=== PATIENT | male | born 1955 | race Caucasian/White ===

== ENCOUNTER → 2025-01-15 | Outpatient (CLI) | payer MEDICARE, BC, SELFPAY ==
[2025-01-15 10:39] LABS: Basophils # (Auto) 0.1 Thou/mm3 (0.0-0.2); Basophils % (Auto) 1 % (0-2.5); Eosinophils # (Auto) 0.2 Thou/mm3 (0.0-0.5); Eosinophils % (Auto) 2 % (0-10); Hematocrit 35.2 % (41.0-53.0); Immature Granulocytes % (Auto) 0 % (0-0); Immature Granulocytes Auto 0.02 Thou/mm3 (0.00-0.00); Lymphocytes # (Auto) 3.3 Thou/mm3 (1.0-4.8); Lymphocytes % (Auto) 34 % (10-50); Mean Corpuscular HGB Conc 31.3 g/dl (31.0-37.0); Mean Corpuscular Hemoglobin 25.7 pg (25.0-35.0); Mean Corpuscular Volume 82 fL (80-100); Monocytes # (Auto) 0.6 Thou/mm3 (0.0-0.8); Monocytes % (Auto) 6 % (0-12); Neutrophils # (Auto) 5.6 Thou/mm3 (1.8-7.7); Neutrophils % (Auto) 57 % (37-80); Nucleated Red Blood Cell % 0 /100 WBC (0); Platelet Count 329 Thou/mm3 (140-440); RDW Standard Deviation 55.6 fL (35.1-43.9); Red Blood Count 4.28 Miln/mm3 (4.50-5.90); White Blood Count 9.8 Thou/mm3 (3.8-10.6)
[2025-01-15 10:50] LABS: Iron 23 mcg/dL (65-175); Total Iron Binding Capacity 444 mcg/dL (250-425)
[2025-01-15 10:58] LABS: Alanine Aminotransferase 21 U/L (10-49); Albumin, Serum 4.2 gm/dL (3.4-4.8); Albumin/Globulin Ratio 2.3 (1.2-2.2); Alkaline Phosphatase 103 U/L (46-116); Anion Gap 10 (7-16); Aspartate Amino Transferase 22 U/L (0-34); BUN/Creatinine Ratio 14 Ratio (12-20); Bilirubin,Total 0.5 mg/dL (0.3-1.2); Blood Urea Nitrogen 14 mg/dL (9-23); Carbon Dioxide 23.4 mMol/L (20.0-31.0); Cardiac Risk Estimate 2.3 RATIO (4.0-6.7); Chloride 109 mMol/L (98-107); Cholesterol 100 mg/dL (132-200); Globulin 1.8 gm/dL (2.3-3.5); Glucose 116 mg/dL (74-106); HDL Cholesterol 44 mg/dL (40-60); LDL Cholesterol,Calculated 47 mg/dL (0-130); Osmolality,Calculated 284 (275-295); Potassium 4.4 mMol/L (3.4-5.1); Sodium 142 mMol/L (136-145); Thyroid Stimulating Hormone 2.48 uIU/mL (0.55-4.78); Triglycerides 45 mg/dL (30-150); eGFR > 60 See Note
== END | disposition home or self-care (01) ==
LOC: COPL 09:33
PROVIDERS: PCP Family Medicine; Referring Provider Family Medicine; Visit Provider Family Medicine
DX: M06.89 Other specified rheumatoid arthritis, multiple sites (principal); E11.65 Type 2 diabetes mellitus with hyperglycemia; I10 Essential (primary) hypertension; E66.01 Morbid (severe) obesity due to excess calories
CPT/HCPCS: 36415; 80053; 80061; 83540; 83550; 84443; 85025

== ENCOUNTER → 2025-03-09 | Outpatient (CLI) | payer MEDICARE, BC, SELFPAY ==
[2025-03-09 10:59] LABS: Thyroid Stimulating Hormone 2.27 uIU/mL (0.55-4.78)
[2025-03-15 07:11] LABS: ANA Screen, IFA POSITIVE (NEGATIVE)
== END | disposition home or self-care (01) ==
LOC: COPL 09:59
PROVIDERS: PCP Family Medicine; Referring Provider Specialist; Visit Provider Specialist
DX: R10.13 Epigastric pain (principal); R13.10 Dysphagia, unspecified
CPT/HCPCS: 36415; 84443; 86038

== ENCOUNTER 2025-04-02 06:50 | Day surgery (SDC) | payer MEDICARE, BC, SELFPAY ==
[2025-04-02 07:50] VITALS: BP 127/80; PULSE 94; RESP 20; TEMP 36.2; O2SAT 94
[2025-04-02 07:57] VITALS: BMI 36.8
[2025-04-02 08:46] LABS: Alanine Aminotransferase 11 U/L (10-49); Albumin, Serum 4.1 gm/dL (3.4-4.8); Albumin/Globulin Ratio 2.1 (1.2-2.2); Alkaline Phosphatase 181 U/L (46-116); Anion Gap 13 (7-16); Aspartate Amino Transferase 22 U/L (0-34); BUN/Creatinine Ratio 17 Ratio (12-20); Bilirubin,Total 0.9 mg/dL (0.3-1.2); Blood Urea Nitrogen 25 mg/dL (9-23); Calcium 8.9 mg/dL (8.3-10.6); Calcium (Corrected) 8.9 mg/dL (8.5-10.1); Carbon Dioxide 22.7 mMol/L (20.0-31.0); Chloride 104 mMol/L (98-107); Creatinine (Component) 1.5 mg/dL (0.6-1.3); Estimated Creatinine Clearance 58.6 mL/min (>60); Glucose 124 mg/dL (74-106); Osmolality,Calculated 284 (275-295); Potassium 4.2 mMol/L (3.4-5.1); Sodium 140 mMol/L (136-145); Total Protein 6.1 gm/dL (5.7-8.2); eGFR 50 See Note
[2025-04-02] MEDS: RINGERS LACTATED 1000 ML 1,000 ML 20 ML IV (09:05)
[2025-04-02 09:25] VITALS: BP 96/58; PULSE 85; RESP 24; TEMP 37.6; O2SAT 94
[2025-04-02 09:35] VITALS: BP 91/53; PULSE 86; RESP 29; O2SAT 96
[2025-04-02 09:45] VITALS: BP 98/53; PULSE 88; RESP 22; O2SAT 91
[2025-04-02 09:55] VITALS: BP 100/60; PULSE 87; RESP 23; O2SAT 93
== END 2025-04-02 10:20 | disposition home or self-care (01) ==
PROVIDERS: Anesthesiology; PCP Family Medicine; Referring Provider Specialist; Visit Provider Specialist
PROC: (CPT 43239; principal; 2025-04-02 08:30)
DX: C15.5 Malignant neoplasm of lower third of esophagus (principal); K29.70 Gastritis, unspecified, without bleeding; E11.9 Type 2 diabetes mellitus without complications; G20.A1 Parkinson's disease without dyskinesia, without mention of fluctuations; F02.80 Dementia in other diseases classified elsewhere, unspecified severity, without behavioral disturbance, psychotic disturbance, mood disturbance, and anxiety; Z79.84 Long term (current) use of oral hypoglycemic drugs; Z79.899 Other long term (current) drug therapy; Z01.810 Encounter for preprocedural cardiovascular examination
CPT/HCPCS: 43239; 36415; 80053; 88360; J7120

== ENCOUNTER → 2025-04-08 | Outpatient (CLI) | payer MEDICARE, BC, SELFPAY ==
--- NOTE | 2025-04-08 12:39 | XR_ITS ---
Examination: CT chest with intravenous contrast CT abdomen with intravenous contrast CT pelvis with intravenous contrast 2-D coronal and sagittal reconstructions Time of exam: April 08, 2025 1435 hours Comparison September 08, 2018 INDICATIONS: Diagnosis esophageal carcinoma 20 pound weight loss 1 month, difficulty swallowing CTDI: vol (mGy) : 27.5 DLP: (mGycm): 1367 Technique: Multiple axial images of the chest, abdomen and pelvis with intravenous contrast, 3.0 mm slice thickness. Images obtained post intravenous injection Isovue 30 cc Isovue-300 2-D sagittal and coronal reconstructions. Low dose protocols were performed. One or more of the following dose reduction techniques were used; automated exposure control, adjustment of the mA and/or KV according to patient size, use of iterative reconstruction technique. Findings: No thoracic cardiac aneurysm dilatation Pulmonary artery segments are not enlarged Thickened lower wall of the esophagus No mediastinal lymphadenopathy 4 mm pulmonary nodule right lower lobe image 261 No pneumonia or pulmonary edema 12 mm lymph node adjacent to the descending thoracic aorta image 128 No visualized liver or splenic lesion Absent gallbladder No pancreatic mass Lymph nodes in the anterior mesentery, 10 mm 8 mm 12 mm image 167 Multiple additional lower anterior to the aorta lymph nodes, the largest measuring 14 mm Lower left lateral periaortic lymphadenopathy, the largest lymph nodes 20 mm, 28 mm Bilateral common iliac lymphadenopathy, the largest lymph nodes on the right measuring up to 10 mm No bowel obstruction Contracted urinary bladder No significant prostatomegaly Prominent osteopenia IMPRESSION: 4 mm pulmonary nodule right lower lobe Thickened lower wall of the esophagus Lymphadenopathy adjacent to the descending thoracic aorta Extensive abdominal pelvic and mesenteric lymphadenopathy Consider PET CT scan follow-up
== END | disposition home or self-care (01) ==
PROVIDERS: PCP Specialist; Referring Provider Specialist; Visit Provider Specialist
DX: R91.1 Solitary pulmonary nodule (principal); R59.1 Generalized enlarged lymph nodes; K22.89 Other specified disease of esophagus; C15.9 Malignant neoplasm of esophagus, unspecified
CPT/HCPCS: 71260; 74177; A4649; Q9967

== ENCOUNTER → 2025-04-08 | Outpatient (CLI) | payer MEDICARE, BC, SELFPAY ==
[2025-04-08 12:21] LABS: Basophils # (Auto) 0.1 Thou/mm3 (0.0-0.2); Basophils % (Auto) 1 % (0-2.5); Eosinophils # (Auto) 0.6 Thou/mm3 (0.0-0.5); Eosinophils % (Auto) 6 % (0-10); Hematocrit 34.3 % (41.0-53.0); Hemoglobin 11.5 g/dL (13.5-16.0); Immature Granulocytes % (Auto) 1 % (0-0); Immature Granulocytes Auto 0.14 Thou/mm3 (0.00-0.00); Lymphocytes # (Auto) 2.1 Thou/mm3 (1.0-4.8); Lymphocytes % (Auto) 21 % (10-50); Mean Corpuscular HGB Conc 33.5 g/dl (31.0-37.0); Mean Corpuscular Hemoglobin 26.1 pg (25.0-35.0); Mean Corpuscular Volume 78 fL (80-100); Monocytes # (Auto) 0.9 Thou/mm3 (0.0-0.8); Monocytes % (Auto) 9 % (0-12); Neutrophils # (Auto) 6.5 Thou/mm3 (1.8-7.7); Neutrophils % (Auto) 63 % (37-80); Nucleated Red Blood Cell % 0 /100 WBC (0); Platelet Count 319 Thou/mm3 (140-440); RDW Standard Deviation 55.5 fL (35.1-43.9); White Blood Count 10.3 Thou/mm3 (3.8-10.6)
[2025-04-08 12:40] LABS: Alanine Aminotransferase 19 U/L (10-49); Albumin, Serum 4.3 gm/dL (3.4-4.8); Alkaline Phosphatase 192 U/L (46-116); Anion Gap 14 (7-16); Aspartate Amino Transferase 28 U/L (0-34); BUN/Creatinine Ratio 18 Ratio (12-20); Bilirubin,Total 0.7 mg/dL (0.3-1.2); Blood Urea Nitrogen 33 mg/dL (9-23); Calcium 9.4 mg/dL (8.3-10.6); Calcium (Corrected) 9.4 mg/dL (8.5-10.1); Chloride 104 mMol/L (98-107); Creatinine (Component) 1.8 mg/dL (0.6-1.3); Globulin 2.2 gm/dL (2.3-3.5); Glucose 103 mg/dL (74-106); Osmolality,Calculated 292 (275-295); Sodium 143 mMol/L (136-145); Total Protein 6.5 gm/dL (5.7-8.2); eGFR 40 See Note
== END | disposition home or self-care (01) ==
PROVIDERS: PCP Family Medicine; Referring Provider Specialist; Visit Provider Specialist
DX: C15.9 Malignant neoplasm of esophagus, unspecified (principal)
CPT/HCPCS: 36415; 80053; 85025

== ENCOUNTER 2025-04-09 07:05 | Day surgery (SDC) | payer MEDICARE, BC, SELFPAY ==
[2025-04-09] VITALS (14 sets, daily range): BP systolic 101–134; BP diastolic 64–88; PULSE 80–100; RESP 19–29; TEMP 36.5–36.8; O2SAT 93–97; BMI 35.9
[2025-04-09] MEDS: SODIUM CHLORIDE 0.9% 500 ML 500 ML 20 ML IV (09:25)
[2025-04-09] MEDS: fentaNYL CIT INJ 50 mCg/ML AMP 2ML (ASD USE ONLY) IVP (09:26)
[2025-04-09] MEDS: DiphenhydrAMINE INJ 50 MG/ML VIAL 25 MG IVP (09:32)
[2025-04-09] MEDS: MIDAZOLAM INJ 1 MG/ML VIAL 2 ML (ASD USE ONLY) 2 MG IVP (09:40)
--- NOTE | 2025-04-09 09:55 | SUR.PHASEII ---
0955: pt received from OR via [employer]. received from SALVADOR Mancia. pt sleepy but able to open eyes when called his name. peg tube clean, dry and intact. no s/s of bleeding or discharge from dressing. no s/s of pain or discomfort. no s/s of resp. distress or discomfort.
[2025-04-09] MEDS: ceFAZolin 1 GM in SODIUM CHLORIDE 0.9% (POP) 100 ML IV (10:17)
--- NOTE | 2025-04-09 10:35 | SUR.PHASEII ---
1035: pt able to awake and open eyes. denies any c/o pain or discomfort.
--- NOTE | 2025-04-09 10:51 | SUR.PHASEII ---
Abdomonal binder placed at this time, tolerated well.
--- NOTE | 2025-04-09 10:52 | SUR.PHASEII ---
able to drink zips of water without any difficulty.
--- NOTE | 2025-04-09 11:18 | SUR.PHASEII ---
1118: discharge to home via wheelchair. pt alert and oriented to name, place and time. peg tube clean, dry and intact, no bleeding or discharge noted. abdominal binder in place. instructions given to Chey and pt, verbalizes understanding. all belongings brought given back to patient.
== END 2025-04-09 11:18 | disposition home or self-care (01) ==
PROVIDERS: PCP Family Medicine; Referring Provider Specialist; Visit Provider Specialist
PROC: 0DH63UZ Insertion of Feeding Device into Stomach, Percutaneous Approach (ICD-10-PCS; CPT 43246; principal; 2025-04-09 08:30)
DX: C15.9 Malignant neoplasm of esophagus, unspecified (principal); R13.10 Dysphagia, unspecified; F99 Mental disorder, not otherwise specified; E11.9 Type 2 diabetes mellitus without complications; Z79.84 Long term (current) use of oral hypoglycemic drugs; G20.A1 Parkinson's disease without dyskinesia, without mention of fluctuations; F02.80 Dementia in other diseases classified elsewhere, unspecified severity, without behavioral disturbance, psychotic disturbance, mood disturbance, and anxiety; Z79.899 Other long term (current) drug therapy
CPT/HCPCS: 43246; A4649; J0690; J1200; J2250; J3010; J7040

== ENCOUNTER 2025-04-15 13:41 | Outpatient (RCR) | payer MEDICARE, BC, SELFPAY ==
--- NOTE | 2025-04-15 15:15 | CTCCONSULT_ITS ---
[facility] [address] [place], [place] [address] Consultation Note Date: 04/15/2025 MR#: [id number] Name: JOSIAH ESPOSITO : 1955 Dx: C15.5 Malignant neoplasm of lower third of esophagus Attending physician. Ashutosh Mahajan MD Referring physician. Jacinto Rowland MD Reason for consultation. Recent discovery of distal esophageal CA. History of Present Illness: Patient is a 69-year-old gentleman who was experiencing weight loss dysphagia dyspepsia weight loss and underwent upper endoscopy performed by Dr. Rowland on 04/02/2025. This revealed partially obstructing malignant appearing esophageal tumor in the lower third of the esophagus. The mass started at 30 cm from the point of entry goes all the way to the GE junction. 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 There was no loss of expression in all 4 mismatch repair proteins. Patient had chest abdomen pelvis CT 04/08/2025 revealing a 4 mm pulm onary nodule right lower lobe thickening lower wall of the esophagus lymphadenopathy adjacent to the descending thoracic aorta and extensive abdominal pelvic and mesenteric lymphadenopathy. Most recent labs 04/08/2025 WBC 10.3 hemoglobin 11.5 platelets 319,000. CMP shows mildly elevated BUN/creatinine of 33 and 1.8 EGFR 40 and moderately elevated alk phos of 192. Patient who has difficulty swallowing had PEG tube which is being used today for nutrition purposes. Has lost over 30 pounds in the past few months. Past Medical History: Diabetes mellitus Parkinson's history of cholecystectomy peptic ulcer disease prior knee replacement arthritis Family history. No history of colon cancer Meds. 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 Now using G-tube for nutrition has pain not relieved by hydrocodone. Physical Exam: General: Adequate nourished appearing gentleman no acute distress HEENT: Atraumatic normocephalic extraocular is intact no oral lesions no cervical or supraclavicular adenopathy CV: Chest good auscultation heart regular rate and rhythm ABD: G-tube noted functioning well EXT: No signs of clubbing or edema Assessment: 1.Patient with distal esophageal CA, undifferentiated carcinoma with rare signet cells. #2. Appears extensive extending from [address] to the GE junction with CT showing lymphadenopathy adjacent to the descending thoracic aorta and extensive abdominal pelvic and mesenteric lymphadenopathy. #3. Has G-tube for nutrition support #4. Port for the anticipated chemo as well as PET scan for staging purposes #5. Hydrocodone reportedly is not helping him enough and I will order morphine liquid for pain alleviation. #6. Dr. Oliver medical oncologist to see patient #7. Will see him back in 1 month's time. Thank you for allowing me to evaluate this patient. Cc: MD Ashutosh Leal MD Electronically signed by: Fernando Saeed MD, DABR 04/15/2025 3:12 PM
== END 2025-05-03 23:59 | disposition home or self-care (01) ==
LOC: SCTC 13:41
PROVIDERS: PCP Specialist; Referring Provider Specialist; Visit Provider Radiology Therapeutic Radiology
DX: C15.5 Malignant neoplasm of lower third of esophagus (principal); R59.1 Generalized enlarged lymph nodes; Z93.1 Gastrostomy status
CPT/HCPCS: 99213; G0463

== ENCOUNTER 2025-04-26 10:32 | Inpatient (IN) | payer MEDICARE, BC, SELFPAY ==
[2025-04-26] VITALS (9 sets, daily range): BP systolic 118–145; BP diastolic 73–95; PULSE 88–130; RESP 18–91; TEMP 36.1–36.8; O2SAT 92–98; BMI 34.4
--- NOTE | 2025-04-26 10:42 | EKG_ITS ---
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
--- NOTE | 2025-04-26 11:18 | PD.EDABDPN ---
ED Abdominal Pain RME/HPI General Chief Complaint: Abdominal Pain Stated complaint: not tolerating g-tube feedings, abd pain Time seen by provider: 04/26/25 11:04 Arrival date/time: 04/26/25 10:32 Limitations: no limitations RME / HPI RME / HPI narrative: 69-year-old male with a history of bipolar disorder and esophageal cancer is here today with a 4 to 5-day history of nausea, vomiting, and loose stools. Denies any blood with his emesis or diarrhea. He had a G-tube placed approximately 10 days ago here at this hospital. He states this is patent and functioning. Denies any fevers or chills. Has no changes in urination. Denies any concerns regarding surgical site infection. He is tachycardic upon presentation. Related Data Home Medications ?Medication ?Instructions ?Recorded ?Confirmed folic acid 1 mg tablet 1 mg PO QDAY 09/09/18 04/26/25 carbidopa 10 mg-levodopa 100 mg 1 tab PO TID 07/27/20 04/26/25 tablet lamotrigine 50 mg disintegrating 50 mg PO DAILY 07/27/20 04/26/25 tablet methotrexate sodium 2.5 mg tablet 15 mg PO QWEEK 07/27/20 04/26/25 tamsulosin 0.4 mg capsule 0.4 mg PO QDAY 07/27/20 04/26/25 carvedilol 6.25 mg tablet 6.25 mg PO Q12H 04/02/25 04/26/25 dulaglutide 3 mg/0.5 mL 3 mg subcut QWEEK 04/02/25 04/26/25 subcutaneous pen injector (Trulicity) quetiapine 400 mg tablet,extended 400 mg PO QDAY 04/02/25 04/26/25 release 24 hr carbidopa 25 mg-levodopa 100 mg 1 tab PO TID 04/26/25 04/26/25 tablet gabapentin 100 mg capsule 100 mg PO TID 04/26/25 04/26/25 hydrocodone 5 mg-acetaminophen 325 1 tab PO BID 04/26/25 04/26/25 mg tablet lamotrigine 200 mg tablet 200 mg PO QDAY 04/26/25 04/26/25 losartan 25 mg tablet 25 mg PO QDAY 04/26/25 04/26/25 morphine 100 mg/5 mL oral 10 mg PO [id number] PRN pain 04/26/25 04/26/25 concentrate pantoprazole 40 mg tablet,delayed 40 mg PO QDAY 04/26/25 04/26/25 release Allergies Allergy/AdvReac Type Severity Reaction Status Date / Time No Known Allergies Allergy Verified 04/26/25 10:33 Review of Systems Review of Systems Systems Reviewed: All systems reviewed, normal except as documented ED Exam General Limitations: Present no limitations General appearance: Present alert Head Head exam: Present atraumatic Eye Eye exam: Present normal appearance, PERRL and EOMI ENT ENT exam: Present normal exam, normal oropharynx, mucous membranes moist and other (Voice is clear, there is no drooling) Neck Neck exam: Present normal inspection, full ROM and trachea midline Chest Chest inspection: Present normal inspection and symmetric chest wall rise Respiratory Respiratory exam: Present normal lung sounds bilaterally Cardiovascular Cardiovascular exam: Present tachycardia and normal heart sounds Abdominal Exam Abdominal exam: Present soft, normal bowel sounds and other (No erythema, warmth, or fluctuance at the G-tube site.); Absent distention Extremities Exam Extremities exam: Present normal inspection and full ROM Back Exam Back exam: Present normal inspection and full ROM Neurological Exam Neurological exam: Present alert, oriented X3 and CN II-XII intact Psychiatric Psychiatric exam: Present normal affect and other (Anxious appearing. Answering questions appropriately) Skin Skin exam: Present warm, dry, intact and normal color Course Quality Measures none Orders Category Date Time Status Admit to Inpatient Status Routine Admission 04/26/25 14:06 Active Patient Condition Routine Admission 04/26/25 14:06 Ordered Activity as Tolerated Routine Care 04/26/25 14:08 Ordered Bedside COVID-19 Antigen Test NOW Care 04/26/25 12:51 Active Bedside Influenza A&B Antigen Test NOW Care 04/26/25 12:51 Completed COVID-19 Screening Questionnaire NOW Care 04/26/25 12:[address] Screening NOW Care 04/26/25 11:32 Active Continuous Pulse Oximetry NOW Care 04/26/25 14:05 Completed Decision to Admit X1 Care 04/26/25 12:53 Completed EKG (ED ONLY) *Do not use* NOW Care 04/26/25 10:42 Completed IV [Insert IV] STAT Care 04/26/25 11:08 Active Notify provider NEEDED Care 04/26/25 14:[address] abdomen pelvis w con Stat Exams 04/26/25 11:32 Completed EKG (ED Only) Stat Exams 04/26/25 10:42 Draft XR chest 1V Stat Exams 04/26/25 12:51 Completed Blood Culture (Lab) Stat Lab 04/26/25 12:30 Received CBC Stat Lab 04/26/25 11:23 Completed CMP [Comprehensive Metabolic Panel] Stat Lab 04/26/25 11:23 Completed Lactic Acid [Lactate (Lactic Acid)] Stat Lab 04/26/25 12:33 Completed Lipase Stat Lab 04/26/25 11:23 Completed UA [Urinalysis] Stat Lab 04/26/25 12:51 Completed Acetaminophen Georgette [Tylenol Georgette] Med 04/26/25 14:05 Active 650 mg GT Q6H PRN Albuterol/Ipratr Rt Georgette [Duoneb Rt Georgette] Med 04/26/25 19:00 Discontinued 3 ml INH Q6HRRT Morphine Inj Med 04/26/25 11:08 Discontinued 4 mg IVP X1 ONE Ondansetron Inj [Zofran Inj] Med 04/26/25 14:05 Active 4 mg IVP Q6H PRN Ondansetron Inj [Zofran Inj] Med 04/26/25 11:08 Discontinued 4 mg IVP X1 ONE Piper/Tazo 3.375 gm Premix [Zosyn] Med 04/26/25 22:00 Discontinued 3.375 gm in 50 ml IV Q8HR Piper/Tazo Inj [Zosyn Inj] 4.5 gm Med 04/26/25 12:15 Discontinued Sodium Chloride 0.9% (Pop) [NS 0.9% mini bag] 100 ml IV X1 Sodium Chloride 0.9% 1000 ml [Ns] 1,000 ml Med 04/26/25 11:08 Discontinued IV 999 mls/hr Sodium Chloride 0.9% 1000 ml [Ns] 1,000 ml Med 04/26/25 12:53 Discontinued IV 999 mls/hr Code Status Routine Oth 04/26/25 14:05 Ordered Oxygen Delivery PRN RT 04/26/25 14:05 Active Vital Signs Vital signs: Vital Signs Temperature 97.6 F 04/26/25 10:39 Pulse Rate 130 H 04/26/25 10:39 Respiratory Rate 19 04/26/25 10:39 Blood Pressure 136/85 H 04/26/25 10:39 Pulse Oximetry (%) 97 04/26/25 10:39 Oxygen Delivery Method Room Air 04/26/25 10:39 Abdominal Pain MDM MDM Narrative MDM Narrative:: 12:07 Patient has tachycardia, recent surgery, and now has leukocytosis. Sepsis alert initiated. 12:[address], there is no evidence of postsurgical abscess. Patient was reexamined and is feeling much better. Heart rate is improved to 110 bpm. Lactic acid is unremarkable. Will provide additional fluid bolus. We will admit to medicine. 13:30 PM Spoke with medical file clerk with hospitalist team. Discussed patient's case. They will review the patient's chart and consider admission. Patient data External records reviewed:: None Clinical information provided by:: patient and friend Social determinants that could affect healthcare access:: mental health Patient has the following chronic illnesses:: Metastatic esophageal cancer How is presenting disease/condition affected by chronic disease/condition?: exacerbated by Evaluation data The following diagnostics were reviewed and interpreted by me:: lab results (Patient has a significant leukocytosis of 29.6K, hemoglobin is 12.3, hematocrit 36.6 glucose is 135, he has a mild hypercalcemia at 11.4, assuming this is related to his metastatic disease. AST is elevated 84, ALT at 71. Alk phos is 376. There is no significant metabolic derangement.), radiology exam(s) (Reviewed CT report, there is no evidence of postsurgical abscess.) and EKG tracing(s) (Sinus tachycardia at [address] changes or dynamic T waves.) Lab and/or radiology exams considered but not ordered:: n/a Interpretation Summary: Significant leukocytosis with elevated liver enzymes. Elevated liver enzymes may be related to patient's recent intra-abdominal surgery. Medications / Prescriptions Medications or Prescriptions considered but not ordered:: n/a Medication administrations:: Medication Administration History Acetaminophen (Acetaminophen Georgette 325 Mg/10 Ml Udc) 650 mg GT Q6H PRN PRN Reason: Fever >101.5 Stop: 05/26/25 14:04 Albuterol/Ipratropium (Albuterol/Ipratropium (Duoneb) Rt Georgette 3 Ml Nebu) 3 ml INH Q6HRRT PRN PRN Reason: wheezing sob Stop: 05/26/25 18:59 Carbidopa/Levodopa (Carbidopa/Levodopa 25/100 Mg Tablet) 1 tab GT TID [facility] Stop: 05/26/25 21:59 Last Admin: 04/26/25 21:03 Dose: 1 tab Documented By: Carvedilol (Carvedilol 3.125 Mg Tablet) 6.25 mg GT BIDWM [facility] Stop: 05/27/25 07:59 Gabapentin (Gabapentin 100 Mg Capsule) 100 mg GT TID [facility] Stop: 05/26/25 21:59 Last Admin: 04/26/25 21:04 Dose: 100 mg Documented By: Heparin Sodium (Porcine) (Heparin Sod Inj 5000 Unit/Ml Vial) 5,000 unit SC Q8HR [facility] Stop: 05/10/25 21:59 Last Admin: 04/26/25 21:04 Dose: 5,000 unit Documented By: Co-signed By: WOLFGANG Sodium Chloride (Ns) 1,000 mls @ 80 mls/hr IV .[id number] [facility] Stop: 05/26/25 15:45 Last Admin: 04/26/25 16:08 Dose: 80 mls/hr Documented By: KATIE Losartan Potassium (Losartan Potassium 25 Mg Tablet) 25 mg GT QDAY [facility] Stop: 05/27/25 08:59 Morphine Sulfate (Morphine Sulf Inj 10 Mg/Ml Vial) 2 mg IVP Q4HR PRN PRN Reason: PAIN Stop: 05/01/25 14:15 Last Admin: 04/26/25 21:04 Dose: 2 mg Documented By: Ondansetron HCl (Ondansetron Inj 2 Mg/Ml Inj 2 Ml) 4 mg IVP Q6H PRN; Protocol PRN Reason: NAUSEA OR VOMITING Stop: 05/26/25 14:04 Pantoprazole Sodium (Pantoprazole Inj 40 Mg Vial) 40 mg IVP QDAY [facility] Stop: 05/27/25 08:59 Pharmacy Consult (Vancomycin Pharmacy To Dose 1 Each Each) 1 each IV QDAY [facility] Stop: 05/27/25 08:59 Quetiapine Fumarate (Quetiapine Fumarate 100 Mg Tablet) 200 mg GT BID [facility] Stop: 05/27/25 08:59 Tamsulosin HCl (Tamsulosin Hcl 0.4 Mg Capsule) 0.4 mg PO QDAY [facility] Stop: 05/27/25 08:59 Discontinued Medications Albuterol/Ipratropium (Albuterol/Ipratropium (Duoneb) Rt Georgette 3 Ml Nebu) 3 ml INH Q6HRRT [facility] Stop: 05/26/25 18:59 Carbidopa/Levodopa (Carbidopa/Levodopa 25/100 Mg Tablet) 1 tab PO TID [facility] Stop: 05/26/25 21:59 Sodium Chloride (Ns) 1,000 mls @ 999 mls/hr IV .Q1H1M ONE Stop: 04/26/25 12:08 Last Infusion: 04/26/25 12:07 Dose: Infused Documented By: Admin: 04/26/25 11:27 Dose: 999 mls/hr Documented By: CG Piperacillin Sod/Tazobactam (Sod 4.5 gm/ Sodium Chloride) 100 mls @ 200 mls/hr IV X1 ONE Stop: 04/26/25 12:44 Last Infusion: 04/26/25 12:57 Dose: Infused Documented By: Admin: 04/26/25 12:29 Dose: 200 mls/hr Documented By: CG Piperacillin/Tazobactam/Dextrose (Zosyn) 3.375 gm in 50 mls @ 12.5 mls/hr IV Q8HR [facility] Stop: 05/03/25 21:59 Sodium Chloride (Ns) 1,000 mls @ 999 mls/hr IV .Q1H1M ONE Stop: 04/26/25 13:53 Last Infusion: 04/26/25 14:25 Dose: Infused Documented By: Admin: 04/26/25 13:20 Dose: 999 mls/hr Documented By: CG Azithromycin 500 mg/ Sodium (Chloride) 250 mls @ 250 mls/hr IV X1 ONE Stop: 04/26/25 15:13 Last Admin: 04/26/25 14:24 Dose: Not Given Documented By: SF Non-Admin Reason: Discontinued Ceftriaxone Sodium 1 gm/ (Sodium Chloride) 50 mls @ 100 mls/hr IV QDAY [facility] Stop: 05/03/25 14:13 Last Admin: 04/26/25 14:25 Dose: Not Given Documented By: SF Non-Admin Reason: Discontinued Vancomycin HCl 2,000 mg/ (Sodium Chloride) 500 mls @ 150 mls/hr IV X1 ONE Stop: 04/26/25 18:04 Last Admin: 04/26/25 16:07 Dose: 150 mls/hr Documented By: AA Morphine Sulfate (Morphine Sulf Inj 10 Mg/Ml Vial) 4 mg IVP X1 ONE Stop: 04/26/25 11:09 Last Admin: 04/26/25 11:26 Dose: 4 mg Documented By: CG Ondansetron HCl (Ondansetron Inj 2 Mg/Ml Inj 2 Ml) 4 mg IVP X1 ONE; Protocol Stop: 04/26/25 11:09 Last Admin: 04/26/25 11:26 Dose: 4 mg Documented By: CG See above Consultations Consultation(s) initiated? (list below): No Diagnosis Differential diagnosis abdominal pain: abdominal pain, acute appendicitis, constipation, gastroenteritis, small bowel obstruction and other (Postsurgical infection) Most likely diagnosis given after review of the tests above:: Sepsis Admission Indicated Admission indicated?: indicated Admission Request Was there a request for admission?: Yes Admission Attestation Admission request attestation: Discussed case with [] from Hospitalist service regarding admission. Discussed patients ED course, exam findings, labs, and radiology results. The Hospitalist [agrees,declines] to accept the patient for admission. Disposition Plan Disposition Plan: Admit Discharge Plan Plan Patient Disposition: Admit Acute Care w/in Hospital Patient condition on transfer: Stable Problem List Clinical Impression: Sepsis, Esophageal cancer, Pneumonia
[2025-04-26] MEDS: MORPHINE SULF INJ 10 MG/ML VIAL 4 MG IVP (11:26)
[2025-04-26] MEDS: ONDANSETRON INJ 2 MG/ML INJ 2 ML 4 MG IVP (11:26)
[2025-04-26] MEDS: SODIUM CHLORIDE 0.9% 1000 ML 1,000 ML 999 ML IV ×2 (11:27→13:20)
--- NOTE | 2025-04-26 11:32 | XR_ITS ---
Examination: CT abdomen with intravenous contrast CT pelvis with intravenous contrast 2-D coronal reconstructions 2-D sagittal reconstructions Date and time of exam:April 26, 2025 1215 hours Comparison April 08, 2025 INDICATIONS: Postsurgical abdominal pain, gastrostomy tube placed 10 days ago, diagnosis esophageal carcinoma CTDI: vol (mGy) 12.9 DLP: (mGycm) 957 Technique: Multiple axial sections of the abdomen and pelvis have been obtained. 64 slice high-resolution scanner used. 3 mm axial sections have been obtained, post intravenous injection 60 cc Isovue-370 2-D sagittal, coronal reconstructions obtained. Low dose protocols were performed. One or more of the following dose reduction techniques were used; automated exposure control, adjustment of the mA and/or KV according to patient size, use of iterative reconstruction technique. Findings: Marked thickening of the lower wall of the esophagus Mild left pleural effusion Pneumonia both bases No focal liver or splenic lesions Absent gallbladder Gastrostomy tube appears to be overlying the wall of the stomach No definite pancreatic mass Extensive abnormal lymphadenopathy, adjacent to the ascending thoracic aorta, periaortic pericaval and in the mesentery extending into the pelvis in the common iliac and internal iliac and external iliac regions No hydronephrosis Normal appendix No bowel obstruction Contracted urinary bladder Severe osteopenia with subtle osteolytic lesions throughout the vertebral bodies sacral segments and iliac bones and even hips IMPRESSION: Marked abnormal thickening of the lateral wall esophagus in this patient with the diagnosis of the esophageal carcinoma Recommend injecting the gastrostomy tube with contrast to exclude abnormal position of the gastrostomy tube in the wall or outside the stomach Extensive metastatic lymphadenopathy as above Widespread osteolytic metastatic disease
[2025-04-26 11:38] LABS: Basophils # (Auto) 0.2 Thou/mm3 (0.0-0.2); Basophils % (Auto) 1 % (0-2.5); Eosinophils # (Auto) 0.3 Thou/mm3 (0.0-0.5); Eosinophils % (Auto) 1 % (0-10); Hematocrit 36.6 % (41.0-53.0); Hemoglobin 12.3 g/dL (13.5-16.0); Immature Granulocytes Auto 1.95 Thou/mm3 (0.00-0.00); Lymphocytes # (Auto) 4.4 Thou/mm3 (1.0-4.8); Lymphocytes % (Auto) 15 % (10-50); Mean Corpuscular HGB Conc 33.6 g/dl (31.0-37.0); Mean Corpuscular Hemoglobin 26.9 pg (25.0-35.0); Mean Corpuscular Volume 80 fL (80-100); Monocytes # (Auto) 2.1 Thou/mm3 (0.0-0.8); Monocytes % (Auto) 7 % (0-12); Neutrophils # (Auto) 20.7 Thou/mm3 (1.8-7.7); Neutrophils % (Auto) 70 % (37-80); Nucleated Red Blood Cell # 0.02 Thou/mm3 (0.00-0.00); Nucleated Red Blood Cell % 0 /100 WBC (0); Platelet Count 255 Thou/mm3 (140-440); RDW Standard Deviation 57.1 fL (35.1-43.9); Red Blood Count 4.58 Miln/mm3 (4.50-5.90); White Blood Count 29.6 Thou/mm3 (3.8-10.6)
[2025-04-26 11:52] LABS: Alanine Aminotransferase 71 U/L (10-49); Albumin, Serum 3.8 gm/dL (3.4-4.8); Albumin/Globulin Ratio 1.7 (1.2-2.2); Alkaline Phosphatase 376 U/L (46-116); Anion Gap 12 (7-16); Aspartate Amino Transferase 84 U/L (0-34); BUN/Creatinine Ratio 38 Ratio (12-20); Bilirubin,Total 0.9 mg/dL (0.3-1.2); Blood Urea Nitrogen 45 mg/dL (9-23); Calcium 11.4 mg/dL (8.3-10.6); Calcium (Corrected) 11.6 mg/dL (8.5-10.1); Carbon Dioxide 24.5 mMol/L (20.0-31.0); Chloride 101 mMol/L (98-107); Creatinine (Component) 1.2 mg/dL (0.6-1.3); Estimated Creatinine Clearance 70.8 mL/min (>60); Globulin 2.3 gm/dL (2.3-3.5); Glucose 135 mg/dL (74-106); Lipase 41 U/L (12-53); Osmolality,Calculated 287 (275-295); Potassium 4.3 mMol/L (3.4-5.1); Sodium 137 mMol/L (136-145); Total Protein 6.1 gm/dL (5.7-8.2); eGFR > 60 See Note
[2025-04-26] MEDS: PIPER/TAZO INJ 4.5 GM in SODIUM CHLORIDE 0.9% (POP) 100 ML IV (12:29)
[2025-04-26 12:47] LABS: Lactate (Lactic Acid) 1.9 mMol/L (0.4-2.0)
--- NOTE | 2025-04-26 12:51 | XR_ITS ---
Examination: AP chest single view Technique one AP portable upright chest single view Date and time: April 26, 2029 1259 hours INDICATIONS: Sepsis today FINDINGS: Subtle opacity in both lungs consistent with early pneumonia Abnormally prominent right mediastinum, please see the CT abdomen pelvis report today indicating extensive lymphadenopathy Normal heart size Prominent osteopenia IMPRESSION: Subtle early bilateral pneumonia
--- NOTE | 2025-04-26 14:25 | PD.RESHP ---
Documentation for date of: 04/26/25 HPI History of Present Illness History of present illness: Mr. 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 Patient also endorsed b/l flank pain and difficulty in initiating urination. Patient denied dysuria, fever, chills, chest pain/pressure or other associated symptoms. Patient was initially seen by Dr. Rowland for dysphagia and weight loss thus undergoing endooscopy on 04/02/25 which revealed obstructing malignant tumor in the lower third of esophagus. 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 Patient also following up with radiation oncologist Dr. Saeed, currently pending PET scan prior to finalization of radiation vs. chemotherapy treatment. Today patient states that his diarrhea has resolved but continues to have mild nausea. ED vital was significant for tachycardia, labs showed WBC 29.6, HgB 12.3, BUN 45, [place] 1.2, glucose 135, Ca 11.6, AST 84, ALT 71, ALP 376. Urinalysis was negative for UTI. Abdomen pelvis CT showed: Marked abnormal thickening of the lateral wall esophagus in this patient with the diagnosis of the esophageal carcinoma, Extensive metastatic lymphadenopathy and Widespread osteolytic metastatic disease. Chest x-ray showed Subtle early bilateral pneumonia. Patient will be admitted for further management of infection. 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 Allergies: NKDA Code Status: Full Code Review of Systems Review of Systems Systems Reviewed: All systems reviewed, normal except as documented Exam Vital Signs Temp Pulse Resp BP Pulse Ox O2 Del Method 97.6 F 117 H 31 H 141/95 H 93 L Room Air 04/26/25 10:39 04/26/25 11:30 04/26/25 11:30 04/26/25 11:30 04/26/25 11:30 04/26/25 10:39 Narrative Exam Constitutional: well-developed, well-nourished, in no acute distress, lying in bed HEENT: NCAT, EOMI, reactive round pupils b/l, patent nares b/l, moist mucous membranes Lung: CTAB, no wheezing, no rhonchi Heart: Regular S1S2, no murmurs, gallops, or rubs Abdomen: Soft, obese, non-distended, mild tenderness on palpation, bowel sounds present, G-tube with abdominal binder noted Extremities: No cyanosis, clubbing, or edema, LE pulses present b/l Neurologic: No focal sensory or motor deficits noted, AOx3, appropriate affect Results: Labs 04/28/25 04:56 04/28/25 04:56 Labs: Short CBC 04/26/25 Range/Units 11:23 WBC 29.6 H (3.8-10.6) Thou/mm3 Hgb 12.3 L (13.5-16.0) g/dL Hct 36.6 L (41.0-53.0) % Plt Count 255 D (140-440) Thou/mm3 BMP 04/26/25 11:23 Sodium 137 Potassium 4.3 Chloride 101 Carbon Dioxide 24.5 BUN 45 H Creatinine 1.2 Glucose 135 H Calcium 11.4 H Liver Function 04/26/25 Range/Units 11:23 Total Bilirubin 0.9 (0.3-1.2) mg/dL AST 84 H (0-34) U/L ALT 71 H (10-49) U/L Alkaline Phosphatase 376 H (46-116) U/L Albumin 3.8 (3.4-4.8) gm/dL Quality Measures Quality Measures VTE prophylaxis Advance care planning discussed with:: patient Medications Home Medications and Allergies Home Medications ?Medication ?Instructions ?Recorded ?Confirmed ?Type folic acid 1 mg tablet 1 mg PO QDAY 09/09/18 04/26/25 History carbidopa 10 mg-levodopa 100 mg 1 tab PO TID 07/27/20 04/26/25 History tablet lamotrigine 50 mg disintegrating 50 mg PO DAILY 07/27/20 04/26/25 History tablet methotrexate sodium 2.5 mg tablet 15 mg PO QWEEK 07/27/20 04/26/25 History tamsulosin 0.4 mg capsule 0.4 mg PO QDAY 07/27/20 04/26/25 History carvedilol 6.25 mg tablet 6.25 mg PO Q12H 05/30/25 06/23/25 History dulaglutide 3 mg/0.5 mL 3 mg subcut QWEEK 04/02/25 04/26/25 History subcutaneous pen injector (Trulicity) quetiapine 400 mg tablet,extended 400 mg PO QDAY 04/02/25 04/26/25 History release 24 hr carbidopa 25 mg-levodopa 100 mg 1 tab PO TID 04/26/25 04/26/25 History tablet gabapentin 100 mg capsule 100 mg PO TID 04/26/25 04/26/25 History hydrocodone 5 mg-acetaminophen 325 1 tab PO BID 04/26/25 04/26/25 History mg tablet lamotrigine 200 mg tablet 200 mg PO QDAY 04/26/25 04/26/25 History losartan 25 mg tablet 25 mg PO QDAY 04/26/25 04/26/25 History morphine 100 mg/5 mL oral 10 mg PO [id number] PRN pain 04/26/25 04/26/25 History concentrate pantoprazole 40 mg tablet,delayed 40 mg PO QDAY 04/26/25 04/26/25 History release Allergies Allergy/AdvReac Type Severity Reaction Status Date / Time No Known Allergies Allergy Verified 04/26/25 10:33 Visit Medications Acetaminophen (Acetaminophen Georgette 325 Mg/10 Ml Udc) 650 mg GT Q6H PRN PRN Reason: Fever >101.5 Stop: 05/26/25 14:04 Albuterol/Ipratropium (Albuterol/Ipratropium (Duoneb) Rt Georgette 3 Ml Nebu) 3 ml INH Q6HRRT ELLIOTT Stop: 05/26/25 18:59 Heparin Sodium (Porcine) (Heparin Sod Inj 5000 Unit/Ml Vial) 5,000 unit SC Q8HR ELLIOTT Stop: 05/10/25 21:59 Morphine Sulfate (Morphine Sulf Inj 10 Mg/Ml Vial) 2 mg IVP Q4HR PRN PRN Reason: PAIN Stop: 05/01/25 14:15 Ondansetron HCl (Ondansetron Inj 2 Mg/Ml Inj 2 Ml) 4 mg IVP Q6H PRN; Protocol PRN Reason: NAUSEA OR VOMITING Stop: 05/26/25 14:04 Pharmacy Consult (Vancomycin Pharmacy To Dose 1 Each Each) 1 each IV QDAY [facility] Stop: 05/27/25 08:59 Discontinued Medications Sodium Chloride (Ns) 1,000 mls @ 999 mls/hr IV .Q1H1M ONE Stop: 04/26/25 12:08 Last Infusion: 04/26/25 12:07 Dose: Infused Piperacillin Sod/Tazobactam (Sod 4.5 gm/ Sodium Chloride) 100 mls @ 200 mls/hr IV X1 ONE Stop: 04/26/25 12:44 Last Infusion: 04/26/25 12:57 Dose: Infused Piperacillin/Tazobactam/Dextrose (Zosyn) 3.375 gm in 50 mls @ 12.5 mls/hr IV Q8HR ELLIOTT Stop: 05/03/25 21:59 Sodium Chloride (Ns) 1,000 mls @ 999 mls/hr IV .Q1H1M ONE Stop: 04/26/25 13:53 Last Admin: 04/26/25 13:20 Dose: 999 mls/hr Azithromycin 500 mg/ Sodium (Chloride) 250 mls @ 250 mls/hr IV X1 ONE Stop: 04/26/25 15:13 Ceftriaxone Sodium 1 gm/ (Sodium Chloride) 50 mls @ 100 mls/hr IV QDAY ELLIOTT Stop: 05/03/25 14:13 Morphine Sulfate (Morphine Sulf Inj 10 Mg/Ml Vial) 4 mg IVP X1 ONE Stop: 04/26/25 11:09 Last Admin: 04/26/25 11:26 Dose: 4 mg Ondansetron HCl (Ondansetron Inj 2 Mg/Ml Inj 2 Ml) 4 mg IVP X1 ONE; Protocol Stop: 04/26/25 11:09 Last Admin: 04/26/25 11:26 Dose: 4 mg Assessment & Plan Plan Mr. 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 Admitted for management of infection in setting of immunocompromised patient. #SIRS #Leukocytosis #Early b/l pneumonia #Immunocompromised Patient recently diagnosed with esophageal carcinoma On admission patient complaining of NVD for last x3-4 days Labs significant for WBC 29.6 CXR showed b/l subtle pneumonia Plan: -Admit to telemetry -Start broadspectrum abx Vanc and Zosyn -Bcx and Ucx pending -Acetaminophen for fever -DuoNebs PRN for sob and wheezing -Maintenance IVF NS at 80 cc/hr #Transaminitis Most likely secondary to hypovalemia/dehydration in setting of NVD Plan: -Maintenance IVF NS -Treat underlying infection -Monitor LFT's #Parkinsons disease #Bipolar disorder Plan: -Restart home med carbidopa-levodopa TID -Restart home med Quetiapine 200 mg BID #Esophageal carcinoma #s/p G-tube placement Recently diagnosed of esophageal undifferentiated carcinoma Abd/Pelvis CT showed: Marked abnormal thickening of the lateral wall esophagus in this patient with the diagnosis of the esophageal carcinoma, Extensive metastatic lymphadenopathy and Widespread osteolytic metastatic disease. Pending PET scan Plan: -Oncologist Dr. Saeed consulted, recommendations are greatly appreciated -Morphine 2 mg IV Q6H for pain -Referral to dietitian made #Hypertension Plan: -Restart home med losartan 25 mg Qday -Resart home med Carvedilol 6.25 mg BID Health Maintenance Dispo: Immunocompromised patient admitted for SIRS/infection Diet: Blendized puree DVT/PPx: Heparin GI ppx: Protonix Lines: PIV, G-tube Code Status: Full Code This patient care was discussed with my attending Dr. Anderson Napoles MD PGY-2 Disclaimer: Minor errors in auto radiator mechanic may be present since this note was dictated by speech recognition software. Attending Provider Attestation/Addendum Xena, Mar Barron DO, attest that I was physically present for the donaldson portions of the service and evaluated the patient with the resident and I reviewed and discussed the case with the resident and agree with the resident's findings and plans of care as documented above 69-year-old male with past medical history of recently diagnosed esophageal carcinoma on 04/02/2025, failure to thrive status post G-tube placement, Parkinson's and hypertension who was brought to ED due to generalized weakness. Patient states he has lost about 30 pounds and he has had no p.o. intake. Patient is only able to drink some water. A PEG tube was placed on last admission due to esophageal mass in the lower third of the esophagus. Patient has been receiving PEG tube feedings, but complains of nausea and vomiting continuing as well as abdominal discomfort due to fullness. Patient states that he has been on a specific diet due to this. He was due to see oncology for outpatient PET scan in order to determine treatment. He has not started any chemo or radiation or had a Port-A-Cath placed. Patient complains of back pain and dysuria. He also endorses having subjective fevers and chills. On presentation, patient was noted to have leukocytosis of 29.6, tachycardia, hypoxia and tachypnea. Patient was noted to be saturating 82% on room air on presentation during my time of evaluation. Patient states that he has increased difficulty with his ADLs. An abdominal CT was done in the ED showing marked abnormal thickening of the lateral wall esophagus and extensive metastatic lymphadenopathy as well as wide disease. A chest x-ray was done showing subtle early bilateral pneumonia. Patient does not endorse any recent sick contacts or travel. Will start patient on p.o. vancomycin and will obtain blood and urine cultures. Will give IV fluid hydration as patient appears very dehydrated. Patient has some mild hypercalcemia as well. Will consult oncology for further recommendations. Will admit patient to telemetry for further workup and medical management of possible pneumonia malignancy and acute dehydration.
[2025-04-26 15:16] LABS: Bilirubin,Urine Negative (Negative); Blood,Urine Negative (Negative); Calcium Oxalate Crystals,Urine 2+; Collection Type, Urine Voided; Color,Urine Lt-Yellow (Lt Yel-Yel); Glucose, Urine Negative (Negative); Ketones,Urine Negative (Negative); Leukocyte Esterase,Urine Negative (Negative); Nitrite,Urine Negative (Negative); PH,Urine 6.0 (5.0-7.0); Protein,Urine Negative (Neg - Trace); RBC,Urine 4 /hpf (0-3); Squamous Epithelial Cell,Urine < 1 /hpf (0-5); Urobilinogen,Urine Negative mg/dL (0.0-1.0); WBC,Urine 2 /hpf (0-5)
[2025-04-26 15:18] LABS: Clarity,Urine Cloudy (Clear/Hazy); Specific Gravity,Urine 1.010 (1.001-1.035)
[2025-04-26] MEDS: Vancomycin Inj 2,000 MG in SODIUM CHLORIDE 0.9% 500 ML 500 ML 150 MG IV (16:07)
[2025-04-26] MEDS: SODIUM CHLORIDE 0.9% 1000 ML 1,000 ML 80 ML IV (16:08)
[2025-04-26 17:07] LABS: COVID-19 Antigen (In-House) Negative (Negative)
--- NOTE | 2025-04-26 18:36 | PC.NURSE ---
Pt arrived to unit @1743; step-mom Hope Overholt at this time (183) has brought patients home medication. We are approaching shift change, medication reconciliation to be endorsed to on-coming shift.
[2025-04-26] MEDS: CARBIDOPA/LEVODOPA 25/100 MG TABLET 1 TAB GT (21:03)
[2025-04-26] MEDS: HEPARIN SOD INJ 5000 UNIT/ML VIAL SC (21:04)
[2025-04-26] MEDS: MORPHINE SULF INJ 10 MG/ML VIAL 2 MG IVP (21:04)
[2025-04-26] MEDS: GABAPENTIN 100 MG CAPSULE GT (21:04)
[2025-04-27] VITALS (12 sets, daily range): BP systolic 102–149; BP diastolic 62–93; PULSE 89–113; RESP 16–28; TEMP 36.1–36.2; O2SAT 93–96; BMI 35.3
[2025-04-27] MEDS: MORPHINE SULF INJ 10 MG/ML VIAL 2 MG IVP ×4 (02:12→22:14)
[2025-04-27] MEDS: SODIUM CHLORIDE 0.9% 1000 ML 1,000 ML 80 ML IV ×2 (03:53→17:56)
[2025-04-27] MEDS: HEPARIN SOD INJ 5000 UNIT/ML VIAL SC ×3 (05:26→21:47)
[2025-04-27] MEDS: GABAPENTIN 100 MG CAPSULE GT ×3 (05:27→21:47)
[2025-04-27] MEDS: CARBIDOPA/LEVODOPA 25/100 MG TABLET 1 TAB GT ×3 (05:27→21:48)
[2025-04-27 06:02] LABS: Basophils # (Auto) 0.1 Thou/mm3 (0.0-0.2); Basophils % (Auto) 1 % (0-2.5); Eosinophils # (Auto) 0.6 Thou/mm3 (0.0-0.5); Eosinophils % (Auto) 3 % (0-10); Hematocrit 33.8 % (41.0-53.0); Hemoglobin 10.9 g/dL (13.5-16.0); Immature Granulocytes Auto 1.56 Thou/mm3 (0.00-0.00); Lymphocytes # (Auto) 3.4 Thou/mm3 (1.0-4.8); Lymphocytes % (Auto) 14 % (10-50); Mean Corpuscular HGB Conc 32.2 g/dl (31.0-37.0); Mean Corpuscular Hemoglobin 26.4 pg (25.0-35.0); Mean Corpuscular Volume 82 fL (80-100); Monocytes # (Auto) 1.8 Thou/mm3 (0.0-0.8); Monocytes % (Auto) 8 % (0-12); Neutrophils # (Auto) 16.7 Thou/mm3 (1.8-7.7); Neutrophils % (Auto) 69 % (37-80); Nucleated Red Blood Cell # 0.00 Thou/mm3 (0.00-0.00); Nucleated Red Blood Cell % 0 /100 WBC (0); Platelet Count 226 Thou/mm3 (140-440); RDW Standard Deviation 59.5 fL (35.1-43.9); Red Blood Count 4.13 Miln/mm3 (4.50-5.90); White Blood Count 24.1 Thou/mm3 (3.8-10.6)
[2025-04-27 06:26] LABS: Alanine Aminotransferase 50 U/L (10-49); Albumin, Serum 3.2 gm/dL (3.4-4.8); Albumin/Globulin Ratio 1.6 (1.2-2.2); Alkaline Phosphatase 317 U/L (46-116); Anion Gap 7 (7-16); Aspartate Amino Transferase 73 U/L (0-34); BUN/Creatinine Ratio 31 Ratio (12-20); Bilirubin,Total 0.7 mg/dL (0.3-1.2); Blood Urea Nitrogen 37 mg/dL (9-23); Calcium 10.4 mg/dL (8.3-10.6); Calcium (Corrected) 11.0 mg/dL (8.5-10.1); Carbon Dioxide 27.9 mMol/L (20.0-31.0); Chloride 105 mMol/L (98-107); Creatinine (Component) 1.2 mg/dL (0.6-1.3); Estimated Creatinine Clearance 71.8 mL/min (>60); Globulin 2.0 gm/dL (2.3-3.5); Glucose 110 mg/dL (74-106); Magnesium 2.1 mg/dL (1.6-2.6); Osmolality,Calculated 289 (275-295); Phosphorous 4.6 mg/dL (2.4-5.1); Potassium 4.7 mMol/L (3.4-5.1); Sodium 140 mMol/L (136-145); Total Protein 5.2 gm/dL (5.7-8.2); eGFR > 60 See Note
[2025-04-27] MEDS: TAMSULOSIN HCL 0.4 MG CAPSULE PO (09:43)
[2025-04-27] MEDS: lamoTRIgine 25 MG CHEW 200 MG GT (09:43)
[2025-04-27] MEDS: LOSARTAN POTASSIUM 25 MG TABLET GT (09:44)
[2025-04-27] MEDS: VANCOMYCIN/NS 1 GM IVPB 200 ML IV ×2 (09:44→21:48)
--- NOTE | 2025-04-27 10:08 | PD.ONCCONS ---
HPI Data of Consult Consult date: 04/27/25 Requesting Physician: Mar Barron DO Primary Care Provider: Ashutosh Mahajan MD Consult Narrative Reason for consult: Esophageal carcinoma admitted with leukocytosis History of present illness: 69-year-old gentleman recently diagnosed with distal esophageal CA, undifferentiated carcinoma with rare signet cells extending from [address] to the GE junction. CT scan showing lymphadenopathy adjacent to the descending thoracic aorta and extensive abdominal and pelvic mesenteric lymphadenopathy. While waiting further workup and treatment, came to the ER with complaints of nausea nonbloody vomiting and diarrhea. Patient was noted to have elevated white count of 29.6, dropping to 24.1 this a.m. elevated LFTs alk phos AST ALT corrected calcium were noted. Bilirubin was not elevated. UA showed few WBCs or RBCs blood culture pending. CT abdomen pelvis 04/26/2025 revealed the marked abnormal thickening of the lateral wall of the esophagus as well as extensive metastatic lymphadenopathy and widespread osteolytic met disease. Patient now referred for oncological consultation. cc:: cc: Mar Barron DO Past Medical History Family History OTHER FAMILY HX: Negative for GI cancers Past Medical History Comments PMH COMMENT: Diabetes mellitus Parkinson's history of cholecystectomy peptic ulcer disease prior knee replacement arthritis Meds Home Medications and Allergies Home Medications ?Medication ?Instructions ?Recorded ?Confirmed ?Type folic acid 1 mg tablet 1 mg PO QDAY 09/09/18 04/26/25 History carbidopa 10 mg-levodopa 100 mg 1 tab PO TID 07/27/20 04/26/25 History tablet lamotrigine 50 mg disintegrating 50 mg PO DAILY 07/27/20 04/26/25 History tablet methotrexate sodium 2.5 mg tablet 15 mg PO QWEEK 07/27/20 04/26/25 History tamsulosin 0.4 mg capsule 0.4 mg PO QDAY 07/27/20 04/26/25 History carvedilol 6.25 mg tablet 6.25 mg PO Q12H 04/02/25 04/26/25 History dulaglutide 3 mg/0.5 mL 3 mg subcut QWEEK 04/02/25 04/26/25 History subcutaneous pen injector (Trulicity) quetiapine 400 mg tablet,extended 400 mg PO QDAY 04/02/25 04/26/25 History release 24 hr carbidopa 25 mg-levodopa 100 mg 1 tab PO TID 04/26/25 04/26/25 History tablet gabapentin 100 mg capsule 100 mg PO TID 04/26/25 04/26/25 History hydrocodone 5 mg-acetaminophen 325 1 tab PO BID 04/26/25 04/26/25 History mg tablet lamotrigine 200 mg tablet 200 mg PO QDAY 04/26/25 04/26/25 History losartan 25 mg tablet 25 mg PO QDAY 04/26/25 04/26/25 History morphine 100 mg/5 mL oral 10 mg PO [id number] PRN pain 04/26/25 04/26/25 History concentrate pantoprazole 40 mg tablet,delayed 40 mg PO QDAY 04/26/25 04/26/25 History release Allergies Allergy/AdvReac Type Severity Reaction Status Date / Time No Known Allergies Allergy Verified 04/26/25 10:33 Exam Vital Signs Temp Pulse Resp BP Pulse Ox O2 Del Method O2 Flow Rate 97.2 F 104 H 19 122/80 96 Room Air 2 04/27/25 08:00 04/27/25 09:44 04/27/25 08:00 04/27/25 09:44 04/27/25 08:00 04/27/25 08:00 04/27/25 07:45 Narrative Exam Lying comfortably answering questions appropriately. Results Labs 04/27/25 05:27 04/27/25 05:27 Labs: Short CBC 04/26/25 04/27/25 Range/Units 11:23 05:27 WBC 29.6 H 24.1 H D (3.8-10.6) Thou/mm3 Hgb 12.3 L 10.9 L (13.5-16.0) g/dL Hct 36.6 L 33.8 L (41.0-53.0) % Plt Count 255 D 226 (140-440) Thou/mm3 BMP 04/26/25 04/27/25 11:23 05:27 Sodium 137 140 Potassium 4.3 4.7 Chloride 101 105 Carbon Dioxide 24.5 27.9 BUN 45 H 37 H Creatinine 1.2 1.2 Glucose 135 H 110 H Calcium 11.4 H 10.4 Liver Function 04/26/25 04/27/25 Range/Units 11:23 05:27 Total Bilirubin 0.9 0.7 (0.3-1.2) mg/dL AST 84 H 73 H (0-34) U/L ALT 71 H 50 H (10-49) U/L Alkaline Phosphatase 376 H 317 H D (46-116) U/L Albumin 3.8 3.2 L D (3.4-4.8) gm/dL Urine 04/26/25 04/26/25 Range/Units 12:51 14:33 Urine Color Lt-Yellow Cancelled (Lt Yel-Yel) Urine Clarity Cloudy A Cancelled (Clear/Hazy) Urine pH 6.0 Cancelled (5.0-7.0) Ur Specific Donalds 1.010 Cancelled (1.001-1.035) Urine Protein Negative Cancelled (Neg - Trace) Urine Glucose (UA) Negative Cancelled (Negative) Assessment and Plan Additional Assessment & Plan Additional Plan: 1. Patient with recent diagnosis of distal esophageal CA, undifferentiated type with rare signet ring cells, likely has distant mets including bone abdominal pelvic lymphadenopathy. 2. Admitted with leukocytosis GI symptoms, appears improving with supportive care. Blood culture pending. 3. I will follow this patient for further workup including PET scan port placement chemo consultation. Patient is unlikely a surgical candidate. 4. Has G-tube for nutritional purposes. Morphine liquid will be prescribed for easier swallowing following discharge.
[2025-04-27 10:48] LABS: Band Neutrophils (Manual) 5 % (0-6); Eosinophils (Manual) 2 % (0-4); Lymphocytes (Manual) 6 % (20-44); Metamyelocytes (Manual) 3 % (0-0); Monocytes (Manual) 5 % (2-9); Neutrophils (Manual) 79 % (50-70)
--- NOTE | 2025-04-27 10:54 | CHAP ---
ie was visited by a Spiritual Care Volunteer on 04/27/2025 between 0900 and 0920 and received comfort, encouragement and/or prayer.
--- NOTE | 2025-04-27 12:02 | PC.DIETICIAN ---
Nutrition prescription Bolus feeds by syringe via PEG tube: [employer] Peptide 1.5 from home (325ml four times/day ? 0800, 1200, 1600, 2000). Flush with 60 ml water before and after feeds.If no IV fluids, water flushes of 100 ml every 4 hours (or per MD).
--- NOTE | 2025-04-27 13:39 | ESPR_ITS ---
<Statement entered by Wu Napoles MD - 04/28/25 00:30> I discussed with and supervised the leadership program intern physician involved in the care of this patient. Patient assessment and plan was discussed with entire medicine team, including my attending. I agree with the assessment and plan as documented by leadership program intern doctor. Patient care was discussed with my attending physician Dr. Anderson Napoles, PGY-2 Documentation for date of: 04/27/25 Subjective Subjective Interval history: Patient is seen and examined at bedside No acute overnight events. Endorsed that his abdominal pain is getting controlled with morphine Dr. Saeed is at the bedside and he recommended PET/CT on outpatient basis Labs showed downtrending leukocytosis, 24.1, corrected calcium is 11, AST 73, ALT 50 Blood culture showed no growth after 24 hours Will continue pain management for now. Leukocytosis could be likely reactive in the setting of ongoing malignancy. Will discharge once the blood cultures came back negative after 48 hours. Consulted Dietitian and will appreciate recommendations Exam Vital Signs Temp Pulse Resp BP Pulse Ox O2 Del Method O2 Flow Rate 97.0 F 101 H 17 102/73 96 Room Air 2 04/27/25 12:00 04/27/25 12:00 04/27/25 12:04/27/25 12:04/27/25 12:00 04/27/25 12:04/27/25 07:45 Narrative Exam General: Awake. HEENT: Normocephalic, atraumatic, mucous membranes moist. Heart: Regular rate and rhythm, no murmurs. Lungs: Clear to auscultation with no wheezing or crackles. Abdomen: Soft, nondistended, nontender, positive bowel sounds. ?No guarding or rebound tenderness. noted G tube Neurologic: Alert and oriented x3, no gross neurological deficit, and patient able to move all 4 extremities. Extremities: No edema. Skin: No rash or ecchymoses. Objective Labs 04/28/25 04:56 04/28/25 04:56 Labs: Laboratory Results - last 24 hr 04/26/25 04/26/25 04/26/25 12:51 14:33 16:36 WBC RBC Hgb Hct MCV MCH MCHC RDW Std Deviation Plt Count Neut % (Auto) Lymph % (Auto) [place] % (Auto) Eos % (Auto) Baso % (Auto) Neut # (Auto) Lymph # (Auto) [place] # (Auto) Eos # (Auto) Baso # (Auto) Immature Gran # (Auto) Absolute Nucleated RBC Immature Gran % Neutrophils % (Manual) Monocytes % (Manual) Eosinophils % (Manual) Metamyelocytes % Nucleated RBC % Band Neutrophils Lymphocytes (Manual) Sodium Potassium Chloride Carbon Dioxide Anion Gap BUN Creatinine Estim Creat Clear Calc eGFR BUN/Creatinine Ratio Glucose Calculated Osmolality Calcium Corrected Calcium Phosphorus Magnesium Total Bilirubin AST ALT Alkaline Phosphatase Total Protein Albumin Globulin Albumin/Globulin Ratio Ur Collection Type Voided Cancelled Urine Color Lt-Yellow Cancelled Urine Clarity Cloudy A Cancelled Urine pH 6.0 Cancelled Ur Specific [place] 1.010 Cancelled Urine Protein Negative Cancelled Urine Glucose (UA) Negative Cancelled Urine Ketones Negative Cancelled Urine Blood Negative Cancelled Urine Nitrite Negative Cancelled Urine Bilirubin Negative Cancelled Urine Urobilinogen (Auto) Negative Cancelled Ur Leukocyte Esterase Negative Cancelled Urine RBC 4 H Cancelled Urine WBC 2 Cancelled Ur Squamous Epith Cells < 1 Cancelled Ur Transition Epith Cell Cancelled Ur Renal Epithelial Cell Cancelled Calcium Carbonate Cryst Cancelled Calcium Phosphate Cryst Cancelled Calcium Oxalate Crystal 2+ A Cancelled Leucine Crystals Cancelled Cystine Crystals Cancelled Uric Acid Crystals Cancelled Triple Phos Crystals Cancelled Tyrosine Crystals Cancelled Amorphous Crystals Cancelled Urine Bacteria None Cancelled Cellular Casts Cancelled Epithelial Casts Cancelled Fatty Casts Cancelled Hyaline Casts Cancelled Granular Casts Cancelled Waxy Casts Cancelled Broad Casts Cancelled RBC Casts Cancelled Urine Mucus Cancelled Urine Trichomonas Cancelled Ur Yeast w Hyphae Cancelled Urine Yeast (Budding) Cancelled Urine Sperm Cancelled Ur Oval Fat Bodies Cancelled SARS-CoV-2 Ag (Rapid) Negative 04/27/25 05:27 WBC 24.1 H D RBC 4.13 L Hgb 10.9 L Hct 33.8 L MCV 82 MCH 26.4 MCHC 32.2 RDW Std Deviation 59.5 H Plt Count 226 Neut % (Auto) 69 Lymph % (Auto) 14 [place] % (Auto) 8 Eos % (Auto) 3 Baso % (Auto) 1 Neut # (Auto) 16.7 H Lymph # (Auto) 3.4 [place] # (Auto) 1.8 H Eos # (Auto) 0.6 H Baso # (Auto) 0.1 Immature Gran # (Auto) 1.56 H Absolute Nucleated RBC 0.00 Immature Gran % 7 H Neutrophils % (Manual) 79 H Monocytes % (Manual) 5 Eosinophils % (Manual) 2 Metamyelocytes % 3 H Nucleated RBC % 0 Band Neutrophils 5 Lymphocytes (Manual) 6 L Sodium 140 Potassium 4.7 Chloride 105 Carbon Dioxide 27.9 Anion Gap 7 BUN 37 H Creatinine 1.2 Estim Creat Clear Calc 71.8 eGFR > 60 BUN/Creatinine Ratio 31 H Glucose 110 H Calculated Osmolality 289 Calcium 10.4 Corrected Calcium 11.0 H Phosphorus 4.6 Magnesium 2.1 Total Bilirubin 0.7 AST 73 H ALT 50 H Alkaline Phosphatase 317 H D Total Protein 5.2 L Albumin 3.2 L D Globulin 2.0 L Albumin/Globulin Ratio 1.6 Ur Collection Type Urine Color Urine Clarity Urine pH Ur Specific [place] Urine Protein Urine Glucose (UA) Urine Ketones Urine Blood Urine Nitrite Urine Bilirubin Urine Urobilinogen (Auto) Ur Leukocyte Esterase Urine RBC Urine WBC Ur Squamous Epith Cells Ur Transition Epith Cell Ur Renal Epithelial Cell Calcium Carbonate Cryst Calcium Phosphate Cryst Calcium Oxalate Crystal Leucine Crystals Cystine Crystals Uric Acid Crystals Triple Phos Crystals Tyrosine Crystals Amorphous Crystals Urine Bacteria Cellular Casts Epithelial Casts Fatty Casts Hyaline Casts Granular Casts Waxy Casts Broad Casts RBC Casts Urine Mucus Urine Trichomonas Ur Yeast w Hyphae Urine Yeast (Budding) Urine Sperm Ur Oval Fat Bodies SARS-CoV-2 Ag (Rapid) Quality Measures Quality Measures none Advance care planning discussed with:: patient Assessment & Plan Assessment Current Active Medications: Generic Name Dose Route Start Last Admin Trade Name Freq PRN Reason Stop Dose Admin Acetaminophen 650 mg 04/26/25 14:05 Acetaminophen Georgette 325 Mg/10 Ml Udc GT 05/26/25 14:04 Q6H PRN Fever >101.5 Albuterol/Ipratropium 3 ml 04/26/25 19:20 Albuterol/Ipratropium (Duoneb) Rt Georgette 3 Ml Nebu INH 05/26/25 18:59 Q6HRRT PRN wheezing sob Carbidopa/Levodopa 1 tab 04/26/25 22:00 04/27/25 05:27 Carbidopa/Levodopa 25/100 Mg Tablet GT 05/26/25 21:59 1 tab TID ELLIOTT Administration Carvedilol 6.25 mg 04/27/25 08:00 04/27/25 09:42 Carvedilol 3.125 Mg Tablet GT 05/27/25 07:59 6.25 mg BIDWM ELLIOTT Administration Gabapentin 100 mg 04/26/25 22:00 04/27/25 05:27 Gabapentin 100 Mg Capsule GT 05/26/25 21:59 100 mg TID ELLIOTT Administration Heparin Sodium (Porcine) 5,000 unit 04/26/25 22:00 04/27/25 05:26 Heparin Sod Inj 5000 Unit/Ml Vial SC 05/10/25 21:59 5,000 unit Q8HR ELLIOTT Administration Sodium Chloride 1,000 mls @ 80 mls/hr 04/26/25 15:46 04/27/25 03:53 Ns IV 05/26/25 15:45 80 mls/hr .[id number] ELLIOTT Administration Vancomycin/Sodium Chloride 200 mls @ 120 mls/hr 04/27/25 10:00 04/27/25 09:44 Vancomycin/Ns 1 Gm Ivpb IV 05/04/25 09:59 120 mls/hr BID@1000,2200 ELLIOTT Administration Lamotrigine 200 mg 04/27/25 09:00 04/27/25 09:43 Lamotrigine 25 Mg Chew GT 05/27/25 08:59 200 mg QDAY ELLIOTT Administration Losartan Potassium 25 mg 04/27/25 09:00 04/27/25 09:44 Losartan Potassium 25 Mg Tablet GT 05/27/25 08:59 25 mg QDAY ELLIOTT Administration Morphine Sulfate 2 mg 04/26/25 14:16 04/27/25 07:40 Morphine Sulf Inj 10 Mg/Ml Vial IVP 05/01/25 14:15 2 mg Q4HR PRN Administration PAIN Ondansetron HCl 4 mg 04/26/25 14:05 Ondansetron Inj 2 Mg/Ml Inj 2 Ml IVP 05/26/25 14:04 Q6H PRN NAUSEA OR VOMITING Protocol Pantoprazole Sodium 40 mg 04/27/25 09:00 04/27/25 09:43 Pantoprazole Inj 40 Mg Vial IVP 05/27/25 08:59 40 mg QDAY ELLIOTT Administration Pharmacy Consult 1 each 04/27/25 08:02 Vancomycin Pharmacy To Dose 1 Each Each IV 05/27/25 08:01 QDAY PRN CONSULT Quetiapine Fumarate 200 mg 04/27/25 09:00 04/27/25 09:43 Quetiapine Fumarate 100 Mg Tablet GT 05/27/25 08:59 200 mg BID ELLIOTT Administration Tamsulosin HCl 0.4 mg 04/27/25 09:00 04/27/25 09:43 Tamsulosin Hcl 0.4 Mg Capsule PO 05/27/25 08:59 0.4 mg QDAY ELLIOTT Administration Plan Mr. 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 Admitted for management of infection in setting of immunocompromised patient. #SIRS #Leukocytosis, likely reactive in the setting of pain and malignancy #Immunocompromised Patient recently diagnosed with esophageal carcinoma On admission patient complaining of NVD for last x3-4 days Labs significant for WBC 29.6 CXR showed b/l subtle pneumonia Plan: -Admit to telemetry -Started broadspectrum abx Vanc and Zosyn -Bcx - no growth after 24hrs -Acetaminophen for fever -DuoNebs PRN for sob and wheezing -Maintenance IVF NS at 80 cc/hr #Transaminitis, resolving Most likely secondary to hypovalemia/dehydration in setting of NVD Plan: -Maintenance IVF NS @ 80ml/hr -Will monitor LFT's #Parkinsons disease #Bipolar disorder Plan: -Restarted home med carbidopa-levodopa TID -Restarted home med Quetiapine 200 mg BID #Esophageal carcinoma #s/p G-tube placement Recently diagnosed of esophageal undifferentiated carcinoma Abd/Pelvis CT showed: Marked abnormal thickening of the lateral wall esophagus in this patient with the diagnosis of the esophageal carcinoma, Extensive metastatic lymphadenopathy and Widespread osteolytic metastatic disease. Pending PET scan, on outpatient basis Plan: -Oncologist Dr. Saeed consulted, recommendations are greatly appreciated -Morphine 2 mg IV Q6H for pain -Referral to dietitian made #Hypertension Blood pressures are within normal limits during the hospital stay Plan: - Will restart home med losartan 25 mg Qday and Carvedilol 6.25 mg BID Health Maintenance Dispo: Immunocompromised patient admitted for SIRS/infection Diet: Blendized puree DVT/PPx: Heparin GI ppx: Protonix Lines: PIV, G-tube Code Status: Full Code Patient plan of care was discussed with the attending physician, Dr. Barron and senior resident Dr. Yesika Jiménez, PGY1 Attending Provider Attestation/Addendum IMar DO, attest that I was physically present for the donaldson portions of the service and evaluated the patient with the resident and I reviewed and discussed the case with the resident and agree with the resident's findings and plans of care as documented above Patient seen and eval this a.m. Patient appears much more alert today. He states he is feeling improved. Patient has otherwise been afebrile. Will start PEG tube feedings from home as patient has been unable to tolerate what was prescribed on previous admission. Will consult oncology to follow up. F/u with blood cultures at this time. Continue with broad spectrum antibiotics.
--- NOTE | 2025-04-27 15:08 | PC.CC ---
received call from that pt will be going to SNF not Home with HH.
--- NOTE | 2025-04-27 15:31 | PC.SS ---
TIPPING MACHINE OPERATOR AUTOMATIC conducted bedside contact with the patient conduct initial assessment and to discuss discharge planning.? Patient confirmed demographic information.? Patient resides alone at home.? Patient utilizes a walker to assist with ambulation.? Patient does not utilize home oxygen.? Patient describes need to complete ADL?s with assistance.? Patient identified step-mother, Idalia Hale ; as surrogate medical decision maker.? Patient?s PCP is Lyn Rossi.? Patient?s radio equipment installer is Carla Montague.? Patient?s oncologist is Dr. Saeed.? Patient is not participating in cancer treatment at this current time.? Per patient pending follow up appointment with Dr. Saeed and appointment for port insertion.? Patient in possession of G-tube for nutritional purposes.? Patient is not aligned with [facility] services.? Patient reports mental health diagnosis of Bi-Polar.? Patient is prescribed Lexapro and Seroquel.? Discharge plan is for the patient to transition to SNF for short term placement.? Preferred facility is [facility].? Family can provide transport on behalf of the patient to SNF.? No further discharge needs identified by the patient.? No further intervention required at this time, mental health social worker will be available to address any further concerns.? Next of Kin: Idalia Wattelin D/C Plan: SNF
--- NOTE | 2025-04-27 15:40 | PC.SS ---
SNF referral submitted on [facility]. Results are pending. [facility] preferred SNF.
--- NOTE | 2025-04-27 15:44 | PC.SS ---
PASSR completed. Level II criteria. PASSR follow up pending.
[2025-04-28] VITALS (13 sets, daily range): BP systolic 90–113; BP diastolic 53–69; PULSE 90–112; RESP 17–37; TEMP 35.9–36.5; O2SAT 90–99; BMI 35.3
--- NOTE | 2025-04-28 05:06 | PC.NURSE ---
at [address] Wright that patient was not tolerating praful Bigvest peptide feeding. Patient states it is giving him the runs and doesn't want to get the bolus at [address]. Per Dr Wright can hold until pt sees the cleaning staff supervisor again.
[2025-04-28 05:32] LABS: Basophils # (Auto) 0.1 Thou/mm3 (0.0-0.2); Basophils % (Auto) 0 % (0-2.5); Eosinophils # (Auto) 0.6 Thou/mm3 (0.0-0.5); Eosinophils % (Auto) 3 % (0-10); Hematocrit 30.4 % (41.0-53.0); Hemoglobin 9.8 g/dL (13.5-16.0); Immature Granulocytes Auto 0.94 Thou/mm3 (0.00-0.00); Lymphocytes # (Auto) 2.3 Thou/mm3 (1.0-4.8); Lymphocytes % (Auto) 12 % (10-50); Mean Corpuscular HGB Conc 32.2 g/dl (31.0-37.0); Mean Corpuscular Hemoglobin 26.8 pg (25.0-35.0); Mean Corpuscular Volume 83 fL (80-100); Monocytes # (Auto) 1.5 Thou/mm3 (0.0-0.8); Monocytes % (Auto) 8 % (0-12); Neutrophils # (Auto) 14.1 Thou/mm3 (1.8-7.7); Neutrophils % (Auto) 72 % (37-80); Nucleated Red Blood Cell # 0.02 Thou/mm3 (0.00-0.00); Nucleated Red Blood Cell % 0 /100 WBC (0); Platelet Count 183 Thou/mm3 (140-440); RDW Standard Deviation 60.4 fL (35.1-43.9); Red Blood Count 3.65 Miln/mm3 (4.50-5.90); White Blood Count 19.5 Thou/mm3 (3.8-10.6)
[2025-04-28 06:20] LABS: Alanine Aminotransferase 9 U/L (10-49); Albumin, Serum 2.8 gm/dL (3.4-4.8); Albumin/Globulin Ratio 1.5 (1.2-2.2); Alkaline Phosphatase 253 U/L (46-116); Anion Gap 8 (7-16); Aspartate Amino Transferase 41 U/L (0-34); BUN/Creatinine Ratio 25 Ratio (12-20); Bilirubin,Total 0.5 mg/dL (0.3-1.2); Blood Urea Nitrogen 27 mg/dL (9-23); Calcium 10.5 mg/dL (8.3-10.6); Calcium (Corrected) 11.5 mg/dL (8.5-10.1); Carbon Dioxide 24.0 mMol/L (20.0-31.0); Chloride 110 mMol/L (98-107); Creatinine (Component) 1.1 mg/dL (0.6-1.3); Estimated Creatinine Clearance 78.3 mL/min (>60); Globulin 1.9 gm/dL (2.3-3.5); Glucose 96 mg/dL (74-106); Magnesium 2.1 mg/dL (1.6-2.6); Osmolality,Calculated 288 (275-295); Phosphorous 4.5 mg/dL (2.4-5.1); Potassium 4.4 mMol/L (3.4-5.1); Sodium 142 mMol/L (136-145); Total Protein 4.7 gm/dL (5.7-8.2); eGFR > 60 See Note
[2025-04-28] MEDS: HEPARIN SOD INJ 5000 UNIT/ML VIAL SC (06:22)
[2025-04-28] MEDS: GABAPENTIN 100 MG CAPSULE GT ×3 (06:22→21:53)
[2025-04-28] MEDS: CARBIDOPA/LEVODOPA 25/100 MG TABLET 1 TAB GT ×3 (06:22→21:53)
--- NOTE | 2025-04-28 07:33 | XR_ITS ---
Examination: AP chest single view Technique one AP portable semiupright chest single view Date and time: April 28, 2025 0811 hours Comparison April 26, 2025 INDICATIONS: Shortness of breath nausea vomiting diarrhea flank pain this week FINDINGS: Normal heart size Mild vascular congestion. No lobar pneumonia or pulmonary edema Prominent osteopenia IMPRESSION: Mild vascular congestion
[2025-04-28 08:27] LABS: Base Excess, Venous 1 (-3-3); O2 Saturation, Venous 43 % (96-97); PCO2, Venous 49 mmHg (36-56); PO2, Venous 27 mmHg (15-58); pH, Venous 7.36 (7.33-7.66)
[2025-04-28] MEDS: MORPHINE SULF INJ 10 MG/ML VIAL IVP ×3 (08:34→22:08)
[2025-04-28] MEDS: TAMSULOSIN HCL 0.4 MG CAPSULE PO (08:36)
[2025-04-28] MEDS: lamoTRIgine 25 MG CHEW 200 MG GT (08:36)
[2025-04-28] MEDS: LOSARTAN POTASSIUM 25 MG TABLET GT (08:37)
--- NOTE | 2025-04-28 08:43 | XR_ITS ---
Examination: Duplex scan of the upper extremity, unilateral left Date and time of exam: April 28, 2025 1316 hours INDICATIONS: Left arm swelling and pain beginning today Technique: Duplex scan of the extremity veins using B-mode/grayscale imaging and Doppler spectral analysis and color flow Attention is directed to internal echogenicity, compression and augmentation involving these veins, color flow assessment, spectral analysis Findings: Positive for acute thrombus nonocclusive in the left jugular, subclavian, axillary, cephalic, brachial veins IMPRESSION: Positive for extensive deep vein thrombus
[2025-04-28 10:04] LABS: Vancomycin,Trough 16.4 mcg/mL (5.0-10.0)
[2025-04-28] MEDS: VANCOMYCIN/NS 1 GM IVPB 200 ML IV (10:38)
--- NOTE | 2025-04-28 11:53 | XR_ITS ---
Examination: CTA chest with intravenous contrast 2-D reconstructions 3-D reconstructions, vascular Date and time of exam: April 28, 2025 1702 hours Comparison April 08, 2025 INDICATIONS: Diagnosis esophageal carcinoma, onset chest pain shortness of breath today CTDI: vol (mGy) 20.7 DLP: (mGycm) 630 Technique: Multiple axial sections of the thorax have been obtained. 3 mm slice thickness, from below the hemidiaphragms to above the apices of the lungs. Mediastinal and lung density settings have been obtained. 2-D sagittal and coronal reconstructions. 3-D angiographic renderings, 3-D volume renderings, 3D post processing, vascular maximum intensity projections obtained. Contrast administered is 100 cc Isovue-370. Low dose protocols were performed. One or more of the following dose reduction techniques were used; automated exposure control, adjustment of the mA and/or KV according to patient size, use of iterative reconstruction technique. Findings: Multiple left supraclavicular left axillary lymph nodes AP dimension ascending thoracic aorta 4 cm Numerous bilateral pulmonary artery filling defects, large filling defects in the distal right main pulmonary artery extending into the upper and lower lobe branches, axial image 99 Extensive upper lobe and lower lobe bilateral emboli Masslike area in the esophagus again depicted Small to moderate left pleural fluid Lymph nodes adjacent to the descending thoracic aorta again depicted as well as periaortic pericaval and extensive mesenteric lymphadenopathy No hydronephrosis Gastrostomy tube IMPRESSION: Positive for numerous bilateral pulmonary artery emboli including large filling defects in the distal right main pulmonary artery extending into the origins of the upper and lower lobe right pulmonary artery branches Left supraclavicular and left axillary, mediastinal, para-aortic and mesenteric extensive lymphadenopathy Esophageal mass again noted
--- NOTE | 2025-04-28 12:22 | PC.SS ---
RESTAURANT ATTENDANT completed follow up with PASSR staff, Andrews Hernandez. Level II assessment to be closed. No follow up required. On line closure is pending.
--- NOTE | 2025-04-28 13:58 | ESPR_ITS ---
<Statement entered by Wu Napoles MD - 04/29/25 07:11> I discussed with and supervised the senior internal auditor physician involved in the care of this patient. Patient assessment and plan was discussed with entire medicine team, including my attending. I agree with the assessment and plan as documented by senior internal auditor doctor. Patient care was discussed with my attending physician Dr. Anderson Napoles, PGY-2 Documentation for date of: 04/28/25 Subjective Subjective Interval history: Patient is seen and examined at bedside No acute overnight events. Complaining of abdominal discomfort and endorsed that he did not take any medications since last night as he is feeling drowsy after taking the medication. Vitals are stable. On physical examination, noted tachycardia and tachypnea. Also noted left upper extremity swelling with erythema and tenderness Labs showed downtrending WBC 19.5, corrected calcium 11.5, AST 41, ALT 9 Chest x-ray was done that showed mild vascular congestion and stopped IV fluids Decrease morphine from 2 mg to 1 mg Ordered venous Doppler of the left upper extremity and ordered CTA chest to rule out pulmonary embolism, will follow-up for the results Exam Vital Signs Temp Pulse Resp BP Pulse Ox O2 Del Method O2 Flow Rate 97.0 F 99 20 98/68 95 Nasal Cannula 5 04/28/25 11:56 04/28/25 11:56 04/28/25 11:56 04/28/25 11:56 04/28/25 11:56 04/28/25 11:56 04/28/25 11:56 Narrative Exam General: Awake. HEENT: Normocephalic, atraumatic, mucous membranes moist. Heart: Regular rate and rhythm, no murmurs. Lungs: Clear to auscultation with no wheezing or crackles. Abdomen: Soft, nondistended, nontender, positive bowel sounds. ?No guarding or rebound tenderness. noted G tube Neurologic: Alert and oriented x3, no gross neurological deficit, and patient able to move all 4 extremities. Extremities: Noted swelling in the left upper extremity with erythema Skin: No rash or ecchymoses. Objective Labs 04/29/25 07:30 04/29/25 07:30 Labs: Laboratory Results - last 24 hr 04/28/25 04/28/25 04/28/25 04:56 08:00 09:26 WBC 19.5 H RBC 3.65 L Hgb 9.8 L Hct 30.4 L MCV 83 MCH 26.8 MCHC 32.2 RDW Std Deviation 60.4 H Plt Count 183 D Neut % (Auto) 72 Lymph % (Auto) 12 [place] % (Auto) 8 Eos % (Auto) 3 Baso % (Auto) 0 Neut # (Auto) 14.1 H Lymph # (Auto) 2.3 [place] # (Auto) 1.5 H Eos # (Auto) 0.6 H Baso # (Auto) 0.1 Immature Gran # (Auto) 0.94 H Absolute Nucleated RBC 0.02 H Immature Gran % 5 H Nucleated RBC % 0 VBG pH 7.36 VBG pCO2 49 VBG pO2 27 VBG O2 Sat (Jovany) 43 L VBG Base Excess 1 Sodium 142 Potassium 4.4 Chloride 110 H Carbon Dioxide 24.0 Anion Gap 8 BUN 27 H Creatinine 1.1 Estim Creat Clear Calc 78.3 eGFR > 60 BUN/Creatinine Ratio 25 H Glucose 96 Calculated Osmolality 288 Calcium 10.5 Corrected Calcium 11.5 H Phosphorus 4.5 Magnesium 2.1 Total Bilirubin 0.5 AST 41 H ALT 9 L Alkaline Phosphatase 253 H D Total Protein 4.7 L Albumin 2.8 L Globulin 1.9 L Albumin/Globulin Ratio 1.5 Vancomycin Trough 16.4 H ABG Interpretation ABG results: 04/28/25 08:00 VBG pH 7.36 VBG pCO2 49 VBG pO2 27 VBG Base Excess 1 Quality Measures Quality Measures none Advance care planning discussed with:: patient Assessment & Plan Assessment Current Active Medications: Generic Name Dose Route Start Last Admin Trade Name Freq PRN Reason Stop Dose Admin Acetaminophen 650 mg 04/26/25 14:05 Acetaminophen Georgette 325 Mg/10 Ml Udc GT 05/26/25 14:04 Q6H PRN Fever >101.5 Albuterol/Ipratropium 3 ml 04/26/25 19:20 Albuterol/Ipratropium (Duoneb) Rt Georgette 3 Ml Nebu INH 05/26/25 18:59 Q6HRRT PRN wheezing sob Carbidopa/Levodopa 1 tab 04/26/25 22:00 04/28/25 06:22 Carbidopa/Levodopa 25/100 Mg Tablet GT 05/26/25 21:59 1 tab TID ELLIOTT Administration Carvedilol 6.25 mg 04/27/25 08:00 04/28/25 08:36 Carvedilol 3.125 Mg Tablet GT 05/27/25 07:59 6.25 mg BIDWM ELLIOTT Administration Gabapentin 100 mg 04/26/25 22:00 04/28/25 06:22 Gabapentin 100 Mg Capsule GT 05/26/25 21:59 100 mg TID ELLIOTT Administration Heparin Sodium (Porcine) 5,000 unit 04/26/25 22:00 04/28/25 06:22 Heparin Sod Inj 5000 Unit/Ml Vial SC 05/10/25 21:59 5,000 unit Q8HR ELLIOTT Administration Vancomycin/Sodium Chloride 200 mls @ 120 mls/hr 04/27/25 10:00 04/28/25 10:38 Vancomycin/Ns 1 Gm Ivpb IV 05/04/25 09:59 120 mls/hr BID@1000,2200 ELLIOTT Administration Lamotrigine 200 mg 04/27/25 09:00 04/28/25 08:36 Lamotrigine 25 Mg Chew GT 05/27/25 08:59 200 mg QDAY ELLIOTT Administration Losartan Potassium 25 mg 04/27/25 09:00 04/28/25 08:37 Losartan Potassium 25 Mg Tablet GT 05/27/25 08:59 25 mg QDAY ELLIOTT Administration Morphine Sulfate 1 mg 04/28/25 07:40 Morphine Sulf Inj 10 Mg/Ml Vial IVP 05/01/25 14:15 Q4HR PRN PAIN Ondansetron HCl 4 mg 04/26/25 14:05 Ondansetron Inj 2 Mg/Ml Inj 2 Ml IVP 05/26/25 14:04 Q6H PRN NAUSEA OR VOMITING Protocol Pantoprazole Sodium 40 mg 04/29/25 09:00 Pantoprazole 40 Mg Tablet PO 05/29/25 08:59 QDAY ELLIOTT Protocol Pharmacy Consult 1 each 04/27/25 08:02 Vancomycin Pharmacy To Dose 1 Each Each IV 05/27/25 08:01 QDAY PRN CONSULT Quetiapine Fumarate 200 mg 04/27/25 09:00 04/28/25 08:37 Quetiapine Fumarate 100 Mg Tablet GT 05/27/25 08:59 200 mg BID ELLIOTT Administration Tamsulosin HCl 0.4 mg 04/27/25 09:00 04/28/25 08:36 Tamsulosin Hcl 0.4 Mg Capsule PO 05/27/25 08:59 0.4 mg QDAY ELLIOTT Administration Plan Mr. 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 Admitted for management of infection in setting of immunocompromised patient. #DVT left upper extremity - Patient developed swelling of left upper extremity since last night -On physical examination, noted swelling and erythema in the left upper extremity - Ordered venous Doppler-showed acute nonocclusive thrombus extending up to left jugular vein Plan - Started on heparin drip - Also ordered CTA chest to rule out pulmonary embolism as patient is having shortness of breath #SIRS #Leukocytosis, likely reactive in the setting of pain and malignancy #Immunocompromised Patient recently diagnosed with esophageal carcinoma On admission patient complaining of NVD for last x3-4 days Labs significant for WBC 29.6 CXR showed b/l subtle pneumonia Bcx - no growth after 48hrs Plan: -Admitted to telemetry -Started on broadspectrum abx Vanc and Zosyn - stopped on 04/28 as the cultures came back negative -Acetaminophen for fever -DuoNebs PRN for sob and wheezing #Transaminitis, resolving Most likely secondary to hypovalemia/dehydration in setting of NVD Plan: -Will monitor LFT's #Parkinsons disease #Bipolar disorder Plan: -Restarted home med carbidopa-levodopa TID -Restarted home med Quetiapine 200 mg BID #Esophageal carcinoma #s/p G-tube placement Recently diagnosed of esophageal undifferentiated carcinoma Abd/Pelvis CT showed: Marked abnormal thickening of the lateral wall esophagus in this patient with the diagnosis of the esophageal carcinoma, Extensive metastatic lymphadenopathy and Widespread osteolytic metastatic disease. Pending PET scan, on outpatient basis Plan: -Oncologist Dr. Saeed consulted, recommendations are greatly appreciated -Morphine 2 mg IV Q6H for pain - changed to 1mg as patient is feeling drowsy -Referral to dietitian made - will appreciate his recommendations #Hypertension Blood pressures are within normal limits during the hospital stay Plan: - Will restart home med losartan 25 mg Qday and Carvedilol 6.25 mg BID Health Maintenance Dispo: Immunocompromised patient admitted for SIRS/infection Diet: Blendized puree DVT/PPx: Heparin GI ppx: Protonix Lines: PIV, G-tube Code Status: Full Code Patient plan of care was discussed with the attending physician, Dr. Barron and senior resident Dr. Yesika Jiménez, PGY1 Attending Provider Attestation/Addendum I, Mar Barron, , attest that I was physically present for the donaldson portions of the service and evaluated the patient with the resident and I reviewed and discussed the case with the resident and agree with the resident's findings and plans of care as documented above Patient seen and eval this a.m. Patient continues to have some shortness of breath particularly on exertion. His left lower extremity appears much more edematous today. Venous ultrasound was done showing evidence of an extensive DVT. Heparin drip was started. Will also obtain a CTA of chest to rule out for pulmonary embolism. Patient is saturating well on room air, but desaturates with movement. If CTA is positive, will consult cardiology for possible thrombectomy.
--- NOTE | 2025-04-28 14:02 | PC.PT ---
Patient is safe to continue using the bedside commode with 1 staff assist and a FWW. RN made aware.
--- NOTE | 2025-04-28 15:21 | PC.SS ---
Rounding Note: Patient is hypoxic. On 2L oxygen. Oncology is consulting.
--- NOTE | 2025-04-28 15:26 | CHAP ---
Patient was visited by a Spiritual Care Volunteer on 04/28/2025 between 0900 and 1015 and received comfort, encouragement and/or prayer.
--- NOTE | 2025-04-28 15:45 | PC.CC ---
pt is open with Mimi HERNÁNDEZ.
[2025-04-28 17:18] LABS: Partial Thromboplastin Time 33.4 Seconds (22.0-36.0)
[2025-04-28] MEDS: HEPARIN SOD INJ 5000 UNIT/ML VIAL 8000 UNIT IV (18:50)
[2025-04-28] MEDS: Heparin/D5w 25K 250 ML Ivpb 25,000 UNIT/250 ML BAG 18.038 UNIT IV (18:51)
[2025-04-28 23:10] LABS: Allen Test Performed/OK; Base Excess -1 (-3-3); HCO3 23 mEq/L (20-26); Inspired Oxygen, FIO2 36 %; O2 Saturation 97 % (91-98); PCO2 37 mmHg (32.0-48.0); PO2 80 mmHg (83-108); Puncture Site Right Radial; pH, Arterial 7.41 (7.35-7.45)
[2025-04-29] VITALS (58 sets, daily range): BP systolic 69–118; BP diastolic 35–74; PULSE 88–109; RESP 19–46; TEMP 36.1–36.8; O2SAT 94–100; BMI 36.7
[2025-04-29 02:01] LABS: Partial Thromboplastin Time 64.5 Seconds (22.0-36.0)
[2025-04-29] MEDS: MORPHINE SULF INJ 10 MG/ML VIAL IVP ×5 (02:38→21:09)
[2025-04-29] MEDS: GABAPENTIN 100 MG CAPSULE GT ×3 (05:20→22:00)
[2025-04-29] MEDS: CARBIDOPA/LEVODOPA 25/100 MG TABLET 1 TAB GT ×3 (05:20→21:09)
[2025-04-29 07:44] LABS: Basophils # (Auto) 0.1 Thou/mm3 (0.0-0.2); Basophils % (Auto) 0 % (0-2.5); Eosinophils # (Auto) 0.8 Thou/mm3 (0.0-0.5); Eosinophils % (Auto) 4 % (0-10); Hematocrit 29.6 % (41.0-53.0); Hemoglobin 9.8 g/dL (13.5-16.0); Immature Granulocytes Auto 0.91 Thou/mm3 (0.00-0.00); Lymphocytes # (Auto) 2.0 Thou/mm3 (1.0-4.8); Lymphocytes % (Auto) 10 % (10-50); Mean Corpuscular HGB Conc 33.1 g/dl (31.0-37.0); Mean Corpuscular Hemoglobin 27.1 pg (25.0-35.0); Mean Corpuscular Volume 82 fL (80-100); Monocytes # (Auto) 1.1 Thou/mm3 (0.0-0.8); Monocytes % (Auto) 5 % (0-12); Neutrophils # (Auto) 15.4 Thou/mm3 (1.8-7.7); Neutrophils % (Auto) 76 % (37-80); Nucleated Red Blood Cell # 0.00 Thou/mm3 (0.00-0.00); Nucleated Red Blood Cell % 0 /100 WBC (0); Platelet Count 207 Thou/mm3 (140-440); RDW Standard Deviation 59.1 fL (35.1-43.9); Red Blood Count 3.62 Miln/mm3 (4.50-5.90); White Blood Count 20.3 Thou/mm3 (3.8-10.6)
[2025-04-29] MEDS: lamoTRIgine 25 MG CHEW 200 MG GT (08:16)
[2025-04-29] MEDS: PANTOPRAZOLE 40 MG TABLET PO (08:16)
[2025-04-29] MEDS: TAMSULOSIN HCL 0.4 MG CAPSULE PO (08:16)
[2025-04-29 08:25] LABS: Alanine Aminotransferase < 7 U/L (10-49); Albumin, Serum 2.7 gm/dL (3.4-4.8); Albumin/Globulin Ratio 1.5 (1.2-2.2); Alkaline Phosphatase 249 U/L (46-116); Anion Gap 7 (7-16); Aspartate Amino Transferase 53 U/L (0-34); BUN/Creatinine Ratio 35 Ratio (12-20); Bilirubin,Total 0.6 mg/dL (0.3-1.2); Blood Urea Nitrogen 49 mg/dL (9-23); Calcium 10.4 mg/dL (8.3-10.6); Calcium (Corrected) 11.4 mg/dL (8.5-10.1); Carbon Dioxide 24.9 mMol/L (20.0-31.0); Chloride 108 mMol/L (98-107); Creatinine (Component) 1.4 mg/dL (0.6-1.3); Estimated Creatinine Clearance 62.7 mL/min (>60); Globulin 1.8 gm/dL (2.3-3.5); Glucose 105 mg/dL (74-106); Magnesium 2.3 mg/dL (1.6-2.6); Osmolality,Calculated 292 (275-295); Phosphorous 5.2 mg/dL (2.4-5.1); Potassium 5.3 mMol/L (3.4-5.1); Sodium 140 mMol/L (136-145); Total Protein 4.5 gm/dL (5.7-8.2); eGFR 54 See Note
[2025-04-29 08:27] LABS: Partial Thromboplastin Time 44.2 Seconds (22.0-36.0)
[2025-04-29] MEDS: SOD POLYSTYRENE SULFON SUSP 15 GM/60 ML BTL 30 GM GT (08:57)
[2025-04-29] MEDS: SODIUM CHLORIDE 0.9% 1000 ML 1,000 ML 80 ML IV (08:57)
[2025-04-29] MEDS: Heparin/D5w 25K 250 ML Ivpb 25,000 UNIT/250 ML BAG 20.279 UNIT IV (08:58)
[2025-04-29] MEDS: HEPARIN SOD INJ 5000 UNIT/ML VIAL 4000 UNIT IV (09:07)
[2025-04-29 09:14] LABS: Troponin I 1.070 ng/mL (0.0-0.045)
--- NOTE | 2025-04-29 09:29 | ESPR_ITS ---
<Statement entered by Wu Napoles MD - 04/30/25 07:16> I discussed with and supervised the environmental intern physician involved in the care of this patient. Patient assessment and plan was discussed with entire medicine team, including my attending. I agree with the assessment and plan as documented by environmental intern doctor. Patient care was discussed with my attending physician Dr. Anderson Napoles, PGY-2 Documentation for date of: 04/29/25 Subjective Subjective Interval history: Patient is seen and examined at bedside Overnight, patient underwent CTA-found to have bilateral pulmonary thromboembolism Patient is on heparin drip in view of pulmonary embolism and left upper extremity DVT Patient is complaining of shortness of breath and abdominal pain Consulted industrial education teacher, Dr. Hairston and he recommended pulmonary thrombectomy Initially, during rounds with the hospitalist team and industrial education teacher, Dr. Hairston in the noon patient denied pulmonary thrombectomy. Later patient was supposed to get transferred to ICU for further management, patient decided to go on comfort care, per restaurant host/hostess team. But when I went to the bedside along with industrial education teacher, Dr. Hairston he wants full code and wants to proceed with pulmonary thrombectomy and later informed ICU team ,moved to ICU around 3:45 PM Exam Vital Signs Temp Pulse Resp BP Pulse Ox O2 Del Method O2 Flow Rate 98.2 F 88 23 H 100/61 99 High Flow Nasal Cannula 40 04/29/25 08:00 04/29/25 08:17 04/29/25 08:00 04/29/25 08:17 04/29/25 08:00 04/29/25 08:00 04/29/25 08:00 FiO2 60 04/29/25 08:00 Narrative Exam General: Awake. HEENT: Normocephalic, atraumatic, mucous membranes moist. Heart: Regular rate and rhythm, no murmurs. Lungs: Clear to auscultation with no wheezing or crackles. Noted increased work of breathing and tachypnea Abdomen: Soft, nondistended, nontender, positive bowel sounds. ?No guarding or rebound tenderness. noted G tube Neurologic: Alert and oriented x3, no gross neurological deficit, and patient able to move all 4 extremities. Extremities: Noted swelling in the left upper extremity with erythema Skin: No rash or ecchymoses. Objective Labs 04/30/25 06:10 04/30/25 06:10 Labs: Laboratory Results - last 24 hr 04/28/25 04/28/25 04/28/25 09:26 15:48 23:00 WBC RBC Hgb Hct MCV MCH MCHC RDW Std Deviation Plt Count Neut % (Auto) Lymph % (Auto) [place] % (Auto) Eos % (Auto) Baso % (Auto) Neut # (Auto) Lymph # (Auto) [place] # (Auto) Eos # (Auto) Baso # (Auto) Immature Gran # (Auto) Absolute Nucleated RBC Immature Gran % Nucleated RBC % APTT 33.4 Puncture Site Right Radial ABG pH 7.41 ABG pCO2 37 ABG pO2 80 L ABG HCO3 23 ABG O2 Saturation 97 ABG Base Excess -1 FiO2 36 Sodium Potassium Chloride Carbon Dioxide Anion Gap BUN Creatinine Estim Creat Clear Calc eGFR BUN/Creatinine Ratio Glucose Calculated Osmolality Calcium Corrected Calcium Phosphorus Magnesium Total Bilirubin AST ALT Alkaline Phosphatase Troponin I Total Protein Albumin Globulin Albumin/Globulin Ratio Vancomycin Trough 16.4 H 04/29/25 04/29/25 01:07 07:30 WBC 20.3 H RBC 3.62 L Hgb 9.8 L Hct 29.6 L MCV 82 MCH 27.1 MCHC 33.1 RDW Std Deviation 59.1 H Plt Count 207 Neut % (Auto) 76 Lymph % (Auto) 10 [place] % (Auto) 5 Eos % (Auto) 4 Baso % (Auto) 0 Neut # (Auto) 15.4 H Lymph # (Auto) 2.0 [place] # (Auto) 1.1 H Eos # (Auto) 0.8 H Baso # (Auto) 0.1 Immature Gran # (Auto) 0.91 H Absolute Nucleated RBC 0.00 Immature Gran % 5 H Nucleated RBC % 0 APTT 64.5 H D 44.2 H D Puncture Site ABG pH ABG pCO2 ABG pO2 ABG HCO3 ABG O2 Saturation ABG Base Excess FiO2 Sodium 140 Potassium 5.3 H D Chloride 108 H Carbon Dioxide 24.9 Anion Gap 7 BUN 49 H Creatinine 1.4 H Estim Creat Clear Calc 62.7 eGFR 54 L BUN/Creatinine Ratio 35 H Glucose 105 Calculated Osmolality 292 Calcium 10.4 Corrected Calcium 11.4 H Phosphorus 5.2 H Magnesium 2.3 Total Bilirubin 0.6 AST 53 H ALT < 7 L Alkaline Phosphatase 249 H Troponin I 1.070 H* Total Protein 4.5 L Albumin 2.7 L Globulin 1.8 L Albumin/Globulin Ratio 1.5 Vancomycin Trough ABG Interpretation ABG results: 04/28/25 04/28/25 08:00 23:00 ABG pH 7.41 ABG pCO2 37 ABG pO2 80 L ABG HCO3 23 ABG O2 Saturation 97 ABG Base Excess -1 VBG pH 7.36 VBG pCO2 49 VBG pO2 27 VBG Base Excess 1 Quality Measures Quality Measures none Advance care planning discussed with:: patient and legal surragate Assessment & Plan Assessment Current Active Medications: Generic Name Dose Route Start Last Admin Trade Name Freq PRN Reason Stop Dose Admin Acetaminophen 650 mg 04/26/25 14:05 Acetaminophen Georgette 325 Mg/10 Ml Udc GT 05/26/25 14:04 Q6H PRN Fever >101.5 Albuterol/Ipratropium 3 ml 04/26/25 19:20 Albuterol/Ipratropium (Duoneb) Rt Georgette 3 Ml Nebu INH 05/26/25 18:59 Q6HRRT PRN wheezing sob Carbidopa/Levodopa 1 tab 04/26/25 22:00 04/29/25 05:20 Carbidopa/Levodopa 25/100 Mg Tablet GT 05/26/25 21:59 1 tab TID ELLIOTT Administration Carvedilol 6.25 mg 04/27/25 08:00 04/29/25 08:17 Carvedilol 3.125 Mg Tablet GT 05/27/25 07:59 6.25 mg BIDWM ELLIOTT Administration Gabapentin 100 mg 04/26/25 22:00 04/29/25 05:20 Gabapentin 100 Mg Capsule GT 05/26/25 21:59 100 mg TID ELLIOTT Administration Heparin Sodium/Dextrose 25,000 unit in 250 mls @ 18.038 mls/hr 04/28/25 14:30 04/29/25 08:58 Heparin In D5w Ivpb IV 05/12/25 14:29 18.1 units/kg/hr .[id number] ELLIOTT 20.279 mls/hr Administration Protocol 16.1 UNITS/KG/HR Sodium Chloride 1,000 mls @ 80 mls/hr 04/29/25 08:35 04/29/25 08:57 Ns IV 04/29/25 21:04 80 mls/hr .[id number] Administration Lamotrigine 200 mg 04/29/25 09:00 04/29/25 08:58 Lamotrigine 100 Mg Tablet (Non-Form) GT 05/29/25 08:59 Not Given QDAY ELLIOTT Losartan Potassium 25 mg 04/27/25 09:00 04/28/25 08:37 Losartan Potassium 25 Mg Tablet GT 05/27/25 08:59 25 mg QDAY ELLIOTT Administration Morphine Sulfate 1 mg 04/28/25 07:40 04/29/25 08:40 Morphine Sulf Inj 10 Mg/Ml Vial IVP 05/01/25 14:15 1 mg Q4HR PRN Administration PAIN Ondansetron HCl 4 mg 04/26/25 14:05 Ondansetron Inj 2 Mg/Ml Inj 2 Ml IVP 05/26/25 14:04 Q6H PRN NAUSEA OR VOMITING Protocol Pantoprazole Sodium 40 mg 04/29/25 09:00 04/29/25 08:16 Pantoprazole 40 Mg Tablet PO 05/29/25 08:59 40 mg QDAY ELLIOTT Administration Protocol Quetiapine Fumarate 200 mg 04/27/25 09:00 04/29/25 08:16 Quetiapine Fumarate 100 Mg Tablet GT 05/27/25 08:59 200 mg BID ELLIOTT Administration Tamsulosin HCl 0.4 mg 04/27/25 09:00 04/29/25 08:16 Tamsulosin Hcl 0.4 Mg Capsule PO 05/27/25 08:59 0.4 mg QDAY ELLIOTT Administration Plan Mr. 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 Admitted for management of infection in setting of immunocompromised patient. # Acute pulmonary embolism - Patient complained of shortness of breath since yesterday - On physical examination noted increased work of breathing with increased respiratory rate - CT angio chest - Positive for numerous bilateral pulmonary artery emboli including large filling defects in distal right main pulmonary artery extending into origins of upper and lower lobe pulmonary artery branches Plan - Started on Heparin drip - Consulted industrial education teacher Dr. Hairston and he recommended pulmonary thrombectomy tomorrow - Transferred to ICU tomorrow #DVT left upper extremity - Patient developed swelling of left upper extremity since last night -On physical examination, noted swelling and erythema in the left upper extremity - Ordered venous Doppler - showed acute nonocclusive thrombus extending up to left jugular vein Plan - Started on heparin drip #SIRS #Leukocytosis, likely reactive in the setting of pain, malignancy and pulmonary embolism #Immunocompromised Patient recently diagnosed with esophageal carcinoma On admission patient complaining of NVD for last x3-4 days Labs significant for WBC 29.6 CXR showed b/l subtle pneumonia Bcx - no growth after 48hrs Plan: -Admitted to telemetry -Started on broadspectrum abx Vanc and Zosyn - stopped on 04/28 as the cultures came back negative -Acetaminophen for fever -DuoNebs PRN for sob and wheezing #Transaminitis, resolving Most likely secondary to hypovalemia/dehydration in setting of NVD Plan: -Will monitor LFT's #Parkinsons disease #Bipolar disorder Plan: -Restarted home med carbidopa-levodopa TID -Restarted home med Quetiapine 200 mg BID #Esophageal carcinoma #s/p G-tube placement Recently diagnosed of esophageal undifferentiated carcinoma Abd/Pelvis CT showed: Marked abnormal thickening of the lateral wall esophagus in this patient with the diagnosis of the esophageal carcinoma, Extensive metastatic lymphadenopathy and Widespread osteolytic metastatic disease. Pending PET scan, on outpatient basis Plan: -Oncologist Dr. Saeed consulted, recommendations are greatly appreciated -Morphine 2 mg IV Q6H for pain - changed to 1mg as patient is feeling drowsy -Referral to dietitian made - will appreciate his recommendations #Hypertension Blood pressures are within normal limits during the hospital stay Plan: - Will restart home med losartan 25 mg Qday and Carvedilol 6.25 mg BID Health Maintenance Dispo: Immunocompromised patient admitted for SIRS/infection Diet: npo for now and held feeds DVT/PPx: Heparin GI ppx: Protonix Lines: PIV, G-tube Code Status: Full Code Patient plan of care was discussed with the attending physician, Dr. Barron and senior resident Dr. Yesika Jiménez, PGY1 Attending Provider Attestation/Addendum I, Mar Barron, , attest that I was physically present for the donaldson portions of the service and evaluated the patient with the resident and I reviewed and discussed the case with the resident and agree with the resident's findings and plans of care as documented above Patient seen and evaluated this AM. Patient was started on heparin drip yesterday due to findings of DVT and pulmonary emboli. Patient with increased O2 demand and currently on HFNC with flow of 35L/min and FIO2 of 50%. Cardiology was consulted due to possible thrombectomy. G tube feedings held due to possible procedure. However, patient and family were unable to decide regarding code status and undergoing procedure due to high risk of procedure with the concern of mass in right lower lobe seen on CT. Patient ultimately expressed that he would like to maintain full code status and pursue thrombectomy. Case discussed with restaurant host/hostess. Patient transferred to ICU for closer monitoring.
[2025-04-29 09:33] LABS: B-Type Natriuretic Peptide 40 pg/mL (0-100)
--- NOTE | 2025-04-29 10:46 | PC.SS ---
Update: Patient to obtain procedure at scientific laboratory supervisor, then will be transitioned to ICU for monitoring purposes.
--- NOTE | 2025-04-29 13:50 | PD.RESCONSUL ---
HPI Data of Consult Requesting Physician: Mar Barron DO Admitting Provider: Mar Barron DO Attending Provider: Mar Barron DO Primary Care Provider: Ashutsoh Mahajan MD Consult Narrative History of present illness: Patient decided to switch to COMFORT CARE at 3:00 PM on 04/29/2025 He showed full comprehension, AOx4 and GCS 15 at the time of decision, family present at bedside, requested his wishes be respected. Primary team was informed. ICU transfer orders will be cancelled. Pending POLST form for change of CODE STATUS by primary hospitalist team. Plan of care discussed with attending Hanny Webster M.D. PGY2 Disclaimer: Minor errors in headstart teacher may be present as this note was dictated using voice recognition software. cc:: cc: Mar Barron DO Exam Vital Signs Temp Pulse Resp BP Pulse Ox O2 Del Method O2 Flow Rate 97.1 F 92 25 H 96/57 L 99 High Flow Nasal Cannula 40 04/29/25 12:00 04/29/25 12:00 04/29/25 12:00 04/29/25 12:00 04/29/25 12:00 04/29/25 12:00 04/29/25 08:00 FiO2 60 04/29/25 08:00 Results Labs 04/29/25 07:30 04/29/25 07:30 Labs: Short CBC 04/29/25 Range/Units 07:30 WBC 20.3 H (3.8-10.6) Thou/mm3 Hgb 9.8 L (13.5-16.0) g/dL Hct 29.6 L (41.0-53.0) % Plt Count 207 (140-440) Thou/mm3 BMP 04/29/25 07:30 Sodium 140 Potassium 5.3 H D Chloride 108 H Carbon Dioxide 24.9 BUN 49 H Creatinine 1.4 H Glucose 105 Calcium 10.4 Cardiac Enzymes 04/29/25 Range/Units 07:30 Troponin I 1.070 H* (0.0-0.045) ng/mL Liver Function 04/29/25 Range/Units 07:30 Total Bilirubin 0.6 (0.3-1.2) mg/dL AST 53 H (0-34) U/L ALT < 7 L (10-49) U/L Alkaline Phosphatase 249 H (46-116) U/L Albumin 2.7 L (3.4-4.8) gm/dL ABG Interpretation ABG results: 04/28/25 04/28/25 08:00 23:00 ABG pH 7.41 ABG pCO2 37 ABG pO2 80 L ABG HCO3 23 ABG O2 Saturation 97 ABG Base Excess -1 VBG pH 7.36 VBG pCO2 49 VBG pO2 27 VBG Base Excess 1 Quality Measures Quality Measures none Advance care planning discussed with:: patient and other Medications Home Medications and Allergies Home Medications ?Medication ?Instructions ?Recorded ?Confirmed ?Type folic acid 1 mg tablet 1 mg PO QDAY 09/09/18 04/26/25 History carbidopa 10 mg-levodopa 100 mg 1 tab PO TID 07/27/20 04/26/25 History tablet lamotrigine 50 mg disintegrating 50 mg PO DAILY 07/27/20 04/26/25 History tablet methotrexate sodium 2.5 mg tablet 15 mg PO QWEEK 07/27/20 04/26/25 History tamsulosin 0.4 mg capsule 0.4 mg PO QDAY 07/27/20 04/26/25 History carvedilol 6.25 mg tablet 6.25 mg PO Q12H 04/02/25 04/26/25 History dulaglutide 3 mg/0.5 mL 3 mg subcut QWEEK 04/02/25 04/26/25 History subcutaneous pen injector (Trulicity) quetiapine 400 mg tablet,extended 400 mg PO QDAY 04/02/25 04/26/25 History release 24 hr carbidopa 25 mg-levodopa 100 mg 1 tab PO TID 04/26/25 04/26/25 History tablet gabapentin 100 mg capsule 100 mg PO TID 04/26/25 04/26/25 History hydrocodone 5 mg-acetaminophen 325 1 tab PO BID 04/26/25 04/26/25 History mg tablet lamotrigine 200 mg tablet 200 mg PO QDAY 04/26/25 04/26/25 History losartan 25 mg tablet 25 mg PO QDAY 04/26/25 04/26/25 History morphine 100 mg/5 mL oral 10 mg PO [id number] PRN pain 04/26/25 04/26/25 History concentrate pantoprazole 40 mg tablet,delayed 40 mg PO QDAY 04/26/25 04/26/25 History release Allergies Allergy/AdvReac Type Severity Reaction Status Date / Time No Known Allergies Allergy Verified 04/26/25 10:33 Visit Medications Acetaminophen (Acetaminophen Georgette 325 Mg/10 Ml Udc) 650 mg GT Q6H PRN PRN Reason: Fever >101.5 Stop: 05/26/25 14:04 Albuterol/Ipratropium (Albuterol/Ipratropium (Duoneb) Rt Georgette 3 Ml Nebu) 3 ml INH Q6HRRT PRN PRN Reason: wheezing sob Stop: 05/26/25 18:59 Carbidopa/Levodopa (Carbidopa/Levodopa 25/100 Mg Tablet) 1 tab GT TID [facility] Stop: 05/26/25 21:59 Last Admin: 04/29/25 13:40 Dose: 1 tab Carvedilol (Carvedilol 3.125 Mg Tablet) 6.25 mg GT BIDWM [facility] Stop: 05/27/25 07:59 Last Admin: 04/29/25 08:17 Dose: 6.25 mg Gabapentin (Gabapentin 100 Mg Capsule) 100 mg GT TID [facility] Stop: 05/26/25 21:59 Last Admin: 04/29/25 13:40 Dose: 100 mg Heparin Sodium/Dextrose (Heparin In D5w Ivpb) 25,000 unit in 250 mls @ 18.038 mls/hr IV .[id number] [facility]; Protocol Stop: 05/12/25 14:29 Last Admin: 04/29/25 08:58 Dose: 18.1 units/kg/hr, 20.279 mls/hr Sodium Chloride (Ns) 1,000 mls @ 80 mls/hr IV .[id number] ONE Stop: 04/29/25 21:04 Last Admin: 04/29/25 08:57 Dose: 80 mls/hr Lamotrigine (Lamotrigine 100 Mg Tablet (Non-Form)) 200 mg GT QDAY [facility] Stop: 05/29/25 08:59 Last Admin: 04/29/25 08:58 Dose: Not Given Losartan Potassium (Losartan Potassium 25 Mg Tablet) 25 mg GT QDAY [facility] Stop: 05/27/25 08:59 Last Admin: 04/28/25 08:37 Dose: 25 mg Morphine Sulfate (Morphine Sulf Inj 10 Mg/Ml Vial) 1 mg IVP Q2HR PRN PRN Reason: pain Stop: 05/04/25 09:59 Ondansetron HCl (Ondansetron Inj 2 Mg/Ml Inj 2 Ml) 4 mg IVP Q6H PRN; Protocol PRN Reason: NAUSEA OR VOMITING Stop: 05/26/25 14:04 Pantoprazole Sodium (Pantoprazole 40 Mg Tablet) 40 mg PO QDAY [facility]; Protocol Stop: 05/29/25 08:59 Last Admin: 04/29/25 08:16 Dose: 40 mg Quetiapine Fumarate (Quetiapine Fumarate 100 Mg Tablet) 200 mg GT BID [facility] Stop: 05/27/25 08:59 Last Admin: 04/29/25 08:16 Dose: 200 mg Tamsulosin HCl (Tamsulosin Hcl 0.4 Mg Capsule) 0.4 mg PO QDAY [facility] Stop: 05/27/25 08:59 Last Admin: 04/29/25 08:16 Dose: 0.4 mg Discontinued Medications Albuterol/Ipratropium (Albuterol/Ipratropium (Duoneb) Rt Georgette 3 Ml Nebu) 3 ml INH Q6HRRT [facility] Stop: 05/26/25 18:59 Carbidopa/Levodopa (Carbidopa/Levodopa 25/100 Mg Tablet) 1 tab PO TID [facility] Stop: 05/26/25 21:59 Heparin Sodium (Porcine) (Heparin Sod Inj 5000 Unit/Ml Vial) 5,000 unit SC Q8HR [facility] Stop: 05/10/25 21:59 Last Admin: 04/28/25 19:35 Dose: Not Given Heparin Sodium (Porcine) (Heparin Sod Inj 5000 Unit/Ml Vial) 8,000 unit IV X1 ONE; Protocol Stop: 04/28/25 14:17 Last Admin: 04/28/25 18:50 Dose: 8,000 unit Heparin Sodium (Porcine) (Heparin Sod Inj 5000 Unit/Ml Vial) 4,000 unit IV X1 ONE; Protocol Stop: 04/28/25 14:17 Last Admin: 04/29/25 07:18 Dose: Not Given Heparin Sodium (Porcine) (Heparin Sod Inj 5000 Unit/Ml Vial) 4,000 unit IV X1 ONE Stop: 04/29/25 08:55 Last Admin: 04/29/25 09:07 Dose: 4,000 unit Sodium Chloride (Ns) 1,000 mls @ 999 mls/hr IV .Q1H1M ONE Stop: 04/26/25 12:08 Last Infusion: 04/26/25 12:07 Dose: Infused Piperacillin Sod/Tazobactam (Sod 4.5 gm/ Sodium Chloride) 100 mls @ 200 mls/hr IV X1 ONE Stop: 04/26/25 12:44 Last Infusion: 04/26/25 12:57 Dose: Infused Piperacillin/Tazobactam/Dextrose (Zosyn) 3.375 gm in 50 mls @ 12.5 mls/hr IV Q8HR [facility] Stop: 05/03/25 21:59 Sodium Chloride (Ns) 1,000 mls @ 999 mls/hr IV .Q1H1M ONE Stop: 04/26/25 13:53 Last Infusion: 04/26/25 14:25 Dose: Infused Azithromycin 500 mg/ Sodium (Chloride) 250 mls @ 250 mls/hr IV X1 ONE Stop: 04/26/25 15:13 Last Admin: 04/26/25 14:24 Dose: Not Given Ceftriaxone Sodium 1 gm/ (Sodium Chloride) 50 mls @ 100 mls/hr IV QDAY [facility] Stop: 05/03/25 14:13 Last Admin: 04/26/25 14:25 Dose: Not Given Vancomycin HCl 2,000 mg/ (Sodium Chloride) 500 mls @ 150 mls/hr IV X1 ONE Stop: 04/26/25 18:04 Last Infusion: 04/27/25 01:07 Dose: Infused Sodium Chloride (Ns) 1,000 mls @ 80 mls/hr IV .[id number] [facility] Stop: 05/26/25 15:45 Last Admin: 04/28/25 19:35 Dose: Not Given Vancomycin/Sodium Chloride (Vancomycin/Ns 1 Gm Ivpb) 200 mls @ 120 mls/hr IV BID@1000,2200 [facility] Stop: 05/04/25 09:59 Last Admin: 04/28/25 10:38 Dose: 120 mls/hr Lamotrigine (Lamotrigine 25 Mg Chew) 200 mg PO QDAY [facility] Stop: 05/27/25 08:59 Lamotrigine (Lamotrigine 25 Mg Chew) 200 mg GT QDAY [facility] Stop: 05/27/25 08:59 Last Admin: 04/29/25 08:16 Dose: 200 mg Morphine Sulfate (Morphine Sulf Inj 10 Mg/Ml Vial) 4 mg IVP X1 ONE Stop: 04/26/25 11:09 Last Admin: 04/26/25 11:26 Dose: 4 mg Morphine Sulfate (Morphine Sulf Inj 10 Mg/Ml Vial) 2 mg IVP Q4HR PRN PRN Reason: PAIN Stop: 05/01/25 14:15 Last Admin: 04/27/25 22:14 Dose: 2 mg Morphine Sulfate (Morphine Sulf Inj 10 Mg/Ml Vial) 1 mg IVP X1 ONE Stop: 04/28/25 07:40 Last Admin: 04/28/25 08:34 Dose: 1 mg Morphine Sulfate (Morphine Sulf Inj 10 Mg/Ml Vial) 1 mg IVP Q4HR PRN PRN Reason: PAIN Stop: 05/01/25 14:15 Last Admin: 04/29/25 08:40 Dose: 1 mg Morphine Sulfate (Morphine Sulf Inj 10 Mg/Ml Vial) 1 mg IVP Q2HR [facility] Stop: 05/04/25 09:59 Last Admin: 04/29/25 12:15 Dose: 1 mg Ondansetron HCl (Ondansetron Inj 2 Mg/Ml Inj 2 Ml) 4 mg IVP X1 ONE; Protocol Stop: 04/26/25 11:09 Last Admin: 04/26/25 11:26 Dose: 4 mg Pantoprazole Sodium (Pantoprazole Inj 40 Mg Vial) 40 mg IVP QDAY [facility] Stop: 05/27/25 08:59 Last Admin: 04/28/25 08:35 Dose: 40 mg Pharmacy Consult (Vancomycin Pharmacy To Dose 1 Each Each) 1 each IV QDAY [facility] Stop: 05/27/25 08:59 Pharmacy Consult (Vancomycin Pharmacy To Dose 1 Each Each) 1 each IV QDAY PRN PRN Reason: CONSULT Stop: 05/27/25 08:01 Sodium Polystyrene Sulfonate (Sod Polystyrene Sulfon Susp 15 Gm/60 Ml Btl) 30 gm GT X1 ONE Stop: 04/29/25 08:36 Last Admin: 04/29/25 08:57 Dose: 30 gm Assessment & Plan Attending Provider Attestation/Addendum Patient seen and examined with the above resident, Santino Floyd MD. I agree with the findings, assessment, and plan of care. Currently patient tachypnic and in respiratory extremis. We did explain role of thrombectomy. Bedside USG shows preserved RV/LV function. Estimated normal TAPSE and preserved LV function with collapsible IVC. Bolus 500ml of IVF and continue on current rate of 80 ml/hr. Patient is on heparin gtt as well. Patient discussed risk/ benefit of thrombectomy with cardiology. He and his family decided to decline procedure at this time. Known esophageal CA with probable metastasis, right hilar lymphadenoapthy and noted pleural effusion. Patient will remain on telemetry silva for ongoing management given request to pursue comfort measures only. ICU remains available in case of any needs should they arise. I personally spent 30 minutes for review of physiologic parameters, directing plan of care, and coordination of care with other specialists, and counseling patient and family at the bedside. This is exclusive of time spent teaching housestaff or perform any separate billable procedure. Patient requires critical care services for acute hypoxic respiratory failure, submassive PE, esophageal CA, left upper extremity DVT. He remains at significant risk for further morbidity and mortality warranting close monitoring and care only available in the ICU.
--- NOTE | 2025-04-29 15:47 | ESCONSULT_ITS ---
HPI Data of Consult Consult date: 04/29/25 Requesting Physician: Mar Barron DO Admitting Provider: Santino Floyd MD Attending Provider: Edouard Cortez MD Primary Care Provider: Ashutosh Mahajan MD Consult Narrative Reason for consult: Hypoxia in the setting of PE, Stage IV esophageal CA History of present illness: HISTORY OF PRESENT ILLNESS: Mr. 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 Abdo/Pelvic CT confirmed lymphadenopathy in the descending thoracic aorta, abdominal lymphadenopathy and pelvic mesenteric lymphadenopathy. Patient presented to the ED on 04/23/2025 with severe nausea, nonbloody vomitus and multiple episodes of diarrhea. Radiation oncology Dr. Saeed was consulted for further evaluation. Patient underwent CTA chest on 04/28 which confirmed numerous bilateral PE, large filling defect in the distal right main pulmonary artery extending to the upper and lower lobe right pulmonary artery branches. Left supraclavicular and left axillary, mediastinal, para-aortic and mesenteric extensive lymphadenopathy also noted. Esophageal mass present in the distal esophagus. Cardiology was consulted for need for thrombectomy. Patient initially hesitant, decided to go with comfort care on 04/29/2025 around 3 PM. Primary team and cardiology revisited the need for possible intervention, patient and family decided to remain full code and pursue thrombectomy as advised. Patient was transferred to ICU for further management and monitoring. ICU team consulted for hypoxia in the setting of acute PE, and possible thrombectomy scheduled for 04/30/2025 cc:: cc: Mar Barron DO Review of Systems Review of Systems Narrative Review of Systems: GENERAL: Denies fevers/chills, diaphoresis. HEENT: Denies headache or visual/hearing changes. Denies nasal discharge. NEURO: Denies unusual weakness, difficulty speaking. CARDIO: Denies chest pain, palpitations. PULM: SOB, no cough, wheezing. GI: Denies abdominal pain, no N/V, no C/D. Reports having BMs URO: Denies burning/itching/pain/urinary changes. MSK/EXT/SKIN: Denies skeletal/muscle pain, changes in upper or lower extremities, itchiness, superficial skin chnages. PSYCH: Cooperative, pleasant mood & affect. The rest of the review of systems is otherwise negative. Exam Vital Signs Temp Pulse Resp BP Pulse Ox O2 Del Method O2 Flow Rate 97.1 F 95 30 H 96/57 L 96 High Flow Nasal Cannula 35 04/29/25 12:00 04/29/25 15:09 04/29/25 15:09 04/29/25 12:00 04/29/25 15:09 04/29/25 12:00 04/29/25 15:09 FiO2 50 04/29/25 15:09 Narrative Exam Constitutional Alert, oriented x3. Obese HEENT Vision grossly intact. Patent nares. Trachea midline. On HFNC : 40L, FiO2 100 Respiratory Chest normal on inspection and clear to auscultation bilaterally. Cardiovascular S1 and S2 audible, RRR. No murmurs or carotid bruit. No gross JVD. Abdominal Soft and non tender to palpation in all quadrants. BS + Genitourinary No bladder tenderness, no flank pain. Non tender to palpation. Musculoskeletal Extremities tone within normal limits. 2+ LE edema. Neurological CN II - XII grossly intact. Extremity motor and sensation grossly intact. Skin Warm, dry and intact. No apparent lesions. Psychiatric Patient has a good affect, is cooperative. Results Labs 04/30/25 06:10 04/30/25 06:10 Labs: Short CBC 04/29/25 Range/Units 07:30 WBC 20.3 H (3.8-10.6) Thou/mm3 Hgb 9.8 L (13.5-16.0) g/dL Hct 29.6 L (41.0-53.0) % Plt Count 207 (140-440) Thou/mm3 BMP 04/29/25 07:30 Sodium 140 Potassium 5.3 H D Chloride 108 H Carbon Dioxide 24.9 BUN 49 H Creatinine 1.4 H Glucose 105 Calcium 10.4 Cardiac Enzymes 04/29/25 Range/Units 07:30 Troponin I 1.070 H* (0.0-0.045) ng/mL Liver Function 04/29/25 Range/Units 07:30 Total Bilirubin 0.6 (0.3-1.2) mg/dL AST 53 H (0-34) U/L ALT < 7 L (10-49) U/L Alkaline Phosphatase 249 H (46-116) U/L Albumin 2.7 L (3.4-4.8) gm/dL ABG Interpretation ABG results: 04/28/25 04/28/25 08:00 23:00 ABG pH 7.41 ABG pCO2 37 ABG pO2 80 L ABG HCO3 23 ABG O2 Saturation 97 ABG Base Excess -1 VBG pH 7.36 VBG pCO2 49 VBG pO2 27 VBG Base Excess 1 Quality Measures Quality Measures none Advance care planning discussed with:: patient and other Medications Home Medications and Allergies Home Medications ?Medication ?Instructions ?Recorded ?Confirmed ?Type folic acid 1 mg tablet 1 mg PO QDAY 09/09/18 History carbidopa 10 mg-levodopa 100 mg 1 tab PO TID 07/27/20 04/26/25 History tablet lamotrigine 50 mg disintegrating 50 mg PO DAILY 04/26/25 History tablet methotrexate sodium 2.5 mg tablet 15 mg PO QWEEK 07/2704/26/25 History tamsulosin 0.4 mg capsule 0.4 mg PO QDAY 07/27/2004/05 History carvedilol 6.25 mg tablet 6.25 mg PO Q12H 04/02/25 History dulaglutide 3 mg/0.5 mL 3 mg subcut QWEEK 04/02/25 0 04/26/25 History subcutaneous pen injector (Trulicity) quetiapine 400 mg tablet,extended 400 mg PO QDAY 04/0204/26/25 History release 24 hr carbidopa 25 mg-levodopa 100 mg 1 tab PO TID 04/26/25 04/26/25 History tablet gabapentin 100 mg capsule 100 mg PO TID 04/26/2504/26 History hydrocodone 5 mg-acetaminophen 325 1 tab PO BID 04/26/25 History mg tablet lamotrigine 200 mg tablet 200 mg PO QDAY 04/26/2504/05 History losartan 25 mg tablet 25 mg PO QDAY 04/26/2504/26 History morphine 100 mg/5 mL oral 10 mg PO [id number] PRN pain 04/26/25 History concentrate pantoprazole 40 mg tablet,delayed 40 mg PO QDAY 04/26/25 History release Allergies Allergy/AdvReac Type Severity Reaction Status Date / Time No Known Allergies Allergy Verified 04/26/25 10:33 Visit Medications Acetaminophen (Acetaminophen Georgette 325 Mg/10 Ml Udc) 650 mg GT Q6H PRN PRN Reason: Fever >101.5 Stop: 05/26/25 14:04 Albuterol/Ipratropium (Albuterol/Ipratropium (Duoneb) Rt Georgette 3 Ml Nebu) 3 ml INH Q6HRRT PRN PRN Reason: wheezing sob Stop: 05/26/25 18:59 Carbidopa/Levodopa (Carbidopa/Levodopa 25/100 Mg Tablet) 1 tab GT TID [facility] Stop: 05/26/25 21:59 Last Admin: 04/29/25 13:40 Dose: 1 tab Carvedilol (Carvedilol 3.125 Mg Tablet) 6.25 mg GT BIDWM [facility] Stop: 05/27/25 07:59 Last Admin: 04/29/25 08:17 Dose: 6.25 mg Gabapentin (Gabapentin 100 Mg Capsule) 100 mg GT TID [facility] Stop: 05/26/25 21:59 Last Admin: 04/29/25 13:40 Dose: 100 mg Heparin Sodium/Dextrose (Heparin In D5w Ivpb) 25,000 unit in 250 mls @ 18.038 mls/hr IV .[id number] [facility]; Protocol Stop: 05/12/25 14:29 Last Admin: 04/29/25 08:58 Dose: 18.1 units/kg/hr, 20.279 mls/hr Sodium Chloride (Ns) 1,000 mls @ 80 mls/hr IV .[id number] ONE Stop: 04/29/25 21:04 Last Admin: 04/29/25 08:57 Dose: 80 mls/hr Lamotrigine (Lamotrigine 100 Mg Tablet (Non-Form)) 200 mg GT QDAY [facility] Stop: 05/29/25 08:59 Last Admin: 04/29/25 08:58 Dose: Not Given Losartan Potassium (Losartan Potassium 25 Mg Tablet) 25 mg GT QDAY [facility] Stop: 05/27/25 08:59 Last Admin: 04/28/25 08:37 Dose: 25 mg Morphine Sulfate (Morphine Sulf Inj 10 Mg/Ml Vial) 1 mg IVP Q2HR PRN PRN Reason: pain Stop: 05/04/25 09:59 Last Admin: 04/29/25 15:17 Dose: 1 mg Ondansetron HCl (Ondansetron Inj 2 Mg/Ml Inj 2 Ml) 4 mg IVP Q6H PRN; Protocol PRN Reason: NAUSEA OR VOMITING Stop: 05/26/25 14:04 Pantoprazole Sodium (Pantoprazole 40 Mg Tablet) 40 mg PO QDAY [facility]; Protocol Stop: 05/29/25 08:59 Last Admin: 04/29/25 08:16 Dose: 40 mg Quetiapine Fumarate (Quetiapine Fumarate 100 Mg Tablet) 200 mg GT BID [facility] Stop: 05/27/25 08:59 Last Admin: 04/29/25 08:16 Dose: 200 mg Tamsulosin HCl (Tamsulosin Hcl 0.4 Mg Capsule) 0.4 mg PO QDAY [facility] Stop: 05/27/25 08:59 Last Admin: 04/29/25 08:16 Dose: 0.4 mg Discontinued Medications Albuterol/Ipratropium (Albuterol/Ipratropium (Duoneb) Rt Georgette 3 Ml Nebu) 3 ml INH Q6HRRT [facility] Stop: 05/26/25 18:59 Last Admin: 04/29/25 15:04 Dose: Not Given Carbidopa/Levodopa (Carbidopa/Levodopa 25/100 Mg Tablet) 1 tab PO TID [facility] Stop: 05/26/25 21:59 Heparin Sodium (Porcine) (Heparin Sod Inj 5000 Unit/Ml Vial) 5,000 unit SC Q8HR [facility] Stop: 05/10/25 21:59 Last Admin: 04/28/25 19:35 Dose: Not Given Heparin Sodium (Porcine) (Heparin Sod Inj 5000 Unit/Ml Vial) 8,000 unit IV X1 ONE; Protocol Stop: 04/28/25 14:17 Last Admin: 04/28/25 18:50 Dose: 8,000 unit Heparin Sodium (Porcine) (Heparin Sod Inj 5000 Unit/Ml Vial) 4,000 unit IV X1 ONE; Protocol Stop: 04/28/25 14:17 Last Admin: 04/29/25 07:18 Dose: Not Given Heparin Sodium (Porcine) (Heparin Sod Inj 5000 Unit/Ml Vial) 4,000 unit IV X1 ONE Stop: 04/29/25 08:55 Last Admin: 04/29/25 09:07 Dose: 4,000 unit Sodium Chloride (Ns) 1,000 mls @ 999 mls/hr IV .Q1H1M ONE Stop: 04/26/25 12:08 Last Infusion: 04/26/25 12:07 Dose: Infused Piperacillin Sod/Tazobactam (Sod 4.5 gm/ Sodium Chloride) 100 mls @ 200 mls/hr IV X1 ONE Stop: 04/26/25 12:44 Last Infusion: 04/26/25 12:57 Dose: Infused Piperacillin/Tazobactam/Dextrose (Zosyn) 3.375 gm in 50 mls @ 12.5 mls/hr IV Q8HR [facility] Stop: 05/03/25 21:59 Sodium Chloride (Ns) 1,000 mls @ 999 mls/hr IV .Q1H1M ONE Stop: 04/26/25 13:53 Last Infusion: 04/26/25 14:25 Dose: Infused Azithromycin 500 mg/ Sodium (Chloride) 250 mls @ 250 mls/hr IV X1 ONE Stop: 04/26/25 15:13 Last Admin: 04/26/25 14:24 Dose: Not Given Ceftriaxone Sodium 1 gm/ (Sodium Chloride) 50 mls @ 100 mls/hr IV QDAY [facility] Stop: 05/03/25 14:13 Last Admin: 04/26/25 14:25 Dose: Not Given Vancomycin HCl 2,000 mg/ (Sodium Chloride) 500 mls @ 150 mls/hr IV X1 ONE Stop: 04/26/25 18:04 Last Infusion: 04/27/25 01:07 Dose: Infused Sodium Chloride (Ns) 1,000 mls @ 80 mls/hr IV .[id number] [facility] Stop: 05/26/25 15:45 Last Admin: 04/28/25 19:35 Dose: Not Given Vancomycin/Sodium Chloride (Vancomycin/Ns 1 Gm Ivpb) 200 mls @ 120 mls/hr IV BID@1000,2200 [facility] Stop: 05/04/25 09:59 Last Admin: 04/28/25 10:38 Dose: 120 mls/hr Lamotrigine (Lamotrigine 25 Mg Chew) 200 mg PO QDAY [facility] Stop: 05/27/25 08:59 Lamotrigine (Lamotrigine 25 Mg Chew) 200 mg GT QDAY [facility] Stop: 05/27/25 08:59 Last Admin: 04/29/25 08:16 Dose: 200 mg Morphine Sulfate (Morphine Sulf Inj 10 Mg/Ml Vial) 4 mg IVP X1 ONE Stop: 04/26/25 11:09 Last Admin: 04/26/25 11:26 Dose: 4 mg Morphine Sulfate (Morphine Sulf Inj 10 Mg/Ml Vial) 2 mg IVP Q4HR PRN PRN Reason: PAIN Stop: 05/01/25 14:15 Last Admin: 04/27/25 22:14 Dose: 2 mg Morphine Sulfate (Morphine Sulf Inj 10 Mg/Ml Vial) 1 mg IVP X1 ONE Stop: 04/28/25 07:40 Last Admin: 04/28/25 08:34 Dose: 1 mg Morphine Sulfate (Morphine Sulf Inj 10 Mg/Ml Vial) 1 mg IVP Q4HR PRN PRN Reason: PAIN Stop: 05/01/25 14:15 Last Admin: 04/29/25 08:40 Dose: 1 mg Morphine Sulfate (Morphine Sulf Inj 10 Mg/Ml Vial) 1 mg IVP Q2HR [facility] Stop: 05/04/25 09:59 Last Admin: 04/29/25 12:15 Dose: 1 mg Ondansetron HCl (Ondansetron Inj 2 Mg/Ml Inj 2 Ml) 4 mg IVP X1 ONE; Protocol Stop: 04/26/25 11:09 Last Admin: 04/26/25 11:26 Dose: 4 mg Pantoprazole Sodium (Pantoprazole Inj 40 Mg Vial) 40 mg IVP QDAY [facility] Stop: 05/27/25 08:59 Last Admin: 04/28/25 08:35 Dose: 40 mg Pharmacy Consult (Vancomycin Pharmacy To Dose 1 Each Each) 1 each IV QDAY [facility] Stop: 05/27/25 08:59 Pharmacy Consult (Vancomycin Pharmacy To Dose 1 Each Each) 1 each IV QDAY PRN PRN Reason: CONSULT Stop: 05/27/25 08:01 Sodium Polystyrene Sulfonate (Sod Polystyrene Sulfon Susp 15 Gm/60 Ml Btl) 30 gm GT X1 ONE Stop: 04/29/25 08:36 Last Admin: 04/29/25 08:57 Dose: 30 gm Assessment & Plan Plan Mr. 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 Abdo/Pelvic CT confirmed lymphadenopathy in the descending thoracic aorta, abdominal lymphadenopathy and pelvic mesenteric lymphadenopathy. Patient presented to the ED on 04/23/2025 with severe nausea, nonbloody vomitus and multiple episodes of diarrhea. Radiation oncology Dr. Saeed was consulted for further evaluation. Patient underwent CTA chest on 04/28 which confirmed numerous bilateral PE, large filling defect in the distal right main pulmonary artery extending to the upper and lower lobe right pulmonary artery branches. Left supraclavicular and left axillary, mediastinal, para-aortic and mesenteric extensive lymphadenopathy also noted. Esophageal mass present in the distal esophagus. Cardiology was consulted for need for thrombectomy. Patient initially hesitant, decided to go with comfort care on 04/29/2025 around 3 PM. Primary team and cardiology revisited the need for possible intervention, patient and family decided to remain full code and pursue thrombectomy as advised. Patient was transferred to ICU for further management and monitoring. ICU team consulted for hypoxia in the setting of acute PE, and possible thrombectomy scheduled for 04/30/2025 NEURO Parkinson's disease Bipolar disorder Rx: - Restarted home med carbidopa-levodopa TID - Restarted home med Quetiapine 200 mg BID [facility] Shock, likely cardiogenic History of hypertension - Blood pressures are within normal limits during the hospital stay - Upon transfer to the ICU, blood pressure trending 80s/60s, MAP low 60s Rx: - Will hold home med losartan 25 mg Qday and Carvedilol 6.25 mg BID at this time given low MAP - Central line placement, will start Levophed if MAP <60 - Cardiology is consulted, appreciate input. - Patient is high risk for intubation, will inform ER provider and hospitalist team. Patient and family confirmed full CODE STATUS Troponinemia Dx: Troponin 1.070 at 7:30 AM. No follow-up troponin levels ordered by primary team Rx: - Will trend troponins every 8 hours - Likely in the setting of bilateral PE - Cardiology is consulted, appreciate input PULM Acute Hypoxic Resp Failure BILATERAL PE Left UE DVT - Patient developed swelling of left upper extremity since last night - On physical examination, noted swelling and erythema in the left upper extremity - Venous Doppler US: acute nonocclusive thrombus extending up to left jugular vein - CTA Chest on 04/28 : numerous bilateral PE, large filling defect in the distal right main pulmonary artery extending to the upper and lower lobe right pulmonary artery branches. Left supraclavicular and left axillary, mediastinal, para-aortic and mesenteric extensive lymphadenopathy also noted. Esophageal mass present in the distal esophagus. Rx: - Heparin gtt on telemetry - On HFNC : 40L, FiO2 100. Resp therapist following closely, appreciate input - Head CT to rule out hemorrhage. Will give TNK x1 in ICU - Cardiology is consulted for possible thrombectomy, appreciate recommendations. Will hold heparin drip at this time in the ICU - Cardiology to reevaluate patient for tenecteplase tomorrow ? for thrombectomy GI/Hep Esophageal carcinoma s/p G-tube placement Dx: - Patient presented to the ED on 04/23/2025 with severe nausea, nonbloody vomitus and multiple episodes of diarrhea. - Recently diagnosed of esophageal undifferentiated carcinoma in March 2025 - Abd/Pelvis CT : Marked abnormal thickening of the lateral wall esophagus in this patient with the diagnosis of the esophageal carcinoma, extensive metastatic lymphadenopathy and osteolytic metastatic disease. Rx: - Oncologist Dr. Saeed consulted, recommendations are greatly appreciated - Morphine 2 mg IV Q6H for pain -> changed to 1mg as patient is feeling drowsy Protein calorie malnutrition Tube Feeds: Dx: - Patient takes bolus tube feeds at home, will resume at this time - Protein 4.5, albumin 2.7 - significant muscle wasting AND loss of subcutaneous fat - nutritional intake of <50% of recommended intake for > 2 weeks - bedridden or otherwise significantly reduced functional capacity Rx: - Will feed 150 mL every 2 hours via PEG in the ICU - Referral to dietitian made - will appreciate recommendations RENAL SARBJIT Hyperkalemia Hyperphosphatemia Hypercalcemia Dx: - SARBJIT: Creatinine 1.4, GFR 54 (baseline creatinine 1.2) - Phos 5.2, calcium 11.4, K 5.3 Rx: - Likely in the setting of advanced malignancy - Will check IVC and bedside echo - Patient to be started on Levophed drip for blood pressure, anticipate improvement with adequate perfusion HEME Leukocytosis Dx: WBC 29.6 - likely reactive in the setting of pain and malignancy. Patient recently diagnosed with esophageal carcinoma ENDO Obesity Dx: BMI 36.7 Rx: Oupatient work up ID No active problems. - CXR showed b/l subtle pneumonia - Bcx - no growth after 48hrs - Broadspectrum Vanc + Zosyn - stopped on 04/28 as the cultures came back negative ICU Health maintenance: Dispo: Admit to ICU for TNK for B/L PE Diet: Tube feeds via PEG, 150mL every 2 hours DVT ppx: Heparin gtt - HOLD GI ppx: Protonix 40mg qD IV lines: 2 pIV Central line: Yes Arterial line: Yes Boland: Yes (started 01/02/24 - Code status: FULL CODE Plan of care discussed with boat wrapper Dr Cortez, Santino Floyd MD PGY 2 This document was compiled using speech recognition software. Grammatical errors can be an occasional consequence of this system due to software limitations. Attending Provider Attestation/Addendum Patient seen and examined with above resident, Santino Floyd MD. I agree with the findings, assessment, and plan of care as document except for any differences below. Patient has decided to change his mind and remain full code and would like aggressive measures including potential for thrombectomy. Patient transferred to ICU for ongoing IV fluid resuscitation. Bedside ultrasound confirmed presence of collapsible IVC suggesting continued need for additional preload. Patient will be maintained on low-dose Levophed to augment cardiac output in the setting of hypovolemic and possible component of obstructive shock. Troponin was elevated consistent with submassive PE. Patient remains on anticoagulation at this time. Discussed with cardiology with plans for thrombectomy tomorrow morning patient had no imaging of the brain during his history of esophageal CA. Will plan for CT head now as MRIs will be unavailable total this is inferior quality pictures to exclude presence of metastasis but at least cannot exclude presence of significant bleeding. Patient's hemoglobin is notably down but in case of worsening hemodynamics overnight despite fluid resuscitation and low-dose vasopressor support, may require TNK/TPA for thrombolysis including plans for dosing in case of sudden decline. Discussed with overnight medicine attending with me being available overnight in case there is any needs. Resident staff have placed a right IJ central line under supervision of ED, much appreciated. Total critical care time: I personally spent additional 35 minutes for review of physiologic parameters, directing plan of care, coordination of care with other specialists. This is exclusive of time spent teaching housestaff performing separate billable procedures. Patient remains at significant risk for further morbidity and mortality warranting close monitoring and care only available in the ICU. Patient required critical care services for submassive PE, acute renal failure, and hypovolemic/obstructive shock.
[2025-04-29 17:01] LABS: Partial Thromboplastin Time 62.1 Seconds (22.0-36.0)
--- NOTE | 2025-04-29 17:35 | XR_ITS ---
Examination: CT brain head without contrast. 2-D sagittal coronal reconstructions Date and time of exam:April 29, 2025 1943 hours INDICATIONS: Pre tenecteplase implementation and blood pressure CTDI: vol (mGy):51 DLP: (mGycm):1066 Technique: Multiple CT axial sections of the brain have been obtained, 5 mm slice thickness. Contrast has not been administered. 2-D sagittal, coronal reconstructions have been obtained Low dose protocols were performed. One or more of the following dose reduction techniques were used; automated exposure control, adjustment of the mA and/or KV according to patient size, use of iterative reconstruction technique. Findings: No significant ventricular enlargement. Intra-axial or extra-axial hemorrhage density is not seen. No mass effect or midline shift Basal cisterns are not remarkable. Fourth ventricle is midline. Cranial vault intact. Impression: Negative for acute hemorrhage, mass effect or midline shift
[2025-04-29 18:21] LABS: Troponin I 0.880 ng/mL (0.0-0.045)
[2025-04-29] MEDS: RINGERS LACTATED 1000 ML 500 ML 999 ML IV (18:26)
[2025-04-29] MEDS: Norepinephrine/D5W 8mg/250ml 8 MG/250 ML BAG 10.912 MG IV (18:27)
[2025-04-29 18:29] LABS: Base Excess 0 (-3-3); HCO3 25 mEq/L (20-26); Inspired Oxygen, FIO2 50 %; O2 Saturation 97 % (91-98); PCO2 42 mmHg (32.0-48.0); PO2 85 mmHg (83-108); pH, Arterial 7.39 (7.35-7.45)
[2025-04-29 18:31] LABS: Allen Test Performed/OK; Puncture Site Right Radial
--- NOTE | 2025-04-29 19:00 | XR_ITS ---
Examination: AP chest single view Technique one AP portable semiupright chest single view Date and time: April 29, 2025 1910 hours Comparison April 28, 2025 INDICATIONS: Post central line placement. FINDINGS: Right internal jugular central line tip SVC satisfactory position, no pneumothorax Mild prominence left ventricle with prominent vascular congestion, consider perihilar edema IMPRESSION: Right internal jugular central line in satisfactory position
--- NOTE | 2025-04-29 19:11 | ESOP_ITS ---
<Statement entered by Fariha Del Castillo MD - 05/25/25 04:10> I, Fariha Del Castillo MD, have reviewed the history, exam, and assessment of the patient. I have evaluated the patient independently and agree with the plan of care documented by [ ]. All diagnostic studies were reviewed and discussed. I confirm the diagnosis as documented by the Resident. I was present during the Medical Decision Making for this patient. The patient's plan of care was created between myself and the Resident and consistent with our discussion of the patient's case. PROCEDURES: Procedure Date / Time 04/29/251910 Procedure Narrative Procedure Narrative: PROCEDURE: Right IJ vascular catheter INDICATION: Vasopressor support PROCEDURE GRIDCAP MACHINE OPERATOR : Santino Floyd MD ATTENDING PHYSICIAN : Fariha Del Castillo MD CONSENT: Informed consent was obtained from family, with discussion regarding the procedure, or treatment. I explained the following to the designee: a. Nature of the procedure or treatment and who will perform the procedure or treatment. b. Necessity for procedure and the possible benefits. c. Risks and complications (most common and serious). d. Alternative treatments and the risks, benefits and side effects of each (including no treatment). e. Likelihood of the patient achieving his/her goals without this procedure and surgery treatment. f. Problems that might occur during the recuperation. g. Conflicts of interest, if any PROCEDURE SUMMARY: The Central Line Venous Catheter Insertion Practices form was completed. Starting with the first hand wash prior to starting sterile technique. A time out was performed. My hands were washed immediately prior to the procedure. I wore a surgical cap, mask with protective eye wear, full gown and sterile gloves throughout the procedure. The patient was placed in Trendelenburg position. RIGHT chest region was prepped using chlorhexidine scrub and draped in sterile fashion using a full drape and sterile probe cover and sterile gel employed. The medial and lateral heads of the sternocleidomastoid muscle were identified as was the carotid pulse. The Right Internal Jugular vein was identified using the ultrasound. Anesthesia was achieved over the vein using 1% lidocaine. Using real-time out of plane guidance, the introducer needle was inserted into the Right Internal Jugular vein under direct ultrasound visualization. Venous blood was withdrawn. The syringe was removed and a guidewire was advanced into the introducer needle. The guidewire was visualized in the Internal Jugular Vein by ultrasound. A small incision was made at the skin surface with a scalpel and the introducer needle was exchanged for a dilator over the guidewire. After appropriate dilation was obtained, the dilator was exchanged over the wire for a central venous catheter. The wire was removed and the catheter was sutured in place at 0.2 - 0.3 cm. A sterile sorbaview shield was placed over the catheter at the insertion site. The patient tolerated the procedure without any hemodynamic compromise. At time of procedure completion, all ports aspirated and flushed properly. Estimated blood loss is <10ml. Post-procedure chest x-ray confirmed appropriate placement. Performed under the supervision of ED attending Hanny Mccabe MD (PGY2 Internal Med) Disclaimer: Minor errors in medical assisting program director may be present as this note was dictated using voice recognition software.
--- NOTE | 2025-04-29 20:37 | PD.RESCONSUL ---
HPI Data of Consult Requesting Physician: Mar Barron DO Admitting Provider: Mar Barron DO Attending Provider: Mar Barron DO Primary Care Provider: Ashutosh Mahajan MD Consult Narrative History of present illness: CC: unable to tolerate g-tube feedings. 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 Patient initially presented to the emergency room via private care with a chief complain of unable to tolerate feedings with regurgitations noted by family members at bedside and abdominal pain. Patient having increased shortness of breath and difficult to breath. Patient initially admitted for early pneumonia meeting SIRS criteria. Paitnet subsequently found to have an left upper extremity and CTA chest (04/28/2025): positive for numerous bilateral pulmonary artery emboli including large filling defects int he distral right main pumonary artery extending into upper and lower lobe right pulmonary artery branches. Left spraclavicular and left axillary, mediastinal, paraaortic and mesenteric extensive lymphadenopathy. Patient was upgraded to ICU for observation given extensive PE and hemoinstability. Prior to being upgrade to ICU, patient changed his mind multiple time and initially refused thrombectomy. Patient went back and forth between full code to dnr to even comfort. After much deliberation, patient decided on full code with plans for medical management and thrombectomy. . ER Course: Vitals: BP 136/85, HR tachy 130, RR 19, spO 97 on high flow WBC 29.6, HgB 12.3, BUN 45, Extension Service Specialist In Charge 1.2 Ca 11.6, AST 84, ALT 71, ALP 376. UA: Negative Abdomen pelvis CT showed: Marked abnormal thickening of the lateral wall esophagus in this patient with the diagnosis of the esophageal carcinoma, Extensive metastatic lymphadenopathy and Widespread osteolytic metastatic disease. Chest x-ray showed Subtle early bilateral pneumonia. 04/30/2025: Cardiology for possible thrombectomy. 04/30/2025: Large clots noted on CT chest with no RV dilation noted with bedside US. Concern for hemodynamic instability given soft blood pressure and increased need for high flow with fio2 Medical Hx: Parkinson disease, hypertension, esophageal carcinoma, PUD Medications Carbidopa levodopa, gabapentin, omepraole, methotrexate, lovastatin, Trulicity, carvedilol, metformin, benztropine Surgical Hx: Cholecystectomy, bilateral knee replacement, EGD-peptic ulcer previously (2018) Family Hx: Negative for cancer Social Hx: Denied smoking or drinking, retired [employer] Allergies: NKDA cc:: cc: Mar Barron, DO Review of Systems Review of Systems Narrative Review of Systems: General appearance: NO weight change, NO fatigue, NO weakness, NO fever, NO chills, NO night sweats, No cough Skin: NO rash, NO itching, NO sores, NO moles HEENT: NO Trauma, NO nausea, NO vomiting, NO visual changes, NO blurry vision, NO double vision, NO tinnitus, NO vertigo, NO ear discharge, NO rhinorrhea, NO stuffiness, NO sneezing, NO allergy, NO epistaxis. NO Hoarseness, NO sore throat, NO swollen neck. Cardiac: NO Palpitations, NO dyspnea on exertion, NO orthopnea, NO paroxysmal nocturnal dyspnea, NO edema Respiratory: Yes Shortness of Breath, NO Wheezing, NO Cough, NO Sputum, NO hemoptysis GI:YES appetite, NO nausea, NO vomiting, YES dysphagia, NO changes in bowel frequency, NO stool color, NO diarrhea, NO constipation, NO hemetemesis, NO hemorrhoids, NO melena, NO hematechezia, NO abdominal pain, NO jaundice, likely history of colon cancer Renal: NO frequency, NO hesitancy, NO urgency, NO hematuria, NO nocturia, NO incontinence MSK: NO muscle weakness, NO gout, NO arthritis, NO muscle stiffness Neuro: NO headaches, NO tremors, NO weakness, NO paralysis, NO seizures, NO loss of consciousness, NO numbness. Hem: NO anemia, NO easy bruising/bleeding, NO petechiae, NO purpura Endo: NO heat/cold intolerance, NO excessive sweating, NO polyuria, NO polydipsia, NO polyphagia, NO thyroid problems, NO diabetes Pysch: NO mood, NO anxiety, NO depression Exam Vital Signs Temp Pulse Resp BP Pulse Ox O2 Del Method O2 Flow Rate 98.3 F 96 27 H 89/46 L 100 High Flow Nasal Cannula 35 04/29/25 16:05 04/29/25 18:30 04/29/25 18:30 04/29/25 18:30 04/29/25 18:30 04/29/25 16:05 04/29/25 16:05 FiO2 50 04/29/25 16:00 Narrative Exam General Appearance: Alert & Oriented X3, well-nourished male who is lying in bed in mild distress secondary to shortness of breath HEENT: Skull symmetrical and atraumatic. Conjunctivae pin and moist. Pupils equal, round, reactive to light and accommodation (PERRL). External ear without lesion or discharge. Cardio: Normal Rate and Rhythm with S1 and S2 heart sounds. No murmurs or extra heart sounds auscultated. No bruits on carotid auscultation. No peripheral edema or cyanosis. Lungs: Symmetric with good expansion. Decreased vesicular breath sounds with some rhonchi. Abdomen: Non-tender, Non-distended, Normal Reactive Bowel Sounds Neuro: Alert, cooperative, oriented to person, place, and time. Speech clear. CN grossly intact. Upper motor strength 5/5 and Lower motor strength 5/5. Sensation intact. Results Labs 05/01/25 04:56 05/01/25 04:56 Labs: Short CBC 04/29/25 Range/Units 07:30 WBC 20.3 H (3.8-10.6) Thou/mm3 Hgb 9.8 L (13.5-16.0) g/dL Hct 29.6 L (41.0-53.0) % Plt Count 207 (140-440) Thou/mm3 BMP 04/29/25 07:30 Sodium 140 Potassium 5.3 H D Chloride 108 H Carbon Dioxide 24.9 BUN 49 H Creatinine 1.4 H Glucose 105 Calcium 10.4 Cardiac Enzymes 04/29/25 04/29/25 Range/Units 07:30 16:17 Troponin I 1.070 H* 0.880 H* (0.0-0.045) ng/mL Liver Function 04/29/25 Range/Units 07:30 Total Bilirubin 0.6 (0.3-1.2) mg/dL AST 53 H (0-34) U/L ALT < 7 L (10-49) U/L Alkaline Phosphatase 249 H (46-116) U/L Albumin 2.7 L (3.4-4.8) gm/dL ABG Interpretation ABG results: 06/04/28/25 04/29/25 08:00 23:00 18:22 ABG pH 7.41 7.39 ABG pCO2 37 42 ABG pO2 80 L 85 ABG HCO3 23 25 ABG O2 Saturation 97 97 ABG Base Excess -1 0 VBG pH 7.36 VBG pCO2 49 VBG pO2 27 VBG Base Excess 1 Quality Measures Quality Measures none Advance care planning discussed with:: patient Medications Home Medications and Allergies Home Medications ?Medication ?Instructions ?Recorded ?Confirmed ?Type folic acid 1 mg tablet 1 mg PO QDAY 09/09/18 04/26/25 History carbidopa 10 mg-levodopa 100 mg 1 tab PO TID 07/27/20 04/26/25 History tablet lamotrigine 50 mg disintegrating 50 mg PO DAILY 07/27/20 04/26/25 History tablet methotrexate sodium 2.5 mg tablet 15 mg PO QWEEK 07/27/20 04/26/25 History tamsulosin 0.4 mg capsule 0.4 mg PO QDAY 07/27/20 04/26/25 History carvedilol 6.25 mg tablet 6.25 mg PO Q12H 04/02/25 04/26/25 History dulaglutide 3 mg/0.5 mL 3 mg subcut QWEEK 04/02/25 04/26/25 History subcutaneous pen injector (Trulicity) quetiapine 400 mg tablet,extended 400 mg PO QDAY 04/02/25 04/26/25 History release 24 hr carbidopa 25 mg-levodopa 100 mg 1 tab PO TID 04/26/25 04/26/25 History tablet gabapentin 100 mg capsule 100 mg PO TID 04/26/25 04/26/25 History hydrocodone 5 mg-acetaminophen 325 1 tab PO BID 04/26/25 04/26/25 History mg tablet lamotrigine 200 mg tablet 200 mg PO QDAY 04/26/25 04/26/25 History losartan 25 mg tablet 25 mg PO QDAY 04/26/25 04/26/25 History morphine 100 mg/5 mL oral 10 mg PO [id number] PRN pain 04/26/25 04/26/25 History concentrate pantoprazole 40 mg tablet,delayed 40 mg PO QDAY 04/26/25 04/26/25 History release Allergies Allergy/AdvReac Type Severity Reaction Status Date / Time No Known Allergies Allergy Verified 04/26/25 10:33 Visit Medications Acetaminophen (Acetaminophen Georgette 325 Mg/10 Ml Udc) 650 mg GT Q6H PRN PRN Reason: Fever >101.5 Stop: 05/26/25 14:04 Albuterol/Ipratropium (Albuterol/Ipratropium (Duoneb) Rt Georgette 3 Ml Nebu) 3 ml INH Q6HRRT PRN PRN Reason: wheezing sob Stop: 05/26/25 18:59 Carbidopa/Levodopa (Carbidopa/Levodopa 25/100 Mg Tablet) 1 tab GT TID ELLIOTT Stop: 05/26/25 21:59 Last Admin: 04/29/25 13:40 Dose: 1 tab Carvedilol (Carvedilol 3.125 Mg Tablet) 6.25 mg GT BIDWM ELLIOTT Stop: 05/27/25 07:59 Last Admin: 04/29/25 16:59 Dose: Not Given Gabapentin (Gabapentin 100 Mg Capsule) 100 mg GT TID ELLIOTT Stop: 05/26/25 21:59 Last Admin: 04/29/25 13:40 Dose: 100 mg Heparin Sodium/Dextrose (Heparin In D5w Ivpb) 25,000 unit in 250 mls @ 18.038 mls/hr IV .[id number] ELLIOTT; Protocol Stop: 05/12/25 14:29 Last Titration: 04/29/25 17:38 Dose: 0 units/kg/hr, 0 mls/hr Sodium Chloride (Ns) 1,000 mls @ 80 mls/hr IV .[id number] ONE Stop: 04/29/25 21:04 Last Admin: 04/29/25 08:57 Dose: 80 mls/hr Norepinephrine/Dextrose (Levophed In D5w 8mg/250ml) 8 mg in 250 mls @ 10.912 mls/hr IV .[id number] PRN; Protocol PRN Reason: PER PROTOCOL Stop: 05/29/25 18:11 Last Admin: 04/29/25 18:27 Dose: 0.05 mcg/kg/min, 10.912 mls/hr Acetaminophen (Ofirmev Inj) 1,000 mg in 100 mls @ 250 mls/hr IV Q6HR PRN PRN Reason: fever >99.9 Stop: 04/30/25 12:23 Lamotrigine (Lamotrigine 100 Mg Tablet (Non-Form)) 200 mg GT QDAY [facility] Stop: 05/29/25 08:59 Last Admin: 04/29/25 08:58 Dose: Not Given Losartan Potassium (Losartan Potassium 25 Mg Tablet) 25 mg GT QDAY [facility] Stop: 05/27/25 08:59 Last Admin: 04/28/25 08:37 Dose: 25 mg Morphine Sulfate (Morphine Sulf Inj 10 Mg/Ml Vial) 1 mg IVP Q2HR PRN PRN Reason: pain Stop: 05/04/25 09:59 Last Admin: 04/29/25 15:17 Dose: 1 mg Ondansetron HCl (Ondansetron Inj 2 Mg/Ml Inj 2 Ml) 4 mg IVP Q6H PRN; Protocol PRN Reason: NAUSEA OR VOMITING Stop: 05/26/25 14:04 Pantoprazole Sodium (Pantoprazole 40 Mg Tablet) 40 mg PO QDAY [facility]; Protocol Stop: 05/29/25 08:59 Last Admin: 04/29/25 08:16 Dose: 40 mg Quetiapine Fumarate (Quetiapine Fumarate 100 Mg Tablet) 200 mg GT BID [facility] Stop: 05/27/25 08:59 Last Admin: 04/29/25 08:16 Dose: 200 mg Tamsulosin HCl (Tamsulosin Hcl 0.4 Mg Capsule) 0.4 mg PO QDAY [facility] Stop: 05/27/25 08:59 Last Admin: 04/29/25 08:16 Dose: 0.4 mg Discontinued Medications Albuterol/Ipratropium (Albuterol/Ipratropium (Duoneb) Rt Georgette 3 Ml Nebu) 3 ml INH Q6HRRT [facility] Stop: 05/26/25 18:59 Last Admin: 04/29/25 15:04 Dose: Not Given Carbidopa/Levodopa (Carbidopa/Levodopa 25/100 Mg Tablet) 1 tab PO TID [facility] Stop: 05/26/25 21:59 Heparin Sodium (Porcine) (Heparin Sod Inj 5000 Unit/Ml Vial) 5,000 unit SC Q8HR ELLIOTT Stop: 05/10/25 21:59 Last Admin: 04/28/25 19:35 Dose: Not Given Heparin Sodium (Porcine) (Heparin Sod Inj 5000 Unit/Ml Vial) 8,000 unit IV X1 ONE; Protocol Stop: 04/28/25 14:17 Last Admin: 04/28/25 18:50 Dose: 8,000 unit Heparin Sodium (Porcine) (Heparin Sod Inj 5000 Unit/Ml Vial) 4,000 unit IV X1 ONE; Protocol Stop: 04/28/25 14:17 Last Admin: 04/29/25 07:18 Dose: Not Given Heparin Sodium (Porcine) (Heparin Sod Inj 5000 Unit/Ml Vial) 4,000 unit IV X1 ONE Stop: 04/29/25 08:55 Last Admin: 04/29/25 09:07 Dose: 4,000 unit Sodium Chloride (Ns) 1,000 mls @ 999 mls/hr IV .Q1H1M ONE Stop: 04/26/25 12:08 Last Infusion: 04/26/25 12:07 Dose: Infused Piperacillin Sod/Tazobactam (Sod 4.5 gm/ Sodium Chloride) 100 mls @ 200 mls/hr IV X1 ONE Stop: 04/26/25 12:44 Last Infusion: 04/26/25 12:57 Dose: Infused Piperacillin/Tazobactam/Dextrose (Zosyn) 3.375 gm in 50 mls @ 12.5 mls/hr IV Q8HR ELLIOTT Stop: 05/03/25 21:59 Sodium Chloride (Ns) 1,000 mls @ 999 mls/hr IV .Q1H1M ONE Stop: 04/26/25 13:53 Last Infusion: 04/26/25 14:25 Dose: Infused Azithromycin 500 mg/ Sodium (Chloride) 250 mls @ 250 mls/hr IV X1 ONE Stop: 04/26/25 15:13 Last Admin: 04/26/25 14:24 Dose: Not Given Ceftriaxone Sodium 1 gm/ (Sodium Chloride) 50 mls @ 100 mls/hr IV QDAY E[facility] Stop: 05/03/25 14:13 Last Admin: 04/26/25 14:25 Dose: Not Given Vancomycin HCl 2,000 mg/ (Sodium Chloride) 500 mls @ 150 mls/hr IV X1 ONE Stop: 04/26/25 18:04 Last Infusion: 04/27/25 01:07 Dose: Infused Sodium Chloride (Ns) 1,000 mls @ 80 mls/hr IV .[id number] E[facility] Stop: 05/26/25 15:45 Last Admin: 04/28/25 19:35 Dose: Not Given Vancomycin/Sodium Chloride (Vancomycin/Ns 1 Gm Ivpb) 200 mls @ 120 mls/hr IV BID@1000,2200 [facility] Stop: 05/04/25 09:59 Last Admin: 04/28/25 10:38 Dose: 120 mls/hr Lactated Ringer's (Lactated Ringers) 500 mls @ 999 mls/hr IV .Q31M ONE Stop: 04/29/25 19:00 Last Admin: 04/29/25 18:26 Dose: 999 mls/hr Lamotrigine (Lamotrigine 25 Mg Chew) 200 mg PO QDAY [facility] Stop: 05/27/25 08:59 Lamotrigine (Lamotrigine 25 Mg Chew) 200 mg GT QDAY [facility] Stop: 05/27/25 08:59 Last Admin: 04/29/25 08:16 Dose: 200 mg Morphine Sulfate (Morphine Sulf Inj 10 Mg/Ml Vial) 4 mg IVP X1 ONE Stop: 04/26/25 11:09 Last Admin: 04/26/25 11:26 Dose: 4 mg Morphine Sulfate (Morphine Sulf Inj 10 Mg/Ml Vial) 2 mg IVP Q4HR PRN PRN Reason: PAIN Stop: 05/01/25 14:15 Last Admin: 04/27/25 22:14 Dose: 2 mg Morphine Sulfate (Morphine Sulf Inj 10 Mg/Ml Vial) 1 mg IVP X1 ONE Stop: 04/28/25 07:40 Last Admin: 04/28/25 08:34 Dose: 1 mg Morphine Sulfate (Morphine Sulf Inj 10 Mg/Ml Vial) 1 mg IVP Q4HR PRN PRN Reason: PAIN Stop: 05/01/25 14:15 Last Admin: 04/29/25 08:40 Dose: 1 mg Morphine Sulfate (Morphine Sulf Inj 10 Mg/Ml Vial) 1 mg IVP Q2HR ELLIOTT Stop: 05/04/25 09:59 Last Admin: 04/29/25 12:15 Dose: 1 mg Ondansetron HCl (Ondansetron Inj 2 Mg/Ml Inj 2 Ml) 4 mg IVP X1 ONE; Protocol Stop: 04/26/25 11:09 Last Admin: 04/26/25 11:26 Dose: 4 mg Pantoprazole Sodium (Pantoprazole Inj 40 Mg Vial) 40 mg IVP QDAY [facility] Stop: 05/27/25 08:59 Last Admin: 04/28/25 08:35 Dose: 40 mg Pharmacy Consult (Vancomycin Pharmacy To Dose 1 Each Each) 1 each IV QDAY [facility] Stop: 05/27/25 08:59 Pharmacy Consult (Vancomycin Pharmacy To Dose 1 Each Each) 1 each IV QDAY PRN PRN Reason: CONSULT Stop: 05/27/25 08:01 Sodium Polystyrene Sulfonate (Sod Polystyrene Sulfon Susp 15 Gm/60 Ml Btl) 30 gm GT X1 ONE Stop: 04/29/25 08:36 Last Admin: 04/29/25 08:57 Dose: 30 gm Assessment & Plan Plan #Acute hypoxic respiratory failure #Pulmonary embolism likely massive #Provoked PE in the setting of malignancy #Left upper extremity DVT #Shock Patient presented with concern for possible early pneumonia, given worsening dyspnea CTA chest obtained noted to show large distal main pulmonary artery extending into the upper and lower right pulmonary lobe who multiple right pulmonary PE. Given bilateral PE including a large filling defect in the distal right main pulmonary artery concern for obstructive shock, pending official echo. Versus cardio cardiogenic given elevated troponins of 1.070 and patient denied chest pain versus septic given elevated leukocytosis, less likely.Currently on high flow. Plan for thrombectomy AM 04/30/2025. CT Chest (04/28/2025): Positive for numerous bilateral pulmonary artery emboli including large filling efects in the distal right main pulmonary artery extending into the origins ofthe upper and lower lobe right pulmonary artery branches Left supraclavicular and left axillary, mediastinal, para-aortic and mesenteric extensive lymphadenopathy Esophageal mass again noted Troponin 1.07 0.880 PESI 190, Class V Plan -Given Pul-Crit recommendations, TNKase recc -Plan from thrombectomy -Continue heparin drip -consider epi if concern for shock -->Norepi started 0.13 mcg/kg/min -Pending official Echo, consider repeat EKG -D/C troponin as levels have peaked. -Avoid increasing intrathoraic pressure #Leukocytosis Concern fo early pneumonia on intial chest x-ray on admsision late noted to be a PE. Given history of malignancy likely leading to leukocytosis. Continue to montior Blood cutlure negative. Cxr (04/29/2025): Mild prominence left ventricle w/ prominent vascular congestion Cx(): Subtle early bilateral pneumonia w/ abnormally prominent right mediastinum UA negative Plan -Consider repeat cultures in setting of shock #Hypertension Past medical history of CArvedilol, given concern for PE consider holding holding. continue to hold Losartan, given conern for shock #Normocytic Anemia Likely in the setting of malignnacy vs chronic loss Plan -consider iron panel. -continue to monitor Hgb and Hct #Esophageal malignancy, undifferentiated #Status post G-tube placement Plan -Dr. Saeed following -consider GI consult #BHP Consider holding Tamsulosin #Obesity Dispo: Admit to ICU for TNK for B/L PE Diet: Tube feeds via PEG, 150mL every 2 hours DVT ppx: Heparin gtt - HOLD GI ppx: Protonix 40mg qD IV lines: 2 pIV Central line: Yes Arterial line: Yes Boland: Yes (started 01/02/24 - Code status: FULL CODE - The patient's plan was discussed with attending Dr. Yovanny Cano MD PGY1 Internal Medicine Attending Provider Attestation/Addendum 69-year-old male patient with a past medical history of recently diagnosed malignant esophageal carcinoma status post biopsy on 04/02/2025 with undifferentiated carcinoma with rare signet cells, status post G-tube placement being followed with oncology hypertension, diabetes mellitus type 2, Parkinson's disease, PUD, hyperlipidemia, osteoarthritis, morbid obesity presented to the emergency department on 04/26/2025 for nausea and nonbloody vomiting as well as diarrhea and unable to tolerate feeds along with generalized weakness. Patient was admitted to the hospital and oncology was consulted. As per Dr. 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 Patient was recommended supportive care recommended to follow-up as outpatient for PET scan and port placement for possible chemotherapy as he is an unlikely surgical candidate. As per the documentation patient appears to be having stage IV cancer. Patient left and was noted to be swollen and duplex of the left upper extremity was ordered which showed was positive for DVT showing nonocclusive thrombus extending up to the left jugular vein. Patient was started on heparin drip and CTA chest was ordered to rule out pulmonary embolism. CTA chest showed bilateral pulmonary embolus with large filling defects in the distal right main pulmonary artery as well as minimal plaque in the left upper lobe right pulmonary artery. Also had filling defect noted in the distal left lobar pulmonary artery. Patient had multiple left supraclavicular, left axillary, mediastinal, para-aortic, mesenteric extensive lymphadenopathy along with a esophageal mass. There was a concern of possible right lower lobe mass on the CT chest also. Cardiology consulted for further evaluation of the pulmonary embolism and possible thrombectomy as patient was hypoxic and was on high flow 50% FiO2 with significant workload of breathing. We did discuss with the patient about the possible thrombectomy but patient did not want to undergo any procedures initially and wanted to be DNR/DNI and comfort care. Patient and then was back and forth during the entire morning between DNR/DNI, comfort care and going home on home hospice and eventually did speak to his family members and decided to be full code and requested for possible thrombectomy in the evening. Given his increased work of breathing and high oxygen requirements patient was transferred to the ICU for closer monitoring later in the evening. 1. Acute bilateral pulmonary embolism-submassive PE 2. Acute hypoxic respiratory failure secondary to the acute PE 3. Shock mostly hypovolemic with possible obstructive component 4. Acute DVT of the left upper extremity extending up to the left internal jugular vein 5. 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 Recent G-tube placement secondary to esophageal cancer 7. Hypertension 8. Diabetes mellitus type 2 9. Parkinson disease 10. Morbid obesity 11. Hyperlipidemia 12. Osteoarthritis Present presented for nausea and nonbloody vomiting as well as diarrhea and later left arm swelling was noted for which venous duplex was ordered which showed acute nonocclusive thrombus extending up to left jugular vein. Patient also was hypoxic and had increasing oxygen requirements and hence CTA Chest performed on 04/28/2025 showed bilateral PE with large filling defect in theright main pulmonary artery involving the entire right lower lobe. Minimal thrombus also noted in the right upper lobe branches and also in the right lower lobe branches of the pulmonary artery. IVC has appeared to be normal and no evidence of RV strain on the CT scan Troponins were elevated initially on admission at 1.07 and later on down trended to 0.8. BNP was only 46. Echo was ordered but was not completed but the bedside echo did not show any any right heart strain and RV function was normal. Patient on oxygen high flow nasal cannula at 50% and saturating well but does have significant work of breathing including use of accessory muscles. Patient initially refused thrombectomy and wanted to be DNR comfort care but later on agreed to do the procedure. Will keep the patient n.p.o. past midnight and plan to do so pulmonary angiogram, right heart cath as well as mechanical thrombectomy with penumbra device in AM. Patient has a questionable right lower lobe mass also the snot well-demarcated in the CT along with significant lymphadenopathy. Discussed all the risk benefits and alternatives of performing a mechanical thrombectomy with the patient including the risk of bleeding, pulmonary hemorrhage, risk of acute hypoxic respiratory failure, heart attack and in detail with the patient and patient agreeable for the procedure and provided consent for the same. Explained to the patient that the procedure will not be improving his overall mortality but will help with morbidity including his present symptoms and the work of breathing. If patient deteriorates further and continues to be hypotensive then patient will need TNK. There was no CT head done for the patient and will need to rule out metastasis prior to that and CT head will be performed today. Patient is hypotensive and started on Levophed in the ICU but IVC is not dilated and appears to be collapsing with inspiration. Continue to give IV fluids and bolus 500 mL for now. Continue heparin drip for anticoagulation Patient PE mostly secondary to the malignant esophageal carcinoma with metastasis. Patient appears to have stage IV metastatic cancer with significant lymphadenopathy along with bone mets. Oncology team following. Elevated troponins mostly secondary to the acute pulmonary embolism at the bedside echo did not show any regional wall motion abnormalities and showed good LV as well as RV function. Patient denies any kind of chest pain or chest pressure and his only complaint shortness of breath secondary to the PE. Check TSH A1c and lipid profile for further cardiac risk stratification. There is a high probability of sudden, clinically significant or life threatening deterioration in the patient condition which required the highest level of physician preparedness to intervene urgently. I have personally spent 65 minutes of critical care time, exclusive of time spent on any procedures, in evaluation and management of this critically ill patient. Management of rest of the medical conditions as per primary team and other consultants. Thank you for the consult and allowing me to participate in the care of the patient. Cardiology will continue to follow. Paulo Hairston M.D. Interventional Cardiology
[2025-04-29 20:40] LABS: Basophils # (Auto) 0.0 Thou/mm3 (0.0-0.2); Basophils % (Auto) 0 % (0-2.5); Eosinophils # (Auto) 1.1 Thou/mm3 (0.0-0.5); Eosinophils % (Auto) 5 % (0-10); Hematocrit 27.9 % (41.0-53.0); Hemoglobin 9.1 g/dL (13.5-16.0); Immature Granulocytes Auto 1.04 Thou/mm3 (0.00-0.00); Lymphocytes # (Auto) 2.1 Thou/mm3 (1.0-4.8); Lymphocytes % (Auto) 11 % (10-50); Mean Corpuscular HGB Conc 32.6 g/dl (31.0-37.0); Mean Corpuscular Hemoglobin 27.4 pg (25.0-35.0); Mean Corpuscular Volume 84 fL (80-100); Monocytes # (Auto) 1.1 Thou/mm3 (0.0-0.8); Monocytes % (Auto) 5 % (0-12); Neutrophils # (Auto) 14.9 Thou/mm3 (1.8-7.7); Neutrophils % (Auto) 73 % (37-80); Nucleated Red Blood Cell # 0.00 Thou/mm3 (0.00-0.00); Nucleated Red Blood Cell % 0 /100 WBC (0); Platelet Count 230 Thou/mm3 (140-440); RDW Standard Deviation 61.5 fL (35.1-43.9); Red Blood Count 3.32 Miln/mm3 (4.50-5.90); White Blood Count 20.3 Thou/mm3 (3.8-10.6)
[2025-04-29] MEDS: ACETAMINOPHEN SOL 325 MG/10 ML UDC 650 MG GT (21:08)
--- NOTE | 2025-04-29 22:04 | PC.NURSE ---
PER DR. RODRIGUEZ TO RESTART HEPARIN GTT, NO TNK TONIGHT, CONSULTED DR. FLORES. VITAL SIGNS WITHIN NORMAL LIMITS, PT ON 0.01 OF LEVOPHED, RESPIRATIONS 24-25 MINIMAL ABDOMINAL BREATHING SATURATING 96% ON NASAL CANNULA 4.
[2025-04-29 23:11] LABS: Partial Thromboplastin Time 28.7 Seconds (22.0-36.0)
[2025-04-30] VITALS (92 sets, daily range): BP systolic 77–148; BP diastolic 43–93; PULSE 84–117; RESP 5–35; TEMP 36.1–36.9; O2SAT 84–99; BMI 36.7
[2025-04-30] MEDS: Heparin/D5w 25K 250 ML Ivpb 25,000 UNIT/250 ML BAG 18 UNIT IV (00:12)
[2025-04-30 02:24] LABS: Troponin I 0.851 ng/mL (0.0-0.045)
[2025-04-30] MEDS: MORPHINE SULF INJ 10 MG/ML VIAL IVP ×4 (05:09→19:43)
[2025-04-30] MEDS: CARBIDOPA/LEVODOPA 25/100 MG TABLET 1 TAB GT ×3 (05:09→21:01)
[2025-04-30] MEDS: GABAPENTIN 100 MG CAPSULE GT ×3 (05:54→21:01)
[2025-04-30 06:50] LABS: INR 1.2 (0.9-1.3); Partial Thromboplastin Time 44.3 Seconds (22.0-36.0); Prothrombin Time 13.0 Seconds (9.0-12.2)
--- NOTE | 2025-04-30 07:14 | ESPR_ITS ---
Documentation for date of: 04/30/25 Subjective Subjective Interval history: Mr. 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 Abdo/Pelvic CT confirmed lymphadenopathy in the descending thoracic aorta, abdominal lymphadenopathy and pelvic mesenteric lymphadenopathy. Patient presented to the ED on 04/23/2025 with severe nausea, nonbloody vomitus and multiple episodes of diarrhea. Radiation oncology Dr. Saeed was consulted for further evaluation. Patient underwent CTA chest on 04/28 which confirmed numerous bilateral PE, large filling defect in the distal right main pulmonary artery extending to the upper and lower lobe right pulmonary artery branches. Left supraclavicular and left axillary, mediastinal, para-aortic and mesenteric extensive lymphadenopathy also noted. Esophageal mass present in the distal esophagus. Cardiology was consulted for need for thrombectomy. Patient initially hesitant, decided to go with comfort care on 04/29/2025 around 3 PM. Primary team and cardiology revisited the need for possible intervention, patient and family decided to remain full code and pursue thrombectomy as advised. Patient was transferred to ICU for further management and monitoring. ICU team consulted for hypoxia in the setting of acute PE, and possible thrombectomy scheduled for 04/30/2025 04/30/2025: Overnight Levophed was titrated down to 0.09 from 0.11, CT brain was negative and subsequently heparin infusion was started [PE protocol]. Input 1474 cc/output 500 cc. This morning patient complains of productive cough with yellow mucus. WBC increased to 22.5 from 20.3, Hb increased to 9.5 from 9.1, PLT increased to 271 from 230, K decreased to 4.1 from 5.3, CR increased to 1.6 from 1.4, corrected Ca 11.3, Trop I down trended to 0.851 from 1.07. Patient scheduled for right heart cath today +/- catheter based Impella thrombectomy. Given lactated Ringer's 500 cc IVF bolus. Exam Vital Signs Temp Pulse Resp BP Pulse Ox O2 Del Method O2 Flow Rate 97.0 F 97 26 H 111/57 L 95 Nasal Cannula 4 04/30/25 04:00 04/30/25 06:30 04/30/25 06:30 04/30/25 06:30 04/30/25 06:30 04/30/25 04:00 04/30/25 04:00 FiO2 50 04/29/25 16:00 Narrative Exam Constitutional Alert, oriented x3. Obese HEENT Vision grossly intact. Patent nares. Trachea midline. On 2L O2 via NC Respiratory Chest normal on inspection and clear to auscultation bilaterally. Cardiovascular S1 and S2 audible, RRR. No murmurs or carotid bruit. No gross JVD. Abdominal Soft and non tender to palpation in all quadrants. BS + Genitourinary No bladder tenderness, no flank pain. Non tender to palpation. Musculoskeletal Extremities tone within normal limits. trace LE edema, left upper extremity nonpitting edema up to shoulder Neurological CN II - XII grossly intact. Extremity motor and sensation grossly intact. Skin Warm, dry and intact. No apparent lesions. Psychiatric Patient has a good affect, is cooperative. Objective Labs 04/30/25 06:10 04/30/25 06:10 Labs: Laboratory Results - last 24 hr 04/29/25 04/29/25 04/29/25 07:30 16:17 18:22 WBC 20.3 H RBC 3.62 L Hgb 9.8 L Hct 29.6 L MCV 82 MCH 27.1 MCHC 33.1 RDW Std Deviation 59.1 H Plt Count 207 Neut % (Auto) 76 Lymph % (Auto) 10 [place] % (Auto) 5 Eos % (Auto) 4 Baso % (Auto) 0 Neut # (Auto) 15.4 H Lymph # (Auto) 2.0 [place] # (Auto) 1.1 H Eos # (Auto) 0.8 H Baso # (Auto) 0.1 Immature Gran # (Auto) 0.91 H Absolute Nucleated RBC 0.00 Immature Gran % 5 H Nucleated RBC % 0 PT INR APTT 44.2 H D 62.1 H D Puncture Site Right Radial ABG pH 7.39 ABG pCO2 42 ABG pO2 85 ABG HCO3 25 ABG O2 Saturation 97 ABG Base Excess 0 FiO2 50 Sodium 140 Potassium 5.3 H D Chloride 108 H Carbon Dioxide 24.9 Anion Gap 7 BUN 49 H Creatinine 1.4 H Estim Creat Clear Calc 62.7 eGFR 54 L BUN/Creatinine Ratio 35 H Glucose 105 Calculated Osmolality 292 Calcium 10.4 Corrected Calcium 11.4 H Phosphorus 5.2 H Magnesium 2.3 Total Bilirubin 0.6 AST 53 H ALT < 7 L Alkaline Phosphatase 249 H Troponin I 1.070 H* 0.880 H* B-Natriuretic Peptide 40 Total Protein 4.5 L Albumin 2.7 L Globulin 1.8 L Albumin/Globulin Ratio 1.5 04/29/25 04/29/25 04/30/25 20:27 22:33 01:42 WBC 20.3 H RBC 3.32 L Hgb 9.1 L Hct 27.9 L MCV 84 MCH 27.4 MCHC 32.6 RDW Std Deviation 61.5 H Plt Count 230 Neut % (Auto) 73 Lymph % (Auto) 11 [place] % (Auto) 5 Eos % (Auto) 5 Baso % (Auto) 0 Neut # (Auto) 14.9 H Lymph # (Auto) 2.1 [place] # (Auto) 1.1 H Eos # (Auto) 1.1 H Baso # (Auto) 0.0 Immature Gran # (Auto) 1.04 H Absolute Nucleated RBC 0.00 Immature Gran % 5 H Nucleated RBC % 0 PT INR APTT 28.7 D Puncture Site ABG pH ABG pCO2 ABG pO2 ABG HCO3 ABG O2 Saturation ABG Base Excess FiO2 Sodium Potassium Chloride Carbon Dioxide Anion Gap BUN Creatinine Estim Creat Clear Calc eGFR BUN/Creatinine Ratio Glucose Calculated Osmolality Calcium Corrected Calcium Phosphorus Magnesium Total Bilirubin AST ALT Alkaline Phosphatase Troponin I 0.851 H* B-Natriuretic Peptide Total Protein Albumin Globulin Albumin/Globulin Ratio 04/30/25 06:07 WBC RBC Hgb Hct MCV MCH MCHC RDW Std Deviation Plt Count Neut % (Auto) Lymph % (Auto) [place] % (Auto) Eos % (Auto) Baso % (Auto) Neut # (Auto) Lymph # (Auto) [place] # (Auto) Eos # (Auto) Baso # (Auto) Immature Gran # (Auto) Absolute Nucleated RBC Immature Gran % Nucleated RBC % PT 13.0 H INR 1.2 APTT 44.3 H D Puncture Site ABG pH ABG pCO2 ABG pO2 ABG HCO3 ABG O2 Saturation ABG Base Excess FiO2 Sodium Potassium Chloride Carbon Dioxide Anion Gap BUN Creatinine Estim Creat Clear Calc eGFR BUN/Creatinine Ratio Glucose Calculated Osmolality Calcium Corrected Calcium Phosphorus Magnesium Total Bilirubin AST ALT Alkaline Phosphatase Troponin I B-Natriuretic Peptide Total Protein Albumin Globulin Albumin/Globulin Ratio ABG Interpretation ABG results: 04/28/25 04/28/25 04/29/25 08:00 23:00 18:22 ABG pH 7.41 7.39 ABG pCO2 37 42 ABG pO2 80 L 85 ABG HCO3 23 25 ABG O2 Saturation 97 97 ABG Base Excess -1 0 VBG pH 7.36 VBG pCO2 49 VBG pO2 27 VBG Base Excess 1 Quality Measures Quality Measures none Advance care planning discussed with:: patient Assessment & Plan Assessment Current Active Medications: Generic Name Dose Route Start Last Admin Trade Name Freq PRN Reason Stop Dose Admin Acetaminophen 650 mg 04/26/25 14:05 04/29/25 21:08 Acetaminophen Georgette 325 Mg/10 Ml Udc GT 05/26/25 14:04 650 mg Q6H PRN Administration Fever >101.5 Albuterol/Ipratropium 3 ml 04/26/25 19:20 Albuterol/Ipratropium (Duoneb) Rt Georgette 3 Ml Nebu INH 05/26/25 18:59 Q6HRRT PRN wheezing sob Carbidopa/Levodopa 1 tab 04/26/25 22:00 04/30/25 05:09 Carbidopa/Levodopa 25/100 Mg Tablet GT 05/26/25 21:59 1 tab TID ELLIOTT Administration Carvedilol 6.25 mg 04/27/25 08:00 04/29/25 16:59 Carvedilol 3.125 Mg Tablet GT 05/27/25 07:59 Not Given BIDWM ELLIOTT Gabapentin 100 mg 04/26/25 22:00 04/30/25 05:54 Gabapentin 100 Mg Capsule GT 05/26/25 21:59 100 mg TID ELLIOTT Administration Norepinephrine/Dextrose 8 mg in 250 mls @ 10.912 mls/hr 04/29/25 18:12 04/30/25 06:30 Levophed In D5w 8mg/250ml IV 05/29/25 18:11 0.11 mcg/kg/min .[id number] PRN 24.006 mls/hr PER PROTOCOL Titration Protocol 0.05 MCG/KG/MIN Acetaminophen 1,000 mg in 100 mls @ 250 mls/hr 04/29/25 19:13 Ofirmev Inj IV 04/30/25 12:23 Q6HR PRN fever >99.9 Heparin Sodium/Dextrose 25,000 unit in 250 mls @ 20.951 mls/hr 04/30/25 00:15 04/30/25 07:10 Heparin In D5w Ivpb IV 05/14/25 00:14 17.46 units/kg/hr .[id number] ELLIOTT 20.322 mls/hr Titration Protocol 18 UNITS/KG/HR Lamotrigine 200 mg 04/29/25 09:00 04/29/25 08:58 Lamotrigine 100 Mg Tablet (Non-Form) GT 05/29/25 08:59 Not Given QDAY ELLIOTT Losartan Potassium 25 mg 04/27/25 09:00 04/28/25 08:37 Losartan Potassium 25 Mg Tablet GT 05/27/25 08:59 25 mg QDAY ELLIOTT Administration Morphine Sulfate 1 mg 04/29/25 12:48 04/30/25 05:09 Morphine Sulf Inj 10 Mg/Ml Vial IVP 05/04/25 09:59 1 mg Q2HR PRN Administration pain Ondansetron HCl 4 mg 04/26/25 14:05 Ondansetron Inj 2 Mg/Ml Inj 2 Ml IVP 05/26/25 14:04 Q6H PRN NAUSEA OR VOMITING Protocol Pantoprazole Sodium 40 mg 04/29/25 09:00 04/29/25 08:16 Pantoprazole 40 Mg Tablet PO 05/29/25 08:59 40 mg QDAY ELLIOTT Administration Protocol Quetiapine Fumarate 200 mg 04/27/25 09:00 04/29/25 21:09 Quetiapine Fumarate 100 Mg Tablet GT 05/27/25 08:59 200 mg BID ELLIOTT Administration Tamsulosin HCl 0.4 mg 04/27/25 09:00 04/29/25 08:16 Tamsulosin Hcl 0.4 Mg Capsule PO 05/27/25 08:59 0.4 mg QDAY ELLIOTT Administration Plan Mr. 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 Abdo/Pelvic CT confirmed lymphadenopathy in the descending thoracic aorta, abdominal lymphadenopathy and pelvic mesenteric lymphadenopathy. Patient presented to the ED on 04/23/2025 with severe nausea, nonbloody vomitus and multiple episodes of diarrhea. Radiation oncology Dr. Saeed was consulted for further evaluation. Patient underwent CTA chest on 04/28 which confirmed numerous bilateral PE, large filling defect in the distal right main pulmonary artery extending to the upper and lower lobe right pulmonary artery branches. Left supraclavicular and left axillary, mediastinal, para-aortic and mesenteric extensive lymphadenopathy also noted. Esophageal mass present in the distal esophagus. Cardiology was consulted for need for thrombectomy. Patient initially hesitant, decided to go with comfort care on 04/29/2025 around 3 PM. Primary team and cardiology revisited the need for possible intervention, patient and family decided to remain full code and pursue thrombectomy as advised. Patient was transferred to ICU for further management and monitoring. ICU team consulted for hypoxia in the setting of acute PE, and possible thrombectomy scheduled for 04/30/2025 NEURO Parkinson's disease Bipolar disorder Rx: - Continue home med carbidopa-levodopa TID - Continue home med Quetiapine 200 mg BID CVS Shock?multifactorial, likely hypovolemia History of hypertension DDx: Cardiogenic, obstructive - Blood pressures are within normal limits during the hospital stay - Upon transfer to the ICU, blood pressure trending 80s/60s, MAP low 60s - today BP 128/80 on Levophed 0.07 ?PCWP 18, patient adequately fluid resuscitated Rx: - Will continue to hold home med losartan 25 mg Qday and Carvedilol 6.25 mg BID at this time given low MAP - Titrate Levophed as necessary to maintain MAP >65 - Cardiology is consulted, appreciate input. Troponinemia?resolving DDx: Secondary to PE, NSTEMI type II Dx: Troponin 1.070?>0.85 Rx: - Will discontinue trending troponin PULM Acute Hypoxic Resp Failure secondary to bilateral subsegmental PE and pulmonary metastases Left UE DVT - Patient developed swelling of left upper extremity since last night - On physical examination, noted swelling and erythema in the left upper extremity - Venous Doppler US: acute nonocclusive thrombus extending up to left jugular vein - CTA Chest on 04/28 : numerous bilateral PE, large filling defect in the distal right main pulmonary artery extending to the upper and lower lobe right pulmonary artery branches. Left supraclavicular and left axillary, mediastinal, para-aortic and mesenteric extensive lymphadenopathy also noted. Esophageal mass present in the distal esophagus. ? Diagnostic angiogram, right heart cath performed which showed adequate blood flow to right and left lower segments pulmonary arteries, no need for mechanical thrombectomy at this time. - PESI score 110. Class IV; high risk of 30-day mortality. Rx: - Continue heparin gtt DVT/PE protocol GI/Hep Esophageal carcinoma s/p G-tube placement Dx: - Patient presented to the ED on 04/23/2025 with severe nausea, nonbloody vomitus and multiple episodes of diarrhea. - Recently diagnosed of esophageal undifferentiated carcinoma in March 2025 - Abd/Pelvis CT : Marked abnormal thickening of the lateral wall esophagus in this patient with the diagnosis of the esophageal carcinoma, extensive metastatic lymphadenopathy and osteolytic metastatic disease. Rx: - Oncologist Dr. Saeed consulted, recommendations are greatly appreciated - Morphine 1 mg IV Q6H for pain Protein calorie malnutrition Tube Feeds: Dx: - Patient takes bolus tube feeds at home, will resume at this time - Protein 4.5, albumin 2.7 - significant muscle wasting AND loss of subcutaneous fat - nutritional intake of <50% of recommended intake for > 2 weeks - bedridden or otherwise significantly reduced functional capacity Rx: - Will feed 150 mL every 2 hours via PEG in the ICU -Clear liquid diet as tolerated - Referral to dietitian made - will appreciate recommendations RENAL SARBJIT?worsening Hypercalcemia Dx: - SARBJIT: Creatinine 1.4, GFR 54 (baseline creatinine 1.2). Creatinine today 1.6 - calcium 11.4 Rx: - Likely in the setting of advanced malignancy and dehydration - Lactated Ringer 500 cc IVF bolus, after angiography for 1L lactated Ringer's at 125 cc/hour HEME Leukocytosis Dx: WBC 29.6?>22.5 - likely reactive in the setting of pain and malignancy. Patient recently diagnosed with esophageal carcinoma ENDO Obesity Dx: BMI 36.7 Rx: Oupatient work up ID No active problems. - CXR showed b/l subtle pneumonia - Bcx - no growth after 48hrs - Broadspectrum Vanc + Zosyn - stopped on 04/28 as the cultures came back negative ICU Health maintenance: Dispo: Admit to ICU for heparin infusion and close monitoring Diet: Tube feeds via PEG, 150mL every 2 hours DVT ppx: Heparin gtt GI ppx: Protonix 40mg qD IV lines: 2 pIV Central line: Yes Arterial line: Yes [place]: NO Code status: FULL CODE Plan of care discussed with Attending Dr. Dana Jimenez MD PGY 1 Disclaimer: This note was dictated by speech recognition. Minor errors in project systems engineer may be present due to voice recognition software. Attending Provider Attestation/Addendum Patient seen and examined with the above resident, Nicolas Jimenez MD. I agree with the findings, assessment, and plan of care as documented except for any differences below. Patient with slow improvement overnight. Aim to wean off vasopressors as tolerated. Attempt at thrombectomy today. PA gram showed no large clot amenable to evacuation. Start on diet post procedure. Monitor BP and continue to wean support as tolerated. PCWP was 9, bedside USG shows IVC collapsible. Will provide fluids for SARBJIT and prevention of second hist form SCOTT. Heparin gtt resume don arrival back to the ICU. Patient and family updated at bedside. Anticipate he will be able to return to telemetry in coming days. He does still have significant clot burden in the LUE and also likely now distal disease. RR reflection of large physiologic deadspace still which will improve with time. RV function is preserved and this is the most reassuring aspect so far. residential his goals will need to be discussed with oncology given advanced esophageal CA. Total critical care time: I personally spent 60 minutes for review of physiologic parameters, directing plan of care, coordination of care with other specialists, and counseling patient and family at bedside. This is exclusive of time spent teaching housestaff or performing any separate billable procedures. Patient remains at significant risk of further morbidity and mortality warranting close monitoring and care only available in the ICU. Critical care services required for hypovolemic/ obstructive shock, submassive PE, acute hypoxic respiratory failure, esophageal CA with possible metastasis.
[2025-04-30] MEDS: HEPARIN SOD INJ 5000 UNIT/ML VIAL 4000 UNIT IVP ×2 (07:28→17:18)
[2025-04-30 07:31] LABS: Basophils # (Auto) 0.1 Thou/mm3 (0.0-0.2); Basophils % (Auto) 0 % (0-2.5); Eosinophils # (Auto) 1.3 Thou/mm3 (0.0-0.5); Eosinophils % (Auto) 6 % (0-10); Hematocrit 29.5 % (41.0-53.0); Hemoglobin 9.5 g/dL (13.5-16.0); Immature Granulocytes Auto 1.38 Thou/mm3 (0.00-0.00); Lymphocytes # (Auto) 2.8 Thou/mm3 (1.0-4.8); Lymphocytes % (Auto) 12 % (10-50); Mean Corpuscular HGB Conc 32.2 g/dl (31.0-37.0); Mean Corpuscular Hemoglobin 27.2 pg (25.0-35.0); Mean Corpuscular Volume 85 fL (80-100); Monocytes # (Auto) 1.4 Thou/mm3 (0.0-0.8); Monocytes % (Auto) 6 % (0-12); Neutrophils # (Auto) 15.7 Thou/mm3 (1.8-7.7); Neutrophils % (Auto) 70 % (37-80); Nucleated Red Blood Cell # 0.00 Thou/mm3 (0.00-0.00); Nucleated Red Blood Cell % 0 /100 WBC (0); Platelet Count 271 Thou/mm3 (140-440); RDW Standard Deviation 62.3 fL (35.1-43.9); Red Blood Count 3.49 Miln/mm3 (4.50-5.90); White Blood Count 22.5 Thou/mm3 (3.8-10.6)
[2025-04-30 07:47] LABS: Albumin, Serum 2.8 gm/dL (3.4-4.8); Anion Gap 7 (7-16); BUN/Creatinine Ratio 33 Ratio (12-20); Blood Urea Nitrogen 52 mg/dL (9-23); Calcium 10.3 mg/dL (8.3-10.6); Calcium (Corrected) 11.3 mg/dL (8.5-10.1); Carbon Dioxide 26.3 mMol/L (20.0-31.0); Chloride 109 mMol/L (98-107); Creatinine (Component) 1.6 mg/dL (0.6-1.3); Estimated Creatinine Clearance 54.9 mL/min (>60); Glucose 139 mg/dL (74-106); Magnesium 2.2 mg/dL (1.6-2.6); Osmolality,Calculated 299 (275-295); Phosphorous 4.2 mg/dL (2.4-5.1); Potassium 4.1 mMol/L (3.4-5.1); Sodium 142 mMol/L (136-145); eGFR 46 See Note
--- NOTE | 2025-04-30 08:47 | PC.SS ---
Addendum entered by NELY Livingston 04/30/25 14:53: SS follow up: Amalia at [facility] is agreeable to accept the patient when ready for d/c. Addendum entered by NELY Livingston 04/30/25 08:49: SS update: cardiology was consulted for need for possible thrombectomy. Original Note: SS follow up: SNF inquiry sent via [employer]. Per SS notes, preferred SNF is [facility].
--- NOTE | 2025-04-30 08:49 | ECHO_ITS ---
Transthoracic Echo Report Ht (in): 70 Wt (lb): 256 Exam Location: Echo Lab Status: Inpatient Dinkey Locomotive Engineer: Shirlene Johnson Indications: Procedure Performed: BP: 111 / 57 HR: 97 Technical Quality: Technically Diffiult Study Due to Body Habitus MEASUREMENTS (Male / Female) Normal Values 2D ECHO LV Diastolic Diameter PLAX 5.9 cm 4.2 - 5.9 / 3.9 - 5.3 cm LV Systolic Diameter PLAX 3.3 cm IVS Diastolic Thickness 0.8 cm 0.6 - 1.0 / 0.6 - 0.9 cm LVPW Diastolic Thickness 0.9 cm 0.6 - 1.0 / 0.6 - 0.9 cm LV Relative Wall Thickness 0.3 LVOT Diameter 2.1 cm DOPPLER AV Peak Velocity 172.0 cm/s AV Peak Gradient 11.8 mmHg LVOT Peak Velocity 99.2 cm/s LVOT Peak Gradient 3.9 mmHg AV Area Cont Eq pk 2.0 cm? MV Area PHT 2.8 cm? Mitral E Point Velocity 58.7 cm/s Mitral A Point Velocity 66.0 cm/s Mitral E to A Ratio 0.9 LV E' Lateral Velocity 6.3 cm/s Mitral E to LV E' Lateral Ratio 9.3 LV E' Septal Velocity 4.8 cm/s Mitral E to LV E' Septal Ratio 12.3 TR Peak Velocity 237.0 cm/s TR Peak Gradient 22.5 mmHg PV Peak Velocity 130.0 cm/s PV Peak Gradient 6.8 mmHg FINDINGS Left Ventricle Normal left ventricular size, wall thickness, systolic function with no obvious regional wall motion abnormalities. Normal left ventricular diastolic filling pattern for age. The ejection fraction is visually estimated at 65 %. Right Ventricle . The estimated right ventricular systolic pressure due to innadequate Doppler signal. The right ventricular size is moderately increased. Left Atrium The left atrium is normal by two-dimensional, color flow and Doppler imaging with no structural abnormalities, no thrombus formation present. Right Atrium The right atrial cavity size is moderately increased. Atrial Septum The interatrial septum appears normal with no evidence of a shunt. Aorta The aorta is normal by two-dimensional, color flow and Doppler interrogation. Mitral Valve The mitral valve is normal by two-dimensional, color flow and Doppler interrogation. There is no significant mitral valve regurgitation, stenosis or prolapse. Aortic Valve Mild aortic valve leaflet calcification without stenosis. There is no significant aortic valve regurgitation. Tricuspid Valve The tricuspid valve is normal by two-dimensional, color flow and Doppler interrogation. There is trace tricuspid regurgitation. Pulmonic Valve The pulmonic valve is not well visualized. There is no significant pulmonic valve regurgitation. Vessels The pulmonary artery appears normal. The inferior vena cava is dilated. Pericardium The pericardium is normal by two-dimensional imaging. There is no significant pericardial effusion. CONCLUSIONS Indications: Pulmonary Embolism. Rule Out Right Heart Strain Normal LVsize and function. Estimated EF 60- 65%.Stage 1 diastolic dysfunction. Normal RV size and function. No septal bounce and no Mcconnel sign. Normal RVSP 25 mm hg. No evidence of any RV strain. Mild AV Calcification. Trace to mild TR and MR. Mild RA dilatation. Paulo Hairston (Electronically Signed) Final Date: 30 April 2025 21:29
[2025-04-30] MEDS: TAMSULOSIN HCL 0.4 MG CAPSULE PO (09:00)
[2025-04-30] MEDS: PANTOPRAZOLE 40 MG TABLET PO (09:00)
[2025-04-30] MEDS: RINGERS LACTATED 1000 ML 1,000 ML 999 ML IV (09:01)
[2025-04-30] MEDS: lamoTRIgine 100 MG TABLET (NON-FORM) 200 MG GT (09:32)
--- NOTE | 2025-04-30 10:34 | CHAP ---
Patient was visited by the Spiritual Care Volunteer who prayed for them. (Volunteer was in the hospital from 09:30-10:34).
[2025-04-30] MEDS: Norepinephrine/D5W 8mg/250ml 8 MG/250 ML BAG 15.276 MG IV (10:35)
--- NOTE | 2025-04-30 11:15 | PC.NURSE ---
Transported pt to the Laser Beam Color Scanner Operator at this time. Report given to Pam FRANCO in the Laser Be[facility] Color Scanner Operator. Laser Beam Color Scanner Operator team taking over care for the pt at this time. Plan of care ongoing.
[2025-04-30 13:52] LABS: Band Neutrophils (Manual) 4 % (0-6); Eosinophils (Manual) 6 % (0-4); Lymphocytes (Manual) 2 % (20-44); Metamyelocytes (Manual) 1 % (0-0); Monocytes (Manual) 2 % (2-9); Myelocytes (Manual) 2 % (0-0); Neutrophils (Manual) 83 % (50-70)
[2025-04-30 13:53] LABS: Toxic Vacuolation 1+
[2025-04-30] MEDS: RINGERS LACTATED 1000 ML 1,000 ML 125 ML IV (15:20)
[2025-04-30] MEDS: Heparin/D5w 25K 250 ML Ivpb 25,000 UNIT/250 ML BAG 20.322 UNIT IV (15:22)
[2025-04-30] MEDS: SODIUM CHLORIDE 0.45 % 500 ML 100 ML IV (15:30)
[2025-04-30 17:08] LABS: Partial Thromboplastin Time 39.4 Seconds (22.0-36.0)
--- NOTE | 2025-04-30 22:52 | ESPR_ITS ---
Documentation for date of: 04/30/25 Subjective Subjective Interval history: Patient seen and examined at the bedside. No new cardiac complaints and continues to have some shortness of breath but his oxygen requirements have decreased overnight. Blood pressure stable with systolic of 100 mmHg but is still on the Levophed drip. Patient was taken to the cardiac catheterization lab for right heart cardiac catheterization, pulmonary angiogram as well as possible mechanical thrombectomy of the bilateral pulmonary embolism. Right heart cardiac catheterization showed normal right heart pressures with mean PA pressure of only 22-25 mmHg, mean PCW pressure of 9 mmHg and a mean RA pressure of 7 mmHg. Pulmonary angiogram showed significant resolution of the pulmonary thrombus involving the distal right pulmonary artery. There is thrombus that has been noted in the branches of the right lower lobe artery as well as the right upper lobe artery but no thrombus was noted in the main pulmonary artery or the right and left pulmonary arteries all the lobar branches. Given the presence of the thrombus only in the segmental and subsegmental branches no mechanical thrombectomy is indicated at the present point of time and recommend to continue with heparin drip as patient has improved significantly. His oxygen requirements also have decreased from high flow nasal cannula 50% to nasal cannula at 3 to 4 L/min. Patient also symptomatically feels better. Echocardiogram also performed today on 04/30/2025 showed no evidence of any RV strain or any Senior sign and good RV function noted. RVSP on the echo is also 25 mmHg. Normal LV function at 60 to 65%. Given the low pulmonary capillary wedge pressure on the right heart cardiac catheterization, recommend fluid resuscitation for the patient and wean off the Levophed drip later on today. Continue platelet for now and can be transition to oral Eliquis when able to and if no further procedures planned by the oncology. Exam Vital Signs Temp Pulse Resp BP Pulse Ox O2 Del Method O2 Flow Rate 98.5 F 112 H 26 H 107/59 L 93 L Nasal Cannula 5 04/30/25 20:01 04/30/25 22:00 04/30/25 22:00 04/30/25 22:00 04/30/25 22:00 04/30/25 04:00 04/30/25 18:09 FiO2 50 04/29/25 16:00 Narrative Exam General: Alert and oriented x3. This morning patient does not appear to be in any respiratory distress and is on nasal cannula. Eyes: Pupils are equal and reactive to light bilaterally. HEENT: Atraumatic, normocephalic. No JVD noted. Mucosa moist. Cardiovascular: Normal S1 and S2. Tachycardic and regular rhythm. No murmurs appreciated. Trace peripheral pitting edema noted. Respiratory: No respiratory distress. Lungs are clear to auscultation bilaterally but decreased at the bases. No wheezing or crackles heard. Abdomen: Soft, nontender, nondistended. Skin: No rash. Warm to touch. Musculoskeletal: No gross injuries. Able to move all 4 extremities. Neuro: Alert and oriented x3. No focal neuro deficits. Psych: Normal affect and mood Objective Labs 05/01/25 04:56 05/01/25 04:56 Labs: Laboratory Results - last 24 hr 04/29/25 04/30/25 04/30/25 22:33 01:42 06:07 WBC RBC Hgb Hct MCV MCH MCHC RDW Std Deviation Plt Count Neut % (Auto) Lymph % (Auto) [place] % (Auto) Eos % (Auto) Baso % (Auto) Neut # (Auto) Lymph # (Auto) [place] # (Auto) Eos # (Auto) Baso # (Auto) Immature Gran # (Auto) Absolute Nucleated RBC Immature Gran % Neutrophils % (Manual) Monocytes % (Manual) Eosinophils % (Manual) Metamyelocytes % Myelocytes % Nucleated RBC % Band Neutrophils Lymphocytes (Manual) Toxic Vacuolation PT 13.0 H INR 1.2 APTT 28.7 D 44.3 H D Sodium Potassium Chloride Carbon Dioxide Anion Gap BUN Creatinine Estim Creat Clear Calc eGFR BUN/Creatinine Ratio Glucose Calculated Osmolality Calcium Corrected Calcium Phosphorus Magnesium Troponin I 0.851 H* Albumin 04/30/25 04/30/25 06:10 16:44 WBC 22.5 H RBC 3.49 L Hgb 9.5 L Hct 29.5 L MCV 85 MCH 27.2 MCHC 32.2 RDW Std Deviation 62.3 H Plt Count 271 D Neut % (Auto) 70 Lymph % (Auto) 12 [place] % (Auto) 6 Eos % (Auto) 6 Baso % (Auto) 0 Neut # (Auto) 15.7 H Lymph # (Auto) 2.8 [place] # (Auto) 1.4 H Eos # (Auto) 1.3 H Baso # (Auto) 0.1 Immature Gran # (Auto) 1.38 H Absolute Nucleated RBC 0.00 Immature Gran % 6 H Neutrophils % (Manual) 83 H Monocytes % (Manual) 2 Eosinophils % (Manual) 6 H Metamyelocytes % 1 H Myelocytes % 2 H Nucleated RBC % 0 Band Neutrophils 4 Lymphocytes (Manual) 2 L Toxic Vacuolation 1+ PT INR APTT 39.4 H Sodium 142 Potassium 4.1 D Chloride 109 H Carbon Dioxide 26.3 Anion Gap 7 BUN 52 H Creatinine 1.6 H Estim Creat Clear Calc 54.9 L eGFR 46 L BUN/Creatinine Ratio 33 H Glucose 139 H Calculated Osmolality 299 H Calcium 10.3 Corrected Calcium 11.3 H Phosphorus 4.2 Magnesium 2.2 Troponin I Albumin 2.8 L ABG Interpretation ABG results: 04/28/25 04/28/25 04/29/25 08:00 23:00 18:22 ABG pH 7.41 7.39 ABG pCO2 37 42 ABG pO2 80 L 85 ABG HCO3 23 25 ABG O2 Saturation 97 97 ABG Base Excess -1 0 VBG pH 7.36 VBG pCO2 49 VBG pO2 27 VBG Base Excess 1 Assessment & Plan A&P Narrative 69-year-old male patient with a past medical history of recently diagnosed malignant esophageal carcinoma status post biopsy on 04/02/2025 with undifferentiated carcinoma with rare signet cells, status post G-tube placement being followed with oncology hypertension, diabetes mellitus type 2, Parkinson's disease, PUD, hyperlipidemia, osteoarthritis, morbid obesity presented to the emergency department on 04/26/2025 for nausea and nonbloody vomiting as well as diarrhea and unable to tolerate feeds along with generalized weakness. Patient was admitted to the hospital and oncology was consulted. As per Dr. 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 Patient was recommended supportive care recommended to follow-up as outpatient for PET scan and port placement for possible chemotherapy as he is an unlikely surgical candidate. As per the documentation patient appears to be having stage IV cancer. Patient left and was noted to be swollen and duplex of the left upper extremity was ordered which showed was positive for DVT showing nonocclusive thrombus extending up to the left jugular vein. Patient was started on heparin drip and CTA chest was ordered to rule out pulmonary embolism. CTA chest showed bilateral pulmonary embolus with large filling defects in the distal right main pulmonary artery as well as minimal plaque in the left upper lobe right pulmonary artery. Also had filling defect noted in the distal left lobar pulmonary artery. Patient had multiple left supraclavicular, left axillary, mediastinal, para-aortic, mesenteric extensive lymphadenopathy along with a esophageal mass. There was a concern of possible right lower lobe mass on the CT chest also. Cardiology consulted for further evaluation of the pulmonary embolism and possible thrombectomy as patient was hypoxic and was on high flow 50% FiO2 with significant workload of breathing. We did discuss with the patient about the possible thrombectomy but patient did not want to undergo any procedures initially and wanted to be DNR/DNI and comfort care. Patient and then was back and forth during the entire morning between DNR/DNI, comfort care and going home on home hospice and eventually did speak to his family members and decided to be full code and requested for possible thrombectomy in the evening. Given his increased work of breathing and high oxygen requirements patient was transferred to the ICU for closer monitoring later in the evening. 1. Acute bilateral pulmonary embolism-submassive PE 2. Acute hypoxic respiratory failure secondary to the acute PE 3. Shock mostly hypovolemic with possible obstructive component 4. Acute DVT of the left upper extremity extending up to the left internal jugular vein 5. 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 Recent G-tube placement secondary to esophageal cancer 7. Hypertension 8. Diabetes mellitus type 2 9. Parkinson disease 10. Morbid obesity 11. Hyperlipidemia 12. Osteoarthritis Present presented for nausea and nonbloody vomiting as well as diarrhea and later left arm swelling was noted for which venous duplex was ordered which showed acute nonocclusive thrombus extending up to left jugular vein. Patient also was hypoxic and had increasing oxygen requirements and hence CTA Chest performed on 04/28/2025 showed bilateral PE with large filling defect in theright main pulmonary artery involving the entire right lower lobe. Minimal thrombus also noted in the right upper lobe branches and also in the right lower lobe branches of the pulmonary artery. IVC has appeared to be normal and no evidence of RV strain on the CT scan Troponins were elevated initially on admission at 1.07 and later on down trended to 0.8. BNP was only 46. Echo was ordered but was not completed but the bedside echo did not show any any right heart strain and RV function was normal. Patient on oxygen high flow nasal cannula at 50% and saturating well but does have significant work of breathing including use of accessory muscles. Patient initially refused thrombectomy and wanted to be DNR comfort care but later on agreed to do the procedure. Will keep the patient n.p.o. past midnight and plan to do so pulmonary angiogram, right heart cath as well as mechanical thrombectomy with penumbra device in AM. Patient has a questionable right lower lobe mass also the snot well-demarcated in the CT along with significant lymphadenopathy. Discussed all the risk benefits and alternatives of performing a mechanical thrombectomy with the patient including the risk of bleeding, pulmonary hemorrhage, risk of acute hypoxic respiratory failure, heart attack and in detail with the patient and patient agreeable for the procedure and provided consent for the same. Explained to the patient that the procedure will not be improving his overall mortality but will help with morbidity including his present symptoms and the work of breathing. If patient deteriorates further and continues to be hypotensive then patient will need TNK. There was no CT head done for the patient and will need to rule out metastasis prior to that and CT head will be performed today. Patient is hypotensive and started on Levophed in the ICU but IVC is not dilated and appears to be collapsing with inspiration. Continue to give IV fluids and bolus 500 mL for now. Continue heparin drip for anticoagulation Patient PE mostly secondary to the malignant esophageal carcinoma with metastasis. Patient appears to have stage IV metastatic cancer with significant lymphadenopathy along with bone mets. Oncology team following. Elevated troponins mostly secondary to the acute pulmonary embolism at the bedside echo did not show any regional wall motion abnormalities and showed good LV as well as RV function. Patient denies any kind of chest pain or chest pressure and his only complaint shortness of breath secondary to the PE. Check TSH A1c and lipid profile for further cardiac risk stratification. 04/30/2025: No new cardiac complaints and continues to have some shortness of breath but his oxygen requirements have decreased overnight. Blood pressure stable with systolic of 100 mmHg but is still on the Levophed drip. Patient was taken to the cardiac catheterization lab for right heart cardiac catheterization, pulmonary angiogram as well as possible mechanical thrombectomy of the bilateral pulmonary embolism. Right heart cardiac catheterization showed normal right heart pressures with mean PA pressure of only 22-25 mmHg, mean PCW pressure of 9 mmHg and a mean RA pressure of 7 mmHg. Pulmonary angiogram showed significant resolution of the pulmonary thrombus involving the distal right pulmonary artery. There is thrombus that has been noted in the branches of the right lower lobe artery as well as the right upper lobe artery but no thrombus was noted in the main pulmonary artery or the right and left pulmonary arteries all the lobar branches. Given the presence of the thrombus only in the segmental and subsegmental branches no mechanical thrombectomy is indicated at the present point of time and recommend to continue with heparin drip as patient has improved significantly. His oxygen requirements also have decreased from high flow nasal cannula 50% to nasal cannula at 3 to 4 L/min. Patient also symptomatically feels better. Echocardiogram also performed today on 04/30/2025 showed no evidence of any RV strain or any Senior sign and good RV function noted. RVSP on the echo is also 25 mmHg. Normal LV function at 60 to 65%. Given the low pulmonary capillary wedge pressure on the right heart cardiac catheterization, recommend fluid resuscitation for the patient and wean off the Levophed drip later on today. Continue platelet for now and can be transition to oral Eliquis when able to and if no further procedures planned by the oncology. There is a high probability of sudden, clinically significant or life threatening deterioration in the patient condition which required the highest level of physician preparedness to intervene urgently. I have personally spent 65 minutes of critical care time, exclusive of time spent on any procedures, in evaluation and management of this critically ill patient. Management of rest of the medical conditions as per primary team and other consultants. Thank you for the consult and allowing me to participate in the care of the patient. Cardiology will continue to follow. Paulo Hairston M.D. Interventional Cardiology Time Spent With Patient Time: Total time spent is greater than 50% in coordination of care (as documented) at patient's floor/unit and/or counseling patient:
--- NOTE | 2025-04-30 22:52 | PD.CARDCATH ---
Cardiac Cath Procedure Procedure Name DATE OF OPERATION: 04/30/2025 PROCEDURE PERFORMED: ?? 1.? Right heart cardiac catheterization with measurements of right heart pressures 2. IVC venogram 3. Conscious sedation for 30 minutes. [employer] S[employer]IOR MANAGER:? Paulo Andersen. MD Yovanny
[2025-04-30 23:58] LABS: Partial Thromboplastin Time 69.8 Seconds (22.0-36.0)
[2025-05-01] VITALS (54 sets, daily range): BP systolic 81–132; BP diastolic 48–103; PULSE 101–121; RESP 14–44; TEMP 36.3–36.8; O2SAT 87–96
[2025-05-01] MEDS: ALBUTEROL/IPRATROPIUM (Duoneb) RT SOL 3 ML NEBU INH ×4 (00:38→18:50)
[2025-05-01] MEDS: MORPHINE SULF INJ 10 MG/ML VIAL IVP ×2 (01:50→06:40)
[2025-05-01] MEDS: Heparin/D5w 25K 250 ML Ivpb 25,000 UNIT/250 ML BAG 22.65 UNIT IV ×2 (04:00→15:03)
[2025-05-01] MEDS: CARBIDOPA/LEVODOPA 25/100 MG TABLET 1 TAB GT ×3 (05:18→22:01)
[2025-05-01] MEDS: GABAPENTIN 100 MG CAPSULE GT ×3 (05:18→22:01)
[2025-05-01 06:21] LABS: Basophils # (Auto) 0.0 Thou/mm3 (0.0-0.2); Basophils % (Auto) 0 % (0-2.5); Eosinophils # (Auto) 0.7 Thou/mm3 (0.0-0.5); Eosinophils % (Auto) 5 % (0-10); Hematocrit 25.7 % (41.0-53.0); Immature Granulocytes Auto 0.84 Thou/mm3 (0.00-0.00); Lymphocytes # (Auto) 1.9 Thou/mm3 (1.0-4.8); Lymphocytes % (Auto) 12 % (10-50); Mean Corpuscular HGB Conc 31.9 g/dl (31.0-37.0); Mean Corpuscular Hemoglobin 26.7 pg (25.0-35.0); Mean Corpuscular Volume 84 fL (80-100); Monocytes # (Auto) 1.0 Thou/mm3 (0.0-0.8); Monocytes % (Auto) 7 % (0-12); Neutrophils # (Auto) 10.9 Thou/mm3 (1.8-7.7); Neutrophils % (Auto) 71 % (37-80); Nucleated Red Blood Cell # 0.00 Thou/mm3 (0.00-0.00); Nucleated Red Blood Cell % 0 /100 WBC (0); Platelet Count 259 Thou/mm3 (140-440); RDW Standard Deviation 62.2 fL (35.1-43.9); Red Blood Count 3.07 Miln/mm3 (4.50-5.90); White Blood Count 15.3 Thou/mm3 (3.8-10.6)
[2025-05-01 06:22] LABS: Hemoglobin 8.2 g/dL (13.5-16.0)
[2025-05-01 06:47] LABS: Albumin, Serum 2.4 gm/dL (3.4-4.8); Anion Gap 7 (7-16); BUN/Creatinine Ratio 33 Ratio (12-20); Blood Urea Nitrogen 43 mg/dL (9-23); Calcium 10.0 mg/dL (8.3-10.6); Calcium (Corrected) 11.3 mg/dL (8.5-10.1); Carbon Dioxide 27.6 mMol/L (20.0-31.0); Chloride 108 mMol/L (98-107); Creatinine (Component) 1.3 mg/dL (0.6-1.3); Estimated Creatinine Clearance 68.7 mL/min (>60); Glucose 103 mg/dL (74-106); Magnesium 2.1 mg/dL (1.6-2.6); Osmolality,Calculated 295 (275-295); Phosphorous 3.2 mg/dL (2.4-5.1); Potassium 3.9 mMol/L (3.4-5.1); Sodium 143 mMol/L (136-145); eGFR 59 See Note
[2025-05-01 07:12] LABS: Partial Thromboplastin Time 65.8 Seconds (22.0-36.0)
--- NOTE | 2025-05-01 07:14 | ESPR_ITS ---
Documentation for date of: 05/01/25 Subjective Subjective Interval history: Mr. 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 Abdo/Pelvic CT confirmed lymphadenopathy in the descending thoracic aorta, abdominal lymphadenopathy and pelvic mesenteric lymphadenopathy. Patient presented to the ED on 04/23/2025 with severe nausea, nonbloody vomitus and multiple episodes of diarrhea. Radiation oncology Dr. Saeed was consulted for further evaluation. Patient underwent CTA chest on 04/28 which confirmed numerous bilateral PE, large filling defect in the distal right main pulmonary artery extending to the upper and lower lobe right pulmonary artery branches. Left supraclavicular and left axillary, mediastinal, para-aortic and mesenteric extensive lymphadenopathy also noted. Esophageal mass present in the distal esophagus. Cardiology was consulted for need for thrombectomy. Patient initially hesitant, decided to go with comfort care on 04/29/2025 around 3 PM. Primary team and cardiology revisited the need for possible intervention, patient and family decided to remain full code and pursue thrombectomy as advised. Patient was transferred to ICU for further management and monitoring. ICU team consulted for hypoxia in the setting of acute PE, and possible thrombectomy scheduled for 04/30/2025 04/30/2025: Overnight Levophed was titrated down to 0.09 from 0.11, CT brain was negative and subsequently heparin infusion was started [PE protocol]. Input 1474 cc/output 500 cc. This morning patient complains of productive cough with yellow mucus. WBC increased to 22.5 from 20.3, Hb increased to 9.5 from 9.1, PLT increased to 271 from 230, K decreased to 4.1 from 5.3, CR increased to 1.6 from 1.4, corrected Ca 11.3, Trop I down trended to 0.851 from 1.07. Patient scheduled for right heart cath today +/- catheter based Impella thrombectomy. Given lactated Ringer's 500 cc IVF bolus. 05/01/2025: Overnight Norepinephrine infusion was discontinued. Input/output 1252/700 cc. This morning patient complained of pleuritic chest pain and a cough productive of clear/yellow mucus. Hb decreased to 8.2 from 9.5, WBC downtrending to 15.3 from 22.5, creatinine down trended to 1.3 from 1.6, K3.9, Mg 2.1.TTE 04/30 showed normal LV size and function. Estimated EF 60 to 65%. Stage I dorsal dysfunction. No Senior sign. No evidence of RV strain, mild RA dilatation. Schedule patient on DuoNebs Q6 hourly, increase morphine to 2 Mg IV Q2 hourly as needed, Dilaudid 1 Mg every 4 hourly as needed for breakthrough pain, guaifenesin 200 Mg GT . 4 times daily for congestion. Will start apixaban 10 Mg GT twice daily at 2100, heparin drip to be discontinued 30 minutes after dose is administered. Patient is clinically stable for downgrade to telemetry. Exam Vital Signs Temp Pulse Resp BP Pulse Ox O2 Del Method O2 Flow Rate 98.3 F 102 H 31 H 105/61 94 L Nasal Cannula 10 05/01/25 04:00 05/01/25 06:00 05/01/25 06:00 05/01/25 06:00 05/01/25 06:00 04/30/25 04:00 05/01/25 00:40 FiO2 50 04/29/25 16:00 Narrative Exam Constitutional Alert, oriented x3. Elderly male. Obese. MM pale and moist HEENT Vision grossly intact. Patent nares. Trachea midline. On 2L O2 via NC Respiratory Chest normal on inspection and scattered wheezes throughout lung gold, transmitted sounds. Cardiovascular S1 and S2 audible, RRR. No murmurs or carotid bruit. No gross JVD. Abdominal Soft, obese And non tender to palpation in all quadrants. BS +. PEG tube noted, exit site clean Genitourinary No bladder tenderness, no flank pain. Non tender to palpation. Musculoskeletal Extremities tone within normal limits. trace LE edema, left upper extremity nonpitting edema up to shoulder Neurological CN II - XII grossly intact. Extremity motor and sensation grossly intact. Skin Warm, dry and intact. No apparent lesions. Psychiatric Patient has a good affect, is cooperative. Objective Labs 05/03/25 16:34 05/03/25 16:34 Labs: Laboratory Results - last 24 hr 04/30/25 04/30/25 04/30/25 06:10 16:44 23:08 WBC 22.5 H RBC 3.49 L Hgb 9.5 L Hct 29.5 L MCV 85 MCH 27.2 MCHC 32.2 RDW Std Deviation 62.3 H Plt Count 271 D Neut % (Auto) 70 Lymph % (Auto) 12 [place] % (Auto) 6 Eos % (Auto) 6 Baso % (Auto) 0 Neut # (Auto) 15.7 H Lymph # (Auto) 2.8 [place] # (Auto) 1.4 H Eos # (Auto) 1.3 H Baso # (Auto) 0.1 Immature Gran # (Auto) 1.38 H Absolute Nucleated RBC 0.00 Immature Gran % 6 H Neutrophils % (Manual) 83 H Monocytes % (Manual) 2 Eosinophils % (Manual) 6 H Metamyelocytes % 1 H Myelocytes % 2 H Nucleated RBC % 0 Band Neutrophils 4 Lymphocytes (Manual) 2 L Toxic Vacuolation 1+ APTT 39.4 H 69.8 H D Sodium 142 Potassium 4.1 D Chloride 109 H Carbon Dioxide 26.3 Anion Gap 7 BUN 52 H Creatinine 1.6 H Estim Creat Clear Calc 54.9 L eGFR 46 L BUN/Creatinine Ratio 33 H Glucose 139 H Calculated Osmolality 299 H Calcium 10.3 Corrected Calcium 11.3 H Phosphorus 4.2 Magnesium 2.2 Albumin 2.8 L 05/01/25 04:56 WBC 15.3 H D RBC 3.07 L Hgb 8.2 L Hct 25.7 L MCV 84 MCH 26.7 MCHC 31.9 RDW Std Deviation 62.2 H Plt Count 259 Neut % (Auto) 71 Lymph % (Auto) 12 [place] % (Auto) 7 Eos % (Auto) 5 Baso % (Auto) 0 Neut # (Auto) 10.9 H Lymph # (Auto) 1.9 [place] # (Auto) 1.0 H Eos # (Auto) 0.7 H Baso # (Auto) 0.0 Immature Gran # (Auto) 0.84 H Absolute Nucleated RBC 0.00 Immature Gran % 6 H Neutrophils % (Manual) Monocytes % (Manual) Eosinophils % (Manual) Metamyelocytes % Myelocytes % Nucleated RBC % 0 Band Neutrophils Lymphocytes (Manual) Toxic Vacuolation APTT 65.8 H Sodium 143 Potassium 3.9 Chloride 108 H Carbon Dioxide 27.6 Anion Gap 7 BUN 43 H Creatinine 1.3 Estim Creat Clear Calc 68.7 eGFR 59 L BUN/Creatinine Ratio 33 H Glucose 103 Calculated Osmolality 295 Calcium 10.0 Corrected Calcium 11.3 H Phosphorus 3.2 Magnesium 2.1 Albumin 2.4 L ABG Interpretation ABG results: 04/28/25 04/28/25 04/29/25 08:00 23:00 18:22 ABG pH 7.41 7.39 ABG pCO2 37 42 ABG pO2 80 L 85 ABG HCO3 23 25 ABG O2 Saturation 97 97 ABG Base Excess -1 0 VBG pH 7.36 VBG pCO2 49 VBG pO2 27 VBG Base Excess 1 Quality Measures Quality Measures none Advance care planning discussed with:: patient Assessment & Plan Assessment Current Active Medications: Generic Name Dose Route Start Last Admin Trade Name Freq PRN Reason Stop Dose Admin Acetaminophen 650 mg 04/30/25 08:20 Acetaminophen Georgette 325 Mg/10 Ml Udc GT 05/26/25 14:04 Q6H PRN Fever >101.5 OR PAIN 1-3 Albuterol/Ipratropium 3 ml 04/26/25 19:20 05/01/25 00:38 Albuterol/Ipratropium (Duoneb) Rt Georgette 3 Ml Nebu INH 05/26/25 18:59 3 ml Q6HRRT PRN Administration wheezing sob Carbidopa/Levodopa 1 tab 04/26/25 22:00 05/01/25 05:18 Carbidopa/Levodopa 25/100 Mg Tablet GT 05/26/25 21:59 1 tab TID ELLIOTT Administration Carvedilol 6.25 mg 04/27/25 08:00 04/29/25 16:59 Carvedilol 3.125 Mg Tablet GT 05/27/25 07:59 Not Given BIDWM ELLIOTT Gabapentin 100 mg 04/26/25 22:00 05/01/25 05:18 Gabapentin 100 Mg Capsule GT 05/26/25 21:59 100 mg TID ELLIOTT Administration Norepinephrine/Dextrose 8 mg in 250 mls @ 10.912 mls/hr 04/29/25 18:12 04/30/25 16:00 Levophed In D5w 8mg/250ml IV 05/29/25 18:11 0 mcg/kg/min .[id number] PRN 0 mls/hr PER PROTOCOL Titration Protocol 0.05 MCG/KG/MIN Heparin Sodium/Dextrose 25,000 unit in 250 mls @ 20.951 mls/hr 04/30/25 00:15 05/01/25 04:00 Heparin In D5w Ivpb IV 05/14/25 00:14 19.46 units/kg/hr .[id number] ELLIOTT 22.65 mls/hr Administration Protocol 18 UNITS/KG/HR Lamotrigine 200 mg 04/29/25 09:00 04/30/25 09:32 Lamotrigine 100 Mg Tablet (Non-Form) GT 05/29/25 08:59 200 mg QDAY ELLIOTT Administration Losartan Potassium 25 mg 04/27/25 09:00 04/28/25 08:37 Losartan Potassium 25 Mg Tablet GT 05/27/25 08:59 25 mg QDAY ELLIOTT Administration Morphine Sulfate 1 mg 04/30/25 08:19 05/01/25 06:40 Morphine Sulf Inj 10 Mg/Ml Vial IVP 05/04/25 09:59 1 mg Q2HR PRN Administration PAIN SCALE 4-10(Mod-Sev Ondansetron HCl 4 mg 04/26/25 14:05 Ondansetron Inj 2 Mg/Ml Inj 2 Ml IVP 05/26/25 14:04 Q6H PRN NAUSEA OR VOMITING Protocol Pantoprazole Sodium 40 mg 04/29/25 09:00 04/30/25 09:00 Pantoprazole 40 Mg Tablet PO 05/29/25 08:59 40 mg QDAY ELLIOTT Administration Protocol Quetiapine Fumarate 200 mg 04/27/25 09:00 04/30/25 21:01 Quetiapine Fumarate 100 Mg Tablet GT 05/27/25 08:59 200 mg BID ELLIOTT Administration Tamsulosin HCl 0.4 mg 04/27/25 09:00 04/30/25 09:00 Tamsulosin Hcl 0.4 Mg Capsule PO 05/27/25 08:59 0.4 mg QDAY ELLIOTT Administration Plan Mr. 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 Abdo/Pelvic CT confirmed lymphadenopathy in the descending thoracic aorta, abdominal lymphadenopathy and pelvic mesenteric lymphadenopathy. Patient presented to the ED on 04/23/2025 with severe nausea, nonbloody vomitus and multiple episodes of diarrhea. Radiation oncology Dr. Saeed was consulted for further evaluation. Patient underwent CTA chest on 04/28 which confirmed numerous bilateral PE, large filling defect in the distal right main pulmonary artery extending to the upper and lower lobe right pulmonary artery branches. Left supraclavicular and left axillary, mediastinal, para-aortic and mesenteric extensive lymphadenopathy also noted. Esophageal mass present in the distal esophagus. Cardiology was consulted for need for thrombectomy. Patient initially hesitant, decided to go with comfort care on 04/29/2025 around 3 PM. Primary team and cardiology revisited the need for possible intervention, patient and family decided to remain full code and pursue thrombectomy as advised. Patient was transferred to ICU for further management and monitoring. ICU team consulted for hypoxia in the setting of acute PE, and possible thrombectomy scheduled for 04/30/2025 NEURO Parkinson's disease Bipolar disorder Rx: - Continue home med carbidopa-levodopa TID - Continue home med Quetiapine 200 mg BID CVS Shock?multifactorial, likely hypovolemia - resolved History of hypertension DDx: Cardiogenic, obstructive - Blood pressures are within normal limits during the hospital stay - Upon transfer to the ICU, blood pressure trending 80s/60s, MAP low 60s ?PCWP 18, patient adequately fluid resuscitated - today BP 102/58, IVC dilated on bedside USS Rx: - Will continue to hold home med losartan 25 mg Qday and Carvedilol 6.25 mg BID at this time given normotension - Cardiology is consulted, appreciate input. PULM Acute Hypoxic Resp Failure secondary to bilateral subsegmental PE and pulmonary metastases - resolving Left UE DVT - Patient developed swelling of left upper extremity since last night - On physical examination, noted swelling and erythema in the left upper extremity - Venous Doppler US: acute nonocclusive thrombus extending up to left jugular vein - CTA Chest on 04/28 : numerous bilateral PE, large filling defect in the distal right main pulmonary artery extending to the upper and lower lobe right pulmonary artery branches. Left supraclavicular and left axillary, mediastinal, para-aortic and mesenteric extensive lymphadenopathy also noted. Esophageal mass present in the distal esophagus. ? Diagnostic angiogram, right heart cath performed which showed adequate blood flow to right and left lower segments pulmonary arteries, no need for mechanical thrombectomy at this time. - PESI score 110. Class IV; high risk of 30-day mortality. Rx: - Continue heparin gtt DVT/PE protocol - To start therapeutic dose apixaban 10 Mg p.o. twice daily for 7 days at 2100, will discontinue heparin infusion 50 minutes after dose is administered. ? On 05/08 to discontinue apixaban 10 Mg p.o. twice daily and transition to apixaban 5 Mg p.o. twice daily, to continue for a minimum of 6 months. Patient will likely have to continue treatment as long as his malignancy is active. GI/Hep Esophageal carcinoma s/p G-tube placement Dx: - Patient presented to the ED on 04/23/2025 with severe nausea, nonbloody vomitus and multiple episodes of diarrhea. - Recently diagnosed of esophageal undifferentiated carcinoma in March 2025 - Abd/Pelvis CT : Marked abnormal thickening of the lateral wall esophagus in this patient with the diagnosis of the esophageal carcinoma, extensive metastatic lymphadenopathy and osteolytic metastatic disease. Rx: - Oncologist Dr. Saeed consulted, recommendations are greatly appreciated - Increased morphine to 2 Mg IV Q2 hourly as needed ? Started on Dilaudid 1 Mg IV Q4 hourly as needed for breakthrough pain Protein calorie malnutrition Tube Feeds: Dx: - Patient takes bolus tube feeds at home, will resume at this time - Protein 4.5, albumin 2.7 - significant muscle wasting AND loss of subcutaneous fat - nutritional intake of <50% of recommended intake for > 2 weeks - bedridden or otherwise significantly reduced functional capacity Rx: - Will feed 150 mL every 2 hours via PEG in the ICU - Clear liquid diet as tolerated - Referral to dietitian made - will appreciate recommendations RENAL SARBJIT Hypercalcemia Dx: - SARBJIT: Creatinine 1.4, GFR 54 (baseline creatinine 1.2). Creatinine today 1.3 - calcium 11.4 Rx: ? Renally dose medication - Avoid nephrotoxic agents HEME Leukocytosis Dx: WBC 29.6?>22.5 -> 15.3 - likely reactive in the setting of pain and malignancy. Patient recently diagnosed with esophageal carcinoma ENDO Obesity Dx: BMI 36.7 Rx: Oupatient work up ID No active problems. - CXR showed b/l subtle pneumonia - Bcx - no growth after 48hrs - Broadspectrum Vanc + Zosyn - stopped on 04/28 as the cultures came back negative ICU Health maintenance: Dispo: Patient clinically stable for downgrade to telemetry Diet: Tube feeds via PEG, 150mL every 2 hours DVT ppx: Heparin gtt GI ppx: Protonix 40mg qD IV lines: 2 pIV Central line: Yes Arterial line: Yes [place]: NO Code status: FULL CODE Plan of care discussed with Attending Dr. Dana Jimenez MD PGY 1 Disclaimer: This note was dictated by speech recognition. Minor errors in epoxy coatings installer may be present due to voice recognition software. Attending Provider Attestation/Addendum Patient seen and examined with above resident, Nicolas Jimenez MD. I agree with the findings, assessment, and plan of care as documented except for any differences below. Patient with submassive pulmonary embolism. Troponin cleared with continued hemodynamic stability with ability to wean off Levophed. Component of both obstructive and hypovolemic shock. IVC not plethoric and improved suggesting adequate resuscitation. Heart rate remains elevated as would be expected with increased physiologic. Patient continues to have significant left upper extremity swelling. Patient has been on heparin drip and will likely be able to transition over to apixaban this evening. Patient and family updated at bedside on plan of care including return to telemetry for ongoing monitoring and management. Patient was able to be weaned to nasal cannula throughout the day. High humidity/high flow nasal cannula remains available should any required. Patient resumed on tube feedings and free water flushes. Patient continues to have central line which we will remove prior to transfer to telemetry. Given negative cultures patient remains off antibiotics at this time I suspect that chest x-ray findings may be related to pulmonary edema or infarction. Total critical care time: I personally spent 35 minutes for review of physiologic parameters, directing plan of care throughout the day, coordination of care with subspecialist, and counseling patient's family at bedside. This is exclusive of time spent [facility] performing a separate billable procedures. Patient remains at significant risk for further morbidity and mortality warranting close monitoring and care when available in the ICU. Critical care services required for submassive PE, acute hypoxic respiratory failure, and esophageal cancer.
[2025-05-01] MEDS: lamoTRIgine 100 MG TABLET (NON-FORM) 200 MG GT (09:06)
[2025-05-01] MEDS: MORPHINE SULF INJ 10 MG/ML VIAL 2 MG IVP ×5 (09:11→22:38)
[2025-05-01] MEDS: TAMSULOSIN HCL 0.4 MG CAPSULE GT (09:20)
[2025-05-01] MEDS: guaiFENesin SYRUP 200 MG/10 ML UDC PO (09:20)
[2025-05-01] MEDS: guaiFENesin SYRUP 200 MG/10 ML UDC GT ×3 (11:46→20:38)
[2025-05-01 13:41] LABS: Partial Thromboplastin Time 61.1 Seconds (22.0-36.0)
--- NOTE | 2025-05-01 13:58 | XR_ITS ---
Examination: AP chest single view Technique: Portable AP sitting chest single view Date and time: May 01, 2025, 1430 hrs. Comparison April 29 25 Indications: Post angiogram Findings: Mild heart failure. Mild to moderate enlargement cardiac contour. Prominent vascular congestion. Basilar edema. Right internal jugular central line tip satisfactory position with no pneumothorax Impression: Mild heart failure
[2025-05-01] MEDS: POTASSIUM CHLORIDE 10% 20 MEQ/15 ML UDC GT (15:02)
--- NOTE | 2025-05-01 18:06 | ESPR_ITS ---
<Statement entered by Mariza Spangler MD - 05/03/25 17:03> Patient transferred out of the ICU in the evening today, patient not seen as ICU has already been following this patient. Will see the patient tomorrow Documentation for date of: 05/01/25 Subjective Subjective Interval history: Mr. Hale, a 69-year-old male with stage IV esophageal carcinoma, Parkinson?s disease, hypertension, and multiple comorbidities, was admitted on 04/26/2025 with severe nausea, vomiting, diarrhea, and weakness. His cancer, diagnosed in March 2025, has led to widespread metastatic disease, including lymphadenopathy and bone metastases. On 04/28/2025, a CTA chest revealed bilateral pulmonary embolism (PE), and a venous Doppler showed left upper extremity DVT. He was started on heparin drip and initially expressed a preference for comfort care but later opted for full code and thrombectomy after discussions with his family. Thrombectomy was done in ICU, his condition improved. Right heart cachetheterization and pulmonary angiogram, showing partial resolution of the PE. His oxygen requirements decreased, and he transitioned to a nasal cannula. His cancer remains advanced, and he is receiving supportive care. Blood pressure has stabilized with Levophed for a short period while in ICU, and his pain is managed with morphine. Currently off pressors, on nasal cannula, sats are acceptable. For pulmonary embolism, will discontinue HEPARIN DRIP tonight 30 minutes after starting ELIQUIS. Exam Vital Signs Temp Pulse Resp BP Pulse Ox O2 Del Method O2 Flow Rate 98.1 F 105 H 25 H 114/67 92 L Nasal Cannula 4 05/01/25 16:05/01/25 16:05/01/25 16:05/01/25 16:05/01/25 16:05/01/25 16:05/01/25 16:00 FiO2 50 04/29/25 16:00 Narrative Exam General: Awake. HEENT: Normocephalic, atraumatic, mucous membranes moist. Heart: Regular rate and rhythm, no murmurs. Lungs: Clear to auscultation with wheezing but no crackles. Noted increased work of breathing and tachypnea Abdomen: Soft, nondistended, nontender, positive bowel sounds. ?No guarding or rebound tenderness. noted G tube Neurologic: Alert and oriented x3, no gross neurological deficit, and patient able to move all 4 extremities. Extremities: Noted swelling in the left upper extremity with erythema Skin: No rash or ecchymoses. Objective Labs 05/02/25 04:10 05/02/25 04:10 Labs: Laboratory Results - last 24 hr 04/30/25 05/01/25 05/01/25 23:08 04:56 12:46 WBC 15.3 H D RBC 3.07 L Hgb 8.2 L Hct 25.7 L MCV 84 MCH 26.7 MCHC 31.9 RDW Std Deviation 62.2 H Plt Count 259 Neut % (Auto) 71 Lymph % (Auto) 12 [place] % (Auto) 7 Eos % (Auto) 5 Baso % (Auto) 0 Neut # (Auto) 10.9 H Lymph # (Auto) 1.9 [place] # (Auto) 1.0 H Eos # (Auto) 0.7 H Baso # (Auto) 0.0 Immature Gran # (Auto) 0.84 H Absolute Nucleated RBC 0.00 Immature Gran % 6 H Nucleated RBC % 0 APTT 69.8 H D 65.8 H 61.1 H Sodium 143 Potassium 3.9 Chloride 108 H Carbon Dioxide 27.6 Anion Gap 7 BUN 43 H Creatinine 1.3 Estim Creat Clear Calc 68.7 eGFR 59 L BUN/Creatinine Ratio 33 H Glucose 103 Calculated Osmolality 295 Calcium 10.0 Corrected Calcium 11.3 H Phosphorus 3.2 Magnesium 2.1 Albumin 2.4 L ABG Interpretation ABG results: 04/28/25 04/28/25 04/29/25 08:00 23:00 18:22 ABG pH 7.41 7.39 ABG pCO2 37 42 ABG pO2 80 L 85 ABG HCO3 23 25 ABG O2 Saturation 97 97 ABG Base Excess -1 0 VBG pH 7.36 VBG pCO2 49 VBG pO2 27 VBG Base Excess 1 Quality Measures Quality Measures none Advance care planning discussed with:: patient Assessment & Plan Assessment Current Active Medications: Generic Name Dose Route Start Last Admin Trade Name Freq PRN Reason Stop Dose Admin Acetaminophen 650 mg 04/30/25 08:20 Acetaminophen Georgette 325 Mg/10 Ml Udc GT 05/26/25 14:04 Q6H PRN Fever >101.5 OR PAIN 1-3 Albuterol/Ipratropium 3 ml 05/01/25 07:45 05/01/25 12:30 Albuterol/Ipratropium (Duoneb) Rt Georgette 3 Ml Nebu INH 05/31/25 07:44 3 ml Q6HRRT ELLIOTT Administration Apixaban 10 mg 05/01/25 21:00 Apixaban 2.5 Mg Tablet GT 05/08/25 09:01 BID ELLIOTT Carbidopa/Levodopa 1 tab 04/26/25 22:00 05/01/25 15:03 Carbidopa/Levodopa 25/100 Mg Tablet GT 05/26/25 21:59 1 tab TID ELLIOTT Administration Gabapentin 100 mg 04/26/25 22:00 05/01/25 15:02 Gabapentin 100 Mg Capsule GT 05/26/25 21:59 100 mg TID ELLIOTT Administration Guaifenesin 200 mg 05/01/25 12:00 05/01/25 11:46 Guaifenesin Syrup 200 Mg/10 Ml Udc GT 05/31/25 11:59 200 mg QID ELLIOTT Administration Protocol Hydromorphone HCl 1 mg 05/01/25 10:22 Hydromorphone Inj 2 Mg/Ml Vial IVP 05/06/25 10:21 Q4HR PRN Breakthrough Pain Protocol Heparin Sodium/Dextrose 25,000 unit in 250 mls @ 20.951 mls/hr 04/30/25 00:15 05/01/25 15:03 Heparin In D5w Ivpb IV 05/01/25 21:30 19.46 units/kg/hr .[id number] ELLIOTT 22.65 mls/hr Administration Protocol 18 UNITS/KG/HR Lamotrigine 200 mg 04/29/25 09:00 05/01/25 09:06 Lamotrigine 100 Mg Tablet (Non-Form) GT 05/29/25 08:59 200 mg QDAY ELLIOTT Administration Morphine Sulfate 2 mg 05/01/25 07:42 05/01/25 09:11 Morphine Sulf Inj 10 Mg/Ml Vial IVP 05/04/25 09:59 2 mg Q2HR PRN Administration PAIN SCALE 4-10(Mod-Sev Ondansetron HCl 4 mg 04/26/25 14:05 Ondansetron Inj 2 Mg/Ml Inj 2 Ml IVP 05/26/25 14:04 Q6H PRN NAUSEA OR VOMITING Protocol Pantoprazole Sodium 40 mg 05/01/25 09:15 05/01/25 09:28 Pantoprazole Inj 40 Mg Vial IVP 05/31/25 09:14 40 mg QDAY ELLIOTT Administration Protocol Quetiapine Fumarate 200 mg 04/27/25 09:00 05/01/25 09:07 Quetiapine Fumarate 100 Mg Tablet GT 05/27/25 08:59 200 mg BID ELLIOTT Administration Tamsulosin HCl 0.4 mg 05/01/25 09:15 05/01/25 09:20 Tamsulosin Hcl 0.4 Mg Capsule GT 05/31/25 09:14 0.4 mg QDAY ELLIOTT Administration Plan Mr. Hale, a 69-year-old male with stage IV esophageal carcinoma, Parkinson?s disease, and several comorbidities, was admitted on 04/26/2025 with nausea, vomiting, diarrhea, and weakness. His cancer has spread to lymph nodes and bones. On 04/28, a CTA chest confirmed bilateral PEand left upper extremity DVT. He was started on heparin drip, initially opted for comfort care, but later chose full code and thrombectomy. By 04/30, after right heart catheterization and pulmonary angiogram, his PE showed partial resolution, and oxygen needs decreased. He is receiving supportive care for his cancer. His blood pressure stabilized with Levophed for short-period while in ICU, and pain is managed with morphine. His condition remains critical, and care is focused on symptom relief and preventing further complications. 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 Acute hypoxemic respiratory failure Acute pulmonary embolism Left upper extremity DVT Possible Pulmonary metastatic cancer Had increasing oxygen demand since admission. CTA chest was positive for numerous bilateral pulmonary arterial emboli including large filling defect in distal right main artery extending into the origin of upper and lower lobe pulmonary branches. He was started on HEPARIN drip, and underwent thrombectomy with cardiology team while in ICU. Symptoms have improved. Currently on nasal cannula, satting well. This possible lung metastatic disease of his esophageal carcinoma given extensive multisystem involvement. Will need PET scan eventually. ? Will discontinue HEPARIN drip tonight, 30 minutes after starting ELIQUIS ? Continue with ELIQUIS 10 mg BID to start at 21:00 today 04/23 ? Oxygen PRN ? DuoNebs PRN DVT left upper extremity Venous Doppler was done for left upper extremity swelling and showed nonocclusive thrombus extending up to left jugular vein. Swelling overall improving. ? Continue above management SARBJIT, prerenal azotemia (improving) Hypercalcemia Prerenal azotemia likely volume depletion, overall improving with fluids. Urine output is adequate. Hypercalcemia in setting of malignancy, calcium around 11.3 ? Renally dose meds, avoid overdiuresis and NEPHROTOXINS ? Daily CMP SIRS Paraneoplastic leukocytosis Immunocompromised Esophageal carcinoma Esophageal dysphagia requiring G-tube Protein calorie malnutrition Recently diagnosed esophageal carcinoma (undifferentiated). Admission CT abdominal pelvis showed thickening lateral wall esophagus, extensive metastatic lymphadenopathy with widespread osteolytic metastatic disease. Has worsening esophageal dysphagia secondary to above-mentioned findings, requiring PEG tube use. ? Oncology on board ? TYLENOL for fever ? Continue MORPHINE 2 mg Q2H (pain 1-4) ? Continue DILAUDID 1 mg Q4H (breakthrough pain) ? Continue GABAPENTIN 100 mg TID Hypertension Shock, multifactorial (resolved) He had multifactorial shock while in ICU, likely hypovolemic which resolved with short course of pressors and fluids. Currently normotensive ? Holding home LOSARTAN 25 daily ? Holding home CARVEDILOL 6.25 BID Transaminitis (resolving) Most likely secondary to hypovalemia/dehydration in setting of NVD Overall stable. ? Daily labs Parkinsons disease Bipolar disorder ? Restarted home med CARBIDOPA LEVODOPA TID ? Restarted home med QUETIAPINE 200 mg BID ? Continue LAMOTRIGINE 200 mg daily Health maintenance Diet: Managed by dietary GI prophylaxis: PROTONIX DVT prophylaxis: ELIQUIS Antibiotics: Not indicated CODE STATUS: Full code Disposition: Treating pulmonary embolism Case was discussed with attending physician and senior resident. DO CHARANJIT Young This document was transcribed using voice recognition technology. Minor inaccuracies may be present.
--- NOTE | 2025-05-01 19:07 | ESPR_ITS ---
Documentation for date of: 05/01/25 Subjective Subjective Interval history: Patient seen and examined at the bedside. No new cardiac complaints the patient did complain of some pleuritic chest pain as well as cough productive of clear mucus. Right heart cardiac catheterization showed normal right heart pressures with mean PA pressure of only 22-25 mmHg, mean PCW pressure of 9 mmHg and a mean RA pressure of 7 mmHg. Patient is only on 3 to 4 L oxygen via nasal cannula. Patient is also off Levophed drip after the fluid resuscitation. Overall patient improving and also WBC count also improving. Pulmonary angiogram showed significant resolution of the pulmonary thrombus involving the distal right pulmonary artery. There is thrombus that has been noted in the branches of the right lower lobe artery as well as the right upper lobe artery but no thrombus was noted in the main pulmonary artery or the right and left pulmonary arteries all the lobar branches. Given the presence of the thrombus only in the segmental and subsegmental branches no mechanical thrombectomy is indicated at the present point of time and recommend to continue with heparin drip as patient has improved significantly. His oxygen requirements also have decreased from high flow nasal cannula 50% to nasal cannula at 3 to 4 L/min. Patient also symptomatically feels better. Echocardiogram also performed today on 04/30/2025 showed no evidence of any RV strain or any Senior sign and good RV function noted. RVSP on the echo is also 25 mmHg. Normal LV function at 60 to 65%. Given the low pulmonary capillary wedge pressure on the right heart cardiac catheterization, recommended fluid resuscitation for the patient and was weaned off of the Levophed drip. Blood pressure stable. Continue heparin drip for now and can be transition to oral Eliquis when able to and if no further procedures planned by the oncology. Exam Vital Signs Temp Pulse Resp BP Pulse Ox O2 Del Method O2 Flow Rate 98.1 F 105 H 25 H 114/67 92 L Nasal Cannula 4 05/01/25 16:00 05/01/25 16:05/01/25 16:05/01/25 16:05/01/25 16:05/01/25 16:05/01/25 16:00 FiO2 50 04/29/25 16:00 Narrative Exam General: Alert and oriented x3. This morning patient does not appear to be in any respiratory distress and is on nasal cannula. Eyes: Pupils are equal and reactive to light bilaterally. HEENT: Atraumatic, normocephalic. No JVD noted. Mucosa moist. Cardiovascular: Normal S1 and S2. Tachycardic and regular rhythm. No murmurs appreciated. Trace peripheral pitting edema noted. Respiratory: No respiratory distress. Lungs are clear to auscultation bilaterally but decreased at the bases. No wheezing or crackles heard. Abdomen: Soft, nontender, nondistended. Skin: No rash. Warm to touch. Musculoskeletal: No gross injuries. Able to move all 4 extremities. Neuro: Alert and oriented x3. No focal neuro deficits. Psych: Normal affect and mood Objective Labs 05/01/25 04:56 05/01/25 04:56 Labs: Laboratory Results - last 24 hr 04/30/25 05/01/25 05/01/25 23:08 04:56 12:46 WBC 15.3 H D RBC 3.07 L Hgb 8.2 L Hct 25.7 L MCV 84 MCH 26.7 MCHC 31.9 RDW Std Deviation 62.2 H Plt Count 259 Neut % (Auto) 71 Lymph % (Auto) 12 [place] % (Auto) 7 Eos % (Auto) 5 Baso % (Auto) 0 Neut # (Auto) 10.9 H Lymph # (Auto) 1.9 [place] # (Auto) 1.0 H Eos # (Auto) 0.7 H Baso # (Auto) 0.0 Immature Gran # (Auto) 0.84 H Absolute Nucleated RBC 0.00 Immature Gran % 6 H Nucleated RBC % 0 APTT 69.8 H D 65.8 H 61.1 H Sodium 143 Potassium 3.9 Chloride 108 H Carbon Dioxide 27.6 Anion Gap 7 BUN 43 H Creatinine 1.3 Estim Creat Clear Calc 68.7 eGFR 59 L BUN/Creatinine Ratio 33 H Glucose 103 Calculated Osmolality 295 Calcium 10.0 Corrected Calcium 11.3 H Phosphorus 3.2 Magnesium 2.1 Albumin 2.4 L ABG Interpretation ABG results: 04/28/25 04/28/25 04/29/25 08:00 23:00 18:22 ABG pH 7.41 7.39 ABG pCO2 37 42 ABG pO2 80 L 85 ABG HCO3 23 25 ABG O2 Saturation 97 97 ABG Base Excess -1 0 VBG pH 7.36 VBG pCO2 49 VBG pO2 27 VBG Base Excess 1 Assessment & Plan A&P Narrative 69-year-old male patient with a past medical history of recently diagnosed malignant esophageal carcinoma status post biopsy on 04/02/2025 with undifferentiated carcinoma with rare signet cells, status post G-tube placement being followed with oncology hypertension, diabetes mellitus type 2, Parkinson's disease, PUD, hyperlipidemia, osteoarthritis, morbid obesity presented to the emergency department on 04/26/2025 for nausea and nonbloody vomiting as well as diarrhea and unable to tolerate feeds along with generalized weakness. Patient was admitted to the hospital and oncology was consulted. As per Dr. 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 Patient was recommended supportive care recommended to follow-up as outpatient for PET scan and port placement for possible chemotherapy as he is an unlikely surgical candidate. As per the documentation patient appears to be having stage IV cancer. Patient left and was noted to be swollen and duplex of the left upper extremity was ordered which showed was positive for DVT showing nonocclusive thrombus extending up to the left jugular vein. Patient was started on heparin drip and CTA chest was ordered to rule out pulmonary embolism. CTA chest showed bilateral pulmonary embolus with large filling defects in the distal right main pulmonary artery as well as minimal plaque in the left upper lobe right pulmonary artery. Also had filling defect noted in the distal left lobar pulmonary artery. Patient had multiple left supraclavicular, left axillary, mediastinal, para-aortic, mesenteric extensive lymphadenopathy along with a esophageal mass. There was a concern of possible right lower lobe mass on the CT chest also. Cardiology consulted for further evaluation of the pulmonary embolism and possible thrombectomy as patient was hypoxic and was on high flow 50% FiO2 with significant workload of breathing. We did discuss with the patient about the possible thrombectomy but patient did not want to undergo any procedures initially and wanted to be DNR/DNI and comfort care. Patient and then was back and forth during the entire morning between DNR/DNI, comfort care and going home on home hospice and eventually did speak to his family members and decided to be full code and requested for possible thrombectomy in the evening. Given his increased work of breathing and high oxygen requirements patient was transferred to the ICU for closer monitoring later in the evening. 1. Acute bilateral pulmonary embolism-submassive PE 2. Acute hypoxic respiratory failure secondary to the acute PE 3. Shock mostly hypovolemic with possible obstructive component 4. Acute DVT of the left upper extremity extending up to the left internal jugular vein 5. 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 Recent G-tube placement secondary to esophageal cancer 7. Hypertension 8. Diabetes mellitus type 2 9. Parkinson disease 10. Morbid obesity 11. Hyperlipidemia 12. Osteoarthritis Present presented for nausea and nonbloody vomiting as well as diarrhea and later left arm swelling was noted for which venous duplex was ordered which showed acute nonocclusive thrombus extending up to left jugular vein. Patient also was hypoxic and had increasing oxygen requirements and hence CTA Chest performed on 04/28/2025 showed bilateral PE with large filling defect in theright main pulmonary artery involving the entire right lower lobe. Minimal thrombus also noted in the right upper lobe branches and also in the right lower lobe branches of the pulmonary artery. IVC has appeared to be normal and no evidence of RV strain on the CT scan Troponins were elevated initially on admission at 1.07 and later on down trended to 0.8. BNP was only 46. Echo was ordered but was not completed but the bedside echo did not show any any right heart strain and RV function was normal. Patient on oxygen high flow nasal cannula at 50% and saturating well but does have significant work of breathing including use of accessory muscles. Patient initially refused thrombectomy and wanted to be DNR comfort care but later on agreed to do the procedure. Will keep the patient n.p.o. past midnight and plan to do so pulmonary angiogram, right heart cath as well as mechanical thrombectomy with penumbra device in AM. Patient has a questionable right lower lobe mass also the snot well-demarcated in the CT along with significant lymphadenopathy. Discussed all the risk benefits and alternatives of performing a mechanical thrombectomy with the patient including the risk of bleeding, pulmonary hemorrhage, risk of acute hypoxic respiratory failure, heart attack and in detail with the patient and patient agreeable for the procedure and provided consent for the same. Explained to the patient that the procedure will not be improving his overall mortality but will help with morbidity including his present symptoms and the work of breathing. If patient deteriorates further and continues to be hypotensive then patient will need TNK. There was no CT head done for the patient and will need to rule out metastasis prior to that and CT head will be performed today. Patient is hypotensive and started on Levophed in the ICU but IVC is not dilated and appears to be collapsing with inspiration. Continue to give IV fluids and bolus 500 mL for now. Continue heparin drip for anticoagulation Patient PE mostly secondary to the malignant esophageal carcinoma with metastasis. Patient appears to have stage IV metastatic cancer with significant lymphadenopathy along with bone mets. Oncology team following. Elevated troponins mostly secondary to the acute pulmonary embolism at the bedside echo did not show any regional wall motion abnormalities and showed good LV as well as RV function. Patient denies any kind of chest pain or chest pressure and his only complaint shortness of breath secondary to the PE. Check TSH A1c and lipid profile for further cardiac risk stratification. 05/01/2025: No new cardiac complaints the patient did complain of some pleuritic chest pain as well as cough productive of clear mucus. Right heart cardiac catheterization showed normal right heart pressures with mean PA pressure of only 22-25 mmHg, mean PCW pressure of 9 mmHg and a mean RA pressure of 7 mmHg. Patient is only on 3 to 4 L oxygen via nasal cannula. Patient is also off Levophed drip after the fluid resuscitation. Overall patient improving and also WBC count also improving. Pulmonary angiogram showed significant resolution of the pulmonary thrombus involving the distal right pulmonary artery. There is thrombus that has been noted in the branches of the right lower lobe artery as well as the right upper lobe artery but no thrombus was noted in the main pulmonary artery or the right and left pulmonary arteries all the lobar branches. Given the presence of the thrombus only in the segmental and subsegmental branches no mechanical thrombectomy is indicated at the present point of time and recommend to continue with heparin drip as patient has improved significantly. His oxygen requirements also have decreased from high flow nasal cannula 50% to nasal cannula at 3 to 4 L/min. Patient also symptomatically feels better. Echocardiogram also performed today on 04/30/2025 showed no evidence of any RV strain or any Senior sign and good RV function noted. RVSP on the echo is also 25 mmHg. Normal LV function at 60 to 65%. Given the low pulmonary capillary wedge pressure on the right heart cardiac catheterization, recommended fluid resuscitation for the patient and was weaned off of the Levophed drip. Blood pressure stable. Continue heparin drip for now and can be transition to oral Eliquis when able to and if no further procedures planned by the oncology. There is a high probability of sudden, clinically significant or life threatening deterioration in the patient condition which required the highest level of physician preparedness to intervene urgently. I have personally spent 65 minutes of critical care time, exclusive of time spent on any procedures, in evaluation and management of this critically ill patient. Management of rest of the medical conditions as per primary team and other consultants. Thank you for the consult and allowing me to participate in the care of the patient. Cardiology will continue to follow. Paulo Hairston M.D. Interventional Cardiology Time Spent With Patient Time: Total time spent is greater than 50% in coordination of care (as documented) at patient's floor/unit and/or counseling patient:
[2025-05-01] MEDS: APIXABAN 2.5 MG TABLET 10 MG GT (20:39)
[2025-05-02] VITALS (37 sets, daily range): BP systolic 95–117; BP diastolic 57–71; PULSE 104–141; RESP 11–56; TEMP 36.1–36.7; O2SAT 79–97; BMI 38.7
[2025-05-02] MEDS: HYDROmorphone INJ 2 MG/ML VIAL 1 MG IVP (00:03)
[2025-05-02] MEDS: ALBUTEROL/IPRATROPIUM (Duoneb) RT SOL 3 ML NEBU INH ×4 (00:40→18:30)
[2025-05-02] MEDS: MORPHINE SULF INJ 10 MG/ML VIAL 2 MG IVP ×6 (01:35→19:13)
[2025-05-02] MEDS: GABAPENTIN 100 MG CAPSULE GT ×3 (05:12→20:57)
[2025-05-02] MEDS: guaiFENesin SYRUP 200 MG/10 ML UDC GT ×4 (05:12→20:55)
[2025-05-02] MEDS: CARBIDOPA/LEVODOPA 25/100 MG TABLET 1 TAB GT ×3 (05:12→20:57)
[2025-05-02 05:54] LABS: Basophils # (Auto) 0.1 Thou/mm3 (0.0-0.2); Basophils % (Auto) 0 % (0-2.5); Eosinophils # (Auto) 0.7 Thou/mm3 (0.0-0.5); Eosinophils % (Auto) 4 % (0-10); Hematocrit 29.5 % (41.0-53.0); Hemoglobin 9.2 g/dL (13.5-16.0); Immature Granulocytes Auto 0.80 Thou/mm3 (0.00-0.00); Lymphocytes # (Auto) 2.0 Thou/mm3 (1.0-4.8); Lymphocytes % (Auto) 13 % (10-50); Mean Corpuscular HGB Conc 31.2 g/dl (31.0-37.0); Mean Corpuscular Hemoglobin 26.7 pg (25.0-35.0); Mean Corpuscular Volume 86 fL (80-100); Monocytes # (Auto) 1.0 Thou/mm3 (0.0-0.8); Monocytes % (Auto) 7 % (0-12); Neutrophils # (Auto) 10.6 Thou/mm3 (1.8-7.7); Neutrophils % (Auto) 70 % (37-80); Nucleated Red Blood Cell # 0.00 Thou/mm3 (0.00-0.00); Nucleated Red Blood Cell % 0 /100 WBC (0); Platelet Count 262 Thou/mm3 (140-440); RDW Standard Deviation 62.4 fL (35.1-43.9); Red Blood Count 3.44 Miln/mm3 (4.50-5.90); White Blood Count 15.1 Thou/mm3 (3.8-10.6)
[2025-05-02 06:20] LABS: Partial Thromboplastin Time 31.1 Seconds (22.0-36.0)
[2025-05-02 06:28] LABS: Albumin, Serum 2.7 gm/dL (3.4-4.8); Anion Gap 8 (7-16); BUN/Creatinine Ratio 31 Ratio (12-20); Blood Urea Nitrogen 34 mg/dL (9-23); Calcium 10.0 mg/dL (8.3-10.6); Calcium (Corrected) 11.0 mg/dL (8.5-10.1); Carbon Dioxide 26.3 mMol/L (20.0-31.0); Chloride 109 mMol/L (98-107); Creatinine (Component) 1.1 mg/dL (0.6-1.3); Estimated Creatinine Clearance 82.1 mL/min (>60); Glucose 103 mg/dL (74-106); Magnesium 1.9 mg/dL (1.6-2.6); Osmolality,Calculated 292 (275-295); Phosphorous 3.1 mg/dL (2.4-5.1); Potassium 4.5 mMol/L (3.4-5.1); Sodium 143 mMol/L (136-145); eGFR > 60 See Note
[2025-05-02] MEDS: TAMSULOSIN HCL 0.4 MG CAPSULE GT (08:18)
[2025-05-02] MEDS: lamoTRIgine 100 MG TABLET (NON-FORM) 200 MG GT (08:26)
[2025-05-02] MEDS: APIXABAN 2.5 MG TABLET 10 MG GT ×2 (08:30→20:56)
[2025-05-02] MEDS: NALOXEGOL OXALATE 25 MG TABLET (NON-FORMULARY) PO (10:51)
--- NOTE | 2025-05-02 15:11 | ESPR_ITS ---
<Statement entered by Mariza Spangler MD - 05/03/25 17:05> I Mariza Spangler MD reviewed the note and agree with the resident's assessment & plan with exceptions as below. I have personally reviewed labs, imaging, home meds/prior records, examined the patient, formulated and discussed management plan with the IM team. A 69-year-old male with multiple comorbidities including parkinsonism and metastatic esophageal carcinoma s/p G-tube in place presented to ED with acute hypoxemic respiratory failure noted to have left upper extremity DVT and extensive pulmonary embolism. Pulmonary thrombectomy attempted however patient had segmental and subsegmental dislodgment of the thrombus on pulmonary angiogram. Currently patient is in mild respiratory distress and tachycardic with requiring high flow nasal cannula, continue heparin drip, will switch to Eliquis, continue tube feeding, close respiratory and hemodynamic monitoring. Documentation for date of: 05/02/25 Subjective Subjective Interval history: Patient is seen and examined at bedside Downgraded from ICU to floors for further management of pulmonary embolism. Still complaining of shortness of breath and drowsiness secondary to opioid usage Vitals are stable and patient is currently on high flow, 20 L/min, 60% FiO2 Labs showed downtrending WBC and renal functions came back to baseline Echocardiogram on 04/30/2025 showed no evidence of any RV strain or any Senior sign and good RV function noted. RVSP on the echo is also 25 mmHg. Normal LV function at 60 to 65%. Will continue anticoagulation, try to wean him off the high flow Exam Vital Signs Temp Pulse Resp BP Pulse Ox O2 Del Method O2 Flow Rate 97.7 F 140 H 28 H 97/57 L 95 High Flow Nasal Cannula 20 05/02/25 12:00 05/02/25 13:46 05/02/25 13:46 05/02/25 12:00 05/02/25 13:46 05/02/25 12:00 05/02/25 13:46 FiO2 60 05/02/25 13:46 Narrative Exam General: Awake. HEENT: Normocephalic, atraumatic, mucous membranes moist. Heart: Regular rate and rhythm, no murmurs. Lungs: Clear to auscultation with wheezing but no crackles. Noted increased work of breathing and tachypnea Abdomen: Soft, nondistended, nontender, positive bowel sounds. ?No guarding or rebound tenderness. noted G tube Neurologic: Alert and oriented x3, no gross neurological deficit, and patient able to move all 4 extremities. Extremities: Noted swelling in the left upper extremity with erythema Skin: No rash or ecchymoses. Objective Labs 05/02/25 04:10 05/02/25 04:10 Labs: Laboratory Results - last 24 hr 05/02/25 04:10 WBC 15.1 H RBC 3.44 L Hgb 9.2 L Hct 29.5 L MCV 86 MCH 26.7 MCHC 31.2 RDW Std Deviation 62.4 H Plt Count 262 Neut % (Auto) 70 Lymph % (Auto) 13 [place] % (Auto) 7 Eos % (Auto) 4 Baso % (Auto) 0 Neut # (Auto) 10.6 H Lymph # (Auto) 2.0 [place] # (Auto) 1.0 H Eos # (Auto) 0.7 H Baso # (Auto) 0.1 Immature Gran # (Auto) 0.80 H Absolute Nucleated RBC 0.00 Immature Gran % 5 H Nucleated RBC % 0 APTT 31.1 D Sodium 143 Potassium 4.5 D Chloride 109 H Carbon Dioxide 26.3 Anion Gap 8 BUN 34 H Creatinine 1.1 Estim Creat Clear Calc 82.1 eGFR > 60 BUN/Creatinine Ratio 31 H Glucose 103 Calculated Osmolality 292 Calcium 10.0 Corrected Calcium 11.0 H Phosphorus 3.1 Magnesium 1.9 Albumin 2.7 L ABG Interpretation ABG results: 04/28/25 04/28/25 04/29/25 08:00 23:00 18:22 ABG pH 7.41 7.39 ABG pCO2 37 42 ABG pO2 80 L 85 ABG HCO3 23 25 ABG O2 Saturation 97 97 ABG Base Excess -1 0 VBG pH 7.36 VBG pCO2 49 VBG pO2 27 VBG Base Excess 1 Quality Measures Quality Measures none Advance care planning discussed with:: patient Assessment & Plan Assessment Current Active Medications: Generic Name Dose Route Start Last Admin Trade Name Freq PRN Reason Stop Dose Admin Acetaminophen 650 mg 04/30/25 08:20 Acetaminophen Georgette 325 Mg/10 Ml Udc GT 05/26/25 14:04 Q6H PRN Fever >101.5 OR PAIN 1-3 Albuterol/Ipratropium 3 ml 05/01/25 07:45 05/02/25 13:45 Albuterol/Ipratropium (Duoneb) Rt Georgette 3 Ml Nebu INH 05/31/25 07:44 3 ml Q6HRRT ELLIOTT Administration Apixaban 10 mg 05/01/25 21:00 05/02/25 08:30 Apixaban 2.5 Mg Tablet GT 05/08/25 09:01 10 mg BID ELLIOTT Administration Carbidopa/Levodopa 1 tab 04/26/25 22:00 05/02/25 13:36 Carbidopa/Levodopa 25/100 Mg Tablet GT 05/26/25 21:59 1 tab TID ELLIOTT Administration Gabapentin 100 mg 04/26/25 22:00 05/02/25 13:36 Gabapentin 100 Mg Capsule GT 05/26/25 21:59 100 mg TID ELLIOTT Administration Guaifenesin 200 mg 05/01/25 12:00 05/02/25 12:42 Guaifenesin Syrup 200 Mg/10 Ml Udc GT 05/31/25 11:59 200 mg QID ELLIOTT Administration Protocol Hydromorphone HCl 1 mg 05/01/25 10:22 05/02/25 00:03 Hydromorphone Inj 2 Mg/Ml Vial IVP 05/06/25 10:21 1 mg Q4HR PRN Administration Breakthrough Pain Protocol Lamotrigine 200 mg 04/29/25 09:00 05/02/25 08:26 Lamotrigine 100 Mg Tablet (Non-Form) GT 05/29/25 08:59 200 mg QDAY ELLIOTT Administration Morphine Sulfate 2 mg 05/01/25 07:42 05/02/25 13:51 Morphine Sulf Inj 10 Mg/Ml Vial IVP 05/04/25 09:59 2 mg Q2HR PRN Administration PAIN SCALE 4-10(Mod-Sev Ondansetron HCl 4 mg 04/26/25 14:05 Ondansetron Inj 2 Mg/Ml Inj 2 Ml IVP 05/26/25 14:04 Q6H PRN NAUSEA OR VOMITING Protocol Pantoprazole Sodium 40 mg 05/01/25 09:15 05/02/25 08:18 Pantoprazole Inj 40 Mg Vial IVP 05/31/25 09:14 40 mg QDAY ELLIOTT Administration Protocol Polyethylene Glycol 17 gm 05/02/25 09:00 05/02/25 12:13 Polyethylene Glycol 17 Gm Packet GT 06/01/25 08:59 Not Given QDAY ELLIOTT Quetiapine Fumarate 200 mg 04/27/25 09:00 05/02/25 08:19 Quetiapine Fumarate 100 Mg Tablet 05/27/25 08:59 200 mg BID ELLIOTT Administration Sennosides 8.8 mg 05/02/25 09:00 05/02/25 12:13 Sennosides Syrup 8.8 Mg/5 Ml Udc 06/01/25 08:59 Not Given QDAY [facility] Protocol Tamsulosin HCl 0.4 mg 05/01/25 09:15 05/02/25 08:18 Tamsulosin Hcl 0.4 Mg Capsule GT 05/31/25 09:14 0.4 mg QDAY [facility] Administration Plan Mr. Hale, a 69-year-old male with stage IV esophageal carcinoma, Parkinson?s disease, and several comorbidities, was admitted on 04/26/2025 with nausea, vomiting, diarrhea, and weakness. His cancer has spread to lymph nodes and bones. On 04/28, a CTA chest confirmed bilateral PEand left upper extremity DVT. He was started on heparin drip, initially opted for comfort care, but later chose full code and thrombectomy. By 04/30, after right heart catheterization and pulmonary angiogram, his PE showed partial resolution, and oxygen needs decreased. He is receiving supportive care for his cancer. His blood pressure stabilized with Levophed for short-period while in ICU, and pain is managed with morphine. His condition remains critical, and care is focused on symptom relief and preventing further complications. After shared recommendations from oncology, cardiology, web programmer teams. Acute hypoxemic respiratory failure Acute pulmonary embolism Left upper extremity DVT Possible Pulmonary metastatic cancer Had increasing oxygen demand since admission. CTA chest was positive for numerous bilateral pulmonary arterial emboli including large filling defect in distal right main artery extending into the origin of upper and lower lobe pulmonary branches. He was started on HEPARIN drip, and underwent thrombectomy with cardiology team while in ICU. Symptoms have improved. Currently on nasal cannula, satting well. This possible lung metastatic disease of his esophageal carcinoma given extensive multisystem involvement. Will need PET scan eventually. ? HEPARIN drip discontinued on 05/01 ? Continue with ELIQUIS 10 mg BID to started on 21:00 05/01, willc ontinue for 7 days and decrease dose to 5mg BID after that ? Oxygen PRN ? DuoNebs PRN DVT left upper extremity Venous Doppler was done for left upper extremity swelling and showed nonocclusive thrombus extending up to left jugular vein. Swelling overall improving. ? Continue above management SARBJIT, prerenal azotemia (resolved) Hypercalcemia Prerenal azotemia likely volume depletion, overall improved with fluids. Urine output is adequate. Hypercalcemia in setting of malignancy, calcium around 11.3 ? Renally dose meds, avoid overdiuresis and NEPHROTOXINS ? Daily CMP SIRS Paraneoplastic leukocytosis Immunocompromised Esophageal carcinoma Esophageal dysphagia requiring G-tube Protein calorie malnutrition Recently diagnosed esophageal carcinoma (undifferentiated). Admission CT abdominal pelvis showed thickening lateral wall esophagus, extensive metastatic lymphadenopathy with widespread osteolytic metastatic disease. Has worsening esophageal dysphagia secondary to above-mentioned findings, requiring PEG tube use. ? Oncology on board ? TYLENOL for fever ? Continue MORPHINE 2 mg Q2H (pain 1-4) ? Continue DILAUDID 1 mg Q4H (breakthrough pain) ? Continue GABAPENTIN 100 mg TID Hypertension Shock, multifactorial (resolved) He had multifactorial shock while in ICU, likely hypovolemic which resolved with short course of pressors and fluids. Currently normotensive ? Holding home LOSARTAN 25 daily ? Holding home CARVEDILOL 6.25 BID Transaminitis (resolving) Most likely secondary to hypovalemia/dehydration in setting of NVD Overall stable. ? Daily labs Parkinsons disease Bipolar disorder ? Restarted home med CARBIDOPA LEVODOPA TID ? Restarted home med QUETIAPINE 200 mg BID ? Continue LAMOTRIGINE 200 mg daily Health maintenance Diet: Managed by dietary GI prophylaxis: PROTONIX DVT prophylaxis: ELIQUIS Antibiotics: Not indicated CODE STATUS: Full code Disposition: Treating pulmonary embolism Patient plan of care was discussed with the attending physician, Dr. Spangler and senior resident Dr. Yesika Jiménez, PGY1
--- NOTE | 2025-05-02 15:47 | ESPR_ITS ---
Documentation for date of: 05/02/25 Subjective Subjective Interval history: Patient seen and examined at the bedside. Patient was only on 3 to 4 L oxygen via nasal cannula and now back on high flow oxygen. Unclear why. As noted below patient pulmonary angiogram showed only subsegmental thrombi bilaterally. Hemodynamically stable since he is off Levophed drip after the fluid resuscitation. Overall patient improving and also WBC count also improving. No new cardiac complaints the patient did complain of some pleuritic chest pain as well as cough productive of clear mucus. Right heart cardiac catheterization showed normal right heart pressures with mean PA pressure of only 22-25 mmHg, mean PCW pressure of 9 mmHg and a mean RA pressure of 7 mmHg. Pulmonary angiogram showed significant resolution of the pulmonary thrombus involving the distal right pulmonary artery. There is thrombus that has been noted in the branches of the right lower lobe artery as well as the right upper lobe artery but no thrombus was noted in the main pulmonary artery or the right and left pulmonary arteries all the lobar branches. Given the presence of the thrombus only in the segmental and subsegmental branches no mechanical thrombectomy is indicated at the present point of time and recommend to continue with heparin drip as patient has improved significantly. His oxygen requirements also have decreased from high flow nasal cannula 50% to nasal cannula at 3 to 4 L/min. Patient also symptomatically feels better. Echocardiogram also performed today on 04/30/2025 showed no evidence of any RV strain or any Senior sign and good RV function noted. RVSP on the echo is also 25 mmHg. Normal LV function at 60 to 65%. Given the low pulmonary capillary wedge pressure on the right heart cardiac catheterization, recommended fluid resuscitation for the patient and was weaned off of the Levophed drip. Blood pressure stable. Continue heparin drip for now and can be transition to oral Eliquis when able to and if no further procedures planned by the oncology. Exam Vital Signs Temp Pulse Resp BP Pulse Ox O2 Del Method O2 Flow Rate 97.0 F 124 H 32 H 98/71 92 L High Flow Nasal Cannula 20 05/02/25 15:34 05/02/25 15:34 05/02/25 15:34 05/02/25 15:34 05/02/25 15:34 05/02/25 15:34 05/02/25 13:46 FiO2 60 05/02/25 13:46 Narrative Exam General: Alert and oriented x3. This morning patient does not appear to be in any respiratory distress and is on nasal cannula. Eyes: Pupils are equal and reactive to light bilaterally. HEENT: Atraumatic, normocephalic. No JVD noted. Mucosa moist. Cardiovascular: Normal S1 and S2. Tachycardic and regular rhythm. No murmurs appreciated. Trace peripheral pitting edema noted. Respiratory: No respiratory distress. Lungs are clear to auscultation bilaterally but decreased at the bases. No wheezing or crackles heard. Abdomen: Soft, nontender, nondistended. Skin: No rash. Warm to touch. Musculoskeletal: No gross injuries. Able to move all 4 extremities. Neuro: Alert and oriented x3. No focal neuro deficits. Psych: Normal affect and mood Objective Labs 05/02/25 04:10 05/02/25 04:10 Labs: Laboratory Results - last 24 hr 05/02/25 04:10 WBC 15.1 H RBC 3.44 L Hgb 9.2 L Hct 29.5 L MCV 86 MCH 26.7 MCHC 31.2 RDW Std Deviation 62.4 H Plt Count 262 Neut % (Auto) 70 Lymph % (Auto) 13 [place] % (Auto) 7 Eos % (Auto) 4 Baso % (Auto) 0 Neut # (Auto) 10.6 H Lymph # (Auto) 2.0 Jenkins # (Auto) 1.0 H Eos # (Auto) 0.7 H Baso # (Auto) 0.1 Immature Gran # (Auto) 0.80 H Absolute Nucleated RBC 0.00 Immature Gran % 5 H Nucleated RBC % 0 APTT 31.1 D Sodium 143 Potassium 4.5 D Chloride 109 H Carbon Dioxide 26.3 Anion Gap 8 BUN 34 H Creatinine 1.1 Estim Creat Clear Calc 82.1 eGFR > 60 BUN/Creatinine Ratio 31 H Glucose 103 Calculated Osmolality 292 Calcium 10.0 Corrected Calcium 11.0 H Phosphorus 3.1 Magnesium 1.9 Albumin 2.7 L ABG Interpretation ABG results: 04/28/25 04/28/25 04/29/25 08:00 23:00 18:22 ABG pH 7.41 7.39 ABG pCO2 37 42 ABG pO2 80 L 85 ABG HCO3 23 25 ABG O2 Saturation 97 97 ABG Base Excess -1 0 VBG pH 7.36 VBG pCO2 49 VBG pO2 27 VBG Base Excess 1 Assessment & Plan A&P Narrative 69-year-old male patient with a past medical history of recently diagnosed malignant esophageal carcinoma status post biopsy on 04/02/2025 with undifferentiated carcinoma with rare signet cells, status post G-tube placement being followed with oncology hypertension, diabetes mellitus type 2, Parkinson's disease, PUD, hyperlipidemia, osteoarthritis, morbid obesity presented to the emergency department on 04/26/2025 for nausea and nonbloody vomiting as well as diarrhea and unable to tolerate feeds along with generalized weakness. Patient was admitted to the hospital and oncology was consulted. As per Dr. 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 Patient was recommended supportive care recommended to follow-up as outpatient for PET scan and port placement for possible chemotherapy as he is an unlikely surgical candidate. As per the documentation patient appears to be having stage IV cancer. Patient left and was noted to be swollen and duplex of the left upper extremity was ordered which showed was positive for DVT showing nonocclusive thrombus extending up to the left jugular vein. Patient was started on heparin drip and CTA chest was ordered to rule out pulmonary embolism. CTA chest showed bilateral pulmonary embolus with large filling defects in the distal right main pulmonary artery as well as minimal plaque in the left upper lobe right pulmonary artery. Also had filling defect noted in the distal left lobar pulmonary artery. Patient had multiple left supraclavicular, left axillary, mediastinal, para-aortic, mesenteric extensive lymphadenopathy along with a esophageal mass. There was a concern of possible right lower lobe mass on the CT chest also. Cardiology consulted for further evaluation of the pulmonary embolism and possible thrombectomy as patient was hypoxic and was on high flow 50% FiO2 with significant workload of breathing. We did discuss with the patient about the possible thrombectomy but patient did not want to undergo any procedures initially and wanted to be DNR/DNI and comfort care. Patient and then was back and forth during the entire morning between DNR/DNI, comfort care and going home on home hospice and eventually did speak to his family members and decided to be full code and requested for possible thrombectomy in the evening. Given his increased work of breathing and high oxygen requirements patient was transferred to the ICU for closer monitoring later in the evening. 1. Acute bilateral pulmonary embolism-submassive PE 2. Acute hypoxic respiratory failure secondary to the acute PE 3. Shock mostly hypovolemic with possible obstructive component 4. Acute DVT of the left upper extremity extending up to the left internal jugular vein 5. 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 Recent G-tube placement secondary to esophageal cancer 7. Hypertension 8. Diabetes mellitus type 2 9. Parkinson disease 10. Morbid obesity 11. Hyperlipidemia 12. Osteoarthritis Present presented for nausea and nonbloody vomiting as well as diarrhea and later left arm swelling was noted for which venous duplex was ordered which showed acute nonocclusive thrombus extending up to left jugular vein. Patient also was hypoxic and had increasing oxygen requirements and hence CTA Chest performed on 04/28/2025 showed bilateral PE with large filling defect in theright main pulmonary artery involving the entire right lower lobe. Minimal thrombus also noted in the right upper lobe branches and also in the right lower lobe branches of the pulmonary artery. IVC has appeared to be normal and no evidence of RV strain on the CT scan Troponins were elevated initially on admission at 1.07 and later on down trended to 0.8. BNP was only 46. Echo was ordered but was not completed but the bedside echo did not show any any right heart strain and RV function was normal. Patient on oxygen high flow nasal cannula at 50% and saturating well but does have significant work of breathing including use of accessory muscles. Patient initially refused thrombectomy and wanted to be DNR comfort care but later on agreed to do the procedure. Will keep the patient n.p.o. past midnight and plan to do so pulmonary angiogram, right heart cath as well as mechanical thrombectomy with penumbra device in AM. Patient has a questionable right lower lobe mass also the snot well-demarcated in the CT along with significant lymphadenopathy. Discussed all the risk benefits and alternatives of performing a mechanical thrombectomy with the patient including the risk of bleeding, pulmonary hemorrhage, risk of acute hypoxic respiratory failure, heart attack and in detail with the patient and patient agreeable for the procedure and provided consent for the same. Explained to the patient that the procedure will not be improving his overall mortality but will help with morbidity including his present symptoms and the work of breathing. If patient deteriorates further and continues to be hypotensive then patient will need TNK. There was no CT head done for the patient and will need to rule out metastasis prior to that and CT head will be performed today. Patient is hypotensive and started on Levophed in the ICU but IVC is not dilated and appears to be collapsing with inspiration. Continue to give IV fluids and bolus 500 mL for now. Continue heparin drip for anticoagulation Patient PE mostly secondary to the malignant esophageal carcinoma with metastasis. Patient appears to have stage IV metastatic cancer with significant lymphadenopathy along with bone mets. Oncology team following. Elevated troponins mostly secondary to the acute pulmonary embolism at the bedside echo did not show any regional wall motion abnormalities and showed good LV as well as RV function. Patient denies any kind of chest pain or chest pressure and his only complaint shortness of breath secondary to the PE. Check TSH A1c and lipid profile for further cardiac risk stratification. 05/01/2025: Patient was only on 3 to 4 L oxygen via nasal cannula and now back on high flow oxygen. Unclear why. As noted below patient pulmonary angiogram showed only subsegmental thrombi bilaterally. Hemodynamically stable since he is off Levophed drip after the fluid resuscitation. Overall patient improving and also WBC count also improving. Pulmonary angiogram showed significant resolution of the pulmonary thrombus involving the distal right pulmonary artery. There is thrombus that has been noted in the branches of the right lower lobe artery as well as the right upper lobe artery but no thrombus was noted in the main pulmonary artery or the right and left pulmonary arteries all the lobar branches. Given the presence of the thrombus only in the segmental and subsegmental branches no mechanical thrombectomy is indicated at the present point of time and recommend to continue with heparin drip as patient has improved significantly. His oxygen requirements also have decreased from high flow nasal cannula 50% to nasal cannula at 3 to 4 L/min. Patient also symptomatically feels better. Echocardiogram also performed today on 04/30/2025 showed no evidence of any RV strain or any Senior sign and good RV function noted. RVSP on the echo is also 25 mmHg. Normal LV function at 60 to 65%. Given the low pulmonary capillary wedge pressure on the right heart cardiac catheterization, recommended fluid resuscitation for the patient and was weaned off of the Levophed drip. Blood pressure stable. Continue heparin drip for now and can be transition to oral Eliquis when able to and if no further procedures planned by the oncology. Management of rest of the medical conditions as per primary team and other consultants. Thank you for the consult and allowing me to participate in the care of the patient. Cardiology will continue to follow. Paulo Hairston M.D. Interventional Cardiology Time Spent With Patient Time: Total time spent is greater than 50% in coordination of care (as documented) at patient's floor/unit and/or counseling patient:
[2025-05-03] VITALS (60 sets, daily range): BP systolic 91–144; BP diastolic 58–103; PULSE 95–162; RESP 6–50; TEMP 35.9–37.1; O2SAT 9–99; BMI 38.7
[2025-05-03] MEDS: MORPHINE SULF INJ 10 MG/ML VIAL 2 MG IVP ×7 (01:22→22:02)
[2025-05-03] MEDS: ALBUTEROL/IPRATROPIUM (Duoneb) RT SOL 3 ML NEBU INH ×4 (01:50→18:10)
[2025-05-03] MEDS: guaiFENesin SYRUP 200 MG/10 ML UDC GT ×3 (05:44→21:53)
[2025-05-03] MEDS: GABAPENTIN 100 MG CAPSULE GT ×3 (05:44→21:54)
[2025-05-03] MEDS: CARBIDOPA/LEVODOPA 25/100 MG TABLET 1 TAB GT ×3 (05:45→21:54)
[2025-05-03 05:58] LABS: Basophils # (Auto) 0.1 Thou/mm3 (0.0-0.2); Basophils % (Auto) 0 % (0-2.5); Eosinophils # (Auto) 0.4 Thou/mm3 (0.0-0.5); Eosinophils % (Auto) 3 % (0-10); Hematocrit 29.6 % (41.0-53.0); Hemoglobin 9.2 g/dL (13.5-16.0); Immature Granulocytes Auto 1.08 Thou/mm3 (0.00-0.00); Lymphocytes # (Auto) 2.1 Thou/mm3 (1.0-4.8); Lymphocytes % (Auto) 13 % (10-50); Mean Corpuscular HGB Conc 31.1 g/dl (31.0-37.0); Mean Corpuscular Hemoglobin 26.8 pg (25.0-35.0); Mean Corpuscular Volume 86 fL (80-100); Monocytes # (Auto) 1.1 Thou/mm3 (0.0-0.8); Monocytes % (Auto) 7 % (0-12); Neutrophils # (Auto) 11.7 Thou/mm3 (1.8-7.7); Neutrophils % (Auto) 71 % (37-80); Nucleated Red Blood Cell # 0.00 Thou/mm3 (0.00-0.00); Nucleated Red Blood Cell % 0 /100 WBC (0); Platelet Count 287 Thou/mm3 (140-440); RDW Standard Deviation 62.8 fL (35.1-43.9); Red Blood Count 3.43 Miln/mm3 (4.50-5.90); White Blood Count 16.5 Thou/mm3 (3.8-10.6)
[2025-05-03 06:33] LABS: Albumin, Serum 2.7 gm/dL (3.4-4.8); Anion Gap 5 (7-16); BUN/Creatinine Ratio 30 Ratio (12-20); Blood Urea Nitrogen 30 mg/dL (9-23); Calcium 9.8 mg/dL (8.3-10.6); Calcium (Corrected) 10.8 mg/dL (8.5-10.1); Carbon Dioxide 27.9 mMol/L (20.0-31.0); Chloride 109 mMol/L (98-107); Creatinine (Component) 1.0 mg/dL (0.6-1.3); Estimated Creatinine Clearance 90.3 mL/min (>60); Glucose 106 mg/dL (74-106); Magnesium 1.9 mg/dL (1.6-2.6); Osmolality,Calculated 289 (275-295); Phosphorous 3.3 mg/dL (2.4-5.1); Potassium 4.5 mMol/L (3.4-5.1); Sodium 142 mMol/L (136-145); eGFR > 60 See Note
[2025-05-03] MEDS: TAMSULOSIN HCL 0.4 MG CAPSULE GT (09:28)
[2025-05-03] MEDS: APIXABAN 2.5 MG TABLET 10 MG GT (09:28)
[2025-05-03] MEDS: lamoTRIgine 100 MG TABLET (NON-FORM) 200 MG GT (09:28)
[2025-05-03] MEDS: SENNOSIDES SYRUP 8.8 MG/5 ML UDC GT (09:28)
[2025-05-03] MEDS: POLYETHYLENE GLYCOL 17 GM PACKET GT (09:29)
[2025-05-03] MEDS: CEFEPIME INJ 2 GM in SODIUM CHLORIDE 0.9% (Popper) 50 ML IV (12:13)
[2025-05-03] MEDS: AZITHROMYCIN INJ 500 MG in SODIUM CHLORIDE 0.9% 250 ML 250 ML 250 MG IV (12:13)
[2025-05-03] MEDS: HYDROmorphone INJ 2 MG/ML VIAL 1 MG IVP ×2 (13:40→16:34)
--- NOTE | 2025-05-03 14:04 | ESPR_ITS ---
<Statement entered by Mariza Spangler MD - 05/03/25 17:07> I Mariza Spangler MD reviewed the note and agree with the resident's assessment & plan with exceptions as below. I have personally reviewed labs, imaging, home meds/prior records, examined the patient, formulated and discussed management plan with the IM team. A 69-year-old male with multiple comorbidities including parkinsonism and metastatic esophageal carcinoma s/p G-tube in place presented to ED with acute hypoxemic respiratory failure noted to have left upper extremity DVT and extensive pulmonary embolism. Pulmonary thrombectomy attempted however patient had segmental and subsegmental dislodgment of the thrombus on pulmonary angiogram. Leukocytosis is gradually uptrending, will start empirically on cefepime and azithromycin for potential hospital-acquired pneumonia. Currently patient is in mild respiratory distress and has sinus tachycardia with requiring high flow nasal cannula, continue heparin drip, continue Eliquis, continue tube feeding, close respiratory and hemodynamic monitoring. Follow-up with oncology for further recommendations. Documentation for date of: 05/03/25 Subjective Subjective Interval history: Patient continues to be on high flow nasal cannula 60 FiO2 over 20L per and since yesterday. Patient had 750 cc urine output overnight. WBC elevated at 16.5 was started on cefepime and azithromycin IV. We will continue Eliquis 10 mg twice daily for 4 days after which he will be started on 5 mg twice daily DVT. Plan to wean off oxygen and discharge. Exam Vital Signs Temp Pulse Resp BP Pulse Ox O2 Del Method O2 Flow Rate 96.7 F L 114 H 25 H 99/72 99 High Flow Nasal Cannula 20 05/03/25 12:00 05/03/25 12:34 05/03/25 12:34 05/03/25 12:00 05/03/25 12:34 05/03/25 12:00 05/03/25 12:34 FiO2 60 05/03/25 12:34 Narrative Exam General: Awake. HEENT: Normocephalic, atraumatic, mucous membranes moist. Heart: Regular rate and rhythm, no murmurs. Lungs: Clear to auscultation with wheezing but no crackles. Noted increased work of breathing and tachypnea Abdomen: Soft, nondistended, nontender, positive bowel sounds. ?No guarding or rebound tenderness. noted G tube Neurologic: Alert and oriented x3, no gross neurological deficit, and patient able to move all 4 extremities. Extremities: Noted swelling in the left upper extremity with erythema Skin: No rash or ecchymoses. Objective Labs 05/03/25 04:42 05/03/25 04:42 Labs: Laboratory Results - last 24 hr 05/03/25 04:42 WBC 16.5 H RBC 3.43 L Hgb 9.2 L Hct 29.6 L MCV 86 MCH 26.8 MCHC 31.1 RDW Std Deviation 62.8 H Plt Count 287 Neut % (Auto) 71 Lymph % (Auto) 13 [place] % (Auto) 7 Eos % (Auto) 3 Baso % (Auto) 0 Neut # (Auto) 11.7 H Lymph # (Auto) 2.1 [place] # (Auto) 1.1 H Eos # (Auto) 0.4 Baso # (Auto) 0.1 Immature Gran # (Auto) 1.08 H Absolute Nucleated RBC 0.00 Immature Gran % 7 H Nucleated RBC % 0 Sodium 142 Potassium 4.5 Chloride 109 H Carbon Dioxide 27.9 Anion Gap 5 L BUN 30 H Creatinine 1.0 Estim Creat Clear Calc 90.3 eGFR > 60 BUN/Creatinine Ratio 30 H Glucose 106 Calculated Osmolality 289 Calcium 9.8 Corrected Calcium 10.8 H Phosphorus 3.3 Magnesium 1.9 Albumin 2.7 L ABG Interpretation ABG results: 04/28/25 04/28/25 04/29/25 08:00 23:00 18:22 ABG pH 7.41 7.39 ABG pCO2 37 42 ABG pO2 80 L 85 ABG HCO3 23 25 ABG O2 Saturation 97 97 ABG Base Excess -1 0 VBG pH 7.36 VBG pCO2 49 VBG pO2 27 VBG Base Excess 1 Quality Measures Quality Measures none Advance care planning discussed with:: other Assessment & Plan Assessment Current Active Medications: Generic Name Dose Route Start Last Admin Trade Name Freq PRN Reason Stop Dose Admin Acetaminophen 650 mg 04/30/25 08:20 Acetaminophen Georgette 325 Mg/10 Ml Udc GT 05/26/25 14:04 Q6H PRN Fever >101.5 OR PAIN 1-3 Albuterol/Ipratropium 3 ml 05/01/25 07:45 05/03/25 12:38 Albuterol/Ipratropium (Duoneb) Rt Georgette 3 Ml Nebu INH 05/31/25 07:44 3 ml Q6HRRT ELLIOTT Administration Apixaban 10 mg 05/01/25 21:00 05/03/25 09:28 Apixaban 2.5 Mg Tablet GT 05/08/25 09:01 10 mg BID ELLIOTT Administration Carbidopa/Levodopa 1 tab 04/26/25 22:00 05/03/25 13:40 Carbidopa/Levodopa 25/100 Mg Tablet GT 05/26/25 21:59 1 tab TID ELLIOTT Administration Gabapentin 100 mg 04/26/25 22:00 05/03/25 13:40 Gabapentin 100 Mg Capsule GT 05/26/25 21:59 100 mg TID ELLIOTT Administration Guaifenesin 200 mg 05/01/25 12:00 05/03/25 12:12 Guaifenesin Syrup 200 Mg/10 Ml Udc GT 05/31/25 11:59 200 mg QID ELLIOTT Administration Protocol Hydromorphone HCl 1 mg 05/01/25 10:22 05/03/25 13:40 Hydromorphone Inj 2 Mg/Ml Vial IVP 05/06/25 10:21 1 mg Q4HR PRN Administration Breakthrough Pain Protocol Cefepime HCl 2 gm/ Sodium 50 mls @ 100 mls/hr 05/03/25 10:56 05/03/25 12:43 Chloride IV 05/10/25 10:55 Infused Q8HR ELLIOTT Infusion Azithromycin 500 mg/ Sodium 250 mls @ 250 mls/hr 05/03/25 10:57 05/03/25 13:13 Chloride IV 05/10/25 10:56 Infused QDAY ELLIOTT Infusion Lamotrigine 200 mg 04/29/25 09:00 05/03/25 09:28 Lamotrigine 100 Mg Tablet (Non-Form) GT 05/29/25 08:59 200 mg QDAY ELLIOTT Administration Morphine Sulfate 2 mg 05/01/25 07:42 05/03/25 12:16 Morphine Sulf Inj 10 Mg/Ml Vial IVP 05/04/25 09:59 2 mg Q2HR PRN Administration PAIN SCALE 4-10(Mod-Sev Ondansetron HCl 4 mg 04/26/25 14:05 Ondansetron Inj 2 Mg/Ml Inj 2 Ml IVP 05/26/25 14:04 Q6H PRN NAUSEA OR VOMITING Protocol Pantoprazole Sodium 40 mg 05/01/25 09:15 05/03/25 09:00 Pantoprazole Inj 40 Mg Vial IVP 05/31/25 09:14 40 mg QDAY ELLIOTT Administration Protocol Polyethylene Glycol 17 gm 05/02/25 09:00 05/03/25 09:29 Polyethylene Glycol 17 Gm Packet GT 06/01/25 08:59 17 gm QDAY ELLIOTT Administration Quetiapine Fumarate 200 mg 04/27/25 09:00 05/03/25 09:28 Quetiapine Fumarate 100 Mg Tablet GT 05/27/25 08:59 200 mg BID ELLIOTT Administration Sennosides 8.8 mg 05/02/25 09:00 05/03/25 09:28 Sennosides Syrup 8.8 Mg/5 Ml Udc GT 06/01/25 08:59 8.8 mg QDAY ELLIOTT Administration Protocol Tamsulosin HCl 0.4 mg 05/01/25 09:15 05/03/25 09:28 Tamsulosin Hcl 0.4 Mg Capsule GT 05/31/25 09:14 0.4 mg QDAY ELLIOTT Administration Plan Mr. Hale, a 69-year-old male with stage IV esophageal carcinoma, Parkinson?s disease, and several comorbidities, was admitted on 04/26/2025 with nausea, vomiting, diarrhea, and weakness. His cancer has spread to lymph nodes and bones. On 04/28, a CTA chest confirmed bilateral PEand left upper extremity DVT. He was started on heparin drip, initially opted for comfort care, but later chose full code and thrombectomy. By 04/30, after right heart catheterization and pulmonary angiogram, his PE showed partial resolution, and oxygen needs decreased. He is receiving supportive care for his cancer. His blood pressure stabilized with Levophed for short-period while in ICU, and pain is managed with morphine. His condition remains critical, and care is focused on symptom relief and preventing further complications. After shared recommendations from oncology, cardiology, siebel administrator teams. Acute hypoxemic respiratory failure Acute pulmonary embolism Left upper extremity DVT Possible Pulmonary metastatic cancer Had increasing oxygen demand since admission. CTA chest was positive for numerous bilateral pulmonary arterial emboli including large filling defect in distal right main artery extending into the origin of upper and lower lobe pulmonary branches. He was started on HEPARIN drip, and underwent thrombectomy with cardiology team while in ICU. Symptoms have improved. Currently on nasal cannula, satting well. This possible lung metastatic disease of his esophageal carcinoma given extensive multisystem involvement. Will need PET scan eventually. HEPARIN drip discontinued on 05/01 ? Continue with ELIQUIS 10 mg BID to started on 21:00 05/01, willc ontinue for 7 days and decrease dose to 5mg BID after that ? Oxygen PRN ? DuoNebs PRN DVT left upper extremity Venous Doppler was done for left upper extremity swelling and showed nonocclusive thrombus extending up to left jugular vein. Swelling overall improving. ? Continue above management SIRS Paraneoplastic leukocytosis Immunocompromised Esophageal carcinoma Esophageal dysphagia requiring G-tube Protein calorie malnutrition Recently diagnosed esophageal carcinoma (undifferentiated). Admission CT abdominal pelvis showed thickening lateral wall esophagus, extensive metastatic lymphadenopathy with widespread osteolytic metastatic disease. Has worsening esophageal dysphagia secondary to above-mentioned findings, requiring PEG tube use. ? Oncology on board ? TYLENOL for fever ? Continue MORPHINE 2 mg Q2H (pain 1-4) ? Continue DILAUDID 1 mg Q4H (breakthrough pain) ? Continue GABAPENTIN 100 mg TID Hypertension Shock, multifactorial (resolved) He had multifactorial shock while in ICU, likely hypovolemic which resolved with short course of pressors and fluids. Currently normotensive ? Holding home LOSARTAN 25 daily ? Holding home CARVEDILOL 6.25 BID Transaminitis, resolving Most likely secondary to hypovalemia/dehydration in setting of NVD Overall stable. ? Daily labs Parkinsons disease Bipolar disorder ? Restarted home med CARBIDOPA LEVODOPA TID ? Restarted home med QUETIAPINE 200 mg BID ? Continue LAMOTRIGINE 200 mg daily SARBJIT, prerenal azotemia (resolved) Hypercalcemia Prerenal azotemia likely volume depletion, overall improved with fluids. Urine output is adequate. Hypercalcemia in setting of malignancy, calcium around 11.3 ? Renally dose meds, avoid overdiuresis and NEPHROTOXINS ? Daily CMP Health maintenance Diet: Managed by dietary GI prophylaxis: PROTONIX DVT prophylaxis: ELIQUIS Antibiotics: Not indicated CODE STATUS: Full code Disposition: Treating pulmonary embolism, wean off oxygen, currently on HFNC This patient care was discussed with my attending Dr. Aníbal Napoles MD PGY-2 Disclaimer: Minor errors in assembler latches and springs may be present since this note was dictated by speech recognition software.
--- NOTE | 2025-05-03 14:30 | PC.SS ---
Rounding Note: Patient receiving IV antibiotics on high flow oxygen.
--- NOTE | 2025-05-03 15:00 | ESPR_ITS ---
Documentation for date of: 05/03/25 Subjective Subjective Interval history: Patient is a 69-year-old male with a past medical history of partially 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 Patient initially presented to the emergency room via private care with a chief complain of unable to tolerate feedings with regurgitations noted by family members at bedside and abdominal pain. Patient having increased shortness of breath and difficult to breath. Patient initially admitted for early pneumonia meeting SIRS criteria. Paitnet subsequently found to have an left upper extremity and CTA chest (04/28/2025): positive for numerous bilateral pulmonary artery emboli including large filling defects int he distral right main pumonary artery extending into upper and lower lobe right pulmonary artery branches. Left spraclavicular and left axillary, mediastinal, paraaortic and mesenteric extensive lymphadenopathy. Patient was upgraded to ICU for observation given extensive PE and hemoinstability. 05/03/2025: Patinet examined at bedside. Decreased breath sounds were noted bilaterally and now on FiO 60% on 20 Liters. Continue heparin. Pateint's work of breathin continues to show little to no changes, concern for worsening PE as patient also have a upper extremity DVT. Worsening WBC 2036. Patient now on Zosyn and Azithromyiinc (05/03--). Repeat CTA chest to evaluate any fibrin thrombus burden based on the CT results. Exam Vital Signs Temp Pulse Resp BP Pulse Ox O2 Del Method O2 Flow Rate 98.7 F 155 H 28 H 144/79 H 79 L BiPAP 20 05/03/25 18:05 05/03/25 18:05 05/03/25 18:05 05/03/25 18:05 05/03/25 18:05 05/03/25 16:00 05/03/25 18:05 FiO2 60 05/03/25 18:05 Narrative Exam General: Alert and oriented x3. This morning patient does not appear to be in any respiratory distress and is on nasal cannula. Eyes: Pupils are equal and reactive to light bilaterally. HEENT: Atraumatic, normocephalic. No JVD noted. Mucosa moist. Cardiovascular: Normal S1 and S2. Tachycardic and regular rhythm. No murmurs appreciated. Trace peripheral pitting edema noted. Respiratory: No respiratory distress. Lungs are clear to auscultation bilaterally but decreased at the bases. No wheezing or crackles heard. Abdomen: Soft, nontender, nondistended. Skin: No rash. Warm to touch. Musculoskeletal: No gross injuries. Able to move all 4 extremities. Neuro: Alert and oriented x3. No focal neuro deficits. Psych: Normal affect and mood Objective Labs 05/04/25 11:58 05/04/25 06:58 Labs: Laboratory Results - last 24 hr 05/03/25 05/03/25 05/03/25 04:42 04:47 16:30 WBC 16.5 H RBC 3.43 L Hgb 9.2 L Hct 29.6 L MCV 86 MCH 26.8 MCHC 31.1 RDW Std Deviation 62.8 H Plt Count 287 Neut % (Auto) 71 Lymph % (Auto) 13 [place] % (Auto) 7 Eos % (Auto) 3 Baso % (Auto) 0 Neut # (Auto) 11.7 H Lymph # (Auto) 2.1 [place] # (Auto) 1.1 H Eos # (Auto) 0.4 Baso # (Auto) 0.1 Immature Gran # (Auto) 1.08 H Absolute Nucleated RBC 0.00 Immature Gran % 7 H Nucleated RBC % 0 APTT Puncture Site ABG pH ABG pCO2 ABG pO2 ABG HCO3 ABG O2 Saturation ABG Base Excess FiO2 Sodium 142 Potassium 4.5 Chloride 109 H Carbon Dioxide 27.9 Anion Gap 5 L BUN 30 H Creatinine 1.0 Estim Creat Clear Calc 90.3 eGFR > 60 BUN/Creatinine Ratio 30 H Glucose 106 Calculated Osmolality 289 Lactic Acid 3.4 H Calcium 9.8 Corrected Calcium 10.8 H Phosphorus 3.3 Magnesium 1.9 Total Bilirubin AST ALT Alkaline Phosphatase Troponin I B-Natriuretic Peptide 59 Total Protein Albumin 2.7 L Globulin Albumin/Globulin Ratio 05/03/25 05/03/25 16:34 17:46 WBC 20.7 H RBC 3.78 L Hgb 10.0 L Hct 31.4 L MCV 83 MCH 26.5 MCHC 31.8 RDW Std Deviation 60.4 H Plt Count 303 Neut % (Auto) 65 Lymph % (Auto) 17 [place] % (Auto) 7 Eos % (Auto) 3 Baso % (Auto) 1 Neut # (Auto) 13.5 H Lymph # (Auto) 3.6 [place] # (Auto) 1.4 H Eos # (Auto) 0.5 Baso # (Auto) 0.1 Immature Gran # (Auto) 1.58 H Absolute Nucleated RBC 0.04 H Immature Gran % 8 H Nucleated RBC % 0 APTT 31.4 Puncture Site Right Radial ABG pH 7.40 ABG pCO2 41 ABG pO2 64 L ABG HCO3 26 ABG O2 Saturation 92 ABG Base Excess 1 FiO2 100 Sodium 142 Potassium 5.0 D Chloride 111 H Carbon Dioxide 21.6 Anion Gap 9 BUN 27 H Creatinine 1.1 Estim Creat Clear Calc 82.1 eGFR > 60 BUN/Creatinine Ratio 25 H Glucose 124 H Calculated Osmolality 289 Lactic Acid Calcium 9.4 Corrected Calcium 10.3 H Phosphorus Magnesium Total Bilirubin 0.5 AST 46 H ALT 11 Alkaline Phosphatase 373 H Troponin I 0.334 H* B-Natriuretic Peptide Total Protein 5.3 L Albumin 2.9 L Globulin 2.4 Albumin/Globulin Ratio 1.2 ABG Interpretation ABG results: 04/28/25 04/28/25 04/29/25 08:00 23:00 18:22 ABG pH 7.41 7.39 ABG pCO2 37 42 ABG pO2 80 L 85 ABG HCO3 23 25 ABG O2 Saturation 97 97 ABG Base Excess -1 0 VBG pH 7.36 VBG pCO2 49 VBG pO2 27 VBG Base Excess 1 05/03/25 16:34 ABG pH 7.40 ABG pCO2 41 ABG pO2 64 L ABG HCO3 26 ABG O2 Saturation 92 ABG Base Excess 1 VBG pH VBG pCO2 VBG pO2 VBG Base Excess Quality Measures Quality Measures none Advance care planning discussed with:: patient Assessment & Plan Assessment Current Active Medications: Generic Name Dose Route Start Last Admin Trade Name Freq PRN Reason Stop Dose Admin Acetaminophen 650 mg 04/30/25 08:20 Acetaminophen Georgette 325 Mg/10 Ml Udc GT 05/26/25 14:04 Q6H PRN Fever >101.5 OR PAIN 1-3 Albuterol/Ipratropium 3 ml 05/01/25 07:45 05/03/25 12:38 Albuterol/Ipratropium (Duoneb) Rt Georgette 3 Ml Nebu INH 05/31/25 07:44 3 ml Q6HRRT ELLIOTT Administration Apixaban 10 mg 05/01/25 21:00 05/03/25 09:28 Apixaban 2.5 Mg Tablet GT 10 mg BID ELLIOTT Administration Carbidopa/Levodopa 1 tab 04/26/25 22:00 05/03/25 13:40 Carbidopa/Levodopa 25/100 Mg Tablet GT 05/26/25 21:59 1 tab TID ELLIOTT Administration Gabapentin 100 mg 04/26/25 22:00 05/03/25 13:40 Gabapentin 100 Mg Capsule GT 05/26/25 21:59 100 mg TID ELLIOTT Administration Guaifenesin 200 mg 05/01/25 12:00 05/03/25 17:56 Guaifenesin Syrup 200 Mg/10 Ml Udc GT 05/31/25 11:59 Not Given QID ELLIOTT Protocol Hydromorphone HCl 1 mg 05/01/25 10:22 05/03/25 16:34 Hydromorphone Inj 2 Mg/Ml Vial IVP 05/06/25 10:21 1 mg Q4HR PRN Administration Breakthrough Pain Protocol Azithromycin 500 mg/ Sodium 250 mls @ 250 mls/hr 05/03/25 10:57 05/03/25 13:13 Chloride IV 05/10/25 10:56 Infused QDAY ELLIOTT Infusion Piperacillin/Tazobactam/Dextrose 3.375 gm in 50 mls @ 12.5 mls/hr 05/03/25 22:00 Zosyn IV 05/10/25 21:59 Q8HR ELLIOTT Norepinephrine/Dextrose 8 mg in 250 mls @ 11.503 mls/hr 05/03/25 16:55 Levophed In D5w 8mg/250ml IV 06/02/25 16:54 .[id number] PRN PER PROTOCOL Protocol 0.05 MCG/KG/MIN Heparin Sodium/Dextrose 25,000 unit in 250 mls @ 18 mls/hr 05/03/25 18:45 05/03/25 18:47 Heparin In D5w Ivpb IV 05/17/25 18:44 14.67 units/kg/hr .[id number] ELLIOTT 18 mls/hr Administration Protocol 14.67 UNITS/KG/HR Lamotrigine 200 mg 04/29/25 09:00 05/03/25 09:28 Lamotrigine 100 Mg Tablet (Non-Form) GT 05/29/25 08:59 200 mg QDAY ELLIOTT Administration Morphine Sulfate 2 mg 05/01/25 07:42 05/03/25 15:15 Morphine Sulf Inj 10 Mg/Ml Vial IVP 05/04/25 09:59 2 mg Q2HR PRN Administration PAIN SCALE 4-10(Mod-Sev Ondansetron HCl 4 mg 04/26/25 14:05 Ondansetron Inj 2 Mg/Ml Inj 2 Ml IVP 05/26/25 14:04 Q6H PRN NAUSEA OR VOMITING Protocol Pantoprazole Sodium 40 mg 05/01/25 09:15 05/03/25 09:00 Pantoprazole Inj 40 Mg Vial IVP 05/31/25 09:14 40 mg QDAY ELLIOTT Administration Protocol Polyethylene Glycol 17 gm 05/02/25 09:00 05/03/25 09:29 Polyethylene Glycol 17 Gm Packet GT 06/01/25 08:59 17 gm QDAY ELLIOTT Administration Quetiapine Fumarate 200 mg 04/27/25 09:00 05/03/25 09:28 Quetiapine Fumarate 100 Mg Tablet GT 05/27/25 08:59 200 mg BID ELLIOTT Administration Sennosides 8.8 mg 05/02/25 09:00 05/03/25 09:28 Sennosides Syrup 8.8 Mg/5 Ml Udc GT 06/01/25 08:59 8.8 mg QDAY ELLIOTT Administration Protocol Tamsulosin HCl 0.4 mg 05/01/25 09:15 05/03/25 09:28 Tamsulosin Hcl 0.4 Mg Capsule GT 05/31/25 09:14 0.4 mg QDAY ELLIOTT Administration Plan #Acute hypoxic respiratory failure #Pulmonary embolism likely massive #Provoked PE in the setting of malignancy #Left upper extremity DVT #Shock Patient presented with concern for possible early pneumonia, given worsening dyspnea CTA chest obtained noted to show large distal main pulmonary artery extending into the upper and lower right pulmonary lobe who multiple right pulmonary PE. Given bilateral PE including a large filling defect in the distal right main pulmonary artery concern for obstructive shock, pending official echo. Versus cardio cardiogenic given elevated troponins of 1.070 and patient denied chest pain versus septic given elevated leukocytosis, less likely.Currently on high flow. 05/03/2025: follow up with CTA chest and continue heparin CT Chest (04/28/2025): Positive for numerous bilateral pulmonary artery emboli including large filling efects in the distal right main pulmonary artery extending into the origins ofthe upper and lower lobe right pulmonary artery branches Left supraclavicular and left axillary, mediastinal, para-aortic and mesenteric extensive lymphadenopathy Esophageal mass again noted Troponin 1.07 0.880 PESI 190, Class V Plan -ICU upgrade -Continue heparin drip -D/C Eliquis -Avoid increasing intrathoraic pressure #Leukocytosis Concern fo early pneumonia on intial chest x-ray on admsision late noted to be a PE. Given history of malignancy likely leading to leukocytosis. Continue to montior Blood cutlure negative. Cxr (04/29/2025): Mild prominence left ventricle w/ prominent vascular congestion Cx(): Subtle early bilateral pneumonia w/ abnormally prominent right mediastinum UA negative Plan -Consider repeat cultures in setting of shock #Hypertension Past medical history of CArvedilol, given concern for PE consider holding holding. continue to hold Losartan, given concern for shock #Normocytic Anemia Likely in the setting of malignnacy vs chronic loss Plan -consider iron panel. -continue to monitor Hgb and Hct #Esophageal malignancy, undifferentiated #Status post G-tube placement Plan -Dr. Saeed following -consider GI consult #BHP Consider holding Tamsulosin #Obesity ICU Health maintenance: Dispo: Tele --> ICU on 05/03 @ 5PM Diet: Tube feeds via PEG, 150mL every 2 hours DVT ppx: Elqius 10mg BID via GT GI ppx: Protonix 40mg qD IV lines: 2 pIV Central line: Yes Arterial line: Yes [place]: NO Code status: FULL CODE - The patient's plan was discussed with attending Dr. Yovanny Cano MD PGY1 Internal Medicine Attending Provider Attestation/Addendum I have personally seen and examined the patient separately on the above date of service and discussed the plan of care with the resident. I reviewed the resident Dr. Jeannine Cano consultation progress note and agree with the resident findings and plan in the note above and have also edited the documentation to reflect my findings and plan. Patient has been having increased tachypnea with hypoxia requiring BiPAP and hence was transferred to the ICU again today. Repeat chest x-ray showed pleural effusions along with questionable pneumonia. Bedside ultrasound did show dilated IVC but patient was on BiPAP. Patient has been started on IV antibiotics and also started on IV diuresis. Plan is for is to perform a repeat echocardiogram in the morning to evaluate again for RV function and make an of RV strain. Recent right heart cardiac catheterization with pulmonary angiogram showed normal right heart pressures and normal PA pressure along with no clot in the main right or left PA and most of the clot burden is in the distal segmental and subsegmental branches as noted previously. Patient does have significant DVT of the left upper extremity extending into the left IJ. Possible dislodgment and superimposed new clot the chronic distal PEs can be considered but patient was on anticoagulation with full dose Eliquis and less likely he failed any kind of anticoagulation. Unfortunately Xa levels cannot be checked here and we will recommend a repeat CTA chest to evaluate the clot burden for the patient. 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 There is a high probability of sudden, clinically significant or life threatening deterioration in the patient condition which required the highest level of physician preparedness to intervene urgently. I have personally spent 65 minutes of critical care time, exclusive of time spent on any procedures, in evaluation and management of this critically ill patient. Paulo Hairston M.D. Interventional Cardiology
--- NOTE | 2025-05-03 16:25 | EKG_ITS ---
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
--- NOTE | 2025-05-03 16:25 | XR_ITS ---
Examination: AP chest single view Technique one AP portable semiupright chest single view Date and time: May 03, 2025 1634 hours Comparison May 01, 2025 INDICATIONS: Shortness of breath today. FINDINGS: Mild heart failure. Mild enlargement cardiac contour with prominent vascular congestion and perihilar edema. Consider superimposed pneumonia in the right upper lobe and left base Osseous structures intact IMPRESSION: Mild heart failure. Consider superimposed pneumonia in the right upper lobe and left base
--- NOTE | 2025-05-03 16:27 | PC.SS ---
Rapid response initiated on the patient basis oxygen de-saturation. Medical team attending to the patient.
[2025-05-03] MEDS: FUROSEMIDE INJ 10 MG/ML 4ML VIAL 40 MG IVP (16:35)
[2025-05-03 16:43] LABS: Base Excess 1 (-3-3); HCO3 26 mEq/L (20-26); Inspired Oxygen, FIO2 100 %; O2 Saturation 92 % (91-98); PCO2 41 mmHg (32.0-48.0); PO2 64 mmHg (83-108); pH, Arterial 7.40 (7.35-7.45)
[2025-05-03 16:46] LABS: Allen Test Not Performed; Puncture Site Right Radial
[2025-05-03 16:51] LABS: Lactate (Lactic Acid) 3.4 mMol/L (0.4-2.0)
--- NOTE | 2025-05-03 16:55 | ESPR_ITS ---
Documentation for date of: 05/03/25 Subjective Subjective Interval history: RR called at 4:30 PM for worsening SOb and hypoxia on high flow nasal cannula 100 FiO2 , 40L flow Patient had >700mL urine output overnight. WBC elevated at 16.5 was started on cefepime and azithromycin IV by primary team Patient has been on Eliquis 10 mg twice daily for 4 days so far Upgraded to ICU again for possible sub-segmental PE and worsening CHF Unable to appreciate RV on bedside Echo, multiple B lines noted Exam Vital Signs Temp Pulse Resp BP Pulse Ox O2 Del Method O2 Flow Rate 96.7 F L 115 H 29 H 144/103 H 91 L BiPAP 20 05/03/25 12:00 05/03/25 16:35 05/03/25 16:00 05/03/25 16:35 05/03/25 16:00 05/03/25 16:00 05/03/25 15:50 FiO2 100 05/03/25 16:00 Narrative Exam Constitutional Alert, oriented x3. Obese HEENT Vision grossly intact. Patent nares. Trachea midline. On HFNC : 40L, FiO2 100 --> BIPAP Respiratory Chest normal on inspection and clear to auscultation bilaterally. Cardiovascular S1 and S2 audible, RRR. No murmurs or carotid bruit. No gross JVD. Abdominal Soft and non tender to palpation in all quadrants. BS + Genitourinary No bladder tenderness, no flank pain. Non tender to palpation. Musculoskeletal Extremities tone within normal limits. 2+ LE edema. Neurological CN II - XII grossly intact. Extremity motor and sensation grossly intact. Skin Warm, dry and intact. No apparent lesions. Psychiatric Patient has a good affect, is cooperative. Objective Labs 05/03/25 16:34 05/03/25 16:34 Labs: Laboratory Results - last 24 hr 05/03/25 05/03/25 05/03/25 04:42 16:30 16:34 WBC 16.5 H RBC 3.43 L Hgb 9.2 L Hct 29.6 L MCV 86 MCH 26.8 MCHC 31.1 RDW Std Deviation 62.8 H Plt Count 287 Neut % (Auto) 71 Lymph % (Auto) 13 [place] % (Auto) 7 Eos % (Auto) 3 Baso % (Auto) 0 Neut # (Auto) 11.7 H Lymph # (Auto) 2.1 [place] # (Auto) 1.1 H Eos # (Auto) 0.4 Baso # (Auto) 0.1 Immature Gran # (Auto) 1.08 H Absolute Nucleated RBC 0.00 Immature Gran % 7 H Nucleated RBC % 0 Puncture Site Right Radial ABG pH 7.40 ABG pCO2 41 ABG pO2 64 L ABG HCO3 26 ABG O2 Saturation 92 ABG Base Excess 1 FiO2 100 Sodium 142 Potassium 4.5 Chloride 109 H Carbon Dioxide 27.9 Anion Gap 5 L BUN 30 H Creatinine 1.0 Estim Creat Clear Calc 90.3 eGFR > 60 BUN/Creatinine Ratio 30 H Glucose 106 Calculated Osmolality 289 Lactic Acid 3.4 H Calcium 9.8 Corrected Calcium 10.8 H Phosphorus 3.3 Magnesium 1.9 Albumin 2.7 L ABG Interpretation ABG results: 04/28/25 04/28/25 04/29/25 08:00 23:00 18:22 ABG pH 7.41 7.39 ABG pCO2 37 42 ABG pO2 80 L 85 ABG HCO3 23 25 ABG O2 Saturation 97 97 ABG Base Excess -1 0 VBG pH 7.36 VBG pCO2 49 VBG pO2 27 VBG Base Excess 1 05/03/25 16:34 ABG pH 7.40 ABG pCO2 41 ABG pO2 64 L ABG HCO3 26 ABG O2 Saturation 92 ABG Base Excess 1 VBG pH VBG pCO2 VBG pO2 VBG Base Excess Quality Measures Quality Measures none Advance care planning discussed with:: patient Assessment & Plan Assessment Current Active Medications: Generic Name Dose Route Start Last Admin Trade Name Freq PRN Reason Stop Dose Admin Acetaminophen 650 mg 04/30/25 08:20 Acetaminophen Georgette 325 Mg/10 Ml Udc GT 05/26/25 14:04 Q6H PRN Fever >101.5 OR PAIN 1-3 Albuterol/Ipratropium 3 ml 05/01/25 07:45 05/03/25 12:38 Albuterol/Ipratropium (Duoneb) Rt Georgette 3 Ml Nebu INH 05/31/25 07:44 3 ml Q6HRRT ELLIOTT Administration Apixaban 10 mg 05/01/25 21:00 05/03/25 09:28 Apixaban 2.5 Mg Tablet GT 05/08/25 09:01 10 mg BID ELLIOTT Administration Carbidopa/Levodopa 1 tab 04/26/25 22:00 05/03/25 13:40 Carbidopa/Levodopa 25/100 Mg Tablet GT 05/26/25 21:59 1 tab TID ELLIOTT Administration Gabapentin 100 mg 04/26/25 22:00 05/03/25 13:40 Gabapentin 100 Mg Capsule GT 05/26/25 21:59 100 mg TID ELLIOTT Administration Guaifenesin 200 mg 05/01/25 12:00 05/03/25 12:12 Guaifenesin Syrup 200 Mg/10 Ml Udc GT 05/31/25 11:59 200 mg QID ELLIOTT Administration Protocol Hydromorphone HCl 1 mg 05/01/25 10:22 05/03/25 16:34 Hydromorphone Inj 2 Mg/Ml Vial IVP 05/06/25 10:21 1 mg Q4HR PRN Administration Breakthrough Pain Protocol Azithromycin 500 mg/ Sodium 250 mls @ 250 mls/hr 05/03/25 10:57 05/03/25 13:13 Chloride IV 05/10/25 10:56 Infused QDAY ELLIOTT Infusion Magnesium Sulfate 4 gm in 50 mls @ 12.5 mls/hr 05/03/25 16:33 Magnesium Sulfate Ivpb IV 05/03/25 20:32 X1 ONE Piperacillin Sod/Tazobactam 100 mls @ 200 mls/hr 05/03/25 16:53 Sod 4.5 gm/ Sodium Chloride IV 05/10/25 16:52 Q6HR ELLIOTT Lamotrigine 200 mg 04/29/25 09:00 05/03/25 09:28 Lamotrigine 100 Mg Tablet (Non-Form) GT 05/29/25 08:59 200 mg QDAY ELLIOTT Administration Morphine Sulfate 2 mg 05/01/25 07:42 05/03/25 15:15 Morphine Sulf Inj 10 Mg/Ml Vial IVP 05/04/25 09:59 2 mg Q2HR PRN Administration PAIN SCALE 4-10(Mod-Sev Ondansetron HCl 4 mg 04/26/25 14:05 Ondansetron Inj 2 Mg/Ml Inj 2 Ml IVP 05/26/25 14:04 Q6H PRN NAUSEA OR VOMITING Protocol Pantoprazole Sodium 40 mg 05/01/25 09:15 05/03/25 09:00 Pantoprazole Inj 40 Mg Vial IVP 05/31/25 09:14 40 mg QDAY ELLIOTT Administration Protocol Polyethylene Glycol 17 gm 05/02/25 09:00 05/03/25 09:29 Polyethylene Glycol 17 Gm Packet GT 06/01/25 08:59 17 gm QDAY ELLIOTT Administration Quetiapine Fumarate 200 mg 04/27/25 09:00 05/03/25 09:28 Quetiapine Fumarate 100 Mg Tablet GT 05/27/25 08:59 200 mg BID ELLIOTT Administration Sennosides 8.8 mg 05/02/25 09:00 05/03/25 09:28 Sennosides Syrup 8.8 Mg/5 Ml Udc GT 06/01/25 08:59 8.8 mg QDAY ELLIOTT Administration Protocol Tamsulosin HCl 0.4 mg 05/01/25 09:15 05/03/25 09:28 Tamsulosin Hcl 0.4 Mg Capsule GT 05/31/25 09:14 0.4 mg QDAY ELLIOTT Administration Plan Mr. 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 Abdo/Pelvic CT confirmed lymphadenopathy in the descending thoracic aorta, abdominal lymphadenopathy and pelvic mesenteric lymphadenopathy. Patient presented to the ED on 04/23/2025 with severe nausea, nonbloody vomitus and multiple episodes of diarrhea. Radiation oncology Dr. Saeed was consulted for further evaluation. Patient underwent CTA chest on 04/28 which confirmed numerous bilateral PE, large filling defect in the distal right main pulmonary artery extending to the upper and lower lobe right pulmonary artery branches. Left supraclavicular and left axillary, mediastinal, para-aortic and mesenteric extensive lymphadenopathy also noted. Esophageal mass present in the distal esophagus. Cardiology was consulted for need for thrombectomy. ICU team consulted for hypoxia in the setting of acute PE, and for thrombectomy on 04/30/2025. Patient's PE dissolved with Heparin gtt and did not require intervention at that time. Was downgarded to medical floors but upgraded back on 05/03 due to worsening hypoxia. NEURO Parkinson's disease Bipolar disorder Rx: - Continue home med carbidopa-levodopa TID - Continue home med Quetiapine 200 mg BID CVS Sinus Tachycardia History of hypertension Dx: Shock few days ago due to b/l PE, obstructive - 05/03 : BP 130-140/90-100s , HR 105-115bpm Rx: - HOLD losartan 25 mg Qday - HOLD Carvedilol 6.25 mg BID - Cardiology is following, appreciate input. - BP improved post Lasix 40mg x1 for lung congestion noted on bedside POCUS PULM Acute Hypoxic Resp Failure Recurrent Subsegmental PE s/p thrombectomy eval Left UE DVT + Pulmonary metastases - Patient developed swelling of left upper extremity since last night - On physical examination, noted swelling and erythema in the left upper extremity - Venous Doppler US: acute nonocclusive thrombus extending up to left jugular vein - CTA Chest on 04/28 : numerous bilateral PE, large filling defect in the distal right main pulmonary artery extending to the upper and lower lobe right pulmonary artery branches. Left supraclavicular and left axillary, mediastinal, para-aortic and mesenteric extensive lymphadenopathy also noted. Esophageal mass present in the distal esophagus. - 04/29: Diagnostic angiogram, right heart cath performed which showed adequate blood flow to right and left lower segments pulmonary arteries, no need for mechanical thrombectomy at this time. - PESI score 110. Class IV; high risk of 30-day mortality. - 05/03: Bedside echo showed b lines, cannot appreciate RV. - CXR : RLL wedge shaped opacity, likely subsegmental PE - ABG: pH 7.4 , Co2 41 and Bicarb 21.6 Rx: - Upgraded to ICU. Transitioned to BiPAP 15/8 and FiO2 70% - Continue Eliquis 10mg BID (Day 4 today) : will put on hold - Heparin bolus x1 given + started heparin drip for close aPTT monitoring - Consider PRN levophed to increase cardiac output if needed - Will give Lasix 40mg x1 for mild diuresis GI/Hep Esophageal carcinoma s/p G-tube placement Dx: - Patient presented to the ED on 04/23/2025 with severe nausea, nonbloody vomitus and multiple episodes of diarrhea. - Recently diagnosed of esophageal undifferentiated carcinoma in March 2025 - Abd/Pelvis CT : Marked abnormal thickening of the lateral wall esophagus in this patient with the diagnosis of the esophageal carcinoma, extensive metastatic lymphadenopathy and osteolytic metastatic disease. Rx: - Oncologist Dr. Saeed consulted, recommendations are greatly appreciated - PRN Morphine, Dilaudid as needed for pain Protein calorie malnutrition Tube Feeds: Dx: - Patient takes bolus tube feeds at home, will resume at this time - Protein 4.5, albumin 2.7 - significant muscle wasting AND loss of subcutaneous fat - nutritional intake of <50% of recommended intake for > 2 weeks - bedridden or otherwise significantly reduced functional capacity Rx: - Will feed 150 mL every 2 hours via PEG in the ICU - Clear liquid diet PO as tolerated RENAL Hypercalcemia of Malignancy Dx: Calcium 11.4 -> 10.8 Likely in the setting of Esophageal CA Rx: - SARBJIT has resolved. Continue to Renally dose medication - Avoid nephrotoxic agents - Anticipate Ca improvement with diuresis HEME Leukocytosis Dx: WBC 15.3 -> 20.7 - Cefepime + Azithro --> Zosyn + Azithro for possibel HAP Normocytic Anemia Dx: Hb 10, MCV 83 Rx: Likely in the setting of malignancy. Avoid repletion in malignancy ENDO Obesity Dx: BMI 36.7 Rx: Oupatient work up ID RLL PNA, likey Hosp acquired - 04/26: Blood cultures negative @ 48 hours - 05/03 CXR : RLL opacities Rx: - Continue Zosyn + Azithro (05/03 - ICU Health maintenance: Dispo: Tele --> ICU on 05/03 @ 5PM Diet: Tube feeds via PEG, 150mL every 2 hours DVT ppx: Elqius 10mg BID via GT GI ppx: Protonix 40mg qD IV lines: 2 pIV Central line: Yes Arterial line: Yes Boland: NO Code status: FULL CODE Plan of care discussed with Attending Dr. Dana Floyd M.D. PGY2 Disclaimer: Minor errors in training associate may be present as this note was dictated using voice recognition software. Attending Provider Attestation/Addendum Patient seen and examined with above resident, Santino Floyd MD. I agree with the findings, assessment, and plan of care as documented except for any differences below. Patient with episode of increased tachypnea and hypoxia. Recovered on BiPAP and transferred to ICU for closer monitoring. Bedside ultrasound shows plethoric IVC likely in the setting of positive pressure ventilation though the RV does not look dilated and there is no septal bowing to suggest pressure volume overload at this point. LV seems to be well filled. Patient was given diuretics while on the floor upon transfer. Monitor urine output and reassess respiratory status in the coming hours. Will aim to try to transition to nasal cannula in the next few hours. Suspect that given the significant amount of DVT in the left upper extremity while on anticoagulation may have led to dislodgment and superimposed new clot on chronic distal PEs that he has been slowly clearing. Patient has been on apixaban and it is very unlikely that he failed anticoagulation though to ensure that we have adequate monitoring plan will be transition back to IV heparin drip to ensure therapeutic APTT. Check anti Xa levels in our facility is very difficult as it is a send out in not readily available to direct care based on this. Alternate etiologies based on chest x- ray may suggest pulmonary function though patient without hemoptysis or new infection which medicine team already started on antibiotics. Patient will be reassessed by cardiology for potential repeat pulmonary angiogram/thrombectomy of the suspect that the left upper extremity continues to be problematic for the patient. We do not have peripheral intervention here at our facility. Consideration for transferring may be required. Total critical care time: I personally spent 35 minutes for review of physiologic parameters, directing plan of care throughout the day, coordination of care with other subspecialist, and counseling patient at bedside. This is exclusive of time spent teaching housestaff performing any separate billable procedures. Patient remains at significant risk of further morbidity and mortality warranting close monitoring only available in the ICU. Patient required critical care services for submassive pulmonary embolism, acute hypoxic respiratory failure, left upper extremity DVT, esophageal cancer.
[2025-05-03 16:56] LABS: Basophils # (Auto) 0.1 Thou/mm3 (0.0-0.2); Basophils % (Auto) 1 % (0-2.5); Eosinophils # (Auto) 0.5 Thou/mm3 (0.0-0.5); Eosinophils % (Auto) 3 % (0-10); Hematocrit 31.4 % (41.0-53.0); Hemoglobin 10.0 g/dL (13.5-16.0); Immature Granulocytes Auto 1.58 Thou/mm3 (0.00-0.00); Lymphocytes # (Auto) 3.6 Thou/mm3 (1.0-4.8); Lymphocytes % (Auto) 17 % (10-50); Mean Corpuscular HGB Conc 31.8 g/dl (31.0-37.0); Mean Corpuscular Hemoglobin 26.5 pg (25.0-35.0); Mean Corpuscular Volume 83 fL (80-100); Monocytes # (Auto) 1.4 Thou/mm3 (0.0-0.8); Monocytes % (Auto) 7 % (0-12); Neutrophils # (Auto) 13.5 Thou/mm3 (1.8-7.7); Neutrophils % (Auto) 65 % (37-80); Nucleated Red Blood Cell # 0.04 Thou/mm3 (0.00-0.00); Nucleated Red Blood Cell % 0 /100 WBC (0); Platelet Count 303 Thou/mm3 (140-440); RDW Standard Deviation 60.4 fL (35.1-43.9); Red Blood Count 3.78 Miln/mm3 (4.50-5.90); White Blood Count 20.7 Thou/mm3 (3.8-10.6)
--- NOTE | 2025-05-03 17:03 | PD.RESEVENT ---
Documentation for date of: 05/03/25 Event Note Event Note: Rapid response was called around 4:30 p.m. as patient was found hypoxic and having shortness of breath on HFNC 100% FiO2 and max flow rate. Chest x-ray showed supperimposed pneumonia of right upper and left base, patient was already started on IV antibiotics with Cefepime and Azithro. There was concern for sub-segmental PE. ICU and cardiology were consulted and patient was upgraded to ICU. This patient care was discussed with my attending Dr. Aníbal Napoles MD PGY-2 Disclaimer: Minor errors in cracking still operator may be present since this note was dictated by speech recognition software.
[2025-05-03 17:31] LABS: Alanine Aminotransferase 11 U/L (10-49); Albumin, Serum 2.9 gm/dL (3.4-4.8); Albumin/Globulin Ratio 1.2 (1.2-2.2); Alkaline Phosphatase 373 U/L (46-116); Anion Gap 9 (7-16); Aspartate Amino Transferase 46 U/L (0-34); BUN/Creatinine Ratio 25 Ratio (12-20); Bilirubin,Total 0.5 mg/dL (0.3-1.2); Blood Urea Nitrogen 27 mg/dL (9-23); Calcium 9.4 mg/dL (8.3-10.6); Calcium (Corrected) 10.3 mg/dL (8.5-10.1); Carbon Dioxide 21.6 mMol/L (20.0-31.0); Chloride 111 mMol/L (98-107); Creatinine (Component) 1.1 mg/dL (0.6-1.3); Estimated Creatinine Clearance 82.1 mL/min (>60); Globulin 2.4 gm/dL (2.3-3.5); Glucose 124 mg/dL (74-106); Osmolality,Calculated 289 (275-295); Potassium 5.0 mMol/L (3.4-5.1); Sodium 142 mMol/L (136-145); Total Protein 5.3 gm/dL (5.7-8.2); eGFR > 60 See Note
[2025-05-03 17:32] LABS: Troponin I 0.334 ng/mL (0.0-0.045)
[2025-05-03] MEDS: PIPER/TAZO 3.375 GM PREMIX 3.375 GM/50 ML BAG IV ×2 (18:08→22:04)
[2025-05-03] MEDS: Magnesium Sulfate 4 GM Ivpb 4 GM/50 ML BAG IV (18:08)
[2025-05-03 18:12] LABS: Partial Thromboplastin Time 31.4 Seconds (22.0-36.0)
[2025-05-03 18:32] LABS: B-Type Natriuretic Peptide 59 pg/mL (0-100)
[2025-05-03] MEDS: Heparin/D5w 25K 250 ML Ivpb 25,000 UNIT/250 ML BAG 18 UNIT IV (18:47)
[2025-05-03] MEDS: HEPARIN SOD INJ 5000 UNIT/ML VIAL 8000 UNIT IV (18:48)
[2025-05-03 19:54] LABS: Reflex Lactate? Y
[2025-05-03 21:23] LABS: Lactic Acid, 3 HR 1.9 mMol/L (0.4-2.0)
[2025-05-04] VITALS (66 sets, daily range): BP systolic 77–143; BP diastolic 53–87; PULSE 93–134; RESP 15–36; TEMP 36.7–36.9; O2SAT 86–99; BMI 39.0
[2025-05-04] MEDS: MORPHINE SULF INJ 10 MG/ML VIAL 2 MG IVP ×3 (00:48→07:50)
[2025-05-04 01:30] LABS: Partial Thromboplastin Time 58.4 Seconds (22.0-36.0)
[2025-05-04] MEDS: ALBUTEROL/IPRATROPIUM (Duoneb) RT SOL 3 ML NEBU INH ×4 (01:40→18:15)
[2025-05-04] MEDS: guaiFENesin SYRUP 200 MG/10 ML UDC GT ×4 (06:09→20:29)
[2025-05-04] MEDS: CARBIDOPA/LEVODOPA 25/100 MG TABLET 1 TAB GT ×3 (06:10→20:29)
[2025-05-04] MEDS: GABAPENTIN 100 MG CAPSULE GT ×3 (06:10→20:32)
[2025-05-04] MEDS: PIPER/TAZO 3.375 GM PREMIX 3.375 GM/50 ML BAG IV (06:10)
[2025-05-04 07:27] LABS: Basophils # (Auto) 0.1 Thou/mm3 (0.0-0.2); Basophils % (Auto) 0 % (0-2.5); Eosinophils # (Auto) 0.5 Thou/mm3 (0.0-0.5); Eosinophils % (Auto) 3 % (0-10); Hematocrit 27.9 % (41.0-53.0); Immature Granulocytes Auto 1.02 Thou/mm3 (0.00-0.00); Lymphocytes # (Auto) 2.3 Thou/mm3 (1.0-4.8); Lymphocytes % (Auto) 14 % (10-50); Mean Corpuscular HGB Conc 31.5 g/dl (31.0-37.0); Mean Corpuscular Hemoglobin 26.9 pg (25.0-35.0); Mean Corpuscular Volume 85 fL (80-100); Monocytes # (Auto) 1.1 Thou/mm3 (0.0-0.8); Monocytes % (Auto) 7 % (0-12); Neutrophils # (Auto) 11.8 Thou/mm3 (1.8-7.7); Neutrophils % (Auto) 71 % (37-80); Nucleated Red Blood Cell # 0.03 Thou/mm3 (0.00-0.00); Nucleated Red Blood Cell % 0 /100 WBC (0); Platelet Count 274 Thou/mm3 (140-440); RDW Standard Deviation 62.3 fL (35.1-43.9); Red Blood Count 3.27 Miln/mm3 (4.50-5.90); White Blood Count 16.8 Thou/mm3 (3.8-10.6)
[2025-05-04 07:38] LABS: Hemoglobin 8.8 g/dL (13.5-16.0)
[2025-05-04 07:40] LABS: Partial Thromboplastin Time 45.3 Seconds (22.0-36.0)
[2025-05-04 07:48] LABS: Albumin, Serum 2.6 gm/dL (3.4-4.8); Anion Gap 4 (7-16); BUN/Creatinine Ratio 30 Ratio (12-20); Blood Urea Nitrogen 33 mg/dL (9-23); Calcium 8.6 mg/dL (8.3-10.6); Calcium (Corrected) 9.7 mg/dL (8.5-10.1); Carbon Dioxide 27.8 mMol/L (20.0-31.0); Chloride 111 mMol/L (98-107); Creatinine (Component) 1.1 mg/dL (0.6-1.3); Estimated Creatinine Clearance 82.4 mL/min (>60); Glucose 148 mg/dL (74-106); Magnesium 2.3 mg/dL (1.6-2.6); Osmolality,Calculated 295 (275-295); Phosphorous 3.4 mg/dL (2.4-5.1); Potassium 4.4 mMol/L (3.4-5.1); Sodium 143 mMol/L (136-145); eGFR > 60 See Note
--- NOTE | 2025-05-04 08:27 | XR_ITS ---
Examination: CTA chest with intravenous contrast 2-D reconstructions 3-D reconstructions, vascular Date and time of exam: May 04, 2025 1439 hours Comparison April 28, 2025 INDICATIONS: Positive for numerous bilateral pulmonary artery emboli on CT chest study April 28, 2025, status post thrombectomy, shortness of breath today CTDI: vol (mGy) 41.3 DLP: (mGycm) 708 Technique: Multiple axial sections of the thorax have been obtained. 3 mm slice thickness, from below the hemidiaphragms to above the apices of the lungs. Mediastinal and lung density settings have been obtained. 2-D sagittal and coronal reconstructions. 3-D angiographic renderings, 3-D volume renderings, 3D post processing, vascular maximum intensity projections obtained. Contrast administered is 100 cc Isovue-370 . Low dose protocols were performed. One or more of the following dose reduction techniques were used; automated exposure control, adjustment of the mA and/or KV according to patient size, use of iterative reconstruction technique. Findings: No thoracic aortic aneurysm dilatation Axial images 85 through 95 show pulmonary artery emboli in the distal right main pulmonary artery There remain numerous filling defects in right lower lobe pulmonary artery branches, for instance axial image 103 Left lower lobe pulmonary artery filling defects are noted but less prominent compared to April 28, 2025 Enlarged cardiac contour with large bilateral pleural effusions Edema and/or pneumonia at the lung bases IMPRESSION: Pulmonary artery emboli in distal right main pulmonary artery. There remain numerous filling defects in right lower lobe pulmonary artery branches Left lower lobe pulmonary artery filling defects are noted but less prominent compared to April 28, 2025
[2025-05-04] MEDS: HEPARIN SOD INJ 5000 UNIT/ML VIAL 4000 UNIT IVP (08:59)
[2025-05-04] MEDS: SENNOSIDES SYRUP 8.8 MG/5 ML UDC GT (09:18)
[2025-05-04] MEDS: POLYETHYLENE GLYCOL 17 GM PACKET GT (09:18)
[2025-05-04] MEDS: lamoTRIgine 100 MG TABLET (NON-FORM) 200 MG GT (09:18)
[2025-05-04] MEDS: TAMSULOSIN HCL 0.4 MG CAPSULE GT (09:19)
[2025-05-04] MEDS: AZITHROMYCIN INJ 500 MG in SODIUM CHLORIDE 0.9% 250 ML 250 ML 250 MG IV (09:19)
[2025-05-04] MEDS: Heparin/D5w 25K 250 ML Ivpb 25,000 UNIT/250 ML BAG 20.454 UNIT IV (09:25)
--- NOTE | 2025-05-04 09:50 | ECHO_ITS ---
Transthoracic Echo Report Ht (in): 70 Wt (lb): 272 Exam Location: Echo Lab Status: Inpatient Wood Handler: Shirlene Johnson Indications: Procedure Performed: BP: 128 / 74 HR: 125 Technical Quality: Technically Difficult Due to Body Habitus/Lung Interference FINDINGS Left Ventricle Left ventricular cavity size is normal. Estimated EF >75% with hyperdynamic function. Right Ventricle Right ventricle is moderately dilated with mild systolic dysfunction. CONCLUSIONS Indications: PE - Assess RV Strain Limited Study Normal LV size and hyperdynamic LV Function. Estimated EF >70%. Normal RV size and function. RVSP normal. No RV strain. Paulo Hairston (Electronically Signed) Final Date: 04 May 2025 22:37
--- NOTE | 2025-05-04 10:34 | CHAP ---
Patient was visited by a Spiritual Care Volunteer on 05/04/2025 between 0900 and 0930 and received comfort, encouragement and/or prayer.
--- NOTE | 2025-05-04 11:07 | ESPR_ITS ---
Documentation for date of: 05/04/25 Subjective Subjective Interval history: This is a 6-year-old male admitted to the ICU with a history of esophageal cancer. He was diagnosed with left upper extremity DVT and PE. He underwent a pulmonary angiogram to evaluate for possible mechanical thrombectomy however no large vessel occlusion noted. His clot burden appeared to be distal. Yesterday he became hypoxic requiring several liters of O2 and his blood pressure was soft reason for which he was upgraded to the ICU. This morning he is awake alert and oriented. He is hemodynamically stable. He is on 10 L nasal cannula and satting well. He is mildly tachycardic. He currently does not complain of significant chest pain though he does say that he is somewhat short of breath. Denies nausea, vomiting, fevers or chills. Critical Care Note Critical care time (min.): 0 Exam Vital Signs Temp Pulse Resp BP Pulse Ox O2 Del Method O2 Flow Rate 98.2 F 124 H 32 H 136/70 H 93 L BiPAP 20 05/04/25 04:00 05/04/25 08:16 05/04/25 08:16 05/04/25 08:16 05/04/25 08:16 05/03/25 16:00 05/03/25 18:05 FiO2 70 05/03/25 18:10 Narrative Exam General-no acute distress, awake alert and oriented, obese HEENT-normocephalic, atraumatic, sclera icteric, oral mucosa is hydrated, no JVD, EOMI Chest-egophony noted on right posterior gold normal breath sounds on the left, heart rate regular rhythmic, no bruits murmurs, tachycardic, tachypneic but no use of accessory muscles Abdomen-obese, soft, nontender, bowel sounds present, no rebound or guarding. PEG in place with no discharge surrounding Extremities-significant 3+ edema of left upper extremity, pulses palpable, weakness of left upper extremity more pronounced in right Drips Heparin Physical Exam Completion Physical Exam Complete?: Yes Objective - Electronic Console Display Operator Labs 05/05/25 05:59 05/05/25 05:59 Labs: Laboratory Results - last 24 hr 05/03/25 05/03/25 05/03/25 04:47 16:30 16:34 WBC 20.7 H RBC 3.78 L Hgb 10.0 L Hct 31.4 L MCV 83 MCH 26.5 MCHC 31.8 RDW Std Deviation 60.4 H Plt Count 303 Neut % (Auto) 65 Lymph % (Auto) 17 Long % (Auto) 7 Eos % (Auto) 3 Baso % (Auto) 1 Neut # (Auto) 13.5 H Lymph # (Auto) 3.6 Long # (Auto) 1.4 H Eos # (Auto) 0.5 Baso # (Auto) 0.1 Immature Gran # (Auto) 1.58 H Absolute Nucleated RBC 0.04 H Immature Gran % 8 H Nucleated RBC % 0 APTT Puncture Site Right Radial ABG pH 7.40 ABG pCO2 41 ABG pO2 64 L ABG HCO3 26 ABG O2 Saturation 92 ABG Base Excess 1 FiO2 100 Sodium 142 Potassium 5.0 D Chloride 111 H Carbon Dioxide 21.6 Anion Gap 9 BUN 27 H Creatinine 1.1 Estim Creat Clear Calc 82.1 eGFR > 60 BUN/Creatinine Ratio 25 H Glucose 124 H Calculated Osmolality 289 Lactic Acid 3.4 H Calcium 9.4 Corrected Calcium 10.3 H Phosphorus Magnesium Total Bilirubin 0.5 AST 46 H ALT 11 Alkaline Phosphatase 373 H Troponin I 0.334 H* B-Natriuretic Peptide 59 Total Protein 5.3 L Albumin 2.9 L Globulin 2.4 Albumin/Globulin Ratio 1.2 05/03/25 05/03/25 05/04/25 17:46 20:48 00:49 WBC RBC Hgb Hct MCV MCH MCHC RDW Std Deviation Plt Count Neut % (Auto) Lymph % (Auto) Long % (Auto) Eos % (Auto) Baso % (Auto) Neut # (Auto) Lymph # (Auto) Long # (Auto) Eos # (Auto) Baso # (Auto) Immature Gran # (Auto) Absolute Nucleated RBC Immature Gran % Nucleated RBC % APTT 31.4 58.4 H D Puncture Site ABG pH ABG pCO2 ABG pO2 ABG HCO3 ABG O2 Saturation ABG Base Excess FiO2 Sodium Potassium Chloride Carbon Dioxide Anion Gap BUN Creatinine Estim Creat Clear Calc eGFR BUN/Creatinine Ratio Glucose Calculated Osmolality Lactic Acid 1.9 Calcium Corrected Calcium Phosphorus Magnesium Total Bilirubin AST ALT Alkaline Phosphatase Troponin I B-Natriuretic Peptide Total Protein Albumin Globulin Albumin/Globulin Ratio 05/04/25 06:58 WBC 16.8 H RBC 3.27 L Hgb 8.8 L Hct 27.9 L MCV 85 MCH 26.9 MCHC 31.5 RDW Std Deviation 62.3 H Plt Count 274 Neut % (Auto) 71 Lymph % (Auto) 14 Long % (Auto) 7 Eos % (Auto) 3 Baso % (Auto) 0 Neut # (Auto) 11.8 H Lymph # (Auto) 2.3 Long # (Auto) 1.1 H Eos # (Auto) 0.5 Baso # (Auto) 0.1 Immature Gran # (Auto) 1.02 H Absolute Nucleated RBC 0.03 H Immature Gran % 6 H Nucleated RBC % 0 APTT 45.3 H D Puncture Site ABG pH ABG pCO2 ABG pO2 ABG HCO3 ABG O2 Saturation ABG Base Excess FiO2 Sodium 143 Potassium 4.4 D Chloride 111 H Carbon Dioxide 27.8 Anion Gap 4 L BUN 33 H Creatinine 1.1 Estim Creat Clear Calc 82.4 eGFR > 60 BUN/Creatinine Ratio 30 H Glucose 148 H Calculated Osmolality 295 Lactic Acid Calcium 8.6 Corrected Calcium 9.7 Phosphorus 3.4 Magnesium 2.3 Total Bilirubin AST ALT Alkaline Phosphatase Troponin I B-Natriuretic Peptide Total Protein Albumin 2.6 L Globulin Albumin/Globulin Ratio Assessment & Plan Additional Assessment Additional Assessment: In brief is a 69-year-old male admitted to the ICU for acute hypoxic respiratory failure secondary to PE on mild hypotension a/p BUSINESS COORDINATOR stable CV Troponinemia-in the setting of PE, it is also trending downwards. No active chest pain. no RV strain noted on echo from 04/30 HFpEF- noted on echo 04/30 - no active decompensation at this time Hypotension- pt had a MAP that was soft overnight - no additional IVF given - this AM improved and appears hemodynamically stable - bolus if needed Resp Tachypnea-in the setting of multiple PEs -Currently with some acute hypoxic respiratory failure requiring 10 L on oxy mask - this appears to be improved from arrival Pulmonary embolism-patient has extensive DVT in his left upper extremity and is currently on heparin drip. He had been on Eliquis for a few days prior. Had undergone pulmonary angiogram to evaluate for need for mechanical thrombectomy however no readily accessible clot was noted and patient's clot burden appeared more distal. Yesterday there was a rapid response called for hypoxia the patient was upgraded to the ICU. He is currently on a heparin drip and pending a repeat CT angio today. If there is no new large PE will downgrade to telemetry. Renal Hypercalcemia-resolved GI Hypoalbuminemia Esophageal cancer- followed by oncology - pending port placement - pending PET scan Endo stable Heme LUE DVT- on heparin gtt Leukocytosis-in the setting of malignancy as well as PE Anemia-drop from 10 yesterday afternoon to 8.8 today. No obvious evidence of active bleeding. Will check a repeat H&H. Patient is on anticoagulation for PE. ID stable Case discussed with ICU team Discussed with cardiology Labs, imaging and records reviewed Approximately 38 minutes required for evaluation, exam, review, intervention, discussion formulation of plan of care for this acutely ill patient with multiple PEs Provider Notation Provider Notation: Although this document has been carefully reviewed, there may still be some phonetic and other typographical errors. These errors are purely grammatical due to imperfections in the software program and should not be construed in any way to compromise the substance of the patient's medical care during this visit. Thank you for the opportunity and privilege in assisting you with this patient's care and management.
[2025-05-04] MEDS: cefTRIAXone/D5w 1gm IV premix 1 GM/50 ML BAG IV (11:15)
--- NOTE | 2025-05-04 11:20 | ESPR_ITS ---
<Statement entered by Brian Wilburn MD - 05/04/25 18:36> Patient was seen and examined at bedside. I agree on the assessment and plan on this note. - Patient's plan and care discussed with my attending, Dr. Enrique Wilburn MD Internal Medicine PGY-2 Documentation for date of: 05/04/25 Subjective Subjective Interval history: Patient is a 69-year-old male with a past medical history of partially 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 Patient initially presented to the emergency room via private care with a chief complain of unable to tolerate feedings with regurgitations noted by family members at bedside and abdominal pain. Patient having increased shortness of breath and difficult to breath. Patient initially admitted for early pneumonia meeting SIRS criteria. [place] subsequently found to have an left upper extremity and CTA chest (04/28/2025): positive for numerous bilateral pulmonary artery emboli including large filling defects int he distral right main pumonary artery extending into upper and lower lobe right pulmonary artery branches. Left spraclavicular and left axillary, mediastinal, paraaortic and mesenteric extensive lymphadenopathy. Patient was upgraded to ICU for observation given extensive PE and hemoinstability. 05/03/2025: Patient upgraded to ICU, rapid response was called at 4:30 PM 5 worsening shortness of breath and hypoxia on high flow nasal cannula 100% FiO2, 40 L flow. Patient had more than 700 urine output overnight, WBC was elevated at 16.5 was started on cefepime and azithromycin IV by primary team. Patient has been Eliquis 10 mg twice a day for 4 days so far, was upgraded to ICU for possible subsegmental PE and worsening CHF. Unable to appreciate RV on bedside echo, multiple B-lines noted. 05/04/2025: Patient seen and evaluated in the intensive care unit today, patient tolerated BiPAP well overnight, this morning was transitioned off to oxy mask, ordered CTA chest to rule out pulmonary embolism, ordered repeat echocardiogram to rule out any right heart strain. Patient's blood pressure otherwise is stable, patient did not need any pressor support. Otherwise noted to be tachycardic at times, does have underlying atrial fibrillation, rate control medications being held in setting of hypotension, will resume as needed. Will de-escalate patient's antibiotic therapy to ceftriaxone from Zosyn. Patient otherwise has been stable for the last 12 hours, will be downgraded back to telemetry. Primary team to follow-up on results of CTA, heart rate and echocardiogram official read. Cardiology is following. Exam Vital Signs Temp Pulse Resp BP Pulse Ox O2 Del Method O2 Flow Rate 98.2 F 124 H 32 H 136/70 H 93 L BiPAP 20 05/04/25 04:00 05/04/25 08:16 05/04/25 08:16 05/04/25 08:16 05/04/25 08:16 05/03/25 16:00 05/03/25 18:05 FiO2 70 05/03/25 18:10 Narrative Exam Constitutional: Alert, oriented x3. Obese HEENT: Vision grossly intact. Patent nares. Trachea midline. On Oxy Mask. Respiratory: Chest normal on inspection and clear to auscultation bilaterally. Cardiovascular: S1 and S2 audible, RRR. No murmurs or carotid bruit. No gross JVD. Abdominal: Soft and non tender to palpation in all quadrants. BS + Genitourinary: No bladder tenderness, no flank pain. Non tender to palpation. Musculoskeletal: Extremities tone within normal limits. 1+ LE edema. Neurological: CN II - XII grossly intact. Extremity motor and sensation grossly intact. Skin: Warm, dry and intact. No apparent lesions. Psychiatric: Patient has a good affect, is cooperative. Objective Labs 05/04/25 11:58 05/04/25 06:58 Labs: Laboratory Results - last 24 hr 05/03/25 05/03/25 05/03/25 04:47 16:30 16:34 WBC 20.7 H RBC 3.78 L Hgb 10.0 L Hct 31.4 L MCV 83 MCH 26.5 MCHC 31.8 RDW Std Deviation 60.4 H Plt Count 303 Neut % (Auto) 65 Lymph % (Auto) 17 [place] % (Auto) 7 Eos % (Auto) 3 Baso % (Auto) 1 Neut # (Auto) 13.5 H Lymph # (Auto) 3.6 [place] # (Auto) 1.4 H Eos # (Auto) 0.5 Baso # (Auto) 0.1 Immature Gran # (Auto) 1.58 H Absolute Nucleated RBC 0.04 H Immature Gran % 8 H Nucleated RBC % 0 APTT Puncture Site Right Radial ABG pH 7.40 ABG pCO2 41 ABG pO2 64 L ABG HCO3 26 ABG O2 Saturation 92 ABG Base Excess 1 FiO2 100 Sodium 142 Potassium 5.0 D Chloride 111 H Carbon Dioxide 21.6 Anion Gap 9 BUN 27 H Creatinine 1.1 Estim Creat Clear Calc 82.1 eGFR > 60 BUN/Creatinine Ratio 25 H Glucose 124 H Calculated Osmolality 289 Lactic Acid 3.4 H Calcium 9.4 Corrected Calcium 10.3 H Phosphorus Magnesium Total Bilirubin 0.5 AST 46 H ALT 11 Alkaline Phosphatase 373 H Troponin I 0.334 H* B-Natriuretic Peptide 59 Total Protein 5.3 L Albumin 2.9 L Globulin 2.4 Albumin/Globulin Ratio 1.2 05/03/25 05/03/25 05/04/25 17:46 20:48 00:49 WBC RBC Hgb Hct MCV MCH MCHC RDW Std Deviation Plt Count Neut % (Auto) Lymph % (Auto) [place] % (Auto) Eos % (Auto) Baso % (Auto) Neut # (Auto) Lymph # (Auto) [place] # (Auto) Eos # (Auto) Baso # (Auto) Immature Gran # (Auto) Absolute Nucleated RBC Immature Gran % Nucleated RBC % APTT 31.4 58.4 H D Puncture Site ABG pH ABG pCO2 ABG pO2 ABG HCO3 ABG O2 Saturation ABG Base Excess FiO2 Sodium Potassium Chloride Carbon Dioxide Anion Gap BUN Creatinine Estim Creat Clear Calc eGFR BUN/Creatinine Ratio Glucose Calculated Osmolality Lactic Acid 1.9 Calcium Corrected Calcium Phosphorus Magnesium Total Bilirubin AST ALT Alkaline Phosphatase Troponin I B-Natriuretic Peptide Total Protein Albumin Globulin Albumin/Globulin Ratio 05/04/25 06:58 WBC 16.8 H RBC 3.27 L Hgb 8.8 L Hct 27.9 L MCV 85 MCH 26.9 MCHC 31.5 RDW Std Deviation 62.3 H Plt Count 274 Neut % (Auto) 71 Lymph % (Auto) 14 [place] % (Auto) 7 Eos % (Auto) 3 Baso % (Auto) 0 Neut # (Auto) 11.8 H Lymph # (Auto) 2.3 [place] # (Auto) 1.1 H Eos # (Auto) 0.5 Baso # (Auto) 0.1 Immature Gran # (Auto) 1.02 H Absolute Nucleated RBC 0.03 H Immature Gran % 6 H Nucleated RBC % 0 APTT 45.3 H D Puncture Site ABG pH ABG pCO2 ABG pO2 ABG HCO3 ABG O2 Saturation ABG Base Excess FiO2 Sodium 143 Potassium 4.4 D Chloride 111 H Carbon Dioxide 27.8 Anion Gap 4 L BUN 33 H Creatinine 1.1 Estim Creat Clear Calc 82.4 eGFR > 60 BUN/Creatinine Ratio 30 H Glucose 148 H Calculated Osmolality 295 Lactic Acid Calcium 8.6 Corrected Calcium 9.7 Phosphorus 3.4 Magnesium 2.3 Total Bilirubin AST ALT Alkaline Phosphatase Troponin I B-Natriuretic Peptide Total Protein Albumin 2.6 L Globulin Albumin/Globulin Ratio ABG Interpretation ABG results: 04/28/25 04/28/25 04/29/25 08:00 23:00 18:22 ABG pH 7.41 7.39 ABG pCO2 37 42 ABG pO2 80 L 85 ABG HCO3 23 25 ABG O2 Saturation 97 97 ABG Base Excess -1 0 VBG pH 7.36 VBG pCO2 49 VBG pO2 27 VBG Base Excess 1 05/03/25 16:34 ABG pH 7.40 ABG pCO2 41 ABG pO2 64 L ABG HCO3 26 ABG O2 Saturation 92 ABG Base Excess 1 VBG pH VBG pCO2 VBG pO2 VBG Base Excess Quality Measures Quality Measures none Advance care planning discussed with:: patient Assessment & Plan Assessment Current Active Medications: Generic Name Dose Route Start Last Admin Trade Name Freq PRN Reason Stop Dose Admin Acetaminophen 650 mg 04/30/25 08:20 Acetaminophen Georgette 325 Mg/10 Ml Udc GT 05/26/25 14:04 Q6H PRN Fever >101.5 OR PAIN 1-3 Albuterol/Ipratropium 3 ml 05/01/25 07:45 05/04/25 06:42 Albuterol/Ipratropium (Duoneb) Rt Georgette 3 Ml Nebu INH 05/31/25 07:44 3 ml Q6HRRT ELLIOTT Administration Apixaban 10 mg 05/01/25 21:00 05/03/25 09:28 Apixaban 2.5 Mg Tablet GT 10 mg BID ELLIOTT Administration Carbidopa/Levodopa 1 tab 04/26/25 22:00 05/04/25 06:10 Carbidopa/Levodopa 25/100 Mg Tablet GT 05/26/25 21:59 1 tab TID ELLIOTT Administration Gabapentin 100 mg 04/26/25 22:00 05/04/25 06:10 Gabapentin 100 Mg Capsule GT 05/26/25 21:59 100 mg TID ELLIOTT Administration Guaifenesin 200 mg 05/01/25 12:00 05/04/25 06:09 Guaifenesin Syrup 200 Mg/10 Ml Udc GT 05/31/25 11:59 200 mg QID ELLIOTT Administration Protocol Hydromorphone HCl 1 mg 05/01/25 10:22 05/03/25 16:34 Hydromorphone Inj 2 Mg/Ml Vial IVP 05/06/25 10:21 1 mg Q4HR PRN Administration Breakthrough Pain Protocol Azithromycin 500 mg/ Sodium 250 mls @ 250 mls/hr 05/03/25 10:57 05/04/25 09:19 Chloride IV 05/10/25 10:56 250 mls/hr QDAY ELLIOTT Administration Norepinephrine/Dextrose 8 mg in 250 mls @ 11.503 mls/hr 05/03/25 16:55 Levophed In D5w 8mg/250ml IV 06/02/25 16:54 .[id number] PRN PER PROTOCOL Protocol 0.05 MCG/KG/MIN Heparin Sodium/Dextrose 25,000 unit in 250 mls @ 18 mls/hr 05/03/25 18:45 05/04/25 09:25 Heparin In D5w Ivpb IV 05/17/25 18:44 16.67 units/kg/hr .[id number] ELLIOTT 20.454 mls/hr Administration Protocol 14.67 UNITS/KG/HR Ceftriaxone Sodium/Dextrose 1 gm in 50 mls @ 100 mls/hr 05/04/25 10:31 Rocephin/D5w 1gm Iv Premix IV 05/11/25 10:30 QDAY ELLIOTT Lamotrigine 200 mg 04/29/25 09:00 05/04/25 09:18 Lamotrigine 100 Mg Tablet (Non-Form) GT 05/29/25 08:59 200 mg QDAY ELLIOTT Administration Ondansetron HCl 4 mg 04/26/25 14:05 Ondansetron Inj 2 Mg/Ml Inj 2 Ml IVP 05/26/25 14:04 Q6H PRN NAUSEA OR VOMITING Protocol Pantoprazole Sodium 40 mg 05/01/25 09:15 05/04/25 09:18 Pantoprazole Inj 40 Mg Vial IVP 05/31/25 09:14 40 mg QDAY ELLIOTT Administration Protocol Polyethylene Glycol 17 gm 05/02/25 09:00 05/04/25 09:18 Polyethylene Glycol 17 Gm Packet GT 06/01/25 08:59 17 gm QDAY ELLIOTT Administration Quetiapine Fumarate 200 mg 04/27/25 09:00 05/04/25 09:18 Quetiapine Fumarate 100 Mg Tablet GT 05/27/25 08:59 200 mg BID ELLIOTT Administration Sennosides 8.8 mg 05/02/25 09:00 05/04/25 09:18 Sennosides Syrup 8.8 Mg/5 Ml Udc GT 06/01/25 08:59 8.8 mg QDAY ELLIOTT Administration Protocol Tamsulosin HCl 0.4 mg 05/01/25 09:15 05/04/25 09:19 Tamsulosin Hcl 0.4 Mg Capsule GT 05/31/25 09:14 0.4 mg QDAY ELLIOTT Administration Plan Mr. 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 Abdo/Pelvic CT confirmed lymphadenopathy in the descending thoracic aorta, abdominal lymphadenopathy and pelvic mesenteric lymphadenopathy. Patient presented to the ED on 04/23/2025 with severe nausea, nonbloody vomitus and multiple episodes of diarrhea. Radiation oncology Dr. Saeed was consulted for further evaluation. Patient underwent CTA chest on 04/28 which confirmed numerous bilateral PE, large filling defect in the distal right main pulmonary artery extending to the upper and lower lobe right pulmonary artery branches. Left supraclavicular and left axillary, mediastinal, para-aortic and mesenteric extensive lymphadenopathy also noted. Esophageal mass present in the distal esophagus. Cardiology was consulted for need for thrombectomy. ICU team consulted for hypoxia in the setting of acute PE, and for thrombectomy on 04/30/2025. Patient's PE dissolved with Heparin gtt and did not require intervention at that time. Was downgarded to medical floors but upgraded back on 05/03 due to worsening hypoxia. NEURO Parkinson's disease Bipolar disorder Rx: - Continue home med carbidopa-levodopa TID - Continue home med Quetiapine 200 mg BID CVS Sinus Tachycardia History of hypertension Dx: PE - 05/03 :BP 130-140/90-100s , HR 105-115bpm Rx: - HOLD losartan 25 mg Qday - HOLD Carvedilol 6.25 mg BID, consider resuming if patient continues to remain tachycardic - Cardiology is following, appreciate input. - Blood pressure within normal limits patient did not require any pressor support PULM Acute Hypoxic Resp Failure Recurrent Subsegmental PE s/p thrombectomy eval Left UE DVT + Pulmonary metastases - Patient developed swelling of left upper extremity since last night - On physical examination, noted swelling and erythema in the left upper extremity - Venous Doppler US: acute nonocclusive thrombus extending up to left jugular vein - CTA Chest on 04/28 : numerous bilateral PE, large filling defect in the distal right main pulmonary artery extending to the upper and lower lobe right pulmonary artery branches. Left supraclavicular and left axillary, mediastinal, para-aortic and mesenteric extensive lymphadenopathy also noted. Esophageal mass present in the distal esophagus. - 04/29: Diagnostic angiogram, right heart cath performed which showed adequate blood flow to right and left lower segments pulmonary arteries, no need for mechanical thrombectomy at this time. - PESI score 110. Class IV; high risk of 30-day mortality. - 05/03: Bedside echo showed b lines, cannot appreciate RV. - CXR : RLL wedge shaped opacity, likely subsegmental PE - ABG: pH 7.4 , Co2 41 and Bicarb 21.6 Rx: - Ordered CTA chest to rule out pulmonary embolism - Ordered repeat echocardiogram to evaluate for right heart strain - Transition from the BiPAP to oxy mask - Heparin drip with APTT monitoring, transition to Eliquis GI/Hep Esophageal carcinoma s/p G-tube placement Dx: - Patient presented to the ED on 04/23/2025 with severe nausea, nonbloody vomitus and multiple episodes of diarrhea. - Recently diagnosed of esophageal undifferentiated carcinoma in March 2025 - Abd/Pelvis CT : Marked abnormal thickening of the lateral wall esophagus in this patient with the diagnosis of the esophageal carcinoma, extensive metastatic lymphadenopathy and osteolytic metastatic disease. Rx: - Oncologist Dr. Saeed consulted, recommendations are greatly appreciated - PRN Morphine, Dilaudid as needed for pain Protein calorie malnutrition Tube Feeds: Dx: - Patient takes bolus tube feeds at home, will resume at this time - Protein 4.5, albumin 2.7 - significant muscle wasting AND loss of subcutaneous fat - nutritional intake of <50% of recommended intake for > 2 weeks - bedridden or otherwise significantly reduced functional capacity Rx: - Will feed 150 mL every 2 hours via PEG in the ICU - Clear liquid diet PO as tolerated RENAL Hypercalcemia of Malignancy, resolved Dx: Calcium 11.4 -> 10.8 Likely in the setting of Esophageal CA Rx: - SARBJIT has resolved. Continue to Renally dose medication - Avoid nephrotoxic agents HEME Leukocytosis Dx: WBC 15.3 -> 20.7 - Cefepime + Azithro transition to Zosyn + Azithro on 05/03 - Will de-escalate antibiotic therapy, likely underlying tachycardia and tachypnea due to pulmonary embolism - Switch to ceftriaxone and azithromycin 05/04 Normocytic Anemia Dx: Hb 10, MCV 83 Rx: Likely in the setting of malignancy. Avoid repletion in malignancy ENDO Obesity Dx: BMI 36.7 Rx: Oupatient work up ID RLL PNA - 04/26: Blood cultures negative @ 48 hours - 05/03 CXR : RLL opacities Rx: - Continue ceftriaxone + Azithro (05/04- ICU Health maintenance: Dispo: ICU --> Tele Diet: Tube feeds via PEG, 150mL every 2 hours DVT ppx: Heparin GTT GI ppx: Protonix 40mg qD IV lines: 2 pIV Central line: Yes Arterial line: Yes [place]and: NO Code status: FULL CODE Case discussed with Attending Dr. Nunez. Genny Schilling PGY2 Disclaimer: This note was dictated by speech recognition. Minor errors in flight coordinator may be present due to voice recognition software.
--- NOTE | 2025-05-04 12:01 | ESPR_ITS ---
Documentation for date of: 05/04/25 Subjective Subjective Interval history: No acute overnight events. He was in ICU for observation and continued on BiPAP overnight and downgraded to floors this morning. He continued on 15 L nasal cannula, sats in the low 90s. Although he is very tachypneic and tachycardic. There is recurrent nosebleed, for which blood thinners were held today. We had extensive discussion with patient and step-mother (Idalia) at bedside regarding goals of cares. In light of the worsening overall status including worsening pain, increased oxygen demand, new findings of possibly new PE of right mainstem on CTA chest, patient and family elected for DNR. Additionally, they denied further blood thinners and/or aggressive respiration measures including BiPAP. Will continue with ANTIBIOTICS, pain control, and oxygen through nasal cannula/OxyMask. Will revisit goals of care if patient continues to decline and as needed. Exam Vital Signs Temp Pulse Resp BP Pulse Ox O2 Del Method O2 Flow Rate 98.2 F 125 H 27 H 128/74 96 BiPAP 20 05/04/25 04:00 05/04/25 11:16 05/04/25 11:16 05/04/25 11:16 05/04/25 11:16 05/03/25 16:00 05/03/25 18:05 FiO2 70 05/03/25 18:10 Narrative Exam General: Alert and oriented x3, in moderate distress secondary to air hunger, continued on 15 L NC, satting in low 90s. Eyes: Pupils are equal and reactive to light bilaterally. HEENT: Atraumatic, normocephalic. No JVD noted. Mucosa moist. Cardiovascular: Normal S1 and S2. Tachycardic and regular rhythm. No murmurs appreciated. Trace peripheral pitting edema noted. Respiratory: Tachypneic, coarse breath sounds bilaterally. No wheezing. Abdomen: Soft, nontender, nondistended. Skin: No rash. Warm to touch. Musculoskeletal: No gross injuries. Able to move all 4 extremities. Neuro: Alert and oriented x3. No focal neuro deficits. Psych: Normal affect and mood Objective Labs 05/06/25 04:51 05/06/25 04:51 Labs: Laboratory Results - last 24 hr 05/03/25 05/03/25 05/03/25 04:47 16:30 16:34 WBC 20.7 H RBC 3.78 L Hgb 10.0 L Hct 31.4 L MCV 83 MCH 26.5 MCHC 31.8 RDW Std Deviation 60.4 H Plt Count 303 Neut % (Auto) 65 Lymph % (Auto) 17 [place] % (Auto) 7 Eos % (Auto) 3 Baso % (Auto) 1 Neut # (Auto) 13.5 H Lymph # (Auto) 3.6 [place] # (Auto) 1.4 H Eos # (Auto) 0.5 Baso # (Auto) 0.1 Immature Gran # (Auto) 1.58 H Absolute Nucleated RBC 0.04 H Immature Gran % 8 H Nucleated RBC % 0 APTT Puncture Site Right Radial ABG pH 7.40 ABG pCO2 41 ABG pO2 64 L ABG HCO3 26 ABG O2 Saturation 92 ABG Base Excess 1 FiO2 100 Sodium 142 Potassium 5.0 D Chloride 111 H Carbon Dioxide 21.6 Anion Gap 9 BUN 27 H Creatinine 1.1 Estim Creat Clear Calc 82.1 eGFR > 60 BUN/Creatinine Ratio 25 H Glucose 124 H Calculated Osmolality 289 Lactic Acid 3.4 H Calcium 9.4 Corrected Calcium 10.3 H Phosphorus Magnesium Total Bilirubin 0.5 AST 46 H ALT 11 Alkaline Phosphatase 373 H Troponin I 0.334 H* B-Natriuretic Peptide 59 Total Protein 5.3 L Albumin 2.9 L Globulin 2.4 Albumin/Globulin Ratio 1.2 05/03/25 05/03/25 05/04/25 17:46 20:48 00:49 WBC RBC Hgb Hct MCV MCH MCHC RDW Std Deviation Plt Count Neut % (Auto) Lymph % (Auto) [place] % (Auto) Eos % (Auto) Baso % (Auto) Neut # (Auto) Lymph # (Auto) [place] # (Auto) Eos # (Auto) Baso # (Auto) Immature Gran # (Auto) Absolute Nucleated RBC Immature Gran % Nucleated RBC % APTT 31.4 58.4 H D Puncture Site ABG pH ABG pCO2 ABG pO2 ABG HCO3 ABG O2 Saturation ABG Base Excess FiO2 Sodium Potassium Chloride Carbon Dioxide Anion Gap BUN Creatinine Estim Creat Clear Calc eGFR BUN/Creatinine Ratio Glucose Calculated Osmolality Lactic Acid 1.9 Calcium Corrected Calcium Phosphorus Magnesium Total Bilirubin AST ALT Alkaline Phosphatase Troponin I B-Natriuretic Peptide Total Protein Albumin Globulin Albumin/Globulin Ratio 05/04/25 06:58 WBC 16.8 H RBC 3.27 L Hgb 8.8 L Hct 27.9 L MCV 85 MCH 26.9 MCHC 31.5 RDW Std Deviation 62.3 H Plt Count 274 Neut % (Auto) 71 Lymph % (Auto) 14 [place] % (Auto) 7 Eos % (Auto) 3 Baso % (Auto) 0 Neut # (Auto) 11.8 H Lymph # (Auto) 2.3 [place] # (Auto) 1.1 H Eos # (Auto) 0.5 Baso # (Auto) 0.1 Immature Gran # (Auto) 1.02 H Absolute Nucleated RBC 0.03 H Immature Gran % 6 H Nucleated RBC % 0 APTT 45.3 H D Puncture Site ABG pH ABG pCO2 ABG pO2 ABG HCO3 ABG O2 Saturation ABG Base Excess FiO2 Sodium 143 Potassium 4.4 D Chloride 111 H Carbon Dioxide 27.8 Anion Gap 4 L BUN 33 H Creatinine 1.1 Estim Creat Clear Calc 82.4 eGFR > 60 BUN/Creatinine Ratio 30 H Glucose 148 H Calculated Osmolality 295 Lactic Acid Calcium 8.6 Corrected Calcium 9.7 Phosphorus 3.4 Magnesium 2.3 Total Bilirubin AST ALT Alkaline Phosphatase Troponin I B-Natriuretic Peptide Total Protein Albumin 2.6 L Globulin Albumin/Globulin Ratio ABG Interpretation ABG results: 04/28/25 04/28/25 04/29/25 08:00 23:00 18:22 ABG pH 7.41 7.39 ABG pCO2 37 42 ABG pO2 80 L 85 ABG HCO3 23 25 ABG O2 Saturation 97 97 ABG Base Excess -1 0 VBG pH 7.36 VBG pCO2 49 VBG pO2 27 VBG Base Excess 1 05/03/25 16:34 ABG pH 7.40 ABG pCO2 41 ABG pO2 64 L ABG HCO3 26 ABG O2 Saturation 92 ABG Base Excess 1 VBG pH VBG pCO2 VBG pO2 VBG Base Excess Quality Measures Quality Measures none Advance care planning discussed with:: patient Assessment & Plan Assessment Current Active Medications: Generic Name Dose Route Start Last Admin Trade Name Freq PRN Reason Stop Dose Admin Acetaminophen 650 mg 04/30/25 08:20 Acetaminophen Georgette 325 Mg/10 Ml Udc GT 05/26/25 14:04 Q6H PRN Fever >101.5 OR PAIN 1-3 Albuterol/Ipratropium 3 ml 05/01/25 07:45 05/04/25 06:42 Albuterol/Ipratropium (Duoneb) Rt Georgette 3 Ml Nebu INH 05/31/25 07:44 3 ml [id number] ELLIOTT Administration Apixaban 10 mg 05/01/25 21:00 05/03/25 09:28 Apixaban 2.5 Mg Tablet GT 10 mg BID ELLIOTT Administration Carbidopa/Levodopa 1 tab 04/26/25 22:00 05/04/25 06:10 Carbidopa/Levodopa 25/100 Mg Tablet GT 05/26/25 21:59 1 tab TID ELLIOTT Administration Gabapentin 100 mg 04/26/25 22:00 05/04/25 06:10 Gabapentin 100 Mg Capsule GT 05/26/25 21:59 100 mg TID ELLIOTT Administration Guaifenesin 200 mg 05/01/25 12:00 05/04/25 06:09 Guaifenesin Syrup 200 Mg/10 Ml Udc GT 05/31/25 11:59 200 mg QID ELLIOTT Administration Protocol Hydromorphone HCl 1 mg 05/01/25 10:22 05/03/25 16:34 Hydromorphone Inj 2 Mg/Ml Vial IVP 05/06/25 10:21 1 mg Q4HR PRN Administration Breakthrough Pain Protocol Azithromycin 500 mg/ Sodium 250 mls @ 250 mls/hr 05/03/25 10:57 05/04/25 09:19 Chloride IV 05/10/25 10:56 250 mls/hr QDAY ELLIOTT Administration Norepinephrine/Dextrose 8 mg in 250 mls @ 11.503 mls/hr 05/03/25 16:55 Levophed In D5w 8mg/250ml IV 06/02/25 16:54 .[id number] PRN PER PROTOCOL Protocol 0.05 MCG/KG/MIN Heparin Sodium/Dextrose 25,000 unit in 250 mls @ 18 mls/hr 05/03/25 18:45 05/04/25 09:25 Heparin In D5w Ivpb IV 05/17/25 18:44 16.67 units/kg/hr .[id number] ELLIOTT 20.454 mls/hr Administration Protocol 14.67 UNITS/KG/HR Ceftriaxone Sodium/Dextrose 1 gm in 50 mls @ 100 mls/hr 05/04/25 10:31 Rocephin/D5w 1gm Iv Premix IV 05/11/25 10:30 QDAY ELLIOTT Lamotrigine 200 mg 04/29/25 09:00 05/04/25 09:18 Lamotrigine 100 Mg Tablet (Non-Form) GT 05/29/25 08:59 200 mg QDAY ELLIOTT Administration Ondansetron HCl 4 mg 04/26/25 14:05 Ondansetron Inj 2 Mg/Ml Inj 2 Ml IVP 05/26/25 14:04 Q6H PRN NAUSEA OR VOMITING Protocol Pantoprazole Sodium 40 mg 05/01/25 09:15 05/04/25 09:18 Pantoprazole Inj 40 Mg Vial IVP 05/31/25 09:14 40 mg QDAY ELLIOTT Administration Protocol Polyethylene Glycol 17 gm 05/02/25 09:00 05/04/25 09:18 Polyethylene Glycol 17 Gm Packet GT 06/01/25 08:59 17 gm QDAY ELLIOTT Administration Quetiapine Fumarate 200 mg 04/27/25 09:00 05/04/25 09:18 Quetiapine Fumarate 100 Mg Tablet GT 05/27/25 08:59 200 mg BID ELLIOTT Administration Sennosides 8.8 mg 05/02/25 09:00 05/04/25 09:18 Sennosides Syrup 8.8 Mg/5 Ml Udc GT 06/01/25 08:59 8.8 mg QDAY ELLIOTT Administration Protocol Tamsulosin HCl 0.4 mg 05/01/25 09:15 05/04/25 09:19 Tamsulosin Hcl 0.4 Mg Capsule GT 05/31/25 09:14 0.4 mg QDAY ELLIOTT Administration Plan Mr. Hale, a 69-year-old male with stage IV esophageal carcinoma, Parkinson?s disease, and several comorbidities, was admitted on 04/26/2025 with nausea, vomiting, diarrhea, and weakness. His cancer has spread to lymph nodes and bones. On 04/28, a CTA chest confirmed bilateral PEand left upper extremity DVT. He was started on heparin drip, initially opted for comfort care, but later chose full code and thrombectomy. By 04/30, after right heart catheterization and pulmonary angiogram, his PE showed partial resolution, and oxygen needs decreased. He is receiving supportive care for his cancer. His blood pressure stabilized with Levophed for short-period while in ICU, and pain is managed with morphine. His condition remains critical, and care is focused on symptom relief and preventing further complications. After shared recommendations from oncology, cardiology, kiln firer helper teams. Acute hypoxemic respiratory failure Acute pulmonary embolism Left upper extremity DVT Possible Pulmonary metastatic cancer Had increasing oxygen demand since admission. CTA chest was positive for numerous bilateral pulmonary arterial emboli including large filling defect in distal right main artery extending into the origin of upper and lower lobe pulmonary branches. He was started on HEPARIN drip, and underwent thrombectomy with cardiology team while in ICU. Symptoms have improved. Currently on nasal cannula, satting well. This possible lung metastatic disease of his esophageal carcinoma given extensive multisystem involvement. Will need PET scan eventually. HEPARIN drip discontinued on 05/01, transition to ELIQUIS BID. 05/04/2025: He was in the ICU overnight for observation while on BiPAP. Currently on 15 L nasal cannula, downgraded to floors. Sats remain low low 90s, upper 80s. Remains tachypneic and tachycardic and in moderate distress secondary to pain and air hunger. CTA chest today showed pulmonary embolism in the distal right main pulmonary artery and multiple additional filling defects in numerous branches. As stated above, the patient and family elected for DNR and no further aggressive treatment measures, declined further blood thinners, declined BiPAP and/or intubation. Will continue with oxygen, pain control and ANTIBIOTICS for pneumonia. Will revisit goals of cares in the event his health status continues to decline or as indicated. ? Discontinued HEPARIN/ELIQUIS ? Oxygen PRN ? DuoNebs PRN ? Pain control, multimodal ? Continue AZITHROMYCIN (05/03 to present) for possible PNA ? Continue CEFTRIAXONE (05/04 to present) for possible PNA DVT left upper extremity Venous Doppler was done for left upper extremity swelling and showed nonocclusive thrombus extending up to left jugular vein. Swelling overall improving. ? Continue above management SIRS Paraneoplastic leukocytosis Immunocompromised Esophageal carcinoma Esophageal dysphagia requiring G-tube Protein calorie malnutrition Recently diagnosed esophageal carcinoma (undifferentiated). Admission CT abdominal pelvis showed thickening lateral wall esophagus, extensive metastatic lymphadenopathy with widespread osteolytic metastatic disease. Has worsening esophageal dysphagia secondary to above-mentioned findings, requiring PEG tube use. ? Oncology on board ? TYLENOL for fever ? Continue MORPHINE 2 mg Q2H (pain 1-4) ? Continue DILAUDID 1 mg Q4H (breakthrough pain) ? Continue GABAPENTIN 100 mg TID Hypertension Shock, multifactorial (resolved) He had multifactorial shock while in ICU, likely hypovolemic which resolved with short course of pressors and fluids. Currently normotensive ? Holding home LOSARTAN 25 daily ? Holding home CARVEDILOL 6.25 BID Transaminitis, resolving Most likely secondary to hypovalemia/dehydration in setting of NVD Overall stable. ? Daily labs Parkinsons disease Bipolar disorder ? Restarted home med CARBIDOPA LEVODOPA TID ? Restarted home med QUETIAPINE 200 mg BID ? Continue LAMOTRIGINE 200 mg daily SARBJIT, prerenal azotemia (resolved) Hypercalcemia Prerenal azotemia likely volume depletion, overall improved with fluids. Urine output is adequate. Hypercalcemia in setting of malignancy, calcium around 11.3 ? Renally dose meds, avoid overdiuresis and NEPHROTOXINS ? Daily CMP Health maintenance Diet: Managed by dietary GI prophylaxis: PROTONIX DVT prophylaxis: ELIQUIS Antibiotics: Not indicated CODE STATUS: Full code Disposition: Treating pulmonary embolism, wean off oxygen, currently on HFNC Case was discussed with attending physician and senior resident. Francisco J Larsen DO PGY II This document was transcribed using voice recognition technology. Minor inaccuracies may be present. Attending Provider Attestation/Addendum I attest that I was physically present for the evaluation, physical examination, lab and imaging review of the patient with the residents. I discussed the case with the residents and agree with the findings and plans of care as documented above. Rajesh Roberts MD
[2025-05-04 12:24] LABS: Hematocrit 28.5 % (41.0-53.0); Hemoglobin 9.2 g/dL (13.5-16.0)
--- NOTE | 2025-05-04 15:53 | PC.SS ---
Rounding Note: Patient has been downgraded from ICU. Once medically stable patient to d/c to SNF.
[2025-05-04 16:34] LABS: Partial Thromboplastin Time 52.3 Seconds (22.0-36.0)
--- NOTE | 2025-05-04 16:47 | ESPR_ITS ---
Documentation for date of: 05/04/25 Subjective Subjective Interval history: Patient is a 69-year-old male with a past medical history of partially 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 Patient initially presented to the emergency room via private care with a chief complain of unable to tolerate feedings with regurgitations noted by family members at bedside and abdominal pain. Patient having increased shortness of breath and difficult to breath. Patient initially admitted for early pneumonia meeting SIRS criteria. Paitnet subsequently found to have an left upper extremity and CTA chest (04/28/2025): positive for numerous bilateral pulmonary artery emboli including large filling defects int he distral right main pumonary artery extending into upper and lower lobe right pulmonary artery branches. Left spraclavicular and left axillary, mediastinal, paraaortic and mesenteric extensive lymphadenopathy. Patient was upgraded to ICU for observation given extensive PE and hemoinstability. 05/04/2025: Patinet examined at bedside. Improvement in BL breath sounds. Saturating 93% on 3 L NC. Continue heparin. Recommended to obtain repeat TTE for rt heart strain and function. Patient now on Zosyn and Azithromyiinc (05/03--). Repeat CTA chest to R/O PE. Exam Vital Signs Temp Pulse Resp BP Pulse Ox O2 Del Method O2 Flow Rate 98.4 F 134 H 28 H 143/87 H 93 L BiPAP 20 05/04/25 16:00 05/04/25 16:00 05/04/25 16:00 05/04/25 16:05/04/25 16:00 05/03/25 16:05/03/25 18:05 FiO2 4 05/04/25 12:38 Narrative Exam General: Alert and oriented x3. This morning patient does not appear to be in any respiratory distress and is on nasal cannula. Eyes: Pupils are equal and reactive to light bilaterally. HEENT: Atraumatic, normocephalic. No JVD noted. Mucosa moist. Cardiovascular: Normal S1 and S2. Tachycardic and regular rhythm. No murmurs appreciated. Trace peripheral pitting edema noted. Respiratory: No respiratory distress. Lungs are clear to auscultation bilaterally but decreased at the bases. No wheezing or crackles heard. Abdomen: Soft, nontender, nondistended. Skin: No rash. Warm to touch. Musculoskeletal: No gross injuries. Able to move all 4 extremities. Neuro: Alert and oriented x3. No focal neuro deficits. Psych: Normal affect and mood Objective Labs 05/04/25 11:58 05/04/25 06:58 Labs: Laboratory Results - last 24 hr 05/03/25 05/03/25 05/03/25 04:47 16:30 16:34 WBC 20.7 H RBC 3.78 L Hgb 10.0 L Hct 31.4 L MCV 83 MCH 26.5 MCHC 31.8 RDW Std Deviation 60.4 H Plt Count 303 Neut % (Auto) 65 Lymph % (Auto) 17 [place] % (Auto) 7 Eos % (Auto) 3 Baso % (Auto) 1 Neut # (Auto) 13.5 H Lymph # (Auto) 3.6 [place] # (Auto) 1.4 H Eos # (Auto) 0.5 Baso # (Auto) 0.1 Immature Gran # (Auto) 1.58 H Absolute Nucleated RBC 0.04 H Immature Gran % 8 H Nucleated RBC % 0 APTT Puncture Site Right Radial ABG pH 7.40 ABG pCO2 41 ABG pO2 64 L ABG HCO3 26 ABG O2 Saturation 92 ABG Base Excess 1 FiO2 100 Sodium 142 Potassium 5.0 D Chloride 111 H Carbon Dioxide 21.6 Anion Gap 9 BUN 27 H Creatinine 1.1 Estim Creat Clear Calc 82.1 eGFR > 60 BUN/Creatinine Ratio 25 H Glucose 124 H Calculated Osmolality 289 Lactic Acid 3.4 H Calcium 9.4 Corrected Calcium 10.3 H Phosphorus Magnesium Total Bilirubin 0.5 AST 46 H ALT 11 Alkaline Phosphatase 373 H Troponin I 0.334 H* B-Natriuretic Peptide 59 Total Protein 5.3 L Albumin 2.9 L Globulin 2.4 Albumin/Globulin Ratio 1.2 05/03/25 05/03/25 05/04/25 17:46 20:48 00:49 WBC RBC Hgb Hct MCV MCH MCHC RDW Std Deviation Plt Count Neut % (Auto) Lymph % (Auto) [place] % (Auto) Eos % (Auto) Baso % (Auto) Neut # (Auto) Lymph # (Auto) [place] # (Auto) Eos # (Auto) Baso # (Auto) Immature Gran # (Auto) Absolute Nucleated RBC Immature Gran % Nucleated RBC % APTT 31.4 58.4 H D Puncture Site ABG pH ABG pCO2 ABG pO2 ABG HCO3 ABG O2 Saturation ABG Base Excess FiO2 Sodium Potassium Chloride Carbon Dioxide Anion Gap BUN Creatinine Estim Creat Clear Calc eGFR BUN/Creatinine Ratio Glucose Calculated Osmolality Lactic Acid 1.9 Calcium Corrected Calcium Phosphorus Magnesium Total Bilirubin AST ALT Alkaline Phosphatase Troponin I B-Natriuretic Peptide Total Protein Albumin Globulin Albumin/Globulin Ratio 05/04/25 05/04/25 05/04/25 06:58 11:58 15:23 WBC 16.8 H RBC 3.27 L Hgb 8.8 L 9.2 L Hct 27.9 L 28.5 L MCV 85 MCH 26.9 MCHC 31.5 RDW Std Deviation 62.3 H Plt Count 274 Neut % (Auto) 71 Lymph % (Auto) 14 [place] % (Auto) 7 Eos % (Auto) 3 Baso % (Auto) 0 Neut # (Auto) 11.8 H Lymph # (Auto) 2.3 [place] # (Auto) 1.1 H Eos # (Auto) 0.5 Baso # (Auto) 0.1 Immature Gran # (Auto) 1.02 H Absolute Nucleated RBC 0.03 H Immature Gran % 6 H Nucleated RBC % 0 APTT 45.3 H D 52.3 H Puncture Site ABG pH ABG pCO2 ABG pO2 ABG HCO3 ABG O2 Saturation ABG Base Excess FiO2 Sodium 143 Potassium 4.4 D Chloride 111 H Carbon Dioxide 27.8 Anion Gap 4 L BUN 33 H Creatinine 1.1 Estim Creat Clear Calc 82.4 eGFR > 60 BUN/Creatinine Ratio 30 H Glucose 148 H Calculated Osmolality 295 Lactic Acid Calcium 8.6 Corrected Calcium 9.7 Phosphorus 3.4 Magnesium 2.3 Total Bilirubin AST ALT Alkaline Phosphatase Troponin I B-Natriuretic Peptide Total Protein Albumin 2.6 L Globulin Albumin/Globulin Ratio ABG Interpretation ABG results: 04/28/25 04/28/25 04/29/25 08:00 23:00 18:22 ABG pH 7.41 7.39 ABG pCO2 37 42 ABG pO2 80 L 85 ABG HCO3 23 25 ABG O2 Saturation 97 97 ABG Base Excess -1 0 VBG pH 7.36 VBG pCO2 49 VBG pO2 27 VBG Base Excess 1 05/03/25 16:34 ABG pH 7.40 ABG pCO2 41 ABG pO2 64 L ABG HCO3 26 ABG O2 Saturation 92 ABG Base Excess 1 VBG pH VBG pCO2 VBG pO2 VBG Base Excess Quality Measures Quality Measures none Advance care planning discussed with:: patient Assessment & Plan Assessment Current Active Medications: Generic Name Dose Route Start Last Admin Trade Name Freq PRN Reason Stop Dose Admin Acetaminophen 650 mg 04/30/25 08:20 Acetaminophen Georgette 325 Mg/10 Ml Udc GT 05/26/25 14:04 Q6H PRN Fever >101.5 OR PAIN 1-3 Albuterol/Ipratropium 3 ml 05/01/25 07:45 05/04/25 12:34 Albuterol/Ipratropium (Duoneb) Rt Georgette 3 Ml Nebu INH 05/31/25 07:44 3 ml Q6HRRT ELLIOTT Administration Apixaban 10 mg 05/01/25 21:00 05/03/25 09:28 Apixaban 2.5 Mg Tablet GT 10 mg BID ELLIOTT Administration Carbidopa/Levodopa 1 tab 04/26/25 22:00 05/04/25 14:09 Carbidopa/Levodopa 25/100 Mg Tablet GT 05/26/25 21:59 1 tab TID ELLIOTT Administration Gabapentin 100 mg 04/26/25 22:00 05/04/25 14:09 Gabapentin 100 Mg Capsule GT 05/26/25 21:59 100 mg TID ELLIOTT Administration Guaifenesin 200 mg 05/01/25 12:00 05/04/25 12:01 Guaifenesin Syrup 200 Mg/10 Ml Udc GT 05/31/25 11:59 200 mg QID ELLIOTT Administration Protocol Hydromorphone HCl 1 mg 05/01/25 10:22 05/03/25 16:34 Hydromorphone Inj 2 Mg/Ml Vial IVP 05/06/25 10:21 1 mg Q4HR PRN Administration Breakthrough Pain Protocol Azithromycin 500 mg/ Sodium 250 mls @ 250 mls/hr 05/03/25 10:57 05/04/25 09:19 Chloride IV 05/10/25 10:56 250 mls/hr QDAY ELLIOTT Administration Heparin Sodium/Dextrose 25,000 unit in 250 mls @ 18 mls/hr 05/03/25 18:45 05/04/25 16:38 Heparin In D5w Ivpb IV 05/17/25 18:44 16.67 units/kg/hr .[id number] ELLIOTT 20.454 mls/hr Titration Protocol 14.67 UNITS/KG/HR Ceftriaxone Sodium/Dextrose 1 gm in 50 mls @ 100 mls/hr 05/04/25 10:31 05/04/25 11:15 Rocephin/D5w 1gm Iv Premix IV 05/11/25 10:30 100 mls/hr QDAY ELLIOTT Administration Lamotrigine 200 mg 04/29/25 09:00 05/04/25 09:18 Lamotrigine 100 Mg Tablet (Non-Form) GT 05/29/25 08:59 200 mg QDAY ELLIOTT Administration Ondansetron HCl 4 mg 04/26/25 14:05 Ondansetron Inj 2 Mg/Ml Inj 2 Ml IVP 05/26/25 14:04 Q6H PRN NAUSEA OR VOMITING Protocol Pantoprazole Sodium 40 mg 05/01/25 09:15 05/04/25 09:18 Pantoprazole Inj 40 Mg Vial IVP 05/31/25 09:14 40 mg QDAY ELLIOTT Administration Protocol Polyethylene Glycol 17 gm 05/02/25 09:00 05/04/25 09:18 Polyethylene Glycol 17 Gm Packet GT 06/01/25 08:59 17 gm QDAY ELLIOTT Administration Quetiapine Fumarate 200 mg 04/27/25 09:00 05/04/25 09:18 Quetiapine Fumarate 100 Mg Tablet GT 05/27/25 08:59 200 mg BID ELLIOTT Administration Sennosides 8.8 mg 05/02/25 09:00 05/04/25 09:18 Sennosides Syrup 8.8 Mg/5 Ml Udc GT 06/01/25 08:59 8.8 mg QDAY ELLIOTT Administration Protocol Tamsulosin HCl 0.4 mg 05/01/25 09:15 05/04/25 09:19 Tamsulosin Hcl 0.4 Mg Capsule GT 05/31/25 09:14 0.4 mg QDAY ELLIOTT Administration Plan Patient is a 69-year-old male with a past medical history of partially 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 Patient initially presented to the emergency room via private care with a chief complain of unable to tolerate feedings with regurgitations noted by family members at bedside and abdominal pain. The patient is currently being treated for AHRF. #Acute hypoxic respiratory failure #Pulmonary embolism, resolved #Provoked PE in the setting of malignancy, resolved #R/O recurrent PE #Left upper extremity DVT #Shock Patient presented with concern for possible early pneumonia, given worsening dyspnea CTA chest obtained noted to show large distal main pulmonary artery extending into the upper and lower right pulmonary lobe who multiple right pulmonary PE. Given bilateral PE including a large filling defect in the distal right main pulmonary artery concern for obstructive shock, pending official echo. Versus cardio cardiogenic given elevated troponins of 1.070 and patient denied chest pain versus septic given elevated leukocytosis, less likely.Currently on high flow. 05/04/2025: CTA chest revealed pulmonary artery emboli in distal right main pulmonary artery. There remain numerous filling defects in right lower lobe pulmonary artery branches. Left lower lobe pulmonary artery filling defects are noted but less prominent compared to April 28, 2025. CT Chest (04/28/2025): Positive for numerous bilateral pulmonary artery emboli including large filling efects in the distal right main pulmonary artery extending into the origins ofthe upper and lower lobe right pulmonary artery branches Left supraclavicular and left axillary, mediastinal, para-aortic and mesenteric extensive lymphadenopathy Esophageal mass again noted Troponin 1.07 0.880 PESI 190, Class V Plan -Patient downgraded from ICU, as saturating well in 3 L NC. -Continue heparin drip -D/C Eliquis -Avoid increasing intrathoraic pressure #Leukocytosis Concern fo early pneumonia on intial chest x-ray on admsision late noted to be a PE. Given history of malignancy likely leading to leukocytosis. Continue to montior Blood cutlure negative. Cxr (04/29/2025): Mild prominence left ventricle w/ prominent vascular congestion Cx(): Subtle early bilateral pneumonia w/ abnormally prominent right mediastinum UA negative Plan -Consider repeat cultures in setting of shock #Hypertension Past medical history of CArvedilol, given concern for PE consider holding holding. continue to hold Losartan, given concern for shock #Normocytic Anemia Likely in the setting of malignnacy vs chronic loss Plan -consider iron panel. -continue to monitor Hgb and Hct #Esophageal malignancy, undifferentiated #Status post G-tube placement Plan -Dr. Saeed following -consider GI consult #BHP Consider holding Tamsulosin #Obesity Thank you for the opportunity to take part in this patient care. Cardiology team will continue to follow up on this patient. The patient's management plan was discussed with my attending physician MD Dejuan Zuniga MD, PGY3 Attending Provider Attestation/Addendum I have personally seen and examined the patient separately on the above date of service and discussed the plan of care with the resident. I reviewed the resident Dr. Jeannine Cano consultation progress note and agree with the resident findings and plan in the note above and have also edited the documentation to reflect my findings and plan. 05/03/2025 Patient has been having increased tachypnea with hypoxia requiring BiPAP and hence was transferred to the ICU again today. Repeat chest x-ray showed pleural effusions along with questionable pneumonia. Bedside ultrasound did show dilated IVC but patient was on BiPAP. Patient has been started on IV antibiotics and also started on IV diuresis. Plan is for is to perform a repeat echocardiogram in the morning to evaluate again for RV function and make an of RV strain. Recent right heart cardiac catheterization with pulmonary angiogram showed normal right heart pressures and normal PA pressure along with no clot in the main right or left PA and most of the clot burden is in the distal segmental and subsegmental branches as noted previously. Patient does have significant DVT of the left upper extremity extending into the left IJ. Possible dislodgment and superimposed new clot the chronic distal PEs can be considered but patient was on anticoagulation with full dose Eliquis and less likely he failed any kind of anticoagulation. Unfortunately Xa levels cannot be checked here and we will recommend a repeat CTA chest to evaluate the clot burden for the patient. 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 05/04/2025: Patient has been on BiPAP overnight and he did respond well with diuretics and now is on 6 L oxygen via nasal cannula but still has increased work of breathing. Repeat chest x-ray did show worsening right-sided effusions along with possible pneumonia. Repeat limited echocardiogram was completed and it showed normal LV function, normal RV function and no evidence of any right heart strain. Repeat CTA was also performed which did show again right lower lobe artery thrombus burden along with thrombus in the distal right lower lobe branches as well as the left lower lobe branches overall the thrombus at the end appears to be a less than the previous CT. Patient does now have large bilateral pleural effusions mentioned. Close review of the CT did show patient probably has consolidation along with questionable pulmonary infarct along with the bilateral effusions. Also noted that there was questionable lung mass along with the extensive mediastinal lymphadenopathy. For this patient previous right heart cath as well as pulmonary angiogram did not show normal right heart pressures along with only distal segmental subsegmental clot burden.Patient hypoxia appears to be multifactorial at the present point of time and performing under pulmonary angiogram with thrombectomy will only partially alleviate his hypoxia. As noted previously patient has significant left upper extremity DVT and possible more clot dislodged with acute on chronic thrombus burden. Given his multiple comorbidities as well as the stage IV cancer goals of 8 were discussed with the family in detail by me and the primary team to have the discussion again this evening as patient also not interested in continuing with BiPAP and he does not seem to be interested in further interventions. There is a high probability of sudden, clinically significant or life threatening deterioration in the patient condition which required the highest level of physician preparedness to intervene urgently. I have personally spent 65 minutes of critical care time, exclusive of time spent on any procedures, in evaluation and management of this critically ill patient. Paulo Hairston M.D. Interventional Cardiology
[2025-05-04] MEDS: MORPHINE SULF INJ 10 MG/ML VIAL IVP (18:38)
--- NOTE | 2025-05-04 18:57 | XR_ITS ---
Examination: AP chest single view Findings one AP portable semiupright chest single view Date and time: May 04, 2025 1950 hours Comparison May 03, 2025 INDICATIONS: Shortness of breath chest pain today. FINDINGS: Significant layering right pleural fluid Prominent right mediastinal contour Left perihilar opacity consistent with pneumonia Prominent vascular congestion IMPRESSION: Left lung pneumonia Prominent right pleural fluid Mild heart failure
--- NOTE | 2025-05-04 19:19 | EVENTNT_ITS ---
Documentation for date of: 05/04/25 Event Note Event Note: Had a long discussion with the patient and family at bedside in details about patient's current condition. Explained about his results of Esophageal biopsy, findings of possible metastases in lymph nodes, bones, lungs, overall prognosis. Also discussed about ongoing PE with respiratory distress, increasing work of breathing, nose bleed limiting use of anticoagulation. Persistent/possibly worsening PE on repeat CTA chest. Given increased work of breathing explained about need of BiPAP and if continues to worsen Intubation. Also explained about comfort focused treatment options including hospice care and comfort care measu res. Patient and family both verbalized understanding. Patient wished his CODE STATUS to be DNR/DNI. He also wished to receive medication to help with pain and anxiety, despite knowing these can worsen his respiratory status and can lead to complications. He also wished against BiPAP but wants to continue with supplemental oxygen via Nasal cannula/Oxymask. After disuccion about pros/cons of starting anticoagulation, he wishes to hold the anticoagulation for now. Rajesh Roberts MD
--- NOTE | 2025-05-04 20:32 | PC.NURSE ---
Pt requested to have all meds now so he can sleep and not be bothered, notified and ok'd
[2025-05-04] MEDS: HYDROmorphone INJ 2 MG/ML VIAL 1 MG IVP (23:40)
[2025-05-05] VITALS (11 sets, daily range): BP systolic 100–137; BP diastolic 70–83; PULSE 96–124; RESP 22–36; TEMP 36.2–36.9; O2SAT 90–99; BMI 39.0
[2025-05-05] MEDS: ALBUTEROL/IPRATROPIUM (Duoneb) RT SOL 3 ML NEBU INH ×4 (00:50→19:06)
[2025-05-05] MEDS: LORazepam 2 MG/ML VIAL 1 MG IVP (01:56)
[2025-05-05] MEDS: HYDROmorphone INJ 2 MG/ML VIAL 1 MG IVP ×4 (04:36→19:30)
[2025-05-05] MEDS: guaiFENesin SYRUP 200 MG/10 ML UDC GT ×4 (05:22→20:45)
[2025-05-05] MEDS: CARBIDOPA/LEVODOPA 25/100 MG TABLET 1 TAB GT ×3 (05:23→21:31)
[2025-05-05] MEDS: GABAPENTIN 100 MG CAPSULE GT ×3 (05:23→21:31)
[2025-05-05 06:23] LABS: Basophils # (Auto) 0.1 Thou/mm3 (0.0-0.2); Basophils % (Auto) 0 % (0-2.5); Eosinophils # (Auto) 0.4 Thou/mm3 (0.0-0.5); Eosinophils % (Auto) 2 % (0-10); Hematocrit 26.8 % (41.0-53.0); Immature Granulocytes Auto 1.07 Thou/mm3 (0.00-0.00); Lymphocytes # (Auto) 1.9 Thou/mm3 (1.0-4.8); Lymphocytes % (Auto) 11 % (10-50); Mean Corpuscular HGB Conc 31.3 g/dl (31.0-37.0); Mean Corpuscular Hemoglobin 27.0 pg (25.0-35.0); Mean Corpuscular Volume 86 fL (80-100); Monocytes # (Auto) 1.2 Thou/mm3 (0.0-0.8); Monocytes % (Auto) 7 % (0-12); Neutrophils # (Auto) 12.4 Thou/mm3 (1.8-7.7); Neutrophils % (Auto) 73 % (37-80); Nucleated Red Blood Cell # 0.03 Thou/mm3 (0.00-0.00); Nucleated Red Blood Cell % 0 /100 WBC (0); Platelet Count 264 Thou/mm3 (140-440); RDW Standard Deviation 62.7 fL (35.1-43.9); Red Blood Count 3.11 Miln/mm3 (4.50-5.90); White Blood Count 17.0 Thou/mm3 (3.8-10.6)
[2025-05-05 06:48] LABS: INR 1.1 (0.9-1.3); Partial Thromboplastin Time 31.9 Seconds (22.0-36.0); Prothrombin Time 12.4 Seconds (9.0-12.2)
[2025-05-05 06:52] LABS: Hemoglobin 8.4 g/dL (13.5-16.0)
[2025-05-05 07:23] LABS: Alanine Aminotransferase 12 U/L (10-49); Albumin, Serum 2.6 gm/dL (3.4-4.8); Albumin/Globulin Ratio 1.1 (1.2-2.2); Alkaline Phosphatase 413 U/L (46-116); Anion Gap 5 (7-16); Aspartate Amino Transferase 39 U/L (0-34); BUN/Creatinine Ratio 25 Ratio (12-20); Bilirubin,Total 0.5 mg/dL (0.3-1.2); Blood Urea Nitrogen 25 mg/dL (9-23); Calcium 8.5 mg/dL (8.3-10.6); Calcium (Corrected) 9.6 mg/dL (8.5-10.1); Carbon Dioxide 26.2 mMol/L (20.0-31.0); Chloride 111 mMol/L (98-107); Creatinine (Component) 1.0 mg/dL (0.6-1.3); Estimated Creatinine Clearance 90.7 mL/min (>60); Globulin 2.3 gm/dL (2.3-3.5); Glucose 105 mg/dL (74-106); Magnesium 2.1 mg/dL (1.6-2.6); Osmolality,Calculated 287 (275-295); Phosphorous 4.0 mg/dL (2.4-5.1); Potassium 4.4 mMol/L (3.4-5.1); Sodium 142 mMol/L (136-145); Total Protein 4.9 gm/dL (5.7-8.2); eGFR > 60 See Note
[2025-05-05] MEDS: TAMSULOSIN HCL 0.4 MG CAPSULE GT (08:11)
[2025-05-05] MEDS: cefTRIAXone/D5w 1gm IV premix 1 GM/50 ML BAG IV (08:11)
[2025-05-05] MEDS: POLYETHYLENE GLYCOL 17 GM PACKET GT (08:13)
[2025-05-05] MEDS: SENNOSIDES SYRUP 8.8 MG/5 ML UDC GT (09:31)
[2025-05-05] MEDS: AZITHROMYCIN INJ 500 MG in SODIUM CHLORIDE 0.9% 250 ML 250 ML 250 MG IV (09:31)
[2025-05-05] MEDS: lamoTRIgine 25 MG CHEW 200 MG GT (09:54)
--- NOTE | 2025-05-05 13:23 | ESPR_ITS ---
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 Patient initially presented to the emergency room via private care with a chief complain of unable to tolerate feedings with regurgitations noted by family members at bedside and abdominal pain. Patient having increased shortness of breath and difficult to breath. Patient initially admitted for early pneumonia meeting SIRS criteria. Paitnet subsequently found to have an left upper extremity and CTA chest (04/28/2025): positive for numerous bilateral pulmonary artery emboli including large filling defects int he distral right main pumonary artery extending into upper and lower lobe right pulmonary artery branches. Left spraclavicular and left axillary, mediastinal, paraaortic and mesenteric extensive lymphadenopathy. Patient was upgraded to ICU for observation given extensive PE and hemoinstability. 05/04/2025: Patinet examined at bedside. Improvement in BL breath sounds. Saturating 93% on 3 L NC. Continue heparin. Recommended to obtain repeat TTE for rt heart strain and function. Patient now on Zosyn and Azithromyiinc (05/03--). Repeat CTA chest to R/O PE. 05/05/2025: Patient examined at bedside, reported doing well. Reported SOB being stable. Saturating 98% on 4L NC. His HR has been stable in 110's. Yesterday, the primary team had goals of discussion with the patient and risks and benefits of anticoagulation was discussed with him. He wished to proceed with discontinuing heparin drip. Exam Vital Signs Temp Pulse Resp BP Pulse Ox O2 Del Method O2 Flow Rate 97.3 F 113 H 31 H 137/83 H 92 L Oxy Mask 10 05/05/25 08:00 05/05/25 08:00 05/05/25 08:00 05/05/25 08:00 05/05/25 08:00 05/05/25 08:00 05/05/25 08:00 FiO2 4 05/04/25 12:38 Narrative Exam General: Alert and oriented x3. This morning patient does not appear to be in any respiratory distress and is on nasal cannula. Eyes: Pupils are equal and reactive to light bilaterally. HEENT: Atraumatic, normocephalic. No JVD noted. Mucosa moist. Cardiovascular: Normal S1 and S2. Tachycardic and regular rhythm. No murmurs appreciated. Trace peripheral pitting edema noted. Respiratory: No respiratory distress. Lungs are clear to auscultation bilaterally but decreased at the bases. No wheezing or crackles heard. Abdomen: Soft, nontender, nondistended. Skin: No rash. Warm to touch. Musculoskeletal: No gross injuries. Able to move all 4 extremities. Neuro: Alert and oriented x3. No focal neuro deficits. Psych: Normal affect and mood Objective Labs 05/07/25 05:21 05/07/25 05:21 Labs: Laboratory Results - last 24 hr 05/04/25 05/05/25 15:23 05:59 WBC 17.0 H RBC 3.11 L Hgb 8.4 L Hct 26.8 L MCV 86 MCH 27.0 MCHC 31.3 RDW Std Deviation 62.7 H Plt Count 264 Neut % (Auto) 73 Lymph % (Auto) 11 [place] % (Auto) 7 Eos % (Auto) 2 Baso % (Auto) 0 Neut # (Auto) 12.4 H Lymph # (Auto) 1.9 [place] # (Auto) 1.2 H Eos # (Auto) 0.4 Baso # (Auto) 0.1 Immature Gran # (Auto) 1.07 H Absolute Nucleated RBC 0.03 H Immature Gran % 6 H Nucleated RBC % 0 PT 12.4 H INR 1.1 APTT 52.3 H 31.9 D Sodium 142 Potassium 4.4 Chloride 111 H Carbon Dioxide 26.2 Anion Gap 5 L BUN 25 H Creatinine 1.0 Estim Creat Clear Calc 90.7 eGFR > 60 BUN/Creatinine Ratio 25 H Glucose 105 Calculated Osmolality 287 Calcium 8.5 Corrected Calcium 9.6 Phosphorus 4.0 Magnesium 2.1 Total Bilirubin 0.5 AST 39 H ALT 12 Alkaline Phosphatase 413 H D Total Protein 4.9 L Albumin 2.6 L Globulin 2.3 Albumin/Globulin Ratio 1.1 L ABG Interpretation ABG results: 04/28/25 04/28/25 04/29/25 08:00 23:00 18:22 ABG pH 7.41 7.39 ABG pCO2 37 42 ABG pO2 80 L 85 ABG HCO3 23 25 ABG O2 Saturation 97 97 ABG Base Excess -1 0 VBG pH 7.36 VBG pCO2 49 VBG pO2 27 VBG Base Excess 1 05/03/25 16:34 ABG pH 7.40 ABG pCO2 41 ABG pO2 64 L ABG HCO3 26 ABG O2 Saturation 92 ABG Base Excess 1 VBG pH VBG pCO2 VBG pO2 VBG Base Excess Quality Measures Quality Measures none Advance care planning discussed with:: patient Assessment & Plan Assessment Current Active Medications: Generic Name Dose Route Start Last Admin Trade Name Freq PRN Reason Stop Dose Admin Acetaminophen 650 mg 04/30/25 08:20 Acetaminophen Georgette 325 Mg/10 Ml Udc GT 05/26/25 14:04 Q6H PRN Fever >101.5 OR PAIN 1-3 Albuterol/Ipratropium 3 ml 05/01/25 07:45 05/05/25 13:15 Albuterol/Ipratropium (Duoneb) Rt Georgette 3 Ml Nebu INH 05/31/25 07:44 3 ml Q6HRRT ELLIOTT Administration Carbidopa/Levodopa 1 tab 04/26/25 22:00 05/05/25 13:22 Carbidopa/Levodopa 25/100 Mg Tablet GT 05/26/25 21:59 1 tab TID ELLIOTT Administration Gabapentin 100 mg 04/26/25 22:00 05/05/25 13:22 Gabapentin 100 Mg Capsule GT 05/26/25 21:59 100 mg TID ELLIOTT Administration Guaifenesin 200 mg 05/01/25 12:00 05/05/25 13:22 Guaifenesin Syrup 200 Mg/10 Ml Udc GT 05/31/25 11:59 200 mg QID ELLIOTT Administration Protocol Hydromorphone HCl 1 mg 05/01/25 10:22 05/05/25 11:21 Hydromorphone Inj 2 Mg/Ml Vial IVP 05/06/25 10:21 1 mg Q4HR PRN Administration Breakthrough Pain Protocol Azithromycin 500 mg/ Sodium 250 mls @ 250 mls/hr 05/03/25 10:57 05/05/25 09:31 Chloride IV 05/10/25 10:56 250 mls/hr QDAY ELLIOTT Administration Ceftriaxone Sodium/Dextrose 1 gm in 50 mls @ 100 mls/hr 05/04/25 10:31 05/05/25 08:11 Rocephin/D5w 1gm Iv Premix IV 05/11/25 10:30 100 mls/hr QDAY ELLIOTT Administration Lamotrigine 200 mg 05/05/25 09:00 05/05/25 09:54 Lamotrigine 25 Mg Chew GT 05/29/25 08:59 200 mg DAILY ELLIOTT Administration Lorazepam 1 mg 05/04/25 19:17 05/05/25 01:56 Lorazepam 2 Mg/Ml Vial IVP 05/09/25 19:16 1 mg Q8HR PRN Administration ANXIETY Ondansetron HCl 4 mg 04/26/25 14:05 Ondansetron Inj 2 Mg/Ml Inj 2 Ml IVP 05/26/25 14:04 Q6H PRN NAUSEA OR VOMITING Protocol Pantoprazole Sodium 40 mg 05/01/25 09:15 05/05/25 08:11 Pantoprazole Inj 40 Mg Vial IVP 05/31/25 09:14 40 mg QDAY ELLIOTT Administration Protocol Polyethylene Glycol 17 gm 05/02/25 09:00 05/05/25 08:13 Polyethylene Glycol 17 Gm Packet GT 06/01/25 08:59 17 gm QDAY ELLIOTT Administration Quetiapine Fumarate 200 mg 04/27/25 09:00 05/05/25 08:11 Quetiapine Fumarate 100 Mg Tablet GT 05/27/25 08:59 200 mg BID ELLIOTT Administration Sennosides 8.8 mg 05/02/25 09:00 05/05/25 09:31 Sennosides Syrup 8.8 Mg/5 Ml Udc GT 06/01/25 08:59 8.8 mg QDAY ELLIOTT Administration Protocol Tamsulosin HCl 0.4 mg 05/01/25 09:15 05/05/25 08:11 Tamsulosin Hcl 0.4 Mg Capsule GT 05/31/25 09:14 0.4 mg QDAY ELLIOTT Administration Plan Patient is a 69-year-old male with a past medical history of partially 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 Patient initially presented to the emergency room via private care with a chief complain of unable to tolerate feedings with regurgitations noted by family members at bedside and abdominal pain. The patient is currently being treated for AHRF. #Acute hypoxic respiratory failure #Pulmonary embolism #Provoked PE in the setting of malignancy #Left upper extremity DVT #Shock, resolved Patient presented with concern for possible early pneumonia, given worsening dyspnea CTA chest obtained noted to show large distal main pulmonary artery extending into the upper and lower right pulmonary lobe who multiple right pulmonary PE. Given bilateral PE including a large filling defect in the distal right main pulmonary artery concern for obstructive shock. Versus cardio cardiogenic given elevated troponins of 1.070 and patient denied chest pain versus septic given elevated leukocytosis, less likely. CT Chest (04/28/2025): Positive for numerous bilateral pulmonary artery emboli including large filling efects in the distal right main pulmonary artery extending into the origins ofthe upper and lower lobe right pulmonary artery branches Left supraclavicular and left axillary, mediastinal, para-aortic and mesenteric extensive lymphadenopathy Esophageal mass again noted Right heart cath: 04/30/2025: Right heart cardiac catheterization with pulmonary angiogram showed normal right heart pressures and normal PA pressure along with no clot in the main right or left PA and most of the clot burden is in the distal segmental and subsegmental branches as noted previously. Patient does have significant DVT of the left upper extremity extending into the left IJ. Possible dislodgment and superimposed new clot the chronic distal PEs can be considered but patient was on anticoagulation with full dose Eliquis and less likely he failed any kind of anticoagulation. Troponin 1.07 0.880 PESI 190, Class V On 05/03/2025: Repeat chest x-ray showed pleural effusions along with questionable pneumonia. Bedside ultrasound did show dilated IVC but patient was on BiPAP. Patient has been started on IV antibiotics and also started on IV diuresis. 05/04/2025: CTA chest revealed pulmonary artery emboli in distal right main pulmonary artery. There remain numerous filling defects in right lower lobe pulmonary artery branches. Left lower lobe pulmonary artery filling defects are noted but less prominent compared to April 28, 2025. Plan -Patient downgraded from ICU, as saturating well in 3 L NC. -Heparin drip discontinued after risk and benefits discussion with the patient by primary team. -Avoid increasing intrathoraic pressure 05/05/2025: Patient examined at bedside, reported doing well. Reported SOB being stable. Saturating 98% on 4L NC. His HR has been stable in 110's. CTA chest done yesterday was significant for PE. Also yesterday, the primary team had goals of discussion with the patient and risks and benefits of anticoagulation was discussed with him. He wished to proceed with discontinuing heparin drip. However, the patient's hypoxia is likely multifactorial in the setting of bilateral pleural effusion, pneumonia and less likely considered to be with pulmonary embolism. #Leukocytosis Concern fo early pneumonia on intial chest x-ray on admsision late noted to be a PE. Given history of malignancy likely leading to leukocytosis. Continue to montior Blood cutlure negative. Cxr (04/29/2025): Mild prominence left ventricle w/ prominent vascular congestion Cx(04/26/2025): Subtle early bilateral pneumonia w/ abnormally prominent right mediastinum UA negative #Hypertension Past medical history HTN on carvedilol, given concern for PE consider holding holding. continue to hold Losartan, given concern for shock #Normocytic Anemia Likely in the setting of malignnacy vs chronic loss Plan -consider iron panel. -continue to monitor Hgb and Hct #Esophageal malignancy, undifferentiated #Status post G-tube placement Plan -Dr. Saeed following -consider GI consult #BHP Consider holding Tamsulosin #Obesity Thank you for the opportunity to take part in this patient care. Cardiology team will continue to follow up on this patient. The patient's management plan was discussed with my attending physician MD Dejuan Zuniga MD, PGY3 Attending Provider Attestation/Addendum I have personally seen and examined the patient separately on the above date of service and discussed the plan of care with the resident. I reviewed the resident Dr. Dejuan Rivera consultation progress note and agree with the resident findings and plan in the note above and have also edited the documentation to reflect my findings and plan. I have personally seen and examined the patient separately on the above date of service and discussed the plan of care with the resident. I reviewed the resident Dr. Jeannine Cano consultation progress note and agree with the resident findings and plan in the note above and have also edited the documentation to reflect my findings and plan. 05/04/2025: Patient has been on BiPAP overnight and he did respond well with diuretics and now is on 6 L oxygen via nasal cannula but still has increased work of breathing. Repeat chest x-ray did show worsening right-sided effusions along with possible pneumonia. Repeat limited echocardiogram was completed and it showed normal LV function, normal RV function and no evidence of any right heart strain. Repeat CTA was also performed which did show again right lower lobe artery thrombus burden along with thrombus in the distal right lower lobe branches as well as the left lower lobe branches overall the thrombus at the end appears to be a less than the previous CT. Patient does now have large bilateral pleural effusions mentioned. Close review of the CT did show patient probably has consolidation along with questionable pulmonary infarct along with the bilateral effusions. Also noted that there was questionable lung mass along with the extensive mediastinal lymphadenopathy. For this patient previous right heart cath as well as pulmonary angiogram did not show normal right heart pressures along with only distal segmental subsegmental clot burden.Patient hypoxia appears to be multifactorial at the present point of time and performing under pulmonary angiogram with thrombectomy will only partially alleviate his hypoxia. As noted previously patient has significant left upper extremity DVT and possible more clot dislodged with acute on chronic thrombus burden. Given his multiple comorbidities as well as the stage IV cancer goals of 8 were discussed with the family in detail by me and the primary team to have the discussion again this evening as patient also not interested in continuing with BiPAP and he does not seem to be interested in further interventions. 05/05/2025: Patient apparently did decide to elect DNR and DNI status and no further aggressive treatment measures at the present point of time. Patient also declining blood thinners including heparin drip or any kind of anticoagulation. Patient also did not want to do any BiPAP or intubation and wanted to continue oxygen via nasal cannula. Discussed with the patient the importance of taking anticoagulation in view of his acute on chronic pulmonary embolism and's extensive left arm DVT extending up to the internal jugular vein. Patient understands the risks of not taking the anticoagulation. Patient is on pain medication along with antibiotics and oxygen. Primary team discussing further goals of care for the patient at the present point of time. Paulo Hairston M.D. Interventional Cardiology
--- NOTE | 2025-05-05 14:26 | PC.PT ---
Patient is not stable to participate with PT currently. Will D/C patient from PT services. Please refer patient back to PT when he is more stable and able to participate with PT.
--- NOTE | 2025-05-05 14:55 | PC.SS ---
Follow up note: Patient is now a DNR. SS received communication that [facility] was speaking with family. SS contacted patient's stepmomIdalia. She confirmed she has already been speaking with Dariela @ [facility]. She states she and patient do want hospice at this time but patient does not have [employer] and they cannot afford SNF with hospice. Step-mom states patient cannot go home to his apartment because he has no one there to help him. SS spoke to financial counselor and asked her to follow up with patient and family on [employer] process. Financial counselor states patient did not want to apply but asked her to contact his step mother. Physician team states patient is on 15L and may be starting comfort measures here. Alt medical decision maker: Idalia Hale, .
--- NOTE | 2025-05-05 16:36 | ESPR_ITS ---
Documentation for date of: 05/05/25 Subjective Subjective Interval history: No acute overnight events. Continues on nasal cannula. Remains tachypneic with signs of air hunger. Although satting okay. Pain appears controlled at this time. Denies fever, chills, headaches, chest pain, cough, GI or urinary symptoms. No plan for intervention from cardiology, including thrombectomy given that he is off of blood thinners. Prognosis remains guarded. Will continue with pain control, oxygen to nasal cannula. Patient again elected for no blood thinners or BiPAP or intubation. Exam Vital Signs Temp Pulse Resp BP Pulse Ox O2 Del Method O2 Flow Rate 97.1 F 114 H 33 H 110/70 93 L Oxy Mask 10 05/05/25 12:00 05/05/25 13:17 05/05/25 13:17 05/05/25 12:00 05/05/25 13:17 05/05/25 12:00 05/05/25 13:17 FiO2 4 05/04/25 12:38 Narrative Exam General: Alert and oriented x3. This morning patient does not appear to be in any respiratory distress and is on nasal cannula. Eyes: Pupils are equal and reactive to light bilaterally. HEENT: Atraumatic, normocephalic. No JVD noted. Mucosa moist. Cardiovascular: Normal S1 and S2. Tachycardic and regular rhythm. No murmurs appreciated. Trace peripheral pitting edema noted. Respiratory: No respiratory distress. Lungs are clear to auscultation bilaterally but decreased at the bases. No wheezing or crackles heard. Abdomen: Soft, nontender, nondistended. Skin: No rash. Warm to touch. Musculoskeletal: No gross injuries. Able to move all 4 extremities. Neuro: Alert and oriented x3. No focal neuro deficits. Psych: Normal affect and mood Objective Labs 05/06/25 04:51 05/06/25 04:51 Labs: Laboratory Results - last 24 hr 05/05/25 05:59 WBC 17.0 H RBC 3.11 L Hgb 8.4 L Hct 26.8 L MCV 86 MCH 27.0 MCHC 31.3 RDW Std Deviation 62.7 H Plt Count 264 Neut % (Auto) 73 Lymph % (Auto) 11 [place] % (Auto) 7 Eos % (Auto) 2 Baso % (Auto) 0 Neut # (Auto) 12.4 H Lymph # (Auto) 1.9 [place] # (Auto) 1.2 H Eos # (Auto) 0.4 Baso # (Auto) 0.1 Immature Gran # (Auto) 1.07 H Absolute Nucleated RBC 0.03 H Immature Gran % 6 H Nucleated RBC % 0 PT 12.4 H INR 1.1 APTT 31.9 D Sodium 142 Potassium 4.4 Chloride 111 H Carbon Dioxide 26.2 Anion Gap 5 L BUN 25 H Creatinine 1.0 Estim Creat Clear Calc 90.7 eGFR > 60 BUN/Creatinine Ratio 25 H Glucose 105 Calculated Osmolality 287 Calcium 8.5 Corrected Calcium 9.6 Phosphorus 4.0 Magnesium 2.1 Total Bilirubin 0.5 AST 39 H ALT 12 Alkaline Phosphatase 413 H D Total Protein 4.9 L Albumin 2.6 L Globulin 2.3 Albumin/Globulin Ratio 1.1 L ABG Interpretation ABG results: 04/28/25 04/28/25 04/29/25 08:00 23:00 18:22 ABG pH 7.41 7.39 ABG pCO2 37 42 ABG pO2 80 L 85 ABG HCO3 23 25 ABG O2 Saturation 97 97 ABG Base Excess -1 0 VBG pH 7.36 VBG pCO2 49 VBG pO2 27 VBG Base Excess 1 05/03/25 16:34 ABG pH 7.40 ABG pCO2 41 ABG pO2 64 L ABG HCO3 26 ABG O2 Saturation 92 ABG Base Excess 1 VBG pH VBG pCO2 VBG pO2 VBG Base Excess Quality Measures Quality Measures none Advance care planning discussed with:: patient Assessment & Plan Assessment Current Active Medications: Generic Name Dose Route Start Last Admin Trade Name Freq PRN Reason Stop Dose Admin Acetaminophen 650 mg 04/30/25 08:20 Acetaminophen Georgette 325 Mg/10 Ml Udc GT 05/26/25 14:04 Q6H PRN Fever >101.5 OR PAIN 1-3 Albuterol/Ipratropium 3 ml 05/01/25 07:45 05/05/25 13:15 Albuterol/Ipratropium (Duoneb) Rt Georgette 3 Ml Nebu INH 05/31/25 07:44 3 ml Q6HRRT ELLIOTT Administration Carbidopa/Levodopa 1 tab 04/26/25 22:00 05/05/25 13:22 Carbidopa/Levodopa 25/100 Mg Tablet GT 05/26/25 21:59 1 tab TID ELLIOTT Administration Gabapentin 100 mg 04/26/25 22:00 05/05/25 13:22 Gabapentin 100 Mg Capsule GT 05/26/25 21:59 100 mg TID ELLIOTT Administration Guaifenesin 200 mg 05/01/25 12:00 05/05/25 13:22 Guaifenesin Syrup 200 Mg/10 Ml Udc GT 05/31/25 11:59 200 mg QID ELLIOTT Administration Protocol Hydromorphone HCl 1 mg 05/01/25 10:22 05/05/25 15:31 Hydromorphone Inj 2 Mg/Ml Vial IVP 05/06/25 10:21 1 mg Q4HR PRN Administration Breakthrough Pain Protocol Azithromycin 500 mg/ Sodium 250 mls @ 250 mls/hr 05/03/25 10:57 05/05/25 09:31 Chloride IV 05/10/25 10:56 250 mls/hr QDAY ELLIOTT Administration Ceftriaxone Sodium/Dextrose 1 gm in 50 mls @ 100 mls/hr 05/04/25 10:31 05/05/25 08:11 Rocephin/D5w 1gm Iv Premix IV 05/11/25 10:30 100 mls/hr QDAY ELLIOTT Administration Lamotrigine 200 mg 05/05/25 09:00 05/05/25 09:54 Lamotrigine 25 Mg Chew GT 05/29/25 08:59 200 mg DAILY ELLIOTT Administration Lorazepam 1 mg 05/04/25 19:17 05/05/25 01:56 Lorazepam 2 Mg/Ml Vial IVP 05/09/25 19:16 1 mg Q8HR PRN Administration ANXIETY Ondansetron HCl 4 mg 04/26/25 14:05 Ondansetron Inj 2 Mg/Ml Inj 2 Ml IVP 05/26/25 14:04 Q6H PRN NAUSEA OR VOMITING Protocol Pantoprazole Sodium 40 mg 05/01/25 09:15 05/05/25 08:11 Pantoprazole Inj 40 Mg Vial IVP 05/31/25 09:14 40 mg QDAY ELLIOTT Administration Protocol Polyethylene Glycol 17 gm 05/02/25 09:00 05/05/25 08:13 Polyethylene Glycol 17 Gm Packet GT 06/01/25 08:59 17 gm QDAY ELLIOTT Administration Quetiapine Fumarate 200 mg 04/27/25 09:00 05/05/25 08:11 Quetiapine Fumarate 100 Mg Tablet GT 05/27/25 08:59 200 mg BID ELLIOTT Administration Sennosides 8.8 mg 05/02/25 09:00 05/05/25 09:31 Sennosides Syrup 8.8 Mg/5 Ml Udc GT 06/01/25 08:59 8.8 mg QDAY ELLIOTT Administration Protocol Tamsulosin HCl 0.4 mg 05/01/25 09:15 05/05/25 08:11 Tamsulosin Hcl 0.4 Mg Capsule GT 05/31/25 09:14 0.4 mg QDAY ELLIOTT Administration Plan Mr. Hale, a 69-year-old male with stage IV esophageal carcinoma, Parkinson?s disease, and several comorbidities, was admitted on 04/26/2025 with nausea, vomiting, diarrhea, and weakness. His cancer has spread to lymph nodes and bones. On 04/28, a CTA chest confirmed bilateral PEand left upper extremity DVT. He was started on heparin drip, initially opted for comfort care, but later chose full code and thrombectomy. By 04/30, after right heart catheterization and pulmonary angiogram, his PE showed partial resolution, and oxygen needs decreased. He is receiving supportive care for his cancer. His blood pressure stabilized with Levophed for short-period while in ICU, and pain is managed with morphine. His condition remains critical, and care is focused on symptom relief and preventing further complications. After shared recommendations from oncology, cardiology, remote pilot operator teams. Acute hypoxemic respiratory failure Acute pulmonary embolism Left upper extremity DVT Possible Pulmonary metastatic cancer Had increasing oxygen demand since admission. CTA chest was positive for numerous bilateral pulmonary arterial emboli including large filling defect in distal right main artery extending into the origin of upper and lower lobe pulmonary branches. He was started on HEPARIN drip, and underwent thrombectomy with cardiology team while in ICU. Symptoms have improved. Currently on nasal cannula, satting well. This possible lung metastatic disease of his esophageal carcinoma given extensive multisystem involvement. Will need PET scan eventually. HEPARIN drip discontinued on 05/01, transition to ELIQUIS BID. 05/04/2025: He was in the ICU overnight for observation while on BiPAP. Currently on 15 L nasal cannula, downgraded to floors. Sats remain low low 90s, upper 80s. Remains tachypneic and tachycardic and in moderate distress secondary to pain and air hunger. CTA chest today showed pulmonary embolism in the distal right main pulmonary artery and multiple additional filling defects in numerous branches. As stated above, the patient and family elected for DNR and no further aggressive treatment measures, declined further blood thinners, declined BiPAP and/or intubation. Will continue with oxygen, pain control and ANTIBIOTICS for pneumonia. Will revisit goals of cares in the event his health status continues to decline or as indicated. ? Discontinued HEPARIN/ELIQUIS ? Oxygen PRN ? DuoNebs PRN ? Pain control, multimodal ? Continue AZITHROMYCIN (05/03 to present) for possible PNA ? Continue CEFTRIAXONE (05/04 to present) for possible PNA DVT left upper extremity Venous Doppler was done for left upper extremity swelling and showed nonocclusive thrombus extending up to left jugular vein. Swelling overall improving. ? Continue above management SIRS Paraneoplastic leukocytosis Immunocompromised Esophageal carcinoma Esophageal dysphagia requiring G-tube Protein calorie malnutrition Recently diagnosed esophageal carcinoma (undifferentiated). Admission CT abdominal pelvis showed thickening lateral wall esophagus, extensive metastatic lymphadenopathy with widespread osteolytic metastatic disease. Has worsening esophageal dysphagia secondary to above-mentioned findings, requiring PEG tube use. ? Oncology on board ? TYLENOL for fever ? Continue MORPHINE 2 mg Q2H (pain 1-4) ? Continue DILAUDID 1 mg Q4H (breakthrough pain) ? Continue GABAPENTIN 100 mg TID Hypertension Shock, multifactorial (resolved) He had multifactorial shock while in ICU, likely hypovolemic which resolved with short course of pressors and fluids. Currently normotensive ? Holding home LOSARTAN 25 daily ? Holding home CARVEDILOL 6.25 BID Transaminitis, resolving Most likely secondary to hypovalemia/dehydration in setting of NVD Overall stable. ? Daily labs Parkinsons disease Bipolar disorder ? Restarted home med CARBIDOPA LEVODOPA TID ? Restarted home med QUETIAPINE 200 mg BID ? Continue LAMOTRIGINE 200 mg daily SARBJIT, prerenal azotemia (resolved) Hypercalcemia Prerenal azotemia likely volume depletion, overall improved with fluids. Urine output is adequate. Hypercalcemia in setting of malignancy, calcium around 11.3 ? Renally dose meds, avoid overdiuresis and NEPHROTOXINS ? Daily CMP Health maintenance Diet: Managed by dietary GI prophylaxis: PROTONIX DVT prophylaxis: ELIQUIS Antibiotics: Not indicated CODE STATUS: Full code Disposition: Treating pulmonary embolism, wean off oxygen, currently on HFNC Case was discussed with attending physician and senior resident. Francisco J Larsen, PGY II This document was transcribed using voice recognition technology. Minor inaccuracies may be present. Attending Provider Attestation/Addendum I attest that I was physically present for the evaluation, physical examination, lab and imaging review of the patient with the residents. I discussed the case with the residents and agree with the findings and plans of care as documented above. Rajesh Roberts MD
[2025-05-06] VITALS (13 sets, daily range): BP systolic 106–130; BP diastolic 71–84; PULSE 118–131; RESP 17–36; TEMP 36–36.8; O2SAT 93–97; BMI 37.8
[2025-05-06] MEDS: HYDROmorphone INJ 2 MG/ML VIAL 1 MG IVP ×5 (00:04→17:31)
[2025-05-06] MEDS: ALBUTEROL/IPRATROPIUM (Duoneb) RT SOL 3 ML NEBU INH ×4 (00:14→20:04)
[2025-05-06] MEDS: guaiFENesin SYRUP 200 MG/10 ML UDC GT ×4 (05:56→20:56)
[2025-05-06] MEDS: GABAPENTIN 100 MG CAPSULE GT ×3 (05:56→21:35)
[2025-05-06] MEDS: CARBIDOPA/LEVODOPA 25/100 MG TABLET 1 TAB GT ×3 (05:56→21:35)
[2025-05-06 06:00] LABS: Basophils # (Auto) 0.1 Thou/mm3 (0.0-0.2); Basophils % (Auto) 1 % (0-2.5); Eosinophils # (Auto) 0.4 Thou/mm3 (0.0-0.5); Eosinophils % (Auto) 2 % (0-10); Hematocrit 28.3 % (41.0-53.0); Immature Granulocytes Auto 1.33 Thou/mm3 (0.00-0.00); Lymphocytes # (Auto) 2.3 Thou/mm3 (1.0-4.8); Lymphocytes % (Auto) 11 % (10-50); Mean Corpuscular HGB Conc 31.1 g/dl (31.0-37.0); Mean Corpuscular Hemoglobin 27.1 pg (25.0-35.0); Mean Corpuscular Volume 87 fL (80-100); Monocytes # (Auto) 1.3 Thou/mm3 (0.0-0.8); Monocytes % (Auto) 7 % (0-12); Neutrophils # (Auto) 15.2 Thou/mm3 (1.8-7.7); Neutrophils % (Auto) 74 % (37-80); Nucleated Red Blood Cell # 0.05 Thou/mm3 (0.00-0.00); Nucleated Red Blood Cell % 0 /100 WBC (0); Platelet Count 283 Thou/mm3 (140-440); RDW Standard Deviation 63.6 fL (35.1-43.9); Red Blood Count 3.25 Miln/mm3 (4.50-5.90); White Blood Count 20.6 Thou/mm3 (3.8-10.6)
[2025-05-06 06:04] LABS: Hemoglobin 8.8 g/dL (13.5-16.0)
[2025-05-06 06:20] LABS: Alanine Aminotransferase 16 U/L (10-49); Albumin, Serum 2.8 gm/dL (3.4-4.8); Albumin/Globulin Ratio 1.2 (1.2-2.2); Alkaline Phosphatase 472 U/L (46-116); Anion Gap 6 (7-16); Aspartate Amino Transferase 49 U/L (0-34); BUN/Creatinine Ratio 24 Ratio (12-20); Bilirubin,Total 0.5 mg/dL (0.3-1.2); Blood Urea Nitrogen 24 mg/dL (9-23); Calcium 8.5 mg/dL (8.3-10.6); Calcium (Corrected) 9.5 mg/dL (8.5-10.1); Carbon Dioxide 27.3 mMol/L (20.0-31.0); Chloride 111 mMol/L (98-107); Creatinine (Component) 1.0 mg/dL (0.6-1.3); Estimated Creatinine Clearance 89.2 mL/min (>60); Globulin 2.3 gm/dL (2.3-3.5); Glucose 115 mg/dL (74-106); Magnesium 2.2 mg/dL (1.6-2.6); Osmolality,Calculated 291 (275-295); Phosphorous 3.9 mg/dL (2.4-5.1); Potassium 4.5 mMol/L (3.4-5.1); Sodium 144 mMol/L (136-145); Total Protein 5.1 gm/dL (5.7-8.2); eGFR > 60 See Note
[2025-05-06] MEDS: cefTRIAXone/D5w 1gm IV premix 1 GM/50 ML BAG IV (08:36)
[2025-05-06] MEDS: lamoTRIgine 25 MG CHEW 200 MG GT (08:36)
[2025-05-06] MEDS: TAMSULOSIN HCL 0.4 MG CAPSULE GT (08:37)
[2025-05-06 09:14] LABS: Glucose Estimated Average 103 mg/dL (80-131); Hemoglobin A1C 5.2 % Hgb (4.8-6.0)
[2025-05-06] MEDS: AZITHROMYCIN INJ 500 MG in SODIUM CHLORIDE 0.9% 250 ML 250 ML 250 MG IV (09:51)
--- NOTE | 2025-05-06 13:28 | PC.SS ---
Addendum entered by Jessica John 05/06/25 15:53: Update: SS spoke to [facility] and they spoke to patient's step mom to follow up on her plans. The step mom is agreeable to taking patient home. However, she states she needs another day to get her home ready. Hospice order and documentation sent to [facility]. They state they can accommodate 10L at home under their service. Original Note: Follow up note: Patient is on 10L of . SS met with patient who is alert/oriented. SS asked him what his ideal d/c plan would be and he prefers to d/c to his step-mom's house with hospice. Patient declined [employer] application yesterday with financial counselor. SS asked again today if he would like to apply for additional coverage. Patient declined. Patient states he wants to d/c to his step-mom's home with hospice. SS updated Dariela @ [facility].
--- NOTE | 2025-05-06 14:45 | PC.DIETICIAN ---
Nutrition prescription (updated) Nocturnal feeds (from 8pm to 8am): Tabitha Medel Peptide 1.5 at 105 ml/hr x 12 hrs via PEG tube by pump (goal). If no IV fluids, water flushes of 150 ml every 4 hrs (or per MD). Continue with: ProStat 30ml BID via PEG tube.
--- NOTE | 2025-05-06 16:15 | PD.RESPRO ---
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 Patient initially presented to the emergency room via private care with a chief complain of unable to tolerate feedings with regurgitations noted by family members at bedside and abdominal pain. Patient having increased shortness of breath and difficult to breath. Patient initially admitted for early pneumonia meeting SIRS criteria. [place] subsequently found to have an left upper extremity and CTA chest (04/28/2025): positive for numerous bilateral pulmonary artery emboli including large filling defects int he distral right main pumonary artery extending into upper and lower lobe right pulmonary artery branches. Left spraclavicular and left axillary, mediastinal, paraaortic and mesenteric extensive lymphadenopathy. Patient was upgraded to ICU for observation given extensive PE and hemoinstability. 05/06/2025: The patient was seen and examined at the bedside this morning. He reported that earlier this morning he had some chest pain, and was given pain medicine that resolved his chest pain. He reported mild SOB, but denied any dizziness, headache, abdominal pain, fever or chills, orthopnea or PND. His vitals were blood pressure 130/84, heart rate 119, RR 32, saturating 94% on 10 L oxime mask. Labs revealed white count of 20.6, hemoglobin 8.8, sodium 144, potassium 4.5, BUN 25 and creatinine 1.0 including magnesium 2.2. Goals of care discussion was done by primary hospitalist team and patient considering hospice. Exam Vital Signs Temp Pulse Resp BP Pulse Ox O2 Del Method O2 Flow Rate 98.0 F 123 H 24 H 106/74 94 L Oxy Mask 10 05/06/25 12:00 05/06/25 12:23 05/06/25 12:23 05/06/25 12:05/06/25 12:05/06/25 12:05/06/25 12:23 FiO2 4 05/04/25 12:38 Narrative Exam General: Alert and oriented x3. This morning patient does not appear to be in any respiratory distress and is on nasal cannula. Eyes: Pupils are equal and reactive to light bilaterally. HEENT: Atraumatic, normocephalic. No JVD noted. Mucosa moist. Cardiovascular: Normal S1 and S2. Tachycardic and regular rhythm. No murmurs appreciated. Trace peripheral pitting edema noted. Respiratory: No respiratory distress. Lungs are clear to auscultation bilaterally but decreased at the bases. No wheezing or crackles heard. Abdomen: Soft, nontender, nondistended. Skin: No rash. Warm to touch. Musculoskeletal: No gross injuries. Able to move all 4 extremities. Neuro: Alert and oriented x3. No focal neuro deficits. Psych: Normal affect and mood Objective Labs 05/07/25 05:21 05/07/25 05:21 Labs: Laboratory Results - last 24 hr 05/06/25 04:51 WBC 20.6 H RBC 3.25 L Hgb 8.8 L Hct 28.3 L MCV 87 MCH 27.1 MCHC 31.1 RDW Std Deviation 63.6 H Plt Count 283 Neut % (Auto) 74 Lymph % (Auto) 11 [place] % (Auto) 7 Eos % (Auto) 2 Baso % (Auto) 1 Neut # (Auto) 15.2 H Lymph # (Auto) 2.3 [place] # (Auto) 1.3 H Eos # (Auto) 0.4 Baso # (Auto) 0.1 Immature Gran # (Auto) 1.33 H Absolute Nucleated RBC 0.05 H Immature Gran % 7 H Nucleated RBC % 0 Sodium 144 Potassium 4.5 Chloride 111 H Carbon Dioxide 27.3 Anion Gap 6 L BUN 24 H Creatinine 1.0 Estim Creat Clear Calc 89.2 eGFR > 60 BUN/Creatinine Ratio 24 H Glucose [address] Glu mg/dL 103 Hemoglobin A1c 5.2 Calculated Osmolality 291 Calcium 8.5 Corrected Calcium 9.5 Phosphorus 3.9 Magnesium 2.2 Total Bilirubin 0.5 AST 49 H ALT 16 Alkaline Phosphatase 472 H D Total Protein 5.1 L Albumin 2.8 L Globulin 2.3 Albumin/Globulin Ratio 1.2 ABG Interpretation ABG results: 04/28/25 04/28/25 04/29/25 08:00 23:00 18:22 ABG pH 7.41 7.39 ABG pCO2 37 42 ABG pO2 80 L 85 ABG HCO3 23 25 ABG O2 Saturation 97 97 ABG Base Excess -1 0 VBG pH 7.36 VBG pCO2 49 VBG pO2 27 VBG Base Excess 1 05/03/25 16:34 ABG pH 7.40 ABG pCO2 41 ABG pO2 64 L ABG HCO3 26 ABG O2 Saturation 92 ABG Base Excess 1 VBG pH VBG pCO2 VBG pO2 VBG Base Excess Quality Measures Quality Measures none Advance care planning discussed with:: patient Assessment & Plan Assessment Current Active Medications: Generic Name Dose Route Start Last Admin Trade Name Freq PRN Reason Stop Dose Admin Acetaminophen 650 mg 04/30/25 08:20 Acetaminophen Georgette 325 Mg/10 Ml Udc GT 05/26/25 14:04 Q6H PRN Fever >101.5 OR PAIN 1-3 Hydrocodone Bitart/Acetaminophen 1 tab 05/06/25 11:52 05/06/25 12:22 Hydrocodone/Apap 10/325 Tab GT 05/11/25 11:51 1 tab Q4HR PRN Administration Pain Scale 7-10 (Severe) Albuterol/Ipratropium 3 ml 05/01/25 07:45 05/06/25 12:23 Albuterol/Ipratropium (Duoneb) Rt Georgette 3 Ml Nebu INH 05/31/25 07:44 3 ml Q6HRRT ELLIOTT Administration Carbidopa/Levodopa 1 tab 04/26/25 22:00 05/06/25 13:56 Carbidopa/Levodopa 25/100 Mg Tablet GT 05/26/25 21:59 1 tab TID ELLIOTT Administration Gabapentin 100 mg 04/26/25 22:00 05/06/25 13:56 Gabapentin 100 Mg Capsule GT 05/26/25 21:59 100 mg TID ELLIOTT Administration Guaifenesin 200 mg 05/01/25 12:00 05/06/25 12:21 Guaifenesin Syrup 200 Mg/10 Ml Udc GT 05/31/25 11:59 200 mg QID ELLIOTT Administration Protocol Hydromorphone HCl 1 mg 05/06/25 11:51 05/06/25 13:48 Hydromorphone Inj 2 Mg/Ml Vial IVP 05/11/25 11:50 1 mg Q4HR PRN Administration Breakthrough Pain Azithromycin 500 mg/ Sodium 250 mls @ 250 mls/hr 05/03/25 10:57 05/06/25 09:51 Chloride IV 05/10/25 10:56 250 mls/hr QDAY ELLIOTT Administration Ceftriaxone Sodium/Dextrose 1 gm in 50 mls @ 100 mls/hr 05/04/25 10:31 05/06/25 08:36 Rocephin/D5w 1gm Iv Premix IV 05/11/25 10:30 100 mls/hr QDAY ELLIOTT Administration Lamotrigine 200 mg 05/05/25 09:00 05/06/25 08:36 Lamotrigine 25 Mg Chew GT 05/29/25 08:59 200 mg DAILY ELLIOTT Administration Lorazepam 1 mg 05/04/25 19:17 05/05/25 01:56 Lorazepam 2 Mg/Ml Vial IVP 05/09/25 19:16 1 mg Q8HR PRN Administration ANXIETY Ondansetron HCl 4 mg 04/26/25 14:05 Ondansetron Inj 2 Mg/Ml Inj 2 Ml IVP 05/26/25 14:04 Q6H PRN NAUSEA OR VOMITING Protocol Oxycodone/Acetaminophen 1 tab 05/06/25 11:52 Oxycodone/Apap 5/325 Tablet GT 05/11/25 11:51 Q6H PRN Pain Scale 4-6 (Moderate) Pantoprazole Sodium 40 mg 05/01/25 09:15 05/06/25 08:36 Pantoprazole Inj 40 Mg Vial IVP 05/31/25 09:14 40 mg QDAY ELLIOTT Administration Protocol Polyethylene Glycol 17 gm 05/02/25 09:00 05/06/25 08:37 Polyethylene Glycol 17 Gm Packet GT 06/01/25 08:59 Not Given QDAY ELLIOTT Quetiapine Fumarate 200 mg 04/27/25 09:00 05/06/25 08:37 Quetiapine Fumarate 100 Mg Tablet GT 05/27/25 08:59 200 mg BID ELLIOTT Administration Sennosides 8.8 mg 05/02/25 09:00 05/06/25 08:37 Sennosides Syrup 8.8 Mg/5 Ml Udc GT 06/01/25 08:59 Not Given QDAY ELLIOTT Protocol Tamsulosin HCl 0.4 mg 05/01/25 09:15 05/06/25 08:37 Tamsulosin Hcl 0.4 Mg Capsule GT 05/31/25 09:14 0.4 mg QDAY ELLIOTT Administration Plan Patient is a 69-year-old male with a past medical history of partially 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 Patient initially presented to the emergency room via private care with a chief complain of unable to tolerate feedings with regurgitations noted by family members at bedside and abdominal pain. The patient is currently being treated for AHRF. #Acute hypoxic respiratory failure #Pulmonary embolism #Provoked PE in the setting of malignancy #Left upper extremity DVT #Shock, resolved Patient presented with concern for possible early pneumonia, given worsening dyspnea CTA chest obtained noted to show large distal main pulmonary artery extending into the upper and lower right pulmonary lobe who multiple right pulmonary PE. Given bilateral PE including a large filling defect in the distal right main pulmonary artery concern for obstructive shock. Versus cardio cardiogenic given elevated troponins of 1.070 and patient denied chest pain versus septic given elevated leukocytosis, less likely. CT Chest (04/28/2025): Positive for numerous bilateral pulmonary artery emboli including large filling efects in the distal right main pulmonary artery extending into the origins ofthe upper and lower lobe right pulmonary artery branches Left supraclavicular and left axillary, mediastinal, para-aortic and mesenteric extensive lymphadenopathy Esophageal mass again noted Right heart cath: 04/30/2025: Right heart cardiac catheterization with pulmonary angiogram showed normal right heart pressures and normal PA pressure along with no clot in the main right or left PA and most of the clot burden is in the distal segmental and subsegmental branches as noted previously. Patient does have significant DVT of the left upper extremity extending into the left IJ. Possible dislodgment and superimposed new clot the chronic distal PEs can be considered but patient was on anticoagulation with full dose Eliquis and less likely he failed any kind of anticoagulation. Troponin 1.07 0.880 PESI 190, Class V On 05/03/2025: Repeat chest x-ray showed pleural effusions along with questionable pneumonia. Bedside ultrasound did show dilated IVC but patient was on BiPAP. Patient has been started on IV antibiotics and also started on IV diuresis. 05/04/2025: CTA chest revealed pulmonary artery emboli in distal right main pulmonary artery. There remain numerous filling defects in right lower lobe pulmonary artery branches. Left lower lobe pulmonary artery filling defects are noted but less prominent compared to April 28, 2025. Plan -Patient downgraded from ICU, as saturating well in 3 L NC. -Heparin drip discontinued after risk and benefits discussion with the patient by primary team. -Avoid increasing intrathoraic pressure 05/05/2025: Patient examined at bedside, reported doing well. Reported SOB being stable. Saturating 98% on 4L NC. His HR has been stable in 110's. CTA chest done yesterday was significant for PE. Also yesterday, the primary team had goals of discussion with the patient and risks and benefits of anticoagulation was discussed with him. He wished to proceed with discontinuing heparin drip. However, the patient's hypoxia is likely multifactorial in the setting of bilateral pleural effusion, pneumonia and less likely considered to be with pulmonary embolism. 05/06/2025: The patient was seen and examined at the bedside this morning. He reported that earlier this morning he had some chest pain, and was given pain medicine that resolved his chest pain. He reported mild SOB, but denied any dizziness, headache, abdominal pain, fever or chills, orthopnea or PND. His vitals were blood pressure 130/84, heart rate 119, RR 32, saturating 94% on 10 L oxime mask. Labs revealed white count of 20.6, hemoglobin 8.8, sodium 144, potassium 4.5, BUN 25 and creatinine 1.0 including magnesium 2.2. Goals of care discussion was done by primary hospitalist team, and he wished to go to hospice. #Leukocytosis Concern fo early pneumonia on intial chest x-ray on admsision late noted to be a PE. Given history of malignancy likely leading to leukocytosis. Continue to montior Blood cutlure negative. Cxr (04/29/2025): Mild prominence left ventricle w/ prominent vascular congestion Cx(04/26/2025): Subtle early bilateral pneumonia w/ abnormally prominent right mediastinum UA negative #Hypertension Past medical history HTN on carvedilol, given concern for PE consider holding holding. continue to hold Losartan, given concern for shock #Normocytic Anemia Likely in the setting of malignnacy vs chronic loss Plan -consider iron panel. -continue to monitor Hgb and Hct #Esophageal malignancy, undifferentiated #Status post G-tube placement Plan -Dr. Saeed following -consider GI consult #BHP Consider holding Tamsulosin #Obesity Thank you for the opportunity to take part in this patient care. Cardiology team will continue to follow up on this patient. The patient's management plan was discussed with my attending physician MD Dejuan Zuniga MD, PGY3 Attending Provider Attestation/Addendum I have personally seen and examined the patient separately on the above date of service and discussed the plan of care with the resident. I reviewed the resident Dr. Dejuan Rivera consultation progress note and agree with the resident findings and plan in the note above and have also edited the documentation to reflect my findings and plan. I have personally seen and examined the patient separately on the above date of service and discussed the plan of care with the resident. I reviewed the resident Dr. Jeannine Cano consultation progress note and agree with the resident findings and plan in the note above and have also edited the documentation to reflect my findings and plan. 05/04/2025: Patient has been on BiPAP overnight and he did respond well with diuretics and now is on 6 L oxygen via nasal cannula but still has increased work of breathing. Repeat chest x-ray did show worsening right-sided effusions along with possible pneumonia. Repeat limited echocardiogram was completed and it showed normal LV function, normal RV function and no evidence of any right heart strain. Repeat CTA was also performed which did show again right lower lobe artery thrombus burden along with thrombus in the distal right lower lobe branches as well as the left lower lobe branches overall the thrombus at the end appears to be a less than the previous CT. Patient does now have large bilateral pleural effusions mentioned. Close review of the CT did show patient probably has consolidation along with questionable pulmonary infarct along with the bilateral effusions. Also noted that there was questionable lung mass along with the extensive mediastinal lymphadenopathy. For this patient previous right heart cath as well as pulmonary angiogram did not show normal right heart pressures along with only distal segmental subsegmental clot burden.Patient hypoxia appears to be multifactorial at the present point of time and performing under pulmonary angiogram with thrombectomy will only partially alleviate his hypoxia. As noted previously patient has significant left upper extremity DVT and possible more clot dislodged with acute on chronic thrombus burden. Given his multiple comorbidities as well as the stage IV cancer goals of 8 were discussed with the family in detail by me and the primary team to have the discussion again this evening as patient also not interested in continuing with BiPAP and he does not seem to be interested in further interventions. 05/05/2025: Patient apparently did decide to elect DNR and DNI status and no further aggressive treatment measures at the present point of time. Patient also declining blood thinners including heparin drip or any kind of anticoagulation. Patient also did not want to do any BiPAP or intubation and wanted to continue oxygen via nasal cannula. Discussed with the patient the importance of taking anticoagulation in view of his acute on chronic pulmonary embolism and's extensive left arm DVT extending up to the internal jugular vein. Patient understands the risks of not taking the anticoagulation. Patient is on pain medication along with antibiotics and oxygen. Primary team discussing further goals of care for the patient at the present point of time. 05/06/2025: Patient still does not want any kind of blood thinners at the present point of time still is off heparin drip for any anticoagulation. It appears that patient is still not clear on his long goals of care. During examination today again patient is on BiPAP while x-ray he did not wish to have any BiPAP. Patient also does not want any further procedures at this point of time and is DNR/DNI. Primary team did discuss with the patient about hospice but he has not made his final decision yet. Paulo Hairston M.D. Interventional Cardiology
--- NOTE | 2025-05-06 20:14 | PD.RESPRO ---
Documentation for date of: 05/06/25 Subjective Subjective Interval history: No acute overnight events. On 10 L nasal cannula, satting okay. Remained tachycardic. Planes of generalized pain, multimodal pain medications on board. Denies fever, chills, headaches, chest pain, cough, GI or urinary symptoms. Exam Vital Signs Temp Pulse Resp BP Pulse Ox O2 Del Method O2 Flow Rate 97.1 F 127 H 30 H 121/78 93 L Oxy Mask 10 05/06/25 16:00 05/06/25 20:04 05/06/25 20:04 05/06/25 16:00 05/06/25 20:04 05/06/25 16:00 05/06/25 16:00 FiO2 70 05/06/25 20:04 Narrative Exam General: Alert and oriented x3. This morning patient does not appear to be in any respiratory distress and is on nasal cannula. Eyes: Pupils are equal and reactive to light bilaterally. HEENT: Atraumatic, normocephalic. No JVD noted. Mucosa moist. Cardiovascular: Normal S1 and S2. Tachycardic and regular rhythm. No murmurs appreciated. Trace peripheral pitting edema noted. Respiratory: No respiratory distress. Lungs are clear to auscultation bilaterally but decreased at the bases. No wheezing or crackles heard. Abdomen: Soft, nontender, nondistended. Skin: No rash. Warm to touch. Musculoskeletal: No gross injuries. Able to move all 4 extremities. Neuro: Alert and oriented x3. No focal neuro deficits. Psych: Normal affect and mood Objective Labs 05/06/25 04:51 05/06/25 04:51 Labs: Laboratory Results - last 24 hr 05/06/25 04:51 WBC 20.6 H RBC 3.25 L Hgb 8.8 L Hct 28.3 L MCV 87 MCH 27.1 MCHC 31.1 RDW Std Deviation 63.6 H Plt Count 283 Neut % (Auto) 74 Lymph % (Auto) 11 [place] % (Auto) 7 Eos % (Auto) 2 Baso % (Auto) 1 Neut # (Auto) 15.2 H Lymph # (Auto) 2.3 [place] # (Auto) 1.3 H Eos # (Auto) 0.4 Baso # (Auto) 0.1 Immature Gran # (Auto) 1.33 H Absolute Nucleated RBC 0.05 H Immature Gran % 7 H Nucleated RBC % 0 Sodium 144 Potassium 4.5 Chloride 111 H Carbon Dioxide 27.3 Anion Gap 6 L BUN 24 H Creatinine 1.0 Estim Creat Clear Calc 89.2 eGFR > 60 BUN/Creatinine Ratio 24 H Glucose [address] Glu mg/dL 103 Hemoglobin A1c 5.2 Calculated Osmolality 291 Calcium 8.5 Corrected Calcium 9.5 Phosphorus 3.9 Magnesium 2.2 Total Bilirubin 0.5 AST 49 H ALT 16 Alkaline Phosphatase 472 H D Total Protein 5.1 L Albumin 2.8 L Globulin 2.3 Albumin/Globulin Ratio 1.2 ABG Interpretation ABG results: 04/28/25 04/28/25 04/29/25 08:00 23:00 18:22 ABG pH 7.41 7.39 ABG pCO2 37 42 ABG pO2 80 L 85 ABG HCO3 23 25 ABG O2 Saturation 97 97 ABG Base Excess -1 0 VBG pH 7.36 VBG pCO2 49 VBG pO2 27 VBG Base Excess 1 05/03/25 16:34 ABG pH 7.40 ABG pCO2 41 ABG pO2 64 L ABG HCO3 26 ABG O2 Saturation 92 ABG Base Excess 1 VBG pH VBG pCO2 VBG pO2 VBG Base Excess Quality Measures Quality Measures none Advance care planning discussed with:: patient Assessment & Plan Assessment Current Active Medications: Generic Name Dose Route Start Last Admin Trade Name Freq PRN Reason Stop Dose Admin Acetaminophen 650 mg 04/30/25 08:20 Acetaminophen Georgette 325 Mg/10 Ml Udc GT 05/26/25 14:04 Q6H PRN Fever >101.5 OR PAIN 1-3 Hydrocodone Bitart/Acetaminophen 1 tab 05/06/25 11:52 05/06/25 12:22 Hydrocodone/Apap 10/325 Tab GT 05/11/25 11:51 1 tab Q4HR PRN Administration Pain Scale 7-10 (Severe) Albuterol/Ipratropium 3 ml 05/01/25 07:45 05/06/25 20:04 Albuterol/Ipratropium (Duoneb) Rt Georgette 3 Ml Nebu INH 05/31/25 07:44 3 ml Q6HRRT ELLIOTT Administration Carbidopa/Levodopa 1 tab 04/26/25 22:00 05/06/25 13:56 Carbidopa/Levodopa 25/100 Mg Tablet GT 05/26/25 21:59 1 tab TID ELLIOTT Administration Gabapentin 100 mg 04/26/25 22:00 05/06/25 13:56 Gabapentin 100 Mg Capsule GT 05/26/25 21:59 100 mg TID ELLIOTT Administration Guaifenesin 200 mg 05/01/25 12:00 05/06/25 17:31 Guaifenesin Syrup 200 Mg/10 Ml Udc GT 05/31/25 11:59 200 mg QID ELLIOTT Administration Protocol Hydromorphone HCl 1 mg 05/06/25 11:51 05/06/25 17:31 Hydromorphone Inj 2 Mg/Ml Vial IVP 05/11/25 11:50 1 mg Q4HR PRN Administration Breakthrough Pain Azithromycin 500 mg/ Sodium 250 mls @ 250 mls/hr 05/03/25 10:57 05/06/25 09:51 Chloride IV 05/10/25 10:56 250 mls/hr QDAY ELLIOTT Administration Ceftriaxone Sodium/Dextrose 1 gm in 50 mls @ 100 mls/hr 05/04/25 10:31 05/06/25 08:36 Rocephin/D5w 1gm Iv Premix IV 05/11/25 10:30 100 mls/hr QDAY ELILOTT Administration Lamotrigine 200 mg 05/05/25 09:00 05/06/25 08:36 Lamotrigine 25 Mg Chew GT 05/29/25 08:59 200 mg DAILY ELLIOTT Administration Lansoprazole 30 mg 05/07/25 09:00 Lansoprazole 30 Mg Tab. GT 05/31/25 09:14 QDAY ELLIOTT Protocol Lorazepam 1 mg 05/04/25 19:17 05/05/25 01:56 Lorazepam 2 Mg/Ml Vial IVP 05/09/25 19:16 1 mg Q8HR PRN Administration ANXIETY Ondansetron HCl 4 mg 04/26/25 14:05 Ondansetron Inj 2 Mg/Ml Inj 2 Ml IVP 05/26/25 14:04 Q6H PRN NAUSEA OR VOMITING Protocol Oxycodone/Acetaminophen 1 tab 05/06/25 11:52 Oxycodone/Apap 5/325 Tablet GT 05/11/25 11:51 Q6H PRN Pain Scale 4-6 (Moderate) Polyethylene Glycol 17 gm 05/02/25 09:00 05/06/25 08:37 Polyethylene Glycol 17 Gm Packet GT 06/01/25 08:59 Not Given QDAY ELLIOTT Quetiapine Fumarate 200 mg 04/27/25 09:00 05/06/25 08:37 Quetiapine Fumarate 100 Mg Tablet GT 05/27/25 08:59 200 mg BID ELLIOTT Administration Sennosides 8.8 mg 05/02/25 09:00 05/06/25 08:37 Sennosides Syrup 8.8 Mg/5 Ml Udc GT 06/01/25 08:59 Not Given QDAY [facility] Protocol Tamsulosin HCl 0.4 mg 05/01/25 09:15 05/06/25 08:37 Tamsulosin Hcl 0.4 Mg Capsule GT 05/31/25 09:14 0.4 mg QDAY ELLIOTT Administration Plan Mr. Hale, a 69-year-old male with stage IV esophageal carcinoma, Parkinson?s disease, and several comorbidities, was admitted on 04/26/2025 with nausea, vomiting, diarrhea, and weakness. His cancer has spread to lymph nodes and bones. On 04/28, a CTA chest confirmed bilateral PEand left upper extremity DVT. He was started on heparin drip, initially opted for comfort care, but later chose full code and thrombectomy. By 04/30, after right heart catheterization and pulmonary angiogram, his PE showed partial resolution, and oxygen needs decreased. He is receiving supportive care for his cancer. His blood pressure stabilized with Levophed for short-period while in ICU, and pain is managed with morphine. His condition remains critical, and care is focused on symptom relief and preventing further complications. 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 05/23/2025: Goals of care today regarding overall guarded prognosis. Patient elected to proceed with hospice. Orders are in. Acute hypoxemic respiratory failure Acute pulmonary embolism Left upper extremity DVT Possible Pulmonary metastatic cancer Had increasing oxygen demand since admission. CTA chest was positive for numerous bilateral pulmonary arterial emboli including large filling defect in distal right main artery extending into the origin of upper and lower lobe pulmonary branches. He was started on HEPARIN drip, and underwent thrombectomy with cardiology team while in ICU. Symptoms have improved. Currently on nasal cannula, satting well. This possible lung metastatic disease of his esophageal carcinoma given extensive multisystem involvement. Will need PET scan eventually. HEPARIN drip discontinued on 05/01, transition to ELIQUIS BID. 05/06/25: Echocardiogram showed EF >75% hyperdynamic function, moderately dilated right ventricle with mid systolic dysfunction. Again, patient wants to proceed without blood thinners for pulmonary embolism, again elected against BiPAP and only oxygen at this time. Hospice orders are in per patient and family refused. ? Oxygen PRN ? DuoNebs PRN ? Pain control, multimodal ? Continue AZITHROMYCIN (05/03 to present) for possible PNA ? Continue CEFTRIAXONE (05/04 to present) for possible PNA DVT left upper extremity Venous Doppler was done for left upper extremity swelling and showed nonocclusive thrombus extending up to left jugular vein. Swelling overall improving. ? Continue above management SIRS Paraneoplastic leukocytosis Immunocompromised Esophageal carcinoma Esophageal dysphagia requiring G-tube Protein calorie malnutrition Recently diagnosed esophageal carcinoma (undifferentiated). Admission CT abdominal pelvis showed thickening lateral wall esophagus, extensive metastatic lymphadenopathy with widespread osteolytic metastatic disease. Has worsening esophageal dysphagia secondary to above-mentioned findings, requiring PEG tube use. ? Oncology on board ? TYLENOL for fever ? Continue MORPHINE 2 mg Q2H (pain 1-4) ? Continue DILAUDID 1 mg Q4H (breakthrough pain) ? Continue GABAPENTIN 100 mg TID Hypertension Shock, multifactorial (resolved) He had multifactorial shock while in ICU, likely hypovolemic which resolved with short course of pressors and fluids. Currently normotensive ? Holding home LOSARTAN 25 daily ? Holding home CARVEDILOL 6.25 BID Transaminitis, resolving Most likely secondary to hypovalemia/dehydration in setting of NVD Overall stable. ? Daily labs Parkinsons disease Bipolar disorder ? Restarted home med CARBIDOPA LEVODOPA TID ? Restarted home med QUETIAPINE 200 mg BID ? Continue LAMOTRIGINE 200 mg daily SARBJIT, prerenal azotemia (resolved) Hypercalcemia Prerenal azotemia likely volume depletion, overall improved with fluids. Urine output is adequate. Hypercalcemia in setting of malignancy, calcium around 11.3 ? Renally dose meds, avoid overdiuresis and NEPHROTOXINS ? Daily CMP Health maintenance Diet: Managed by dietary GI prophylaxis: PROTONIX DVT prophylaxis: ELIQUIS Antibiotics: Not indicated CODE STATUS: Full code Disposition: Treating pulmonary embolism, wean off oxygen, currently on HFNC Case was discussed with attending physician and senior resident. Francisco J Larsen, PGY II This document was transcribed using voice recognition technology. Minor inaccuracies may be present. Attending Provider Attestation/Addendum I attest that I was physically present for the evaluation, physical examination, lab and imaging review of the patient with the residents. I discussed the case with the residents and agree with the findings and plans of care as documented above. Rajesh Roberts MD
[2025-05-07] VITALS (16 sets, daily range): BP systolic 107–149; BP diastolic 66–98; PULSE 111–151; RESP 18–94; TEMP 36.1–36.8; O2SAT 94–99; BMI 37.8
[2025-05-07] MEDS: ALBUTEROL/IPRATROPIUM (Duoneb) RT SOL 3 ML NEBU INH ×4 (01:09→18:22)
[2025-05-07] MEDS: HYDROmorphone INJ 2 MG/ML VIAL 1 MG IVP ×2 (01:13→05:30)
[2025-05-07] MEDS: GABAPENTIN 100 MG CAPSULE GT ×3 (05:29→21:55)
[2025-05-07] MEDS: CARBIDOPA/LEVODOPA 25/100 MG TABLET 1 TAB GT ×3 (05:29→21:54)
[2025-05-07] MEDS: guaiFENesin SYRUP 200 MG/10 ML UDC GT ×4 (05:29→21:53)
[2025-05-07 06:36] LABS: Basophils # (Auto) 0.1 Thou/mm3 (0.0-0.2); Basophils % (Auto) 0 % (0-2.5); Eosinophils # (Auto) 0.4 Thou/mm3 (0.0-0.5); Eosinophils % (Auto) 2 % (0-10); Hematocrit 26.4 % (41.0-53.0); Immature Granulocytes Auto 1.01 Thou/mm3 (0.00-0.00); Lymphocytes # (Auto) 2.0 Thou/mm3 (1.0-4.8); Lymphocytes % (Auto) 10 % (10-50); Mean Corpuscular HGB Conc 30.7 g/dl (31.0-37.0); Mean Corpuscular Hemoglobin 27.4 pg (25.0-35.0); Mean Corpuscular Volume 89 fL (80-100); Monocytes # (Auto) 1.2 Thou/mm3 (0.0-0.8); Monocytes % (Auto) 6 % (0-12); Neutrophils # (Auto) 14.6 Thou/mm3 (1.8-7.7); Neutrophils % (Auto) 76 % (37-80); Nucleated Red Blood Cell # 0.05 Thou/mm3 (0.00-0.00); Nucleated Red Blood Cell % 0 /100 WBC (0); Platelet Count 218 Thou/mm3 (140-440); RDW Standard Deviation 64.5 fL (35.1-43.9); Red Blood Count 2.96 Miln/mm3 (4.50-5.90); White Blood Count 19.3 Thou/mm3 (3.8-10.6)
[2025-05-07 06:37] LABS: Hemoglobin 8.1 g/dL (13.5-16.0)
[2025-05-07 07:00] LABS: Alanine Aminotransferase 23 U/L (10-49); Albumin, Serum 2.7 gm/dL (3.4-4.8); Albumin/Globulin Ratio 1.2 (1.2-2.2); Alkaline Phosphatase 570 U/L (46-116); Anion Gap 8 (7-16); Aspartate Amino Transferase 79 U/L (0-34); BUN/Creatinine Ratio 26 Ratio (12-20); Bilirubin,Total 0.4 mg/dL (0.3-1.2); Blood Urea Nitrogen 26 mg/dL (9-23); Calcium 8.2 mg/dL (8.3-10.6); Calcium (Corrected) 9.2 mg/dL (8.5-10.1); Carbon Dioxide 27.4 mMol/L (20.0-31.0); Chloride 107 mMol/L (98-107); Creatinine (Component) 1.0 mg/dL (0.6-1.3); Estimated Creatinine Clearance 89.2 mL/min (>60); Globulin 2.2 gm/dL (2.3-3.5); Glucose 143 mg/dL (74-106); Magnesium 2.1 mg/dL (1.6-2.6); Osmolality,Calculated 289 (275-295); Phosphorous 4.0 mg/dL (2.4-5.1); Potassium 4.5 mMol/L (3.4-5.1); Sodium 142 mMol/L (136-145); Total Protein 4.9 gm/dL (5.7-8.2); eGFR > 60 See Note
--- NOTE | 2025-05-07 08:09 | XR_ITS ---
Examination: AP chest single view Technique: AP portable semiupright chest single view Date and time: May 07, 2025, 0819 hrs. Comparison May 04, 2025 Indications: Shortness of breath today Findings: Mild heart failure Mild enlargement cardiac contour with prominent vascular congestion Consider superimposed right perihilar and left basilar pneumonia Significant osteopenia Impression: Mild heart failure Consider superimposed right perihilar and left basilar pneumonia
[2025-05-07] MEDS: LORazepam 2 MG/ML VIAL 1 MG IVP (08:16)
--- NOTE | 2025-05-07 08:19 | PD.RESEVENT ---
Documentation for date of: 05/07/25 Event Note Event Note: Around 8:30 AM this morning, RR was called as patient was complaining of shortness of breath. He was on BiPAP at the time of discharge, satting well otherwise, feeling tachypneic, but denies chest pain. He was given magnesium and ATIVAN and continued on BiPAP, symptoms improved. CXR was done showing no acute changes compared to previous findings. VBG showed no significant abnormalities. Will continue to monitor closely. Case was discussed with attending physician. Francisco J Larsen, PGY II This document was transcribed using voice recognition technology. Minor inaccuracies may be present.
[2025-05-07] MEDS: Magnesium Sulfate 2 GM Ivpb 2 GM/50 ML BAG IV (08:27)
[2025-05-07 09:21] LABS: Base Excess, Venous 1 (-3-3); O2 Saturation, Venous 73 % (96-97); PCO2, Venous 46 mmHg (36-56); PO2, Venous 40 mmHg (15-58); pH, Venous 7.38 (7.33-7.66)
[2025-05-07] MEDS: FUROSEMIDE INJ 10 MG/ML 4ML VIAL 40 MG IVP (10:05)
[2025-05-07] MEDS: lamoTRIgine 25 MG CHEW 200 MG GT (10:05)
[2025-05-07] MEDS: LANSOPRAZOLE 30 MG TAB.RAP.DR GT (10:05)
[2025-05-07] MEDS: TAMSULOSIN HCL 0.4 MG CAPSULE GT (10:05)
[2025-05-07] MEDS: SENNOSIDES SYRUP 8.8 MG/5 ML UDC GT (10:09)
[2025-05-07] MEDS: metroNIDAZOLE/NS 500 MG IVPB 500 MG/100 ML BAG 200 MG IV ×3 (10:14→21:57)
[2025-05-07] MEDS: MORPHINE SULF INJ 10 MG/ML VIAL 2 MG IVP ×2 (10:24→14:38)
--- NOTE | 2025-05-07 14:03 | ESPR_ITS ---
Documentation for date of: 05/07/25 Subjective Subjective Interval history: Patient is a 69-year-old male with a past medical history of partially 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 Patient initially presented to the emergency room via private care with a chief complain of unable to tolerate feedings with regurgitations noted by family members at bedside and abdominal pain. Patient having increased shortness of breath and difficult to breath. Patient initially admitted for early pneumonia meeting SIRS criteria. [place] subsequently found to have an left upper extremity and CTA chest (04/28/2025): positive for numerous bilateral pulmonary artery emboli including large filling defects int he distral right main pumonary artery extending into upper and lower lobe right pulmonary artery branches. Left spraclavicular and left axillary, mediastinal, paraaortic and mesenteric extensive lymphadenopathy. Patient was upgraded to ICU for observation given extensive PE and hemoinstability. 05/07/2025: The patient was seen and examined at the bedside this morning. He was requiring BiPAP for proper saturation of greater than 95% with 10L O2, he is white count still high 19.3, hemoglobin 8.1, sodium 142, potassium 4.5, BUN 26, creatinine 1.0 and magnesium 2.1. Goals of care discussion was done by primary hospitalist team and patient considering hospice, but has not made his final decision yet. Exam Vital Signs Temp Pulse Resp BP Pulse Ox O2 Del Method O2 Flow Rate 97.6 F 126 H 28 H 114/74 99 BiPAP 10 05/07/25 12:00 05/07/25 13:06 05/07/25 13:06 05/07/25 12:00 05/07/25 13:06 05/07/25 12:00 05/07/25 04:00 FiO2 55 05/07/25 13:06 Narrative Exam General: Alert and oriented x3. This morning patient does not appear to be in any respiratory distress and is on nasal cannula. Eyes: Pupils are equal and reactive to light bilaterally. HEENT: Atraumatic, normocephalic. No JVD noted. Mucosa moist. Cardiovascular: Normal S1 and S2. Tachycardic and regular rhythm. No murmurs appreciated. Trace peripheral pitting edema noted. Respiratory: No respiratory distress. Lungs are clear to auscultation bilaterally but decreased at the bases. No wheezing or crackles heard, staying on BiPAP. Abdomen: Soft, nontender, nondistended. Skin: No rash. Warm to touch. Musculoskeletal: No gross injuries. Able to move all 4 extremities. Neuro: Alert and oriented x3. No focal neuro deficits. Psych: Normal affect and mood Objective Labs 05/09/25 05:04 05/09/25 05:04 Labs: Laboratory Results - last 24 hr 05/07/25 05/07/25 05:21 08:55 WBC 19.3 H RBC 2.96 L Hgb 8.1 L Hct 26.4 L MCV 89 MCH 27.4 MCHC 30.7 L RDW Std Deviation 64.5 H Plt Count 218 D Neut % (Auto) 76 Lymph % (Auto) 10 [place] % (Auto) 6 Eos % (Auto) 2 Baso % (Auto) 0 Neut # (Auto) 14.6 H Lymph # (Auto) 2.0 [place] # (Auto) 1.2 H Eos # (Auto) 0.4 Baso # (Auto) 0.1 Immature Gran # (Auto) 1.01 H Absolute Nucleated RBC 0.05 H Immature Gran % 5 H Nucleated RBC % 0 VBG pH 7.38 VBG pCO2 46 VBG pO2 40 VBG O2 Sat (Jovany) 73 L VBG Base Excess 1 Sodium 142 Potassium 4.5 Chloride 107 Carbon Dioxide 27.4 Anion Gap 8 BUN 26 H Creatinine 1.0 Estim Creat Clear Calc 89.2 eGFR > 60 BUN/Creatinine Ratio 26 H Glucose 143 H Calculated Osmolality 289 Calcium 8.2 L Corrected Calcium 9.2 Phosphorus 4.0 Magnesium 2.1 Total Bilirubin 0.4 AST 79 H ALT 23 Alkaline Phosphatase 570 H D Total Protein 4.9 L Albumin 2.7 L Globulin 2.2 L Albumin/Globulin Ratio 1.2 ABG Interpretation ABG results: 04/28/25 04/28/25 04/29/25 08:00 23:00 18:22 ABG pH 7.41 7.39 ABG pCO2 37 42 ABG pO2 80 L 85 ABG HCO3 23 25 ABG O2 Saturation 97 97 ABG Base Excess -1 0 VBG pH 7.36 VBG pCO2 49 VBG pO2 27 VBG Base Excess 1 05/03/25 05/07/25 16:34 08:55 ABG pH 7.40 ABG pCO2 41 ABG pO2 64 L ABG HCO3 26 ABG O2 Saturation 92 ABG Base Excess 1 VBG pH 7.38 VBG pCO2 46 VBG pO2 40 VBG Base Excess 1 Quality Measures Quality Measures none Advance care planning discussed with:: patient and spouse Assessment & Plan Assessment Current Active Medications: Generic Name Dose Route Start Last Admin Trade Name Freq PRN Reason Stop Dose Admin Acetaminophen 650 mg 04/30/25 08:20 Acetaminophen Georgette 325 Mg/10 Ml Udc GT 05/26/25 14:04 Q6H PRN Fever >101.5 OR PAIN 1-3 Albuterol/Ipratropium 3 ml 05/01/25 07:45 05/07/25 13:04 Albuterol/Ipratropium (Duoneb) Rt Georgette 3 Ml Nebu INH 05/31/25 07:44 3 ml Q6HRRT ELLIOTT Administration Carbidopa/Levodopa 1 tab 04/26/25 22:00 05/07/25 13:07 Carbidopa/Levodopa 25/100 Mg Tablet GT 05/26/25 21:59 1 tab TID ELLIOTT Administration Furosemide 40 mg 05/07/25 09:00 05/07/25 10:05 Furosemide Inj 10 Mg/Ml 4ml Vial IVP 06/06/25 08:59 40 mg QDAY ELLIOTT Administration Gabapentin 100 mg 04/26/25 22:00 05/07/25 13:07 Gabapentin 100 Mg Capsule GT 05/26/25 21:59 100 mg TID ELLIOTT Administration Guaifenesin 200 mg 05/01/25 12:00 05/07/25 13:06 Guaifenesin Syrup 200 Mg/10 Ml Udc GT 05/31/25 11:59 200 mg QID ELLIOTT Administration Protocol Metronidazole 500 mg in 100 mls @ 200 mls/hr 05/07/25 09:53 05/07/25 13:08 Flagyl 500 Mg Iv IV 05/14/25 09:52 200 mls/hr Q8HR ELLIOTT Administration Ceftriaxone Sodium/Dextrose 1 gm in 50 mls @ 100 mls/hr 05/07/25 10:00 05/07/25 10:13 Rocephin/D5w 1gm Iv Premix IV 05/14/25 09:59 Not Given QDAY ELLIOTT Lamotrigine 200 mg 05/05/25 09:00 05/07/25 10:05 Lamotrigine 25 Mg Chew GT 05/29/25 08:59 200 mg DAILY ELLIOTT Administration Lansoprazole 30 mg 05/07/25 09:00 05/07/25 10:05 Lansoprazole 30 Mg Tab. GT 05/31/25 09:14 30 mg QDAY ELLIOTT Administration Protocol Lorazepam 1 mg 05/04/25 19:17 05/07/25 08:16 Lorazepam 2 Mg/Ml Vial IVP 05/09/25 19:16 1 mg Q8HR PRN Administration ANXIETY Morphine Sulfate 2 mg 05/07/25 08:18 05/07/25 10:24 Morphine Sulf Inj 10 Mg/Ml Vial IVP 05/12/25 08:17 2 mg Q4HR PRN Administration Pain 7-10 Ondansetron HCl 4 mg 04/26/25 14:05 Ondansetron Inj 2 Mg/Ml Inj 2 Ml IVP 05/26/25 14:04 Q6H PRN NAUSEA OR VOMITING Protocol Oxycodone/Acetaminophen 1 tab 05/06/25 11:52 05/07/25 13:41 Oxycodone/Apap 5/325 Tablet GT 05/11/25 11:51 1 tab Q6H PRN Administration Pain Scale 4-6 (Moderate) Polyethylene Glycol 17 gm 05/02/25 09:00 05/07/25 10:11 Polyethylene Glycol 17 Gm Packet GT 06/01/25 08:59 Not Given QDAY ELLIOTT Quetiapine Fumarate 200 mg 04/27/25 09:00 05/07/25 10:12 Quetiapine Fumarate 100 Mg Tablet GT 05/27/25 08:59 200 mg BID ELLIOTT Administration Sennosides 8.8 mg 05/02/25 09:00 05/07/25 10:09 Sennosides Syrup 8.8 Mg/5 Ml Udc GT 06/01/25 08:59 8.8 mg QDAY ELLIOTT Administration Protocol Tamsulosin HCl 0.4 mg 05/01/25 09:15 05/07/25 10:05 Tamsulosin Hcl 0.4 Mg Capsule GT 05/31/25 09:14 0.4 mg QDAY ELLIOTT Administration Plan Patient is a 69-year-old male with a past medical history of partially 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 Patient initially presented to the emergency room via private care with a chief complain of unable to tolerate feedings with regurgitations noted by family members at bedside and abdominal pain. The patient is currently being treated for AHRF. #Acute hypoxic respiratory failure #Pulmonary embolism #Provoked PE in the setting of malignancy #Left upper extremity DVT #Shock, resolved Patient presented with concern for possible early pneumonia, given worsening dyspnea CTA chest obtained noted to show large distal main pulmonary artery extending into the upper and lower right pulmonary lobe who multiple right pulmonary PE. Given bilateral PE including a large filling defect in the distal right main pulmonary artery concern for obstructive shock. Versus cardio cardiogenic given elevated troponins of 1.070 and patient denied chest pain versus septic given elevated leukocytosis, less likely. CT Chest (04/28/2025): Positive for numerous bilateral pulmonary artery emboli including large filling efects in the distal right main pulmonary artery extending into the origins ofthe upper and lower lobe right pulmonary artery branches Left supraclavicular and left axillary, mediastinal, para-aortic and mesenteric extensive lymphadenopathy Esophageal mass again noted Right heart cath: 04/30/2025: Right heart cardiac catheterization with pulmonary angiogram showed normal right heart pressures and normal PA pressure along with no clot in the main right or left PA and most of the clot burden is in the distal segmental and subsegmental branches as noted previously. Patient does have significant DVT of the left upper extremity extending into the left IJ. Possible dislodgment and superimposed new clot the chronic distal PEs can be considered but patient was on anticoagulation with full dose Eliquis and less likely he failed any kind of anticoagulation. Troponin 1.07 0.880 PESI 190, Class V On 05/03/2025: Repeat chest x-ray showed pleural effusions along with questionable pneumonia. Bedside ultrasound did show dilated IVC but patient was on BiPAP. Patient has been started on IV antibiotics and also started on IV diuresis. 05/04/2025: CTA chest revealed pulmonary artery emboli in distal right main pulmonary artery. There remain numerous filling defects in right lower lobe pulmonary artery branches. Left lower lobe pulmonary artery filling defects are noted but less prominent compared to April 28, 2025. Plan -Patient downgraded from ICU, as saturating well in 3 L NC. -Heparin drip discontinued after risk and benefits discussion with the patient by primary team. -Avoid increasing intrathoraic pressure 05/05/2025: Patient examined at bedside, reported doing well. Reported SOB being stable. Saturating 98% on 4L NC. His HR has been stable in 110's. CTA chest done yesterday was significant for PE. Also yesterday, the primary team had goals of discussion with the patient and risks and benefits of anticoagulation was discussed with him. He wished to proceed with discontinuing heparin drip. H owever, the patient's hypoxia is likely multifactorial in the setting of bilateral pleural effusion, pneumonia and less likely considered to be with pulmonary embolism. 05/07/2025: The patient was seen and examined at the bedside this morning. He was requiring BiPAP for proper saturation of greater than 95% with 10L O2, he is white count still high 19.3, hemoglobin 8.1, sodium 142, potassium 4.5, BUN 26, creatinine 1.0 and magnesium 2.1. Goals of care discussion was done by primary hospitalist team and patient considering hospice, but has not made his final decision yet. Prognosis seems to be guarded. #Leukocytosis Concern fo early pneumonia on intial chest x-ray on admsision late noted to be a PE. Given history of malignancy likely leading to leukocytosis. Continue to montior Blood cutlure negative. Cxr (04/29/2025): Mild prominence left ventricle w/ prominent vascular congestion Cx(04/26/2025): Subtle early bilateral pneumonia w/ abnormally prominent right mediastinum UA negative #Hypertension Past medical history HTN on carvedilol, given concern for PE consider holding holding. continue to hold Losartan, given concern for shock #Normocytic Anemia Likely in the setting of malignnacy vs chronic loss Plan -consider iron panel. -continue to monitor Hgb and Hct #Esophageal malignancy, undifferentiated #Status post G-tube placement Plan -Dr. Saeed following -consider GI consult #BHP Consider holding Tamsulosin #Obesity Thank you for the opportunity to take part in this patient care. Cardiology team will continue to follow up on this patient. The patient's management plan was discussed with my attending physician MD Dejuan Zuniga MD, PGY3 Attending Provider Attestation/Addendum I reviewed the resident Dr. Dejuan Rivera consultation progress note and agree with the resident findings and plan in the note above and have also edited the documentation to reflect my findings and plan. Paulo Hairston M.D. Interventional Cardiology
--- NOTE | 2025-05-07 16:04 | ESPR_ITS ---
Documentation for date of: 05/07/25 Subjective Subjective Interval history: No acute overnight events. Had a rapid response this morning for SOB which resolved with magnesium, ATIVAN and continued on BiPAP (refer to event note for detail). Currently denies fever, chills, headaches, chest pain, sob, cough, GI or urinary symptoms. Patient and family wishes to proceed with hospice on BiPAP. However, he is only relative is his stepmother (Idalia), who is 82 years old and unable to care for him at home. Social service has been notified. Exam Vital Signs Temp Pulse Resp BP Pulse Ox O2 Del Method O2 Flow Rate 97.6 F 126 H 28 H 114/74 99 BiPAP 10 05/07/25 12:00 05/07/25 13:06 05/07/25 13:06 05/07/25 12:00 05/07/25 13:06 05/07/25 12:00 05/07/25 04:00 FiO2 55 05/07/25 13:06 Narrative Exam General: Alert and oriented x3. This morning patient does not appear to be in any respiratory distress and is on nasal cannula. Eyes: Pupils are equal and reactive to light bilaterally. HEENT: Atraumatic, normocephalic. No JVD noted. Mucosa moist. Cardiovascular: Normal S1 and S2. Tachycardic and regular rhythm. No murmurs appreciated. Trace peripheral pitting edema noted. Respiratory: No respiratory distress. Lungs are clear to auscultation bilaterally but decreased at the bases. No wheezing or crackles heard. Abdomen: Soft, nontender, nondistended. Skin: No rash. Warm to touch. Musculoskeletal: No gross injuries. Able to move all 4 extremities. Neuro: Alert and oriented x3. No focal neuro deficits. Psych: Normal affect and mood Objective Labs 05/07/25 05:21 05/07/25 05:21 Labs: Laboratory Results - last 24 hr 05/07/25 05/07/25 05:21 08:55 WBC 19.3 H RBC 2.96 L Hgb 8.1 L Hct 26.4 L MCV 89 MCH 27.4 MCHC 30.7 L RDW Std Deviation 64.5 H Plt Count 218 D Neut % (Auto) 76 Lymph % (Auto) 10 [place] % (Auto) 6 Eos % (Auto) 2 Baso % (Auto) 0 Neut # (Auto) 14.6 H Lymph # (Auto) 2.0 [place] # (Auto) 1.2 H Eos # (Auto) 0.4 Baso # (Auto) 0.1 Immature Gran # (Auto) 1.01 H Absolute Nucleated RBC 0.05 H Immature Gran % 5 H Nucleated RBC % 0 VBG pH 7.38 VBG pCO2 46 VBG pO2 40 VBG O2 Sat (Jovany) 73 L VBG Base Excess 1 Sodium 142 Potassium 4.5 Chloride 107 Carbon Dioxide 27.4 Anion Gap 8 BUN 26 H Creatinine 1.0 Estim Creat Clear Calc 89.2 eGFR > 60 BUN/Creatinine Ratio 26 H Glucose 143 H Calculated Osmolality 289 Calcium 8.2 L Corrected Calcium 9.2 Phosphorus 4.0 Magnesium 2.1 Total Bilirubin 0.4 AST 79 H ALT 23 Alkaline Phosphatase 570 H D Total Protein 4.9 L Albumin 2.7 L Globulin 2.2 L Albumin/Globulin Ratio 1.2 ABG Interpretation ABG results: 04/28/25 04/28/25 04/29/25 08:00 23:00 18:22 ABG pH 7.41 7.39 ABG pCO2 37 42 ABG pO2 80 L 85 ABG HCO3 23 25 ABG O2 Saturation 97 97 ABG Base Excess -1 0 VBG pH 7.36 VBG pCO2 49 VBG pO2 27 VBG Base Excess 1 05/03/25 05/07/25 16:34 08:55 ABG pH 7.40 ABG pCO2 41 ABG pO2 64 L ABG HCO3 26 ABG O2 Saturation 92 ABG Base Excess 1 VBG pH 7.38 VBG pCO2 46 VBG pO2 40 VBG Base Excess 1 Quality Measures Quality Measures none Advance care planning discussed with:: patient Assessment & Plan Assessment Current Active Medications: Generic Name Dose Route Start Last Admin Trade Name Freq PRN Reason Stop Dose Admin Acetaminophen 650 mg 04/30/25 08:20 Acetaminophen Georgette 325 Mg/10 Ml Udc GT 05/26/25 14:04 Q6H PRN Fever >101.5 OR PAIN 1-3 Albuterol/Ipratropium 3 ml 05/01/25 07:45 05/07/25 13:04 Albuterol/Ipratropium (Duoneb) Rt Georgette 3 Ml Nebu INH 05/31/25 07:44 3 ml Q6HRRT ELLIOTT Administration Carbidopa/Levodopa 1 tab 04/26/25 22:00 05/07/25 13:07 Carbidopa/Levodopa 25/100 Mg Tablet GT 05/26/25 21:59 1 tab TID ELLIOTT Administration Furosemide 40 mg 05/07/25 09:00 05/07/25 10:05 Furosemide Inj 10 Mg/Ml 4ml Vial IVP 06/06/25 08:59 40 mg QDAY ELLIOTT Administration Gabapentin 100 mg 04/26/25 22:00 05/07/25 13:07 Gabapentin 100 Mg Capsule GT 05/26/25 21:59 100 mg TID ELLIOTT Administration Guaifenesin 200 mg 05/01/25 12:00 05/07/25 13:06 Guaifenesin Syrup 200 Mg/10 Ml Udc GT 05/31/25 11:59 200 mg QID ELLIOTT Administration Protocol Metronidazole 500 mg in 100 mls @ 200 mls/hr 05/07/25 09:53 05/07/25 13:08 Flagyl 500 Mg Iv IV 05/14/25 09:52 200 mls/hr Q8HR ELLIOTT Administration Ceftriaxone Sodium/Dextrose 1 gm in 50 mls @ 100 mls/hr 05/07/25 10:00 05/07/25 10:13 Rocephin/D5w 1gm Iv Premix IV 05/14/25 09:59 Not Given QDAY ELLIOTT Lamotrigine 200 mg 05/05/25 09:00 05/07/25 10:05 Lamotrigine 25 Mg Chew GT 05/29/25 08:59 200 mg DAILY ELLIOTT Administration Lansoprazole 30 mg 05/07/25 09:00 05/07/25 10:05 Lansoprazole 30 Mg Tab. GT 05/31/25 09:14 30 mg QDAY ELLIOTT Administration Protocol Lorazepam 1 mg 05/04/25 19:17 05/07/25 08:16 Lorazepam 2 Mg/Ml Vial IVP 05/09/25 19:16 1 mg Q8HR PRN Administration ANXIETY Morphine Sulfate 2 mg 05/07/25 08:18 05/07/25 14:38 Morphine Sulf Inj 10 Mg/Ml Vial IVP 05/12/25 08:17 2 mg Q4HR PRN Administration Pain 7-10 Ondansetron HCl 4 mg 04/26/25 14:05 Ondansetron Inj 2 Mg/Ml Inj 2 Ml IVP 05/26/25 14:04 Q6H PRN NAUSEA OR VOMITING Protocol Oxycodone/Acetaminophen 1 tab 05/06/25 11:52 05/07/25 13:41 Oxycodone/Apap 5/325 Tablet GT 05/11/25 11:51 1 tab Q6H PRN Administration Pain Scale 4-6 (Moderate) Polyethylene Glycol 17 gm 05/02/25 09:00 05/07/25 10:11 Polyethylene Glycol 17 Gm Packet GT 06/01/25 08:59 Not Given QDAY ELLIOTT Quetiapine Fumarate 200 mg 04/27/25 09:00 05/07/25 10:12 Quetiapine Fumarate 100 Mg Tablet GT 05/27/25 08:59 200 mg BID ELLIOTT Administration Sennosides 8.8 mg 05/02/25 09:00 05/07/25 10:09 Sennosides Syrup 8.8 Mg/5 Ml Udc GT 06/01/25 08:59 8.8 mg QDAY ELLIOTT Administration Protocol Tamsulosin HCl 0.4 mg 05/01/25 09:15 05/07/25 10:05 Tamsulosin Hcl 0.4 Mg Capsule GT 05/31/25 09:14 0.4 mg QDAY ELLIOTT Administration Plan Mr. Hale, a 69-year-old male with stage IV esophageal carcinoma, Parkinson?s disease, and several comorbidities, was admitted on 04/26/2025 with nausea, vomiting, diarrhea, and weakness. His cancer has spread to lymph nodes and bones. On 04/28, a CTA chest confirmed bilateral PEand left upper extremity DVT. He was started on heparin drip, initially opted for comfort care, but later chose full code and thrombectomy. By 04/30, after right heart catheterization and pulmonary angiogram, his PE showed partial resolution, and oxygen needs decreased. He is receiving supportive care for his cancer. His blood pressure stabilized with Levophed for short-period while in ICU, and pain is managed with morphine. His condition remains critical, and care is focused on symptom relief and preventing further complications. After shared recommendations from oncology, cardiology, feed mill tender teams. 05/07/2025: His issues remained for oxygen support, including BiPAP, no anticoagulation for PE, no thrombectomy. Currently pending hospice placement. Continue with pain control oxygen/BiPAP as needed. Acute hypoxemic respiratory failure Acute pulmonary embolism Left upper extremity DVT Possible Pulmonary metastatic cancer Had increasing oxygen demand since admission. CTA chest was positive for numerous bilateral pulmonary arterial emboli including large filling defect in distal right main artery extending into the origin of upper and lower lobe pulmonary branches. He was started on HEPARIN drip, and underwent thrombectomy with cardiology team while in ICU. Symptoms have improved. Currently on nasal cannula, satting well. This possible lung metastatic disease of his esophageal carcinoma given extensive multisystem involvement. Will need PET scan eventually. HEPARIN drip discontinued on 05/01, transition to ELIQUIS BID. 05/06/25: Echocardiogram showed EF >75% hyperdynamic function, moderately dilated right ventricle with mid systolic dysfunction. Again, patient wants to proceed without blood thinners for pulmonary embolism, again elected against BiPAP and only oxygen at this time. Hospice orders are in per patient and family refused. ? Oxygen PRN, BIPAP PRN ? DuoNebs PRN ? Pain control, multimodal ? Discontinued AZITHROMYCIN (05/03 to 05/07) ? Continue CEFTRIAXONE (05/04 to present) for possible PNA DVT left upper extremity Venous Doppler was done for left upper extremity swelling and showed nonocclusive thrombus extending up to left jugular vein. Swelling overall improving. ? Continue above management SIRS Paraneoplastic leukocytosis Immunocompromised Esophageal carcinoma Esophageal dysphagia requiring G-tube Protein calorie malnutrition Recently diagnosed esophageal carcinoma (undifferentiated). Admission CT abdominal pelvis showed thickening lateral wall esophagus, extensive metastatic lymphadenopathy with widespread osteolytic metastatic disease. Has worsening esophageal dysphagia secondary to above-mentioned findings, requiring PEG tube use. ? Oncology on board ? TYLENOL for fever ? Continue MORPHINE 2 mg Q2H (pain 1-4) ? Continue DILAUDID 1 mg Q4H (breakthrough pain) ? Continue GABAPENTIN 100 mg TID Hypertension Shock, multifactorial (resolved) He had multifactorial shock while in ICU, likely hypovolemic which resolved with short course of pressors and fluids. Currently normotensive ? Holding home LOSARTAN 25 daily ? Holding home CARVEDILOL 6.25 BID Transaminitis, resolving Most likely secondary to hypovalemia/dehydration in setting of NVD Overall stable. ? Daily labs Parkinsons disease Bipolar disorder ? Restarted home med CARBIDOPA LEVODOPA TID ? Restarted home med QUETIAPINE 200 mg BID ? Continue LAMOTRIGINE 200 mg daily SARBJIT, prerenal azotemia (resolved) Hypercalcemia (stable) Prerenal azotemia likely volume depletion, overall improved with fluids. Urine output is adequate. Hypercalcemia in setting of malignancy, calcium around 11.3 ? Renally dose meds, avoid overdiuresis and NEPHROTOXINS ? Daily CMP Health maintenance Diet: Managed by dietary GI prophylaxis: PROTONIX DVT prophylaxis: ELIQUIS Antibiotics: Not indicated CODE STATUS: Full code Disposition: Treating pulmonary embolism, wean off oxygen, currently on HFNC Case was discussed with attending physician and senior resident. Francisco J Larsen DO PGY II This document was transcribed using voice recognition technology. Minor inaccuracies may be present. Attending Provider Attestation/Addendum I attest that I was physically present for the evaluation, physical examination, lab and imaging review of the patient with the residents. I discussed the case with the residents and agree with the findings and plans of care as documented above. Rajesh Roberts MD
[2025-05-08] VITALS (13 sets, daily range): BP systolic 107–133; BP diastolic 66–86; PULSE 110–132; RESP 17–38; TEMP 36.1–37.1; O2SAT 93–100; BMI 37.8
[2025-05-08] MEDS: LORazepam 2 MG/ML VIAL 1 MG IVP (01:21)
[2025-05-08] MEDS: ALBUTEROL/IPRATROPIUM (Duoneb) RT SOL 3 ML NEBU INH ×4 (01:39→18:56)
[2025-05-08] MEDS: MORPHINE SULF INJ 10 MG/ML VIAL 2 MG IVP ×5 (02:36→23:05)
[2025-05-08] MEDS: ACETAMINOPHEN SOL 325 MG/10 ML UDC 650 MG GT (04:14)
--- NOTE | 2025-05-08 04:32 | PC.NURSE ---
seen and examined by Dr. Vinay Dupont.
[2025-05-08] MEDS: metroNIDAZOLE/NS 500 MG IVPB 500 MG/100 ML BAG 200 MG IV ×3 (05:43→21:07)
[2025-05-08] MEDS: guaiFENesin SYRUP 200 MG/10 ML UDC GT ×4 (05:46→21:07)
[2025-05-08] MEDS: CARBIDOPA/LEVODOPA 25/100 MG TABLET 1 TAB GT ×3 (05:47→21:07)
[2025-05-08] MEDS: GABAPENTIN 100 MG CAPSULE GT ×3 (05:47→21:07)
[2025-05-08 07:37] LABS: Basophils # (Auto) 0.1 Thou/mm3 (0.0-0.2); Basophils % (Auto) 0 % (0-2.5); Eosinophils # (Auto) 0.3 Thou/mm3 (0.0-0.5); Eosinophils % (Auto) 2 % (0-10); Hematocrit 26.2 % (41.0-53.0); Immature Granulocytes Auto 0.77 Thou/mm3 (0.00-0.00); Lymphocytes # (Auto) 1.7 Thou/mm3 (1.0-4.8); Lymphocytes % (Auto) 10 % (10-50); Mean Corpuscular HGB Conc 30.9 g/dl (31.0-37.0); Mean Corpuscular Hemoglobin 27.5 pg (25.0-35.0); Mean Corpuscular Volume 89 fL (80-100); Monocytes # (Auto) 1.1 Thou/mm3 (0.0-0.8); Monocytes % (Auto) 6 % (0-12); Neutrophils # (Auto) 13.9 Thou/mm3 (1.8-7.7); Neutrophils % (Auto) 78 % (37-80); Nucleated Red Blood Cell # 0.06 Thou/mm3 (0.00-0.00); Nucleated Red Blood Cell % 0 /100 WBC (0); Platelet Count 188 Thou/mm3 (140-440); RDW Standard Deviation 65.1 fL (35.1-43.9); Red Blood Count 2.95 Miln/mm3 (4.50-5.90); White Blood Count 17.9 Thou/mm3 (3.8-10.6)
[2025-05-08 07:40] LABS: Hemoglobin 8.1 g/dL (13.5-16.0)
[2025-05-08 07:41] LABS: Alanine Aminotransferase 14 U/L (10-49); Albumin, Serum 2.6 gm/dL (3.4-4.8); Albumin/Globulin Ratio 1.2 (1.2-2.2); Alkaline Phosphatase 708 U/L (46-116); Anion Gap 10 (7-16); Aspartate Amino Transferase 70 U/L (0-34); BUN/Creatinine Ratio 32 Ratio (12-20); Bilirubin,Total 0.4 mg/dL (0.3-1.2); Blood Urea Nitrogen 32 mg/dL (9-23); Calcium 8.3 mg/dL (8.3-10.6); Calcium (Corrected) 9.4 mg/dL (8.5-10.1); Carbon Dioxide 27.5 mMol/L (20.0-31.0); Chloride 105 mMol/L (98-107); Creatinine (Component) 1.0 mg/dL (0.6-1.3); Estimated Creatinine Clearance 89.2 mL/min (>60); Globulin 2.2 gm/dL (2.3-3.5); Glucose 146 mg/dL (74-106); Magnesium 2.2 mg/dL (1.6-2.6); Osmolality,Calculated 293 (275-295); Phosphorous 4.0 mg/dL (2.4-5.1); Potassium 4.6 mMol/L (3.4-5.1); Sodium 142 mMol/L (136-145); Total Protein 4.8 gm/dL (5.7-8.2); eGFR > 60 See Note
[2025-05-08] MEDS: lamoTRIgine 25 MG CHEW 200 MG GT (08:32)
[2025-05-08] MEDS: LANSOPRAZOLE 30 MG TAB.RAP.DR GT (08:32)
[2025-05-08] MEDS: POLYETHYLENE GLYCOL 17 GM PACKET GT (08:32)
[2025-05-08] MEDS: TAMSULOSIN HCL 0.4 MG CAPSULE GT (08:32)
[2025-05-08] MEDS: cefTRIAXone/D5w 1gm IV premix 1 GM/50 ML BAG IV (08:32)
[2025-05-08] MEDS: FUROSEMIDE INJ 10 MG/ML 4ML VIAL 40 MG IVP (09:32)
[2025-05-08] MEDS: SENNOSIDES SYRUP 8.8 MG/5 ML UDC GT (09:34)
--- NOTE | 2025-05-08 10:51 | PC.SS ---
Addendum entered by Lyssa Hdz 05/08/25 11:38: [phone] who reported that she changed her mind and is not willing to take the pt home on hospice care. Idalia reported that due to being in her 80's she is not able to care for the pt at home. Idalia reported that there is no other family members who can care for the pt and suggested that he would need to go to a SNF for care. SS to f/u with pt regarding SNF care. Addendum entered by Lyssa Hdz 05/08/25 11:05: ASW called [facility] and spoke with Dariela Jacobs who reported that the step mother refused to take pt home. However, per last note, pts stepmother was agreeing to taking the pt home on hospice care. ASW will f/u with pts step mother regarding home hospice care. Original Note: Per morning rounding there is a possibility pt may d/c today to home. Pt will need hospice care at home. SS to f/u on [facility] to ensure all DME is at home prior to d/c.
--- NOTE | 2025-05-08 16:01 | PC.SS ---
SS sent SNF referral via [facility] SS spoke with medical team to update on pt decision to move to SNF SS spoke with Idalia, yolandamother, , to update her on pt decision SS met with pt at bedside using all precautions, discussed discharge options. pt made aware family is unable to assist with 24/7 care and willing to consider SNF
--- NOTE | 2025-05-08 17:46 | ESPR_ITS ---
Documentation for date of: 05/08/25 Subjective Subjective Interval history: Patient seen and examined at the bedside. Patient still continues to be hypoxic and is using intermittent BiPAP, high flow nasal cannula as well as Ventimask. Preoperative discussed with the patient and his family goals of care and he wishes to be hospice and does not in any further interventions.n Cardiology will sign off for now and thank you for allowing us to participate in the care of the patient Exam Vital Signs Temp Pulse Resp BP Pulse Ox O2 Del Method O2 Flow Rate 97.4 F 123 H 22 H 120/76 99 BiPAP 10 05/08/25 16:00 05/08/25 16:00 05/08/25 16:00 05/08/25 16:00 05/08/25 16:00 05/08/25 16:00 05/08/25 16:00 FiO2 60 05/08/25 16:00 Narrative Exam General: Alert and oriented x3. This morning patient does not appear to be in any respiratory distress and is on nasal cannula. Eyes: Pupils are equal and reactive to light bilaterally. HEENT: Atraumatic, normocephalic. No JVD noted. Mucosa moist. Cardiovascular: Normal S1 and S2. Tachycardic and regular rhythm. No murmurs appreciated. Trace peripheral pitting edema noted. Respiratory: No respiratory distress. Lungs are clear to auscultation bilaterally but decreased at the bases. No wheezing or crackles heard, staying on BiPAP. Abdomen: Soft, nontender, nondistended. Skin: No rash. Warm to touch. Musculoskeletal: No gross injuries. Able to move all 4 extremities. Neuro: Alert and oriented x3. No focal neuro deficits. Psych: Normal affect and mood Objective Labs 05/09/25 05:04 05/09/25 05:04 Labs: Laboratory Results - last 24 hr 05/08/25 07:01 WBC 17.9 H RBC 2.95 L Hgb 8.1 L Hct 26.2 L MCV 89 MCH 27.5 MCHC 30.9 L RDW Std Deviation 65.1 H Plt Count 188 D Neut % (Auto) 78 Lymph % (Auto) 10 [place] % (Auto) 6 Eos % (Auto) 2 Baso % (Auto) 0 Neut # (Auto) 13.9 H Lymph # (Auto) 1.7 [place] # (Auto) 1.1 H Eos # (Auto) 0.3 Baso # (Auto) 0.1 Immature Gran # (Auto) 0.77 H Absolute Nucleated RBC 0.06 H Immature Gran % 4 H Nucleated RBC % 0 Sodium 142 Potassium 4.6 Chloride 105 Carbon Dioxide 27.5 Anion Gap 10 BUN 32 H Creatinine 1.0 Estim Creat Clear Calc 89.2 eGFR > 60 BUN/Creatinine Ratio 32 H Glucose 146 H Calculated Osmolality 293 Calcium 8.3 Corrected Calcium 9.4 Phosphorus 4.0 Magnesium 2.2 Total Bilirubin 0.4 AST 70 H ALT 14 Alkaline Phosphatase 708 H D Total Protein 4.8 L Albumin 2.6 L Globulin 2.2 L Albumin/Globulin Ratio 1.2 ABG Interpretation ABG results: 04/28/25 04/28/25 04/29/25 08:00 23:00 18:22 ABG pH 7.41 7.39 ABG pCO2 37 42 ABG pO2 80 L 85 ABG HCO3 23 25 ABG O2 Saturation 97 97 ABG Base Excess -1 0 VBG pH 7.36 VBG pCO2 49 VBG pO2 27 VBG Base Excess 1 05/03/25 05/07/25 16:34 08:55 ABG pH 7.40 ABG pCO2 41 ABG pO2 64 L ABG HCO3 26 ABG O2 Saturation 92 ABG Base Excess 1 VBG pH 7.38 VBG pCO2 46 VBG pO2 40 VBG Base Excess 1 Assessment & Plan A&P Narrative 69-year-old male patient with a past medical history of recently diagnosed malignant esophageal carcinoma status post biopsy on 04/02/2025 with undifferentiated carcinoma with rare signet cells, status post G-tube placement being followed with oncology hypertension, diabetes mellitus type 2, Parkinson's disease, PUD, hyperlipidemia, osteoarthritis, morbid obesity presented to the emergency department on 04/26/2025 for nausea and nonbloody vomiting as well as diarrhea and unable to tolerate feeds along with generalized weakness. Patient was admitted to the hospital and oncology was consulted. As per Dr. 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 Patient was recommended supportive care recommended to follow-up as outpatient for PET scan and port placement for possible chemotherapy as he is an unlikely surgical candidate. As per the documentation patient appears to be having stage IV cancer. Patient left and was noted to be swollen and duplex of the left upper extremity was ordered which showed was positive for DVT showing nonocclusive thrombus extending up to the left jugular vein. Patient was started on heparin drip and CTA chest was ordered to rule out pulmonary embolism. CTA chest showed bilateral pulmonary embolus with large filling defects in the distal right main pulmonary artery as well as minimal plaque in the left upper lobe right pulmonary artery. Also had filling defect noted in the distal left lobar pulmonary artery. Patient had multiple left supraclavicular, left axillary, mediastinal, para-aortic, mesenteric extensive lymphadenopathy along with a esophageal mass. There was a concern of possible right lower lobe mass on the CT chest also. Cardiology consulted for further evaluation of the pulmonary embolism and possible thrombectomy as patient was hypoxic and was on high flow 50% FiO2 with significant workload of breathing. We did discuss with the patient about the possible thrombectomy but patient did not want to undergo any procedures initially and wanted to be DNR/DNI and comfort care. Patient and then was back and forth during the entire morning between DNR/DNI, comfort care and going home on home hospice and eventually did speak to his family members and decided to be full code and requested for possible thrombectomy in the evening. Given his increased work of breathing and high oxygen requirements patient was transferred to the ICU for closer monitoring later in the evening. 1. Acute bilateral pulmonary embolism-submassive PE 2. Acute hypoxic respiratory failure secondary to the acute PE 3. Shock mostly hypovolemic with possible obstructive component 4. Acute DVT of the left upper extremity extending up to the left internal jugular vein 5. 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 Recent G-tube placement secondary to esophageal cancer 7. Hypertension 8. Diabetes mellitus type 2 9. Parkinson disease 10. Morbid obesity 11. Hyperlipidemia 12. Osteoarthritis #Acute hypoxic respiratory failure #Pulmonary embolism #Provoked PE in the setting of malignancy #Left upper extremity DVT #Shock, resolved Patient presented with concern for possible early pneumonia, given worsening dyspnea CTA chest obtained noted to show large distal main pulmonary artery extending into the upper and lower right pulmonary lobe who multiple right pulmonary PE. Given bilateral PE including a large filling defect in the distal right main pulmonary artery concern for obstructive shock. Versus cardio cardiogenic given elevated troponins of 1.070 and patient denied chest pain versus septic given elevated leukocytosis, less likely. CT Chest (04/28/2025): Positive for numerous bilateral pulmonary artery emboli including large filling efects in the distal right main pulmonary artery extending into the origins ofthe upper and lower lobe right pulmonary artery branches Left supraclavicular and left axillary, mediastinal, para-aortic and mesenteric extensive lymphadenopathy Esophageal mass again noted Right heart cath: 04/30/2025: Right heart cardiac catheterization with pulmonary angiogram showed normal right heart pressures and normal PA pressure along with no clot in the main right or left PA and most of the clot burden is in the distal segmental and subsegmental branches as noted previously. Patient does have significant DVT of the left upper extremity extending into the left IJ. Possible dislodgment and superimposed new clot the chronic distal PEs can be considered but patient was on anticoagulation with full dose Eliquis and less likely he failed any kind of anticoagulation. Troponin 1.07 0.880 PESI 190, Class V On 05/03/2025: Repeat chest x-ray showed pleural effusions along with questionable pneumonia. Bedside ultrasound did show dilated IVC but patient was on BiPAP. Patient has been started on IV antibiotics and also started on IV diuresis. 05/04/2025: CTA chest revealed pulmonary artery emboli in distal right main pulmonary artery. There remain numerous filling defects in right lower lobe pulmonary artery branches. Left lower lobe pulmonary artery filling defects are noted but less prominent compared to April 28, 2025. Plan -Patient downgraded from ICU, as saturating well in 3 L NC. -Heparin drip discontinued after risk and benefits discussion with the patient by primary team. -Avoid increasing intrathoraic pressure 05/05/2025: Patient examined at bedside, reported doing well. Reported SOB being stable. Saturating 98% on 4L NC. His HR has been stable in 110's. CTA chest done yesterday was significant for PE. Also yesterday, the primary team had goals of discussion with the patient and risks and benefits of anticoagulation was discussed with him. He wished to proceed with discontinuing heparin drip. H owever, the patient's hypoxia is likely multifactorial in the setting of bilateral pleural effusion, pneumonia and less likely considered to be with pulmonary embolism. 05/07/2025: The patient was seen and examined at the bedside this morning. He was requiring BiPAP for proper saturation of greater than 95% with 10L O2, he is white count still high 19.3, hemoglobin 8.1, sodium 142, potassium 4.5, BUN 26, creatinine 1.0 and magnesium 2.1. Goals of care discussion was done by primary hospitalist team and patient considering hospice, but has not made his final decision yet. Prognosis seems to be guarded. 05/08/2025: Patient to transition to hospice today and does not want any further interventions and cardiology will sign off for now. #Leukocytosis Concern fo early pneumonia on intial chest x-ray on admsision late noted to be a PE. Given history of malignancy likely leading to leukocytosis. Continue to montior Blood cutlure negative. Cxr (04/29/2025): Mild prominence left ventricle w/ prominent vascular congestion Cx(04/26/2025): Subtle early bilateral pneumonia w/ abnormally prominent right mediastinum UA negative #Hypertension Past medical history HTN on carvedilol, given concern for PE consider holding holding. continue to hold Losartan, given concern for shock #Normocytic Anemia Likely in the setting of malignnacy vs chronic loss Plan -consider iron panel. -continue to monitor Hgb and Hct #Esophageal malignancy, undifferentiated #Status post G-tube placement Plan -Dr. Saeed following -consider GI consult #BHP Consider holding Tamsulosin #Obesity Management of rest of the medical conditions as per primary team and other consultants. Thank you for the consult and allowing me to participate in the care of the patient. Cardiology will continue to follow. Paulo Hairston M.D. Interventional Cardiology Time Spent With Patient Time: Total time spent is greater than 50% in coordination of care (as documented) at patient's floor/unit and/or counseling patient:
--- NOTE | 2025-05-08 20:40 | ESPR_ITS ---
Documentation for date of: 05/08/25 Subjective Subjective Interval history: Patient examined at bedside today. No acute overnight events. Patient reports that he is doing well. Will transition patient off the BiPAP. Currently pending hospice. His sodium today is 142, creatinine 1.0, hemoglobin 8.1, white count 18. No other complaints at this time. Exam Vital Signs Temp Pulse Resp BP Pulse Ox O2 Del Method O2 Flow Rate 97.4 F 114 H 21 H 120/76 94 L BiPAP 10 05/08/25 16:00 05/08/25 18:58 05/08/25 18:58 05/08/25 16:00 05/08/25 18:58 05/08/25 16:00 05/08/25 16:00 FiO2 60 05/08/25 18:58 Narrative Exam General: Alert and oriented x3. This morning patient does not appear to be in any respiratory distress and is on nasal cannula. Eyes: Pupils are equal and reactive to light bilaterally. HEENT: Atraumatic, normocephalic. No JVD noted. Mucosa moist. Cardiovascular: Normal S1 and S2. Tachycardic and regular rhythm. No murmurs appreciated. Trace peripheral pitting edema noted. Respiratory: No respiratory distress. Lungs are clear to auscultation bilaterally but decreased at the bases. No wheezing or crackles heard. Abdomen: Soft, nontender, nondistended. Skin: No rash. Warm to touch. Musculoskeletal: No gross injuries. Able to move all 4 extremities. Neuro: Alert and oriented x3. No focal neuro deficits. Psych: Normal affect and mood Objective Labs 05/09/25 05:04 05/09/25 05:04 Labs: Laboratory Results - last 24 hr 05/08/25 07:01 WBC 17.9 H RBC 2.95 L Hgb 8.1 L Hct 26.2 L MCV 89 MCH 27.5 MCHC 30.9 L RDW Std Deviation 65.1 H Plt Count 188 D Neut % (Auto) 78 Lymph % (Auto) 10 [place] % (Auto) 6 Eos % (Auto) 2 Baso % (Auto) 0 Neut # (Auto) 13.9 H Lymph # (Auto) 1.7 [place] # (Auto) 1.1 H Eos # (Auto) 0.3 Baso # (Auto) 0.1 Immature Gran # (Auto) 0.77 H Absolute Nucleated RBC 0.06 H Immature Gran % 4 H Nucleated RBC % 0 Sodium 142 Potassium 4.6 Chloride 105 Carbon Dioxide 27.5 Anion Gap 10 BUN 32 H Creatinine 1.0 Estim Creat Clear Calc 89.2 eGFR > 60 BUN/Creatinine Ratio 32 H Glucose 146 H Calculated Osmolality 293 Calcium 8.3 Corrected Calcium 9.4 Phosphorus 4.0 Magnesium 2.2 Total Bilirubin 0.4 AST 70 H ALT 14 Alkaline Phosphatase 708 H D Total Protein 4.8 L Albumin 2.6 L Globulin 2.2 L Albumin/Globulin Ratio 1.2 ABG Interpretation ABG results: 04/28/25 04/28/25 04/29/25 08:00 23:00 18:22 ABG pH 7.41 7.39 ABG pCO2 37 42 ABG pO2 80 L 85 ABG HCO3 23 25 ABG O2 Saturation 97 97 ABG Base Excess -1 0 VBG pH 7.36 VBG pCO2 49 VBG pO2 27 VBG Base Excess 1 05/03/25 05/07/25 16:34 08:55 ABG pH 7.40 ABG pCO2 41 ABG pO2 64 L ABG HCO3 26 ABG O2 Saturation 92 ABG Base Excess 1 VBG pH 7.38 VBG pCO2 46 VBG pO2 40 VBG Base Excess 1 Quality Measures Quality Measures none Advance care planning discussed with:: patient Assessment & Plan Assessment Current Active Medications: Generic Name Dose Route Start Last Admin Trade Name Freq PRN Reason Stop Dose Admin Acetaminophen 650 mg 04/30/25 08:20 05/08/25 04:14 Acetaminophen Georgette 325 Mg/10 Ml Udc GT 05/26/25 14:04 650 mg Q6H PRN Administration Fever >101.5 OR PAIN 1-3 Albuterol/Ipratropium 3 ml 05/01/25 07:45 05/08/25 18:56 Albuterol/Ipratropium (Duoneb) Rt Georgette 3 Ml Nebu INH 05/31/25 07:44 3 ml Q6HRRT ELLIOTT Administration Carbidopa/Levodopa 1 tab 04/26/25 22:00 05/08/25 13:40 Carbidopa/Levodopa 25/100 Mg Tablet GT 05/26/25 21:59 1 tab TID ELLIOTT Administration Furosemide 40 mg 05/07/25 09:00 05/08/25 09:32 Furosemide Inj 10 Mg/Ml 4ml Vial IVP 06/06/25 08:59 40 mg QDAY ELLIOTT Administration Gabapentin 100 mg 04/26/25 22:00 05/08/25 13:40 Gabapentin 100 Mg Capsule GT 05/26/25 21:59 100 mg TID ELLIOTT Administration Guaifenesin 200 mg 05/01/25 12:00 05/08/25 17:04 Guaifenesin Syrup 200 Mg/10 Ml Udc GT 05/31/25 11:59 200 mg QID ELLIOTT Administration Protocol Metronidazole 500 mg in 100 mls @ 200 mls/hr 05/07/25 09:53 05/08/25 13:41 Flagyl 500 Mg Iv IV 05/14/25 09:52 200 mls/hr Q8HR ELLIOTT Administration Ceftriaxone Sodium/Dextrose 1 gm in 50 mls @ 100 mls/hr 05/07/25 10:00 05/08/25 08:32 Rocephin/D5w 1gm Iv Premix IV 05/14/25 09:59 100 mls/hr QDAY ELLIOTT Administration Lamotrigine 200 mg 05/05/25 09:00 05/08/25 08:32 Lamotrigine 25 Mg Chew GT 05/29/25 08:59 200 mg DAILY ELLIOTT Administration Lansoprazole 30 mg 05/07/25 09:00 05/08/25 08:32 Lansoprazole 30 Mg Tab.Rap GT 05/31/25 09:14 30 mg QDAY ELLIOTT Administration Protocol Lorazepam 1 mg 05/04/25 19:17 05/08/25 01:21 Lorazepam 2 Mg/Ml Vial IVP 05/09/25 19:16 1 mg Q8HR PRN Administration ANXIETY Morphine Sulfate 2 mg 05/07/25 08:18 05/08/25 18:37 Morphine Sulf Inj 10 Mg/Ml Vial IVP 05/12/25 08:17 2 mg Q4HR PRN Administration Pain 7-10 Ondansetron HCl 4 mg 04/26/25 14:05 Ondansetron Inj 2 Mg/Ml Inj 2 Ml IVP 05/26/25 14:04 Q6H PRN NAUSEA OR VOMITING Protocol Oxycodone/Acetaminophen 1 tab 05/06/25 11:52 05/08/25 16:59 Oxycodone/Apap 5/325 Tablet GT 05/11/25 11:51 1 tab Q6H PRN Administration Pain Scale 4-6 (Moderate) Polyethylene Glycol 17 gm 05/02/25 09:00 05/08/25 08:32 Polyethylene Glycol 17 Gm Packet GT 06/01/25 08:59 17 gm QDAY ELLIOTT Administration Quetiapine Fumarate 200 mg 04/27/25 09:00 05/08/25 08:32 Quetiapine Fumarate 100 Mg Tablet GT 05/27/25 08:59 200 mg BID ELLIOTT Administration Sennosides 8.8 mg 05/02/25 09:00 05/08/25 09:34 Sennosides Syrup 8.8 Mg/5 Ml Udc GT 06/01/25 08:59 8.8 mg QDAY ELLIOTT Administration Protocol Tamsulosin HCl 0.4 mg 05/01/25 09:15 05/08/25 08:32 Tamsulosin Hcl 0.4 Mg Capsule GT 05/31/25 09:14 0.4 mg QDAY ELLIOTT Administration Plan Mr. Hale, a 69-year-old male with stage IV esophageal carcinoma, Parkinson?s disease, and several comorbidities, was admitted on 04/26/2025 with nausea, vomiting, diarrhea, and weakness. His cancer has spread to lymph nodes and bones. On 04/28, a CTA chest confirmed bilateral PEand left upper extremity DVT. He was started on heparin drip, initially opted for comfort care, but later chose full code and thrombectomy. By 04/30, after right heart catheterization and pulmonary angiogram, his PE showed partial resolution, and oxygen needs decreased. He is receiving supportive care for his cancer. His blood pressure stabilized with Levophed for short-period while in ICU, and pain is managed with morphine. His condition remains critical, and care is focused on symptom relief and preventing further complications. After shared recommendations from oncology, cardiology, bench worker binding teams. 05/07/2025: His issues remained for oxygen support, including BiPAP, no anticoagulation for PE, no thrombectomy. Currently pending hospice placement. Continue with pain control oxygen/BiPAP as needed. 05/08/2025: Patient will be weaned off BiPAP. Patient will eventually be transition to a SNF for comfort care due to insurance reasons. Acute hypoxemic respiratory failure Acute pulmonary embolism Left upper extremity DVT Possible Pulmonary metastatic cancer Had increasing oxygen demand since admission. CTA chest was positive for numerous bilateral pulmonary arterial emboli including large filling defect in distal right main artery extending into the origin of upper and lower lobe pulmonary branches. He was started on HEPARIN drip, and underwent thrombectomy with cardiology team while in ICU. Symptoms have improved. Currently on nasal cannula, satting well. This possible lung metastatic disease of his esophageal carcinoma given extensive multisystem involvement. Will need PET scan eventually. HEPARIN drip discontinued on 05/01, transition to ELIQUIS BID. 05/06/25: Echocardiogram showed EF >75% hyperdynamic function, moderately dilated right ventricle with mid systolic dysfunction. Again, patient wants to proceed without blood thinners for pulmonary embolism, again elected against BiPAP and only oxygen at this time. Hospice orders are in per patient and family refused. ? Oxygen PRN, BIPAP PRN ? DuoNebs PRN ? Pain control, multimodal ? Discontinued AZITHROMYCIN (05/03 to 05/07) ? Continue CEFTRIAXONE (05/04 to present) for possible PNA DVT left upper extremity Venous Doppler was done for left upper extremity swelling and showed nonocclusive thrombus extending up to left jugular vein. Swelling overall improving. ? Continue above management SIRS Paraneoplastic leukocytosis Immunocompromised Esophageal carcinoma Esophageal dysphagia requiring G-tube Protein calorie malnutrition Recently diagnosed esophageal carcinoma (undifferentiated). Admission CT abdominal pelvis showed thickening lateral wall esophagus, extensive metastatic lymphadenopathy with widespread osteolytic metastatic disease. Has worsening esophageal dysphagia secondary to above-mentioned findings, requiring PEG tube use. ? Oncology on board ? TYLENOL for fever ? Continue MORPHINE 2 mg Q2H (pain 1-4) ? Continue DILAUDID 1 mg Q4H (breakthrough pain) ? Continue GABAPENTIN 100 mg TID Hypertension Shock, multifactorial (resolved) He had multifactorial shock while in ICU, likely hypovolemic which resolved with short course of pressors and fluids. Currently normotensive ? Holding home LOSARTAN 25 daily ? Holding home CARVEDILOL 6.25 BID Transaminitis, resolving Most likely secondary to hypovalemia/dehydration in setting of NVD Overall stable. ? Daily labs Parkinsons disease Bipolar disorder ? Restarted home med CARBIDOPA LEVODOPA TID ? Restarted home med QUETIAPINE 200 mg BID ? Continue LAMOTRIGINE 200 mg daily SARBJIT, prerenal azotemia (resolved) Hypercalcemia (stable) Prerenal azotemia likely volume depletion, overall improved with fluids. Urine output is adequate. Hypercalcemia in setting of malignancy, calcium around 11.3 ? Renally dose meds, avoid overdiuresis and NEPHROTOXINS ? Daily CMP Health maintenance Diet: Managed by dietary GI prophylaxis: PROTONIX DVT prophylaxis: ELIQUIS Antibiotics: Not indicated CODE STATUS: Full code Disposition: Treating pulmonary embolism, wean off oxygen, currently on HFNC Case was discussed with attending physician and senior resident. Anyi Gibson DO PGY II This document was transcribed using voice recognition technology. Minor inaccuracies may be present. Attending Provider Attestation/Addendum 69-year-old male patient with esophageal cancer, metastatic pulmonary cancer, DVT PE, was recently in the ICU. The patient now is now comfort care. He is pending hospice. Currently the patient appears comfortable. He is not in significant pain. Continue to hold blood pressure medications. He is normotensive currently. He had SARBJIT hypercalcemia. Patient has underlying Parkinson's disease and bipolar disorder. I discussed with and supervised the resident physician who took care of this patient. I agree with the assessment and plan as above.
[2025-05-09] VITALS (12 sets, daily range): BP systolic 97–120; BP diastolic 68–78; PULSE 93–131; RESP 18–33; TEMP 36.1–37.1; O2SAT 95–98
[2025-05-09] MEDS: ALBUTEROL/IPRATROPIUM (Duoneb) RT SOL 3 ML NEBU INH ×4 (01:46→18:00)
[2025-05-09] MEDS: MORPHINE SULF INJ 10 MG/ML VIAL 2 MG IVP ×5 (03:13→23:05)
[2025-05-09] MEDS: CARBIDOPA/LEVODOPA 25/100 MG TABLET 1 TAB GT ×3 (05:46→21:07)
[2025-05-09] MEDS: GABAPENTIN 100 MG CAPSULE GT ×3 (05:46→21:07)
[2025-05-09] MEDS: metroNIDAZOLE/NS 500 MG IVPB 500 MG/100 ML BAG 200 MG IV ×3 (05:46→21:06)
[2025-05-09] MEDS: LORazepam 2 MG/ML VIAL 1 MG IVP (05:46)
[2025-05-09] MEDS: guaiFENesin SYRUP 200 MG/10 ML UDC GT ×4 (05:46→21:07)
[2025-05-09 05:53] LABS: Basophils # (Auto) 0.1 Thou/mm3 (0.0-0.2); Basophils % (Auto) 0 % (0-2.5); Eosinophils # (Auto) 0.3 Thou/mm3 (0.0-0.5); Eosinophils % (Auto) 2 % (0-10); Hematocrit 26.3 % (41.0-53.0); Immature Granulocytes Auto 0.96 Thou/mm3 (0.00-0.00); Lymphocytes # (Auto) 1.9 Thou/mm3 (1.0-4.8); Lymphocytes % (Auto) 9 % (10-50); Mean Corpuscular HGB Conc 31.6 g/dl (31.0-37.0); Mean Corpuscular Hemoglobin 27.2 pg (25.0-35.0); Mean Corpuscular Volume 86 fL (80-100); Monocytes # (Auto) 1.3 Thou/mm3 (0.0-0.8); Monocytes % (Auto) 6 % (0-12); Neutrophils # (Auto) 16.4 Thou/mm3 (1.8-7.7); Neutrophils % (Auto) 78 % (37-80); Nucleated Red Blood Cell # 0.04 Thou/mm3 (0.00-0.00); Nucleated Red Blood Cell % 0 /100 WBC (0); Platelet Count 193 Thou/mm3 (140-440); RDW Standard Deviation 64.2 fL (35.1-43.9); Red Blood Count 3.05 Miln/mm3 (4.50-5.90); White Blood Count 20.9 Thou/mm3 (3.8-10.6)
[2025-05-09 05:54] LABS: Hemoglobin 8.3 g/dL (13.5-16.0)
[2025-05-09 06:23] LABS: Alanine Aminotransferase 30 U/L (10-49); Albumin, Serum 2.5 gm/dL (3.4-4.8); Albumin/Globulin Ratio 1.1 (1.2-2.2); Alkaline Phosphatase 727 U/L (46-116); Anion Gap 10 (7-16); Aspartate Amino Transferase 57 U/L (0-34); BUN/Creatinine Ratio 28 Ratio (12-20); Bilirubin,Total 0.5 mg/dL (0.3-1.2); Blood Urea Nitrogen 28 mg/dL (9-23); Calcium 8.2 mg/dL (8.3-10.6); Calcium (Corrected) 9.4 mg/dL (8.5-10.1); Carbon Dioxide 25.8 mMol/L (20.0-31.0); Chloride 104 mMol/L (98-107); Creatinine (Component) 1.0 mg/dL (0.6-1.3); Estimated Creatinine Clearance 90.7 mL/min (>60); Globulin 2.3 gm/dL (2.3-3.5); Glucose 140 mg/dL (74-106); Magnesium 2.1 mg/dL (1.6-2.6); Osmolality,Calculated 286 (275-295); Phosphorous 4.3 mg/dL (2.4-5.1); Potassium 5.1 mMol/L (3.4-5.1); Sodium 140 mMol/L (136-145); Total Protein 4.8 gm/dL (5.7-8.2); eGFR > 60 See Note
[2025-05-09] MEDS: FUROSEMIDE INJ 10 MG/ML 4ML VIAL 40 MG IVP (09:12)
[2025-05-09] MEDS: POLYETHYLENE GLYCOL 17 GM PACKET GT (09:12)
[2025-05-09] MEDS: cefTRIAXone/D5w 1gm IV premix 1 GM/50 ML BAG IV (09:12)
[2025-05-09] MEDS: TAMSULOSIN HCL 0.4 MG CAPSULE GT (09:13)
[2025-05-09] MEDS: lamoTRIgine 25 MG CHEW 200 MG GT (09:17)
[2025-05-09] MEDS: LANSOPRAZOLE 30 MG TAB.RAP.DR GT (09:17)
--- NOTE | 2025-05-09 15:01 | PD.RESPRO ---
Documentation for date of: 05/09/25 Subjective Subjective Interval history: No acute overnight events. Continued on BiPAP intermittently, and high flow. Denies new or worsening symptoms. Pain appears relatively controlled. Denies fever, chills, headaches, chest pain, sob, cough, GI or urinary symptoms. Currently pending SNF placement. Exam Vital Signs Temp Pulse Resp BP Pulse Ox O2 Del Method O2 Flow Rate 97.9 F 106 H 27 H 120/74 97 BiPAP 10 05/09/25 12:00 05/09/25 12:32 05/09/25 12:32 05/09/25 12:00 05/09/25 12:32 05/09/25 12:00 05/08/25 16:00 FiO2 55 05/09/25 12:32 Narrative Exam General: Alert and oriented x3. This morning patient does not appear to be in any respiratory distress and is on nasal cannula. Eyes: Pupils are equal and reactive to light bilaterally. HEENT: Atraumatic, normocephalic. No JVD noted. Mucosa moist. Cardiovascular: Normal S1 and S2. Tachycardic and regular rhythm. No murmurs appreciated. Trace peripheral pitting edema noted. Respiratory: No respiratory distress. Lungs are clear to auscultation bilaterally but decreased at the bases. No wheezing or crackles heard. Abdomen: Soft, nontender, nondistended. Skin: No rash. Warm to touch. Musculoskeletal: No gross injuries. Able to move all 4 extremities. Neuro: Alert and oriented x3. No focal neuro deficits. Psych: Normal affect and mood Objective Labs 05/09/25 05:04 05/09/25 05:04 Labs: Laboratory Results - last 24 hr 05/09/25 05:04 WBC 20.9 H RBC 3.05 L Hgb 8.3 L Hct 26.3 L MCV 86 MCH 27.2 MCHC 31.6 RDW Std Deviation 64.2 H Plt Count 193 Neut % (Auto) 78 Lymph % (Auto) 9 L [place] % (Auto) 6 Eos % (Auto) 2 Baso % (Auto) 0 Neut # (Auto) 16.4 H Lymph # (Auto) 1.9 [place] # (Auto) 1.3 H Eos # (Auto) 0.3 Baso # (Auto) 0.1 Immature Gran # (Auto) 0.96 H Absolute Nucleated RBC 0.04 H Immature Gran % 5 H Nucleated RBC % 0 Sodium 140 Potassium 5.1 D Chloride 104 Carbon Dioxide 25.8 Anion Gap 10 BUN 28 H Creatinine 1.0 Estim Creat Clear Calc 90.7 eGFR > 60 BUN/Creatinine Ratio 28 H Glucose 140 H Calculated Osmolality 286 Calcium 8.2 L Corrected Calcium 9.4 Phosphorus 4.3 Magnesium 2.1 Total Bilirubin 0.5 AST 57 H ALT 30 Alkaline Phosphatase 727 H Total Protein 4.8 L Albumin 2.5 L Globulin 2.3 Albumin/Globulin Ratio 1.1 L ABG Interpretation ABG results: 04/28/25 04/28/25 04/29/25 08:00 23:00 18:22 ABG pH 7.41 7.39 ABG pCO2 37 42 ABG pO2 80 L 85 ABG HCO3 23 25 ABG O2 Saturation 97 97 ABG Base Excess -1 0 VBG pH 7.36 VBG pCO2 49 VBG pO2 27 VBG Base Excess 1 05/03/25 05/07/25 16:34 08:55 ABG pH 7.40 ABG pCO2 41 ABG pO2 64 L ABG HCO3 26 ABG O2 Saturation 92 ABG Base Excess 1 VBG pH 7.38 VBG pCO2 46 VBG pO2 40 VBG Base Excess 1 Quality Measures Quality Measures none Advance care planning discussed with:: patient Assessment & Plan Assessment Current Active Medications: Generic Name Dose Route Start Last Admin Trade Name Freq PRN Reason Stop Dose Admin Acetaminophen 650 mg 04/30/25 08:20 05/08/25 04:14 Acetaminophen Georgette 325 Mg/10 Ml Udc GT 05/26/25 14:04 650 mg Q6H PRN Administration Fever >101.5 OR PAIN 1-3 Albuterol/Ipratropium 3 ml 05/01/25 07:45 05/09/25 12:30 Albuterol/Ipratropium (Duoneb) Rt Georgette 3 Ml Nebu INH 05/31/25 07:44 3 ml Q6HRRT ELLIOTT Administration Carbidopa/Levodopa 1 tab 04/26/25 22:00 05/09/25 13:10 Carbidopa/Levodopa 25/100 Mg Tablet GT 05/26/25 21:59 1 tab TID ELLIOTT Administration Furosemide 40 mg 05/07/25 09:00 05/09/25 09:12 Furosemide Inj 10 Mg/Ml 4ml Vial IVP 06/06/25 08:59 40 mg QDAY ELLIOTT Administration Gabapentin 100 mg 04/26/25 22:00 05/09/25 13:10 Gabapentin 100 Mg Capsule GT 05/26/25 21:59 100 mg TID ELLIOTT Administration Guaifenesin 200 mg 05/01/25 12:00 05/09/25 13:10 Guaifenesin Syrup 200 Mg/10 Ml Udc GT 05/31/25 11:59 200 mg QID ELLIOTT Administration Protocol Metronidazole 500 mg in 100 mls @ 200 mls/hr 05/07/25 09:53 05/09/25 13:11 Flagyl 500 Mg Iv IV 05/14/25 09:52 200 mls/hr Q8HR ELLIOTT Administration Ceftriaxone Sodium/Dextrose 1 gm in 50 mls @ 100 mls/hr 05/07/25 10:00 05/09/25 09:12 Rocephin/D5w 1gm Iv Premix IV 05/14/25 09:59 100 mls/hr QDAY ELLIOTT Administration Lamotrigine 200 mg 05/05/25 09:00 05/09/25 09:17 Lamotrigine 25 Mg Chew GT 05/29/25 08:59 200 mg DAILY ELLIOTT Administration Lansoprazole 30 mg 05/07/25 09:00 05/09/25 09:17 Lansoprazole 30 Mg Tab.Rap GT 05/31/25 09:14 30 mg QDAY ELLIOTT Administration Protocol Lorazepam 1 mg 05/04/25 19:17 05/09/25 05:46 Lorazepam 2 Mg/Ml Vial IVP 05/09/25 19:16 1 mg Q8HR PRN Administration ANXIETY Morphine Sulfate 2 mg 05/07/25 08:18 05/09/25 13:15 Morphine Sulf Inj 10 Mg/Ml Vial IVP 05/12/25 08:17 2 mg Q4HR PRN Administration Pain 7-10 Ondansetron HCl 4 mg 04/26/25 14:05 Ondansetron Inj 2 Mg/Ml Inj 2 Ml IVP 05/26/25 14:04 Q6H PRN NAUSEA OR VOMITING Protocol Oxycodone/Acetaminophen 1 tab 05/06/25 11:52 05/09/25 09:17 Oxycodone/Apap 5/325 Tablet GT 05/11/25 11:51 1 tab Q6H PRN Administration Pain Scale 4-6 (Moderate) Polyethylene Glycol 17 gm 05/02/25 09:00 05/09/25 09:12 Polyethylene Glycol 17 Gm Packet GT 06/01/25 08:59 17 gm QDAY ELLIOTT Administration Quetiapine Fumarate 200 mg 04/27/25 09:00 05/09/25 09:17 Quetiapine Fumarate 100 Mg Tablet GT 05/27/25 08:59 200 mg BID ELLIOTT Administration Sennosides 8.8 mg 05/02/25 09:00 05/09/25 09:18 Sennosides Syrup 8.8 Mg/5 Ml Udc GT 06/01/25 08:59 Not Given QDAY ELLIOTT Protocol Tamsulosin HCl 0.4 mg 05/01/25 09:15 05/09/25 09:13 Tamsulosin Hcl 0.4 Mg Capsule GT 05/31/25 09:14 0.4 mg QDAY ELLIOTT Administration Plan Mr. Hale, a 69-year-old male with stage IV esophageal carcinoma, Parkinson?s disease, and several comorbidities, was admitted on 04/26/2025 with nausea, vomiting, diarrhea, and weakness. His cancer has spread to lymph nodes and bones. On 04/28, a CTA chest confirmed bilateral PEand left upper extremity DVT. He was started on heparin drip, initially opted for comfort care, but later chose full code and thrombectomy. By 04/30, after right heart catheterization and pulmonary angiogram, his PE showed partial resolution, and oxygen needs decreased. He is receiving supportive care for his cancer. His blood pressure stabilized with Levophed for short-period while in ICU, and pain is managed with morphine. His condition remains critical, and care is focused on symptom relief and preventing further complications. After shared recommendations from oncology, cardiology, chemistry faculty member teams. 05/07/2025: His issues remained for oxygen support, including BiPAP, no anticoagulation for PE, no thrombectomy. Currently pending hospice placement. Continue with pain control oxygen/BiPAP as needed. 05/09/2025, will attempt to wean off BiPAP and down titrate oxygen. Case management currently working on SNF placement for oxygen support. Acute hypoxemic respiratory failure Acute pulmonary embolism Left upper extremity DVT Possible Pulmonary metastatic cancer Had increasing oxygen demand since admission. CTA chest was positive for numerous bilateral pulmonary arterial emboli including large filling defect in distal right main artery extending into the origin of upper and lower lobe pulmonary branches. He was started on HEPARIN drip, and underwent thrombectomy with cardiology team while in ICU. Symptoms have improved. Currently on nasal cannula, satting well. This possible lung metastatic disease of his esophageal carcinoma given extensive multisystem involvement. Will need PET scan eventually. HEPARIN drip discontinued on 05/01, transition to ELIQUIS BID. 05/06/25: Echocardiogram showed EF >75% hyperdynamic function, moderately dilated right ventricle with mid systolic dysfunction. Again, patient wants to proceed without blood thinners for pulmonary embolism, again elected against BiPAP and only oxygen at this time. Hospice orders are in per patient and family refused. ? Oxygen PRN, BIPAP PRN ? DuoNebs PRN ? Pain control, multimodal ? Discontinued AZITHROMYCIN (05/03 to 05/07) ? Continue CEFTRIAXONE (05/04 to present) for possible PNA DVT left upper extremity Venous Doppler was done for left upper extremity swelling and showed nonocclusive thrombus extending up to left jugular vein. Swelling overall improving. ? Continue above management SIRS Paraneoplastic leukocytosis Immunocompromised Esophageal carcinoma Esophageal dysphagia requiring G-tube Protein calorie malnutrition Recently diagnosed esophageal carcinoma (undifferentiated). Admission CT abdominal pelvis showed thickening lateral wall esophagus, extensive metastatic lymphadenopathy with widespread osteolytic metastatic disease. Has worsening esophageal dysphagia secondary to above-mentioned findings, requiring PEG tube use. ? Oncology on board ? TYLENOL for fever ? Continue MORPHINE 2 mg Q2H (pain 1-4) ? Continue DILAUDID 1 mg Q4H (breakthrough pain) ? Continue GABAPENTIN 100 mg TID Hypertension Shock, multifactorial (resolved) He had multifactorial shock while in ICU, likely hypovolemic which resolved with short course of pressors and fluids. Currently normotensive ? Holding home LOSARTAN 25 daily ? Holding home CARVEDILOL 6.25 BID Transaminitis, resolving Most likely secondary to hypovalemia/dehydration in setting of NVD Overall stable. ? Daily labs Parkinsons disease Bipolar disorder ? Restarted home med CARBIDOPA LEVODOPA TID ? Restarted home med QUETIAPINE 200 mg BID ? Continue LAMOTRIGINE 200 mg daily SARBJIT, prerenal azotemia (resolved) Hypercalcemia (stable) Prerenal azotemia likely volume depletion, overall improved with fluids. Urine output is adequate. Hypercalcemia in setting of malignancy, calcium around 11.3 ? Renally dose meds, avoid overdiuresis and NEPHROTOXINS ? Daily CMP Health maintenance Diet: Managed by dietary GI prophylaxis: PROTONIX DVT prophylaxis: Patient refused Antibiotics: Not indicated CODE STATUS: DNR Disposition: Pending SNF placement. Case was discussed with attending physician. Francisco J Larsen DO PGY II This document was transcribed using voice recognition technology. Minor inaccuracies may be present. Attending Provider Attestation/Addendum 69-year-old male patient with esophageal cancer, metastatic pulmonary cancer, DVT PE, was recently in the ICU. The patient now is now comfort care. He is pending hospice. Currently the patient appears comfortable. He is not in significant pain. Continue to hold blood pressure medications. He is normotensive currently. He had SARBJIT hypercalcemia. patient has underlying Parkinson's disease and bipolar disorder. I discussed with and supervised the resident physician who took care of this patient. No significant change in patient's condition today. Bedside rounds with IM housestaff. I agree with the assessment and plan as above.
[2025-05-10] VITALS (16 sets, daily range): BP systolic 96–128; BP diastolic 66–75; PULSE 98–131; RESP 17–35; TEMP 36.1–36.7; O2SAT 89–98
[2025-05-10] MEDS: ALBUTEROL/IPRATROPIUM (Duoneb) RT SOL 3 ML NEBU INH ×3 (00:38→12:11)
[2025-05-10] MEDS: guaiFENesin SYRUP 200 MG/10 ML UDC GT ×3 (05:05→16:29)
[2025-05-10] MEDS: metroNIDAZOLE/NS 500 MG IVPB 500 MG/100 ML BAG 200 MG IV (05:06)
[2025-05-10] MEDS: GABAPENTIN 100 MG CAPSULE GT ×2 (05:06→14:26)
[2025-05-10] MEDS: CARBIDOPA/LEVODOPA 25/100 MG TABLET 1 TAB GT ×2 (05:06→14:26)
[2025-05-10] MEDS: MORPHINE SULF INJ 10 MG/ML VIAL 2 MG IVP ×2 (05:36→12:27)
[2025-05-10 06:27] LABS: Basophils # (Auto) 0.1 Thou/mm3 (0.0-0.2); Basophils % (Auto) 0 % (0-2.5); Eosinophils # (Auto) 0.3 Thou/mm3 (0.0-0.5); Eosinophils % (Auto) 2 % (0-10); Hematocrit 26.5 % (41.0-53.0); Immature Granulocytes Auto 0.96 Thou/mm3 (0.00-0.00); Lymphocytes # (Auto) 1.9 Thou/mm3 (1.0-4.8); Lymphocytes % (Auto) 9 % (10-50); Mean Corpuscular HGB Conc 30.6 g/dl (31.0-37.0); Mean Corpuscular Hemoglobin 27.3 pg (25.0-35.0); Mean Corpuscular Volume 89 fL (80-100); Monocytes # (Auto) 1.3 Thou/mm3 (0.0-0.8); Monocytes % (Auto) 6 % (0-12); Neutrophils # (Auto) 15.3 Thou/mm3 (1.8-7.7); Neutrophils % (Auto) 77 % (37-80); Nucleated Red Blood Cell # 0.07 Thou/mm3 (0.00-0.00); Nucleated Red Blood Cell % 0 /100 WBC (0); Platelet Count 224 Thou/mm3 (140-440); RDW Standard Deviation 67.0 fL (35.1-43.9); Red Blood Count 2.97 Miln/mm3 (4.50-5.90); White Blood Count 19.8 Thou/mm3 (3.8-10.6)
[2025-05-10 06:31] LABS: Hemoglobin 8.1 g/dL (13.5-16.0)
[2025-05-10 06:43] LABS: Alanine Aminotransferase 21 U/L (10-49); Albumin, Serum 2.7 gm/dL (3.4-4.8); Albumin/Globulin Ratio 1.2 (1.2-2.2); Alkaline Phosphatase 747 U/L (46-116); Anion Gap 9 (7-16); Aspartate Amino Transferase 46 U/L (0-34); BUN/Creatinine Ratio 40 Ratio (12-20); Bilirubin,Total 0.5 mg/dL (0.3-1.2); Blood Urea Nitrogen 40 mg/dL (9-23); Calcium 9.1 mg/dL (8.3-10.6); Calcium (Corrected) 10.1 mg/dL (8.5-10.1); Carbon Dioxide 26.4 mMol/L (20.0-31.0); Chloride 104 mMol/L (98-107); Creatinine (Component) 1.0 mg/dL (0.6-1.3); Estimated Creatinine Clearance 91.5 mL/min (>60); Globulin 2.2 gm/dL (2.3-3.5); Glucose 146 mg/dL (74-106); Magnesium 2.0 mg/dL (1.6-2.6); Osmolality,Calculated 290 (275-295); Phosphorous 4.3 mg/dL (2.4-5.1); Potassium 5.1 mMol/L (3.4-5.1); Sodium 139 mMol/L (136-145); Total Protein 4.9 gm/dL (5.7-8.2); eGFR > 60 See Note
[2025-05-10] MEDS: FUROSEMIDE INJ 10 MG/ML 4ML VIAL 40 MG IVP (09:24)
[2025-05-10] MEDS: LANSOPRAZOLE 30 MG TAB.RAP.DR GT (09:25)
[2025-05-10] MEDS: TAMSULOSIN HCL 0.4 MG CAPSULE GT (09:25)
[2025-05-10] MEDS: lamoTRIgine 25 MG CHEW 200 MG GT (09:25)
--- NOTE | 2025-05-10 11:58 | PC.SS ---
BEHAVIORAL SCHOOL COUNSELORS confirmed with patient and step mother, Idalia Overholt; preferred SNF is [facility].
--- NOTE | 2025-05-10 11:59 | PC.SS ---
INCOME TAX PREPARER confirmed with [facility] need for BI-PAP on behalf of the patient. INCOME TAX PREPARER submitted updated notes to SNF on [facility] to initiate request for BI-PAP. Response pending.
--- NOTE | 2025-05-10 14:45 | PC.SS ---
SEASONAL PACKAGE HANDLER, resident and bedside nurse met with the patient and patient's step mother, Idalia Overholt; to confirm discharge plan to transition the patient to SNF with comfort care. Overview of comfort care provided. Patient informed that due to absence of insurance coverage hospice cannot be provided at SNF upon discharge. Patient informed that upon transitioning to comfort care patient would be transitioned off BI-PAP down to nasal cannula. Patient informed that pain management would be implemented to make patient comfortable. Patient informed by SEASONAL PACKAGE HANDLER that oxygen requirements would need to be under 5L to transition to SNF. Informed patient possibility of not meeting oxygen requirement to initiate discharge to SNF. Patient acknowledged possibility of not attaining required oxygen requirement to discharge to SNF with comfort measures. Comfort measure decision pending.
--- NOTE | 2025-05-10 15:15 | PD.RESPRO ---
Documentation for date of: 05/10/25 Subjective Subjective Interval history: Patient seen and examined at the bedside. Patient still continues to be hypoxic and is using BiPAP. Preoperative discussed with the patient and his family goals of care and he wishes to be hospice and does not in any further interventions. Cardiology will sign off for now and thank you for allowing us to participate in the care of the patient Exam Vital Signs Temp Pulse Resp BP Pulse Ox O2 Del Method O2 Flow Rate 97.0 F 121 H 29 H 102/75 96 BiPAP 10 05/10/25 12:00 05/10/25 15:00 05/10/25 15:00 05/10/25 12:00 05/10/25 15:00 05/10/25 12:00 05/08/25 16:00 FiO2 50 05/10/25 12:12 Objective Labs 05/10/25 04:20 05/10/25 04:20 Labs: Laboratory Results - last 24 hr 05/10/25 04:20 WBC 19.8 H RBC 2.97 L Hgb 8.1 L Hct 26.5 L MCV 89 MCH 27.3 MCHC 30.6 L RDW Std Deviation 67.0 H Plt Count 224 D Neut % (Auto) 77 Lymph % (Auto) 9 L [place] % (Auto) 6 Eos % (Auto) 2 Baso % (Auto) 0 Neut # (Auto) 15.3 H Lymph # (Auto) 1.9 [place] # (Auto) 1.3 H Eos # (Auto) 0.3 Baso # (Auto) 0.1 Immature Gran # (Auto) 0.96 H Absolute Nucleated RBC 0.07 H Immature Gran % 5 H Nucleated RBC % 0 Sodium 139 Potassium 5.1 Chloride 104 Carbon Dioxide 26.4 Anion Gap 9 BUN 40 H Creatinine 1.0 Estim Creat Clear Calc 91.5 eGFR > 60 BUN/Creatinine Ratio 40 H Glucose 146 H Calculated Osmolality 290 Calcium 9.1 Corrected Calcium 10.1 Phosphorus 4.3 Magnesium 2.0 Total Bilirubin 0.5 AST 46 H ALT 21 Alkaline Phosphatase 747 H D Total Protein 4.9 L Albumin 2.7 L Globulin 2.2 L Albumin/Globulin Ratio 1.2 ABG Interpretation ABG results: 04/28/25 04/28/25 04/29/25 08:00 23:00 18:22 ABG pH 7.41 7.39 ABG pCO2 37 42 ABG pO2 80 L 85 ABG HCO3 23 25 ABG O2 Saturation 97 97 ABG Base Excess -1 0 VBG pH 7.36 VBG pCO2 49 VBG pO2 27 VBG Base Excess 1 05/03/25 05/07/25 16:34 08:55 ABG pH 7.40 ABG pCO2 41 ABG pO2 64 L ABG HCO3 26 ABG O2 Saturation 92 ABG Base Excess 1 VBG pH 7.38 VBG pCO2 46 VBG pO2 40 VBG Base Excess 1 Quality Measures Quality Measures none Assessment & Plan Assessment Current Active Medications: Generic Name Dose Route Start Last Admin Trade Name Freq PRN Reason Stop Dose Admin Acetaminophen 650 mg 04/30/25 08:20 05/08/25 04:14 Acetaminophen Georgette 325 Mg/10 Ml Udc GT 05/26/25 14:04 650 mg Q6H PRN Administration Fever >101.5 OR PAIN 1-3 Albuterol/Ipratropium 3 ml 05/01/25 07:45 05/10/25 12:11 Albuterol/Ipratropium (Duoneb) Rt Georgette 3 Ml Nebu INH 05/31/25 07:44 3 ml Q6HRRT ELLIOTT Administration Carbidopa/Levodopa 1 tab 04/26/25 22:00 05/10/25 14:26 Carbidopa/Levodopa 25/100 Mg Tablet GT 05/26/25 21:59 1 tab TID ELLIOTT Administration Furosemide 40 mg 05/07/25 09:00 05/10/25 09:24 Furosemide Inj 10 Mg/Ml 4ml Vial IVP 06/06/25 08:59 40 mg QDAY ELLIOTT Administration Gabapentin 100 mg 04/26/25 22:00 05/10/25 14:26 Gabapentin 100 Mg Capsule GT 05/26/25 21:59 100 mg TID ELLIOTT Administration Guaifenesin 200 mg 05/01/25 12:00 05/10/25 12:27 Guaifenesin Syrup 200 Mg/10 Ml Udc GT 05/31/25 11:59 200 mg QID ELLIOTT Administration Protocol Lamotrigine 200 mg 05/05/25 09:00 05/10/25 09:25 Lamotrigine 25 Mg Chew GT 05/29/25 08:59 200 mg DAILY ELLIOTT Administration Lansoprazole 30 mg 05/07/25 09:00 05/10/25 09:25 Lansoprazole 30 Mg Tab.Rap GT 05/31/25 09:14 30 mg QDAY ELLIOTT Administration Protocol Morphine Sulfate 2 mg 05/07/25 08:18 05/10/25 12:27 Morphine Sulf Inj 10 Mg/Ml Vial IVP 05/12/25 08:17 2 mg Q4HR PRN Administration Pain 7-10 Ondansetron HCl 4 mg 04/26/25 14:05 Ondansetron Inj 2 Mg/Ml Inj 2 Ml IVP 05/26/25 14:04 Q6H PRN NAUSEA OR VOMITING Protocol Oxycodone/Acetaminophen 1 tab 05/06/25 11:52 05/10/25 09:25 Oxycodone/Apap 5/325 Tablet GT 05/11/25 11:51 1 tab Q6H PRN Administration Pain Scale 4-6 (Moderate) Polyethylene Glycol 17 gm 05/02/25 09:00 05/10/25 09:32 Polyethylene Glycol 17 Gm Packet GT 06/01/25 08:59 Not Given QDAY ELLIOTT Quetiapine Fumarate 200 mg 04/27/25 09:00 05/10/25 09:25 Quetiapine Fumarate 100 Mg Tablet GT 05/27/25 08:59 200 mg BID ELLIOTT Administration Sennosides 8.8 mg 05/02/25 09:00 05/10/25 09:50 Sennosides Syrup 8.8 Mg/5 Ml Udc GT 06/01/25 08:59 Not Given QDAY ELLITOT Protocol Tamsulosin HCl 0.4 mg 05/01/25 09:15 05/10/25 09:25 Tamsulosin Hcl 0.4 Mg Capsule GT 05/31/25 09:14 0.4 mg QDAY ELLIOTT Administration
--- NOTE | 2025-05-10 15:15 | PD.RESPRO ---
Documentation for date of: 05/10/25 Subjective Subjective Interval history: No acute overnight events. Denies fever, chills, headaches, chest pain, sob, cough, GI or urinary symptoms. Goals of care discussion was had with patient, and pascual Ramirez) at bedside. Options were provided in terms of initiating comfort care inpatient or outpatient at SNF. Patient and family would like to proceed with comfort care inpatient. Will initiate comfort care today. Exam Vital Signs Temp Pulse Resp BP Pulse Ox O2 Del Method O2 Flow Rate 97.0 F 121 H 29 H 102/75 96 BiPAP 10 05/10/25 12:00 05/10/25 15:00 05/10/25 15:00 05/10/25 12:00 05/10/25 15:00 05/10/25 12:00 05/08/25 16:00 FiO2 50 05/10/25 12:12 Narrative Exam General: Alert and oriented x3. This morning patient does not appear to be in any respiratory distress and is on nasal cannula. Eyes: Pupils are equal and reactive to light bilaterally. HEENT: Atraumatic, normocephalic. No JVD noted. Mucosa moist. Cardiovascular: Normal S1 and S2. Tachycardic and regular rhythm. No murmurs appreciated. Trace peripheral pitting edema noted. Respiratory: No respiratory distress. Lungs are clear to auscultation bilaterally but decreased at the bases. No wheezing or crackles heard. Abdomen: Soft, nontender, nondistended. Skin: No rash. Warm to touch. Musculoskeletal: No gross injuries. Able to move all 4 extremities. Neuro: Alert and oriented x3. No focal neuro deficits. Psych: Normal affect and mood Objective Labs 05/10/25 04:20 05/10/25 04:20 Labs: Laboratory Results - last 24 hr 05/10/25 04:20 WBC 19.8 H RBC 2.97 L Hgb 8.1 L Hct 26.5 L MCV 89 MCH 27.3 MCHC 30.6 L RDW Std Deviation 67.0 H Plt Count 224 D Neut % (Auto) 77 Lymph % (Auto) 9 L [place] % (Auto) 6 Eos % (Auto) 2 Baso % (Auto) 0 Neut # (Auto) 15.3 H Lymph # (Auto) 1.9 [place] # (Auto) 1.3 H Eos # (Auto) 0.3 Baso # (Auto) 0.1 Immature Gran # (Auto) 0.96 H Absolute Nucleated RBC 0.07 H Immature Gran % 5 H Nucleated RBC % 0 Sodium 139 Potassium 5.1 Chloride 104 Carbon Dioxide 26.4 Anion Gap 9 BUN 40 H Creatinine 1.0 Estim Creat Clear Calc 91.5 eGFR > 60 BUN/Creatinine Ratio 40 H Glucose 146 H Calculated Osmolality 290 Calcium 9.1 Corrected Calcium 10.1 Phosphorus 4.3 Magnesium 2.0 Total Bilirubin 0.5 AST 46 H ALT 21 Alkaline Phosphatase 747 H D Total Protein 4.9 L Albumin 2.7 L Globulin 2.2 L Albumin/Globulin Ratio 1.2 ABG Interpretation ABG results: 04/28/25 04/28/25 04/29/25 08:00 23:00 18:22 ABG pH 7.41 7.39 ABG pCO2 37 42 ABG pO2 80 L 85 ABG HCO3 23 25 ABG O2 Saturation 97 97 ABG Base Excess -1 0 VBG pH 7.36 VBG pCO2 49 VBG pO2 27 VBG Base Excess 1 05/03/25 05/07/25 16:34 08:55 ABG pH 7.40 ABG pCO2 41 ABG pO2 64 L ABG HCO3 26 ABG O2 Saturation 92 ABG Base Excess 1 VBG pH 7.38 VBG pCO2 46 VBG pO2 40 VBG Base Excess 1 Quality Measures Quality Measures none Advance care planning discussed with:: patient Assessment & Plan Assessment Current Active Medications: Generic Name Dose Route Start Last Admin Trade Name Freq PRN Reason Stop Dose Admin Acetaminophen 650 mg 04/30/25 08:20 05/08/25 04:14 Acetaminophen Georgette 325 Mg/10 Ml Udc GT 05/26/25 14:04 650 mg Q6H PRN Administration Fever >101.5 OR PAIN 1-3 Albuterol/Ipratropium 3 ml 05/01/25 07:45 05/10/25 12:11 Albuterol/Ipratropium (Duoneb) Rt Georgette 3 Ml Nebu INH 05/31/25 07:44 3 ml Q6HRRT ELLIOTT Administration Carbidopa/Levodopa 1 tab 04/26/25 22:00 05/10/25 14:26 Carbidopa/Levodopa 25/100 Mg Tablet GT 05/26/25 21:59 1 tab TID ELLIOTT Administration Furosemide 40 mg 05/07/25 09:00 05/10/25 09:24 Furosemide Inj 10 Mg/Ml 4ml Vial IVP 06/06/25 08:59 40 mg QDAY ELLIOTT Administration Gabapentin 100 mg 04/26/25 22:00 05/10/25 14:26 Gabapentin 100 Mg Capsule GT 05/26/25 21:59 100 mg TID ELLIOTT Administration Guaifenesin 200 mg 05/01/25 12:00 05/10/25 12:27 Guaifenesin Syrup 200 Mg/10 Ml Udc GT 05/31/25 11:59 200 mg QID ELLIOTT Administration Protocol Lamotrigine 200 mg 05/05/25 09:00 05/10/25 09:25 Lamotrigine 25 Mg Chew GT 05/29/25 08:59 200 mg DAILY ELLIOTT Administration Lansoprazole 30 mg 05/07/25 09:00 05/10/25 09:25 Lansoprazole 30 Mg Tab.Rap GT 05/31/25 09:14 30 mg QDAY ELLIOTT Administration Protocol Morphine Sulfate 2 mg 05/07/25 08:18 05/10/25 12:27 Morphine Sulf Inj 10 Mg/Ml Vial IVP 05/12/25 08:17 2 mg Q4HR PRN Administration Pain 7-10 Ondansetron HCl 4 mg 04/26/25 14:05 Ondansetron Inj 2 Mg/Ml Inj 2 Ml IVP 05/26/25 14:04 Q6H PRN NAUSEA OR VOMITING Protocol Oxycodone/Acetaminophen 1 tab 05/06/25 11:52 05/10/25 09:25 Oxycodone/Apap 5/325 Tablet GT 05/11/25 11:51 1 tab Q6H PRN Administration Pain Scale 4-6 (Moderate) Polyethylene Glycol 17 gm 05/02/25 09:00 05/10/25 09:32 Polyethylene Glycol 17 Gm Packet GT 06/01/25 08:59 Not Given QDAY ELLIOTT Quetiapine Fumarate 200 mg 04/27/25 09:00 05/10/25 09:25 Quetiapine Fumarate 100 Mg Tablet GT 05/27/25 08:59 200 mg BID ELLIOTT Administration Sennosides 8.8 mg 05/02/25 09:00 05/10/25 09:50 Sennosides Syrup 8.8 Mg/5 Ml Udc GT 07/29/25 08:59 Not Given QDAY ELLIOTT Protocol Tamsulosin HCl 0.4 mg 05/01/25 09:15 05/10/25 09:25 Tamsulosin Hcl 0.4 Mg Capsule GT 05/31/25 09:14 0.4 mg QDAY [facility] Administration Plan Mr. 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 He was admitted on April 26, 2025, with nausea, vomiting, diarrhea, and weakness. Imaging revealed extensive bilateral pulmonary emboli and a left upper extremity DVT. Initially, he chose comfort care, but later opted for full-code status and underwent thrombectomy and anticoagulation with a heparin drip, later transitioning to Eliquis. Despite partial resolution of his PE and some improvement in symptoms, his overall condition remained critical. He experienced acute hypoxemic respiratory failure, requiring BiPAP and high-flow oxygen. Despite this, his overall prognosis remains poor due to extensive metastatic disease, esophageal dysphagia requiring a PEG tube, severe protein-calorie malnutrition, and complications including possible pulmonary metastases, paraneoplastic syndromes, transaminitis, and immunocompromise. Over the course of his hospitalization, he declined further aggressive interventions, including continued anticoagulation and BiPAP support. As of May 10, 2025, Mr. Hale is DNR and has transitioned to comfort measures only. Acute hypoxemic respiratory failure Acute pulmonary embolism Left upper extremity DVT Possible Pulmonary metastatic cancer DVT left upper extremity SIRS Paraneoplastic leukocytosis Immunocompromised Esophageal carcinoma Esophageal dysphagia requiring G-tube Protein calorie malnutrition Hypertension Shock, multifactorial (resolved) Transaminitis, resolving Parkinsons disease Bipolar disorder SARBJIT, prerenal azotemia (resolved) Hypercalcemia (stable) ? Comfort measure ? Continue BiPAP as needed, will wean off as appropriate. Case was discussed with attending physician. Francisco J Larsen DO PGY II This document was transcribed using voice recognition technology. Minor inaccuracies may be present. Attending Provider Attestation/Addendum 69-year-old male patient with esophageal cancer, metastatic pulmonary cancer, DVT PE, was recently in the ICU. The patient now is now comfort care. He is pending hospice. Currently the patient appears comfortable. He is not in significant pain. Continue to hold blood pressure medications. He is normotensive currently. He had SARBJIT hypercalcemia. patient has underlying Parkinson's disease and bipolar disorder. I discussed with and supervised the resident physician who took care of this patient. No significant change in patient's condition today he remains alert. He appears edematous. Patient and family would prefer him to be on comfort care now.. Bedside rounds with IM housestaff. I agree with the assessment and plan as above.
[2025-05-10] MEDS: SCOPOLAMINE 1 MG TDSY TOP (16:29)
[2025-05-10] MEDS: MORPHINE SULF INJ 10 MG/ML VIAL IVP ×3 (16:30→19:05)
--- NOTE | 2025-05-10 17:10 | PC.SS ---
SHREDDER OPERATOR informed by resident that patient has made decision to transition to comfort care. Comfort measure to begin today.
[2025-05-10] MEDS: Morphine IV Drip 100mg/100ml 100 ML IV (19:37)
[2025-05-10] MEDS: LORazepam 2 MG/ML VIAL 1 MG IVP (20:27)
[2025-05-11] VITALS (9 sets, daily range): BP systolic 112–126; BP diastolic 68–78; PULSE 82–108; RESP 14–25; TEMP 36.1–36.6; O2SAT 93–98
--- NOTE | 2025-05-11 02:50 | PC.NURSE ---
SBAR REPORT GIVEN TO HODAN FRANCO M/S. PT WILL BE TRANSFERRED TO RM [id number].
--- NOTE | 2025-05-11 03:13 | PC.NURSE ---
pt arrived. pt alert and oriented no signs of distress noted
--- NOTE | 2025-05-11 03:13 | PC.NURSE ---
morphine at 65.5mls upon arrival
[2025-05-11] MEDS: Morphine IV Drip 100mg/100ml 100 ML IV (10:18)
--- NOTE | 2025-05-11 10:44 | CHAP ---
Patient was visited by a Spiritual Care Volunteer on 05/11/2025 between 0900 and 0920 and received comfort, encouragement and/or prayer.
[2025-05-11] MEDS: Morphine IV Drip 100mg/100ml 100 ML 6 MG IV ×2 (11:57→19:00)
[2025-05-11] MEDS: LORazepam 2 MG/ML VIAL IVP ×4 (12:00→23:21)
--- NOTE | 2025-05-11 14:37 | PD.RESPRO ---
Documentation for date of: 05/11/25 Subjective Subjective Interval history: No acute overnight events. Continue on comfort measures, appeared comfortable, no apparent distress. We increased MORPHINE as patient reported pain. Also increase ATIVAN for anxiety. Denies fever, chills, headaches, chest pain, sob, cough, GI or urinary symptoms. Exam Vital Signs Temp Pulse Resp BP Pulse Ox O2 Del Method O2 Flow Rate 97.3 F 98 22 H 125/75 95 Nasal Cannula 10 05/11/25 12:00 05/11/25 12:00 05/11/25 12:00 05/11/25 12:00 05/11/25 12:00 05/11/25 12:00 05/11/25 12:00 FiO2 45 05/11/25 12:00 Narrative Exam General: No apparent distress. Eyes: Pupils are equal and reactive to light bilaterally. HEENT: Atraumatic, normocephalic. No JVD noted. Mucosa moist. Cardiovascular: Normal S1 and S2. Respiratory: CTAB. Abdomen: Soft, nontender, nondistended. Skin: No rash. Warm to touch. Objective Labs 05/10/25 04:20 05/10/25 04:20 ABG Interpretation ABG results: 04/28/25 04/28/25 04/29/25 08:00 23:00 18:22 ABG pH 7.41 7.39 ABG pCO2 37 42 ABG pO2 80 L 85 ABG HCO3 23 25 ABG O2 Saturation 97 97 ABG Base Excess -1 0 VBG pH 7.36 VBG pCO2 49 VBG pO2 27 VBG Base Excess 1 05/03/25 05/07/25 16:34 08:55 ABG pH 7.40 ABG pCO2 41 ABG pO2 64 L ABG HCO3 26 ABG O2 Saturation 92 ABG Base Excess 1 VBG pH 7.38 VBG pCO2 46 VBG pO2 40 VBG Base Excess 1 Quality Measures Quality Measures none Advance care planning discussed with:: patient Assessment & Plan Assessment Current Active Medications: Generic Name Dose Route Start Last Admin Trade Name Freq PRN Reason Stop Dose Admin Acetaminophen 650 mg 05/10/25 15:54 Acetaminophen 325 Mg Tablet PO 06/09/25 15:53 Q6HR PRN FEVER >101 Acetaminophen 650 mg 05/10/25 15:54 Acetaminophen Supp 650 Mg Supp [place] 06/09/25 15:53 Q6HR PRN FEVER > 101 Protocol Artificial Tears 1 drop 05/10/25 15:54 Artificial Tears 225 Drop/15 Ml Btl BOTH EYES 06/09/25 15:53 Q4HR PRN Dry eyes Atropine Sulfate 2 drop 05/10/25 16:02 Atropine Sulf Op Georgette 1% 5 Ml Btl SL 06/09/25 15:53 Q4HR PRN SECRETIONS Dexamethasone 4 mg 05/10/25 21:00 05/11/25 09:12 Dexamethasone 4 Mg Tablet PO 06/09/25 20:59 4 mg BID ELLIOTT Administration Diphenhydramine HCl 25 mg 05/10/25 15:54 Diphenhydramine Inj 50 Mg/Ml Vial IVP 06/09/25 15:53 Q6HR PRN ITCHING Gabapentin 100 mg 05/10/25 16:04 Gabapentin 100 Mg Capsule GT 06/09/25 15:53 Q8HR PRN Neuropathic pain Protocol Glycopyrrolate 0.2 mg 05/10/25 15:54 Glycopyrrolate Inj 0.2 Mg/Ml Vial IV 06/09/25 15:53 QID PRN As needed for secretions Morphine Sulfate 100 mls @ 6 mls/hr 05/11/25 11:36 05/11/25 11:57 Morphine Sulfate Iv Drip 100mg/100ml IV 05/15/25 19:08 6 mg/hr Q50H PRN 6 mls/hr PAIN (COMFORT CARE) Administration Protocol 6 MG/HR Lorazepam 2 mg 05/11/25 11:45 05/11/25 12:00 Lorazepam 2 Mg/Ml Vial IVP 05/16/25 11:44 2 mg Q4H ELLIOTT Administration Morphine Sulfate 3 mg 05/11/25 11:36 Morphine Sulf Inj 10 Mg/Ml Vial IVP 05/12/25 08:17 Q1H PRN Pain 7-10 Risperidone 2 mg 05/12/25 09:00 Risperidone 1 Mg Tablet PO 06/11/25 08:59 QDAY ELLIOTT Scopolamine 1 mg 05/10/25 16:00 05/10/25 16:29 Scopolamine 1 Mg Tdsy TOP 06/09/25 15:59 1 mg Q3D ELLIOTT Administration Sennosides 2 tab 05/10/25 21:00 05/10/25 20:27 Senna Tablet PO 06/09/25 20:59 2 tab HS ELLIOTT Administration Plan Mr. 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 He was admitted on April 26, 2025, with nausea, vomiting, diarrhea, and weakness. Imaging revealed extensive bilateral pulmonary emboli and a left upper extremity DVT. Initially, he chose comfort care, but later opted for full-code status and underwent thrombectomy and anticoagulation with a heparin drip, later transitioning to Eliquis. Despite partial resolution of his PE and some improvement in symptoms, his overall condition remained critical. He experienced acute hypoxemic respiratory failure, requiring BiPAP and high-flow oxygen. Despite this, his overall prognosis remains poor due to extensive metastatic disease, esophageal dysphagia requiring a PEG tube, severe protein-calorie malnutrition, and complications including possible pulmonary metastases, paraneoplastic syndromes, transaminitis, and immunocompromise. Over the course of his hospitalization, he declined further aggressive interventions, including continued anticoagulation and BiPAP support. As of May 10, 2025, Mr. Hale is DNR and has transitioned to comfort measures only. Acute hypoxemic respiratory failure Acute pulmonary embolism Left upper extremity DVT Possible Pulmonary metastatic cancer DVT left upper extremity SIRS Paraneoplastic leukocytosis Immunocompromised Esophageal carcinoma Esophageal dysphagia requiring G-tube Protein calorie malnutrition Hypertension Shock, multifactorial (resolved) Transaminitis, resolving Parkinsons disease Bipolar disorder SARBJIT, prerenal azotemia (resolved) Hypercalcemia (stable) ? Comfort measure ? Continue BiPAP as needed, will wean off as appropriate. Case was discussed with attending physician. Francisco J Larsen DO PGY II This document was transcribed using voice recognition technology. Minor inaccuracies may be present. Attending Provider Attestation/Addendum I attest that I was physically present for the evaluation, physical examination, lab and imaging review of the patient with the residents. I discussed the case with the residents and agree with the findings and plans of care as documented above. Continues to be on comfort care. Appears comfortable at bedside on morphine gtt. We will titrate down supplemental oxygen, will monitor closely for pain, discomfort and anxiety. Rajesh Roberts MD
--- NOTE | 2025-05-11 14:41 | PC.SS ---
Addendum entered by NELY Livingston 05/11/25 15:42: SS update: [facility] staff Amalia informs that they can accept the patient under comfort care under 5L of O2. Resident Dr. Larsen updated. Original Note: Rounding note: patient on comfort measures.
[2025-05-12] VITALS (8 sets, daily range): BP systolic 86–117; BP diastolic 59–69; PULSE 87–114; RESP 12–25; TEMP 35.9–36.6; O2SAT 78–95
[2025-05-12] MEDS: LORazepam 2 MG/ML VIAL IVP ×5 (03:46→21:05)
--- NOTE | 2025-05-12 11:05 | PD.RESPRO ---
Documentation for date of: 05/12/25 Subjective Subjective Interval history: No acute overnight events. Continue on comfort measures, appeared comfortable, no apparent distress. No signs of air hunger or agitation. Exam Vital Signs Temp Pulse Resp BP Pulse Ox O2 Del Method O2 Flow Rate 97.6 F 102 H 22 H 99/61 91 L Nasal Cannula 2 05/12/25 07:35 05/12/25 07:35 05/12/25 07:35 05/12/25 07:35 05/12/25 07:35 05/12/25 07:35 05/12/25 07:35 FiO2 45 05/11/25 12:00 Narrative Exam General: Comfortable. No apparent distress. Eyes: Pupils are equal and reactive to light bilaterally. Cardiovascular: Normal S1 and S2. Respiratory: CTAB. Abdomen: Soft, nontender, nondistended. Skin: No rash. Warm to touch. Objective Labs 05/10/25 04:20 05/10/25 04:20 ABG Interpretation ABG results: 04/28/25 04/28/25 04/29/25 08:00 23:00 18:22 ABG pH 7.41 7.39 ABG pCO2 37 42 ABG pO2 80 L 85 ABG HCO3 23 25 ABG O2 Saturation 97 97 ABG Base Excess -1 0 VBG pH 7.36 VBG pCO2 49 VBG pO2 27 VBG Base Excess 1 05/03/25 05/07/25 16:34 08:55 ABG pH 7.40 ABG pCO2 41 ABG pO2 64 L ABG HCO3 26 ABG O2 Saturation 92 ABG Base Excess 1 VBG pH 7.38 VBG pCO2 46 VBG pO2 40 VBG Base Excess 1 Quality Measures Quality Measures none Advance care planning discussed with:: patient Assessment & Plan Assessment Current Active Medications: Generic Name Dose Route Start Last Admin Trade Name Freq PRN Reason Stop Dose Admin Acetaminophen 650 mg 05/10/25 15:54 Acetaminophen 325 Mg Tablet PO 06/09/25 15:53 Q6HR PRN FEVER >101 Acetaminophen 650 mg 05/10/25 15:54 Acetaminophen Supp 650 Mg Supp MS 06/09/25 15:53 Q6HR PRN FEVER > 101 Protocol Artificial Tears 1 drop 05/10/25 15:54 Artificial Tears 225 Drop/15 Ml Btl BOTH EYES 06/09/25 15:53 Q4HR PRN Dry eyes Atropine Sulfate 2 drop 05/10/25 16:02 Atropine Sulf Op Georgette 1% 5 Ml Btl SL 06/09/25 15:53 Q4HR PRN SECRETIONS Diphenhydramine HCl 25 mg 05/10/25 15:54 Diphenhydramine Inj 50 Mg/Ml Vial IVP 06/09/25 15:53 Q6HR PRN ITCHING Gabapentin 100 mg 05/10/25 16:04 Gabapentin 100 Mg Capsule GT 06/09/25 15:53 Q8HR PRN Neuropathic pain Protocol Glycopyrrolate 0.2 mg 05/10/25 15:54 Glycopyrrolate Inj 0.2 Mg/Ml Vial IV 06/09/25 15:53 QID PRN As needed for secretions Morphine Sulfate 100 mls @ 6 mls/hr 05/11/25 11:36 05/11/25 19:00 Morphine Sulfate Iv Drip 100mg/100ml IV 05/15/25 19:08 6 mg/hr Q50H PRN 6 mls/hr PAIN (COMFORT CARE) Administration Protocol 6 MG/HR Lorazepam 2 mg 05/11/25 11:45 05/12/25 07:36 Lorazepam 2 Mg/Ml Vial IVP 05/16/25 11:44 2 mg Q4H ELLIOTT Administration Pantoprazole Sodium 40 mg 05/11/25 15:00 05/12/25 08:27 Pantoprazole Inj 40 Mg Vial IVP 06/10/25 14:59 40 mg QDAY ELLIOTT Administration Risperidone 2 mg 05/12/25 09:00 05/12/25 08:28 Risperidone 1 Mg Tablet PO 06/11/25 08:59 2 mg QDAY ELLIOTT Administration Scopolamine 1 mg 05/10/25 16:00 05/10/25 16:29 Scopolamine 1 Mg Tdsy TOP 06/09/25 15:59 1 mg Q3D ELLIOTT Administration Sennosides 2 tab 05/10/25 21:00 05/11/25 20:12 Senna Tablet PO 06/09/25 20:59 Not Given HS ELLIOTT Plan Mr. 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 He was admitted on April 26, 2025, with nausea, vomiting, diarrhea, and weakness. Imaging revealed extensive bilateral pulmonary emboli and a left upper extremity DVT. Initially, he chose comfort care, but later opted for full-code status and underwent thrombectomy and anticoagulation with a heparin drip, later transitioning to Eliquis. Despite partial resolution of his PE and some improvement in symptoms, his overall condition remained critical. He experienced acute hypoxemic respiratory failure, requiring BiPAP and high-flow oxygen. Despite this, his overall prognosis remains poor due to extensive metastatic disease, esophageal dysphagia requiring a PEG tube, severe protein-calorie malnutrition, and complications including possible pulmonary metastases, paraneoplastic syndromes, transaminitis, and immunocompromise. Over the course of his hospitalization, he declined further aggressive interventions, including continued anticoagulation and BiPAP support. As of May 10, 2025, Mr. Hale is DNR and has transitioned to comfort measures only. Acute hypoxemic respiratory failure Acute pulmonary embolism Left upper extremity DVT Possible Pulmonary metastatic cancer DVT left upper extremity SIRS Paraneoplastic leukocytosis Immunocompromised Esophageal carcinoma Esophageal dysphagia requiring G-tube Protein calorie malnutrition Hypertension Shock, multifactorial (resolved) Transaminitis, resolving Parkinsons disease Bipolar disorder SARBJIT, prerenal azotemia (resolved) Hypercalcemia (stable) ? Comfort measure Case was discussed with attending physician. Francisco J Larsen DO PGY II This document was transcribed using voice recognition technology. Minor inaccuracies may be present. Attending Provider Attestation/Addendum I have examined the patient, reviewed labs and imaging findings, discussed the case with the resident(s), and reviewed entered orders. I agree with the plan of care as outlined in this note. Continues to be on comfort care. Appears comfortable at bedside on morphine gtt. We will titrate down supplemental oxygen, will monitor closely for pain, discomfort and anxiety. Dr. Farhan MD
[2025-05-12] MEDS: Morphine IV Drip 100mg/100ml 100 ML 6 MG IV (12:40)
--- NOTE | 2025-05-12 15:02 | PC.SS ---
Rounding note: patient continues on comfort care measures.
[2025-05-13] VITALS: BP 94/56; PULSE 121; RESP 18; TEMP 36.8; O2SAT 72
[2025-05-13] MEDS: LORazepam 2 MG/ML VIAL IVP ×3 (01:25→08:43)
[2025-05-13] MEDS: Morphine IV Drip 100mg/100ml 100 ML 6 MG IV (07:26)
[2025-05-13 07:45] VITALS: BP 108/63; PULSE 132; RESP 20; TEMP 36.2; O2SAT 57
--- NOTE | 2025-05-13 08:10 | PC.NURSE ---
DR. ARNOLD MADE AWARE PT IS STILL GETTING GTUBE FEEDINGS, HAS HAD MULTIPLE BOWEL MOVEMENTS, AND GENERALIZE SWELLING.
--- NOTE | 2025-05-13 09:46 | DES_ITS ---
Documentation for date of: 05/13/25 Pronouncement Note Date and Time of Date of : 05/13/25 Time of : 09:44 Contributing Factors (1) Cardiopulmonary arrest: Summary Additional details: At 0937 AM, physician team was notified as patient had loss of pulse and had flatline on telemetry. I went to go examine the patient for pronounc ement. Pupillary, corneal and gag reflex absent. No chest rise appreciated, absent heart and breath sounds. Peripheral pulses including radial and dorsalis pedis absent. Patient appeared to be pale and had fixed, dilated and nonreactive pupils. At 9:47 AM the patient was pronounced likely related to cardiopulmonary arrest. Patient seen and care discussed with my attending physician, Dr. Farhan Gibson, PGY-2 Additional Data Attending physician: Rajesh Roberts MD
--- NOTE | 2025-05-13 12:33 | PC.NURSE ---
[facility] CONTACTED
--- NOTE | 2025-05-13 15:32 | PD.DDS ---
Documentation for date of: 05/13/25 Summary Date and Time Date of admission: 04/26/25 14:06 Summary Hospital Course: Mr. 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 He was admitted on April 26, 2025, with nausea, vomiting, diarrhea, and weakness. Imaging revealed extensive bilateral pulmonary emboli and a left upper extremity DVT. Initially, he chose comfort care, but later opted for full-code status and underwent thrombectomy and anticoagulation with a heparin drip, later transitioning to Eliquis. Despite partial resolution of his PE and some improvement in symptoms, his overall condition remained critical. He experienced acute hypoxemic respiratory failure, requiring BiPAP and high-flow oxygen. Despite this, his overall prognosis remains poor due to extensive metastatic disease, esophageal dysphagia requiring a PEG tube, severe protein-calorie malnutrition, and complications including possible pulmonary metastases, paraneoplastic syndromes, transaminitis, and immunocompromise. Over the course of his hospitalization, he declined further aggressive interventions, including continued anticoagulation and BiPAP support. As of May 10, 2025, Mr. Hale is DNR and has transitioned to comfort measures only. He was pronounced on 05/13/2025 at 9:44 AM. Condolences were given. Acute hypoxemic respiratory failure Acute pulmonary embolism Left upper extremity DVT Possible Pulmonary metastatic cancer DVT left upper extremity SIRS Paraneoplastic leukocytosis Immunocompromised Esophageal carcinoma Esophageal dysphagia requiring G-tube Protein calorie malnutrition Hypertension Shock, multifactorial (resolved) Transaminitis, resolving Parkinsons disease Bipolar disorder SARBJIT, prerenal azotemia (resolved) Hypercalcemia (stable) ? Comfort measure Case was discussed with attending physician. Francisco J Larsen DO PGY II This document was transcribed using voice recognition technology. Minor inaccuracies may be present. Additional Data Confirmation of as documented by pronouncing clinician: no pulse, no respirations, no heart sounds and pupils fixed and dilated Family: not available Attending/PCP notified?: No Attending physician: Blake Real MD Was code activated?: No Autopsy requested?: No principal examiner notified?: No Organ bank notified?: No Advance directives: No Hospice patient?: No Visit Providers Provider Primary care physician: Ashutosh Mahajan MD Consults: 04/27/25 09:55 Referral Physical Therapy Stat Comment: Physician Instructions: Diagnosis Contributing Factors (1) Cardiopulmonary arrest: Discharge Plan Plan Patient Disposition: Patient condition on transfer: Stable Prescriptions/Referrals Referrals: Ashutosh Mahajan MD [Primary Care Provider] - Patient/Caregiver Discharge Instructions Print Language: Romanian
== END 2025-05-13 09:44 | disposition expired | DRG 193 ==
LOC: SERX 13:18 → SERHOLD 14:47 → S2NX 17:44 → S2SX 04-29 16:10 → S2NX 05-02 11:18 → S2SX 05-03 22:01 → S2NX 05-04 08:25 → S2SX 05-04 08:25 → S2NX 05-05 00:13 → S3SX 05-11 03:07
PROVIDERS: Internal Medicine; Internal Medicine Cardiovascular Disease; Internal Medicine Critical Care Medicine; Physician Assistant Medical; Student in an Organized Health Care Education/Training Program; Admitting Provider Internal Medicine; Emergency Provider Family Medicine; PCP Family Medicine; Visit Provider Student in an Organized Health Care Education/Training Program
PROC: 4A023N6 Measurement of Cardiac Sampling and Pressure, Right Heart, Percutaneous Approach (ICD-10-PCS; principal; 2025-04-30 11:30)
DX: J18.9 Pneumonia, unspecified organism (principal); E43 Unspecified severe protein-calorie malnutrition; I26.94 Multiple subsegmental thrombotic pulmonary emboli without acute cor pulmonale; J96.01 Acute respiratory failure with hypoxia; C15.5 Malignant neoplasm of lower third of esophagus; C77.9 Secondary and unspecified malignant neoplasm of lymph node, unspecified; C79.51 Secondary malignant neoplasm of bone; C78.00 Secondary malignant neoplasm of unspecified lung; D84.81 Immunodeficiency due to conditions classified elsewhere; I27.82 Chronic pulmonary embolism; I50.30 Unspecified diastolic (congestive) heart failure; N17.9 Acute kidney failure, unspecified; N39.0 Urinary tract infection, site not specified; I82.622 Acute embolism and thrombosis of deep veins of left upper extremity; G20.A1 Parkinson's disease without dyskinesia, without mention of fluctuations; R74.01 Elevation of levels of liver transaminase levels; E86.0 Dehydration; F31.9 Bipolar disorder, unspecified; Z96.653 Presence of artificial knee joint, bilateral; Z90.49 Acquired absence of other specified parts of digestive tract; Z93.1 Gastrostomy status; E11.9 Type 2 diabetes mellitus without complications; E66.01 Morbid (severe) obesity due to excess calories; E78.5 Hyperlipidemia, unspecified; E83.52 Hypercalcemia; E86.1 Hypovolemia; E88.09 Other disorders of plasma-protein metabolism, not elsewhere classified; F41.9 Anxiety disorder, unspecified; I11.0 Hypertensive heart disease with heart failure; I48.91 Unspecified atrial fibrillation; R13.14 Dysphagia, pharyngoesophageal phase; R57.1 Hypovolemic shock; Z51.5 Encounter for palliative care; Z66 Do not resuscitate; Z68.36 Body mass index [BMI] 36.0-36.9, adult; Z74.01 Bed confinement status; Z79.01 Long term (current) use of anticoagulants; Z79.4 Long term (current) use of insulin; Z79.899 Other long term (current) drug therapy; Z87.11 Personal history of peptic ulcer disease; M19.90 Unspecified osteoarthritis, unspecified site; R04.0 Epistaxis; I46.8 Cardiac arrest due to other underlying condition
CPT/HCPCS: 36415; 36600; 70450; 71045; 71275; 74177; 80053; 80069; 80202; 81001; 82803; 83036; 83605; 83690; 83735; 83880; 84100; 84484; 85014; 85018; 85025; 85610; 85730; 87040; 87081; 87400; 87811; 93005; 93306; 93971; 94640; 94660; 94664; 94667; 96374; 96375; 97162; 99152; 99153; 99285; A4649; A9270; C1769; C1894; J0153; J0171; J0282; J0456; J0461; J0692; J0696; J1171; J1643; J1644; J1938; J2060; J2250; J2270; J2310; J2405; J2470; J2543; J3010; J3370; J3475; J3490; J7030; J7050; J7120; J7999; J8540; Q9967; J1836